=== PATIENT | female | born 1955 | race Caucasian/White ===

== ENCOUNTER 2021-03-11 20:54 | Observation (INO) | payer MEDICAID, OTHER ==
[~2021-03-11] VITALS: Ht 167.7 cm; Wt 78.9 kg
[2021-03-11] MEDS ORDERED: LACTATED RINGERS 1,000 ML IV SCH (21:15)
[2021-03-11 21:29] LABS: BASOPHILS % (AUTO) 1 % (0-10); EOSINOPHILS % (AUTO) 3 % (0-10); HEMATOCRIT 40 % (35-52); HEMOGLOBIN 12.8 G/DL (11.5-16.0); LYMPHOCYTES % (AUTO) 42 % (12-44); MEAN CORPUSCULAR HEMOGLOBIN 27 PG (25-34); MEAN CORPUSCULAR HGB CONC 32 G/DL (32-36); MEAN CORPUSCULAR VOLUME 87 FL (80-99); MEAN PLATELET VOLUME 9.5 FL (7.4-10.4); MONOCYTES % (AUTO) 7 % (0-12); NEUTROPHILS % (AUTO) 46 % (42-75); PLATELET COUNT 266 10^3/uL (130-400); WHITE BLOOD COUNT 8.3 10^3/uL (4.3-11.0)
[2021-03-11 21:30] LABS: BASOPHILS # (AUTO) 0.1 10^3/uL (0.0-0.1); EOSINOPHILS # (AUTO) 0.2 10^3/uL (0.0-0.3); LYMPHOCYTES # (AUTO) 3.5 X 10^3 (1.0-4.0); MONOCYTES # (AUTO) 0.6 X 10^3 (0.0-1.0); NEUTROPHILS # (AUTO) 3.8 X 10^3 (1.8-7.8)
--- NOTE | 2021-03-11 21:34 | Diagnostic Imaging Report ---
Clinical indication: Patient found unresponsive and brought in by EMS. Exam: Axial CT scan of the brain without IV contrast with coronal and sagittal reformatted images. Auto Exposure Controls were utilized during the CT exam to meet ALARA standards for radiation dose reduction. Comparison: None. Findings: There is no evidence of acute cerebral infarct, intracranial hemorrhage, or gross mass effect. The brain parenchymal volume appears appropriate for patient's age. Mild chronic small vessel ischemic disease changes are seen. There is normal haile-white matter distinction. There is no significant midline shift or herniation. There is no evidence of hydrocephalus. The basal cisterns are unremarkable. The skull, extracranial soft tissue and orbits are unremarkable. There is a small mucus retention cyst in the left maxillary sinus. There is minimal mucosal thickening in the sphenoid sinus. Temporal bones show no significant abnormality. Impression: There is mild paranasal sinus disease. Otherwise, unremarkable CT scan of the brain for age. Results of this report were discussed with Dr. Kenyon Solares via the telephone on 03/11/2021 at 2129 hours. Dictated by: Dictated on workstation # [id number]
[2021-03-11] MEDS ORDERED: PANT40TA52 PO (21:48)
[2021-03-11] MEDS ORDERED: TRAZ-227 PO ×2 (21:48)
[2021-03-11] MEDS ORDERED: QUET100T33 PO (21:48)
[2021-03-11] MEDS ORDERED: METO-333 PO ×2 (21:48)
[2021-03-11] MEDS ORDERED: SERT-414 PO ×2 (21:48)
[2021-03-11] MEDS ORDERED: [UNRECOGNIZED DRUG - CODE] PO (21:48)
[2021-03-11] MEDS ORDERED: OXYB10TA29 PO (21:48)
--- NOTE | 2021-03-11 21:48 | Diagnostic Imaging Report ---
Clinical indications: Patient brought in by EMS for unresponsiveness. Exam: Portable chest x-ray upright view. Comparisons: None. Findings: Lungs/pleura: Lungs are clear. There is no pneumothorax. There is no pleural effusion. Mediastinum: Unremarkable. Pulmonary vasculature: Unremarkable. Heart: Heart size is within normal limits. There are postop change to the chest with sternotomy wires and clips. Bones/extrathoracic soft tissue: There are degenerative spurs involving the thoracic spine. Impression: There is no radiographic evidence of acute cardiopulmonary process. Dictated by: Dictated on workstation # [id number]
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
[2021-03-11 21:52] LABS: BUN/CREATININE RATIO 17; CALCIUM 9.5 MG/DL (8.5-10.1); CARBON DIOXIDE 22 MMOL/L (21-32); CHLORIDE 106 MMOL/L (98-107); CREATININE SERUM 2.75 MG/DL (0.60-1.30); GFR ESTIMATED 17; GLUCOSE 158 MG/DL (70-105); POTASSIUM 3.8 MMOL/L (3.6-5.0); SODIUM 140 MMOL/L (135-145)
[2021-03-11 21:53] LABS: ALANINE AMINOTRANSFERASE 16 U/L (0-55); ALBUMIN 3.2 GM/DL (3.2-4.5); ALKALINE PHOSPHATASE 65 U/L (40-136); BILIRUBIN,TOTAL 0.2 MG/DL (0.1-1.0); LIPASE 55 U/L (8-78); TOTAL PROTEIN 6.4 GM/DL (6.4-8.2)
[2021-03-11 21:57] LABS: INR 0.9 (0.8-1.4); PROTHROMBIN TIME PATIENT 12.7 SEC (12.2-14.7)
--- NOTE | 2021-03-11 22:01 | Diagnostic Imaging Report ---
CLINICAL INDICATIONS: Patient brought in by EMS for being unresponsive. Patient fell a couple days ago. EXAM: Axial CT scan of the cervical spine performed without IV contrast. Sagittal and coronal reformatted images were created. Auto Exposure Controls were utilized during the CT exam to meet ALARA standards for radiation dose reduction. COMPARISON: None. FINDINGS: There is no acute cervical spine fracture. The intervertebral disk heights and vertebral body heights are within normal limits. There is subtle grade 1 anterolisthesis of C4 on C5 which is likely degenerative with no pars defects seen. There are mild hypertrophic spurs involving the cervical spine and facet arthropathy. There is heterogeneous bone noted, unknown if it is related to osteopenia. There is no destructive process seen. Visualized upper lung ernandez are clear. The neck soft tissue structures show no significant abnormality. IMPRESSION: 1: There is no acute cervical spine fracture. 2: There is cervical spine degenerative disease including grade 1 anterolisthesis of C4 on C5. Dictated by: Dictated on workstation # [id number]
[2021-03-11 23:07] LABS: CLARITY,URINE CLOUDY; COLOR,URINE DARK YELLOW; PH,URINE 5.5 (5-9)
[2021-03-11 23:08] LABS: BILIRUBIN,URINE NEGATIVE (NEGATIVE); GLUCOSE, URINE (UA) 1+ (NEGATIVE); KETONES,URINE NEGATIVE (NEGATIVE); LEUKOCYTE ESTERASE ,URINE NEGATIVE (NEGATIVE); NITRITE,URINE NEGATIVE (NEGATIVE); PROTEIN,URINE 2+ (NEGATIVE)
[2021-03-11 23:09] LABS: AMORPHOUS SEDIMENT,UR MOD AMOR URATES /LPF; BACTERIA,URINE NEGATIVE /HPF; HYALINE CASTS, URINE >50 /LPF; SQUAMOUS EPITHELIAL CELL,UR RARE /HPF; WBC,URINE RARE /HPF
[2021-03-11 23:10] LABS: AMPHETAMINE SCREEN, URINE POSITIVE (NEGATIVE); BENZODIAZEPINES SCREEN URINE NEGATIVE (NEGATIVE); COCAINE SCREEN URINE NEGATIVE (NEGATIVE); METHAMPHETAMINE SCREEN URINE S POSITIVE (NEGATIVE)
[2021-03-11 23:11] LABS: BARBITURATE SCREEN URINE NEGATIVE (NEGATIVE); CANNABINOID SCREEN, URINE POSITIVE (NEGATIVE); METHADONE STAT NEGATIVE (NEGATIVE); OPIATE SCREEN URINE NEGATIVE (NEGATIVE); OXYCODONE STAT NEGATIVE (NEGATIVE); PROPOXYPHENE STAT NEGATIVE (NEGATIVE); TRICYCLIC ANTIDEPRESSANTS SCRE NEGATIVE (NEGATIVE)
[2021-03-12 00:23] VITALS: BP 123/60
[2021-03-12] MEDS: LACTATED RINGERS 1,000 ML IV SCH ×2 (00:47→07:43)
[2021-03-12 03:39] VITALS: BP 137/75
[2021-03-12 07:23] VITALS: BP 125/72
[2021-03-12] MEDS ORDERED: MAGN400O7 PO ×2 (09:58)
[2021-03-12] MEDS ORDERED: ASPI-1238 PO ×2 (09:58)
[2021-03-12] MEDS ORDERED: ATOR80TA76 PO ×2 (09:58)
[2021-03-12] MEDS ORDERED: SODI325T PO ×2 (09:58)
[2021-03-12] MEDS ORDERED: LORA10TA7 PO ×2 (09:58)
[2021-03-12] MEDS ORDERED: ACET325T38 PO ×2 (09:58)
[2021-03-12] MEDS ORDERED: CLOP75TA28 PO ×2 (09:58)
[2021-03-12] MEDS ORDERED: METF-399 PO ×2 (09:58)
[2021-03-12] MEDS ORDERED: POLY17PO6 PO ×2 (09:58)
[2021-03-12] MEDS ORDERED: INSU100I14 SQ ×2 (09:58)
[2021-03-12] MEDS ORDERED: LACT1POW8 PO ×2 (09:58)
[2021-03-12] MEDS ORDERED: GABA300C PO ×2 (09:58)
[2021-03-12] MEDS ORDERED: INSU100I10 SQ ×2 (09:58)
[2021-03-12] MEDS ORDERED: OXYB10TA29 PO ×2 (09:58)
[2021-03-12] MEDS ORDERED: CALC-140 PO ×2 (09:58)
[2021-03-12] MEDS ORDERED: QUET100T33 PO ×2 (09:58)
[2021-03-12] MEDS ORDERED: PANT40TA52 PO ×2 (09:58)
[2021-03-12] MEDS ORDERED: RT-ALBUINH IH ×2 (09:58)
[2021-03-12] MEDS ORDERED: LISI2.5T PO ×2 (09:58)
[2021-03-12] MEDS ORDERED: LEVO175T5 PO ×2 (09:58)
[2021-03-12] MEDS ORDERED: SENN-273 PO ×2 (10:09)
[2021-03-12] MEDS ORDERED: SEMA0.25 SQ ×2 (10:09)
[2021-03-12] MEDS ORDERED: NICO-587 TD ×2 (10:09)
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
[2021-03-12 10:30] LABS: HEMATOCRIT 40 % (35-52); HEMOGLOBIN 12.6 g/dL (11.5-16.0); MEAN CORPUSCULAR HEMOGLOBIN 28 pg (25-34); MEAN CORPUSCULAR HGB CONC 31 g/dL (32-36); MEAN CORPUSCULAR VOLUME 88 fL (80-99); MEAN PLATELET VOLUME 9.8 fL (9.0-12.2); PLATELET COUNT 271 10^3/uL (130-400); WHITE BLOOD COUNT 7.4 10^3/uL (4.3-11.0)
--- NOTE | 2021-03-12 10:37 | Discharge Inst-Simple/Standard ---
Discharge Inst-Standard Patient Instructions/Follow Up Plan of Care/Instructions/FU: Please continue to take your medications as written. Please follow up with your primary care doctor to follow up this hospital stay. Activity as Tolerated: Yes Discharge Diet: Low Sodium Diet, ADA Diet Return to The Hospital For: Chest pain, weakness, confusion, fevers, if you feel you are getting worse. HI ROSALES MD Mar 12, 2021 10:37
[2021-03-12 10:46] LABS: CALCIUM 9.1 MG/DL (8.5-10.1); CREATININE SERUM 2.34 MG/DL (0.60-1.30); POTASSIUM 3.7 MMOL/L (3.6-5.0)
[2021-03-12 11:48] VITALS: BP 128/74
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
== END 2021-03-12 12:28 | disposition home or self-care (01) ==
LOC: ER FS 20:56 → 4TH 20:57 → UNDOADMOB 03-12 00:08 → UNDODISOB 03-12 12:25
PROVIDERS: ADMIT Internal Medicine; ATTEND Internal Medicine
DX: G93.40 Encephalopathy, unspecified (principal); R53.1 Weakness; E86.0 Dehydration; I95.9 Hypotension, unspecified; I25.2 Old myocardial infarction; I12.9 Hypertensive chronic kidney disease with stage 1 through stage 4 chronic kidney disease, or unspecified chronic kidney disease; E11.22 Type 2 diabetes mellitus with diabetic chronic kidney disease; N18.9 Chronic kidney disease, unspecified; I25.10 Atherosclerotic heart disease of native coronary artery without angina pectoris; E03.9 Hypothyroidism, unspecified; E78.00 Pure hypercholesterolemia, unspecified; F17.210 Nicotine dependence, cigarettes, uncomplicated; Z79.4 Long term (current) use of insulin; Z79.899 Other long term (current) drug therapy
CPT/HCPCS: 36415; 70450; 71045; 72125; 80048; 80053; 80306; 81000; 83605; 83690; 83880; 84484; 85025; 85027; 85610; 85730; 87040; 93005; 97162; 99285; G0378; G0480; 80320

== ENCOUNTER 2021-03-17 13:21 | Emergency (ER) | payer MEDICAID ==
[~2021-03-17 13:21] MED LIST: ACET325T38 PO; ASPI-1238 PO; ATOR80TA76 PO; CALC-140 PO; CLOP75TA28 PO; GABA300C PO; INSU100I10 SQ; INSU100I14 SQ; LACT1POW8 PO; LEVO175T5 PO; LISI2.5T PO; LORA10TA7 PO; MAGN400O7 PO; METF-399 PO; METO-333 PO; NICO-587 TD; OXYB10TA29 PO; PANT40TA52 PO; POLY17PO6 PO; QUET100T33 PO; RT-ALBUINH IH; SEMA0.25 SQ; SENN-273 PO; SERT-414 PO; SODI325T PO; TRAZ-227 PO; [UNRECOGNIZED DRUG - CODE] PO
[2021-03-17] MEDS ORDERED: NS IV ONE (13:30)
[2021-03-17] MEDS ORDERED: NS IV 1000 ML 1,000 ML IV SCH (13:30)
[2021-03-17] MEDS ORDERED: CEFEPIME INJECTION 1,000 MG in WATER (STERILE) FOR INJECTION 10 ML IV ONE (13:30)
--- NOTE | 2021-03-17 13:56 | Diagnostic Imaging Report ---
INDICATION: Sepsis. COMPARISON: Exam compared to 03/11/2021. FINDINGS: Single frontal radiograph of the chest shows postsurgical changes to the heart, stable. The heart size and configuration are normal. There is no failure, effusion, pneumothorax, or free air beneath the diaphragms. IMPRESSION: Stable chest. Dictated by: Dictated on workstation # [id number]
[2021-03-17] MEDS ORDERED: CEFEPIME 1 GM/10 ML (MAXIPIME) VIAL ONE (13:59)
[2021-03-17 14:33] LABS: HEMATOCRIT 38 % (35-52); HEMOGLOBIN 12.5 G/DL (11.5-16.0); LYMPHOCYTES % (AUTO) 33 % (12-44); MEAN CORPUSCULAR HEMOGLOBIN 27 PG (25-34); MEAN CORPUSCULAR HGB CONC 33 G/DL (32-36); MEAN CORPUSCULAR VOLUME 84 FL (80-99); MEAN PLATELET VOLUME 10.1 FL (7.4-10.4); MONOCYTES % (AUTO) 7 % (0-12); NEUTROPHILS % (AUTO) 57 % (42-75); PLATELET COUNT 249 10^3/uL (130-400); WHITE BLOOD COUNT 8.4 10^3/uL (4.3-11.0)
[2021-03-17 14:34] LABS: BASOPHILS # (AUTO) 0.1 10^3/uL (0.0-0.1); BASOPHILS % (AUTO) 1 % (0-10); EOSINOPHILS # (AUTO) 0.1 10^3/uL (0.0-0.3); EOSINOPHILS % (AUTO) 2 % (0-10); LYMPHOCYTES # (AUTO) 2.7 X 10^3 (1.0-4.0); MONOCYTES # (AUTO) 0.6 X 10^3 (0.0-1.0); NEUTROPHILS # (AUTO) 4.8 X 10^3 (1.8-7.8)
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
[2021-03-17 14:52] LABS: POTASSIUM 4.1 MMOL/L (3.6-5.0)
[2021-03-17 14:53] LABS: BILIRUBIN,TOTAL 0.3 MG/DL (0.1-1.0); CALCIUM 9.5 MG/DL (8.5-10.1); CREATININE SERUM 1.18 MG/DL (0.60-1.30)
[2021-03-17 14:54] LABS: ALBUMIN 3.4 GM/DL (3.2-4.5); TOTAL PROTEIN 7.2 GM/DL (6.4-8.2)
--- NOTE | 2021-03-17 15:11 | ED Cardiac General ---
History of Present Illness General Chief Complaint: Cardiac/General Problems Stated Complaint: LOW BP Nursing Triage Note: Patient's daughter reports patient was just discharged from [facility] on . States patient was doing well until she checked in to her follow up appointment at [facility], then patient became dizzy/unresponsive. Patient arrived to ED lethargig and hypotensive. Source: patient, family Exam Limitations: no limitations History of Present Illness Date Seen by Provider: Mar 17, 2021 Time Seen by Provider: 13:00 Initial Comments Patient is a 65-year-old female with history of hypertension, dyslipidemia and diabetes who presents with slurred speech, confusion and hypotension and witnessed syncopal episode by PCP's office located across from the ER. No injury reported.. Symptoms began after lunch. Patient does not check her blood sugar routinely. She has recently been admitted to [facility] last week for urinary tract infection/sepsis. She is not currently on antibiotics. She denies fever, chills, sweats, nausea or vomiting. No abdominal pain, urinary frequency urgency and burning. Denies headache. Does report some dizziness. History of IV drug use. Patient recently relocated from out of [facility] 8 days ago and prior to admission to outlying facility. Timing/Duration: 1/2 hour Severity: moderate Location: other Activities at Onset: none Prior CP/Workup: other Modifying Factors: improves with other Associated Systoms: Shortness of Air Allergies and Home Medications Allergies Coded Allergies: No Known Drug Allergies (Unverified , 03/11/21) Home Medications Acetaminophen 325 Mg Tablet, 325-650 MG PO Q4- 6H PRN for PAIN-MILD (1-4), (Rep orted) Albuterol Sulfate 1 Puff Puff, 1-2 PUFF IH Q4- 6H PRN for SHORTNESS OF BREATH, (Reported) Aspirin 81 Mg Tablet.dr, 81 MG PO DAILY, (Reported) Atorvastatin Calcium 80 Mg Tablet, 80 MG PO HS, (Reported) Calcium Carbonate/Vitamin D3 1 Each Tablet, 1 EACH PO BID, (Reported) Clopidogrel Bisulfate 75 Mg Tablet, 75 MG PO DAILY, (Reported) Gabapentin 300 Mg Capsule, 300 MG PO TID, (Reported) Insulin Aspart 300 Units/3 Ml Solution, 5 UNITS SQ AC, (Reported) Insulin Glargine,Hum.rec.anlog 100 Unit/1 Ml Insuln.pen, 10 UNIT SQ BID, (Reported) Lactobacillus Acidophilus 1 Gm Powder, 1 PACKET PO TID, (Reported) Levothyroxine Sodium 175 Mcg Tablet, 175 MCG PO DAILY, (Reported) Lisinopril 2.5 Mg Tablet, 2.5 MG PO HS, (Reported) Loratadine 10 Mg Tablet, 10 MG PO DAILY, (Reported) Magnesium Hydroxide 400 Mg/5 Ml Oral.susp, 5-15 ML PO QID PRN for CONSTIPATION- 7TH LINE, (Reported) Metformin HCl 1,000 Mg Tablet, 1,000 MG PO 0800,1700, (Reported) Metoprolol Tartrate 25 Mg Tablet, 25 MG PO BID, (Reported) Nicotine 1 Each Patch.td24, 14 MG TD DAILY, (Reported) Oxybutynin Chloride 10 Mg Tab.er.24, 10 MG PO DAILY, (Reported) Pantoprazole Sodium 40 Mg Tablet.dr, 40 MG PO DAILY, (Reported) Polyethylene Glycol 3350 17 Gm Powd.pack, 17 GM PO DAILY, (Reported) Quetiapine Fumarate 100 Mg Tablet, 100 MG PO HS, (Reported) Semaglutide 0.25 Mg/0.2 Ml Pen.injctr, 0.5 MG SQ TUESDAY, (Reported) Sennosides/Docusate Sodium 1 Each Tablet, 2 EACH PO HS, (Reported) TAKES 2 TABLETS Sertraline HCl 100 Mg Tablet, 100 MG PO DAILY, (Reported) Sodium Bicarbonate 325 Mg Tablet, 325 MG PO BID, (Reported) Trazodone HCl 100 Mg Tablet, 200 MG PO HS, (Reported) TAKES 2 (100MG) TABLETS Patient Home Medication List Home Medication List Reviewed: Yes Review of Systems Review of Systems Constitutional: see HPI EENTM: See HPI Respiratory: See HPI Cardiovascular: See HPI Genitourinary: See HPI Musculoskeletal: see HPI Skin: see HPI Psychiatric/Neurological: See HPI Endocrine: See HPI Hematologic/Lymphatic: See HPI All Other Systems Reviewed Negative Unless Noted: Yes Past Ttymcny-Myltrc-Suuzbc Hx Patient Social History Tobacco Use?: Yes Use of E-Cig and/or Vaping dev: Yes Use of E-Cig and/or Vaping Fish: Current Everyday User Seasonal Allergies Seasonal Allergies: Yes Past Medical History CABG, Open Heart Surgery, Orthopedic Coronary Artery Disease, High Cholesterol, Hypertension Renal Failure Diabetes, Insulin dep, Hypothyroidsim Family Medical History No Pertinent Family Hx Physical Exam Vital Signs Vital Signs - First Documented 03/17/21 13:30 Temp 36.4 Pulse 74 Resp 18 B/P (MAP) 69/45 (53) Pulse Ox 93 O2 Delivery Room Air Capillary Refill : Less Than 3 Seconds Height, Weight, BMI Height: '" Weight: lbs. oz. kg; 27.94 BMI Method: General Appearance: Other (Obtunded with mild respiratory depression) HEENT: PERRL/EOMI (Sluggishly reactive), Pharynx Normal, Other (Edentulous) Neck: Normal Inspection, Non Tender, Supple Respiratory: Chest Non Tender, Lungs Clear, No Respiratory Distress; No Respiratory Distress; Other (Diminished breath sounds bilaterally) Cardiovascular: Regular Rate, Rhythm, Other (Trace peripheral edema) Gastrointestinal: No Organomegaly, Non Tender, Soft Extremity: Normal Capillary Refill, Normal Inspection, Normal Range of Motion, Non Tender Neurologic/Psychiatric: Oriented x3, No Motor/Sensory Deficits, Normal Mood/Affect, Other (Obtunded) Skin: Normal Color Focused Exam Sepsis Stage: Ruled Out Lactate Level 03/17/21 13:35: Lactic Acid Level 2.28*H 03/17/21 16:00: Lactic Acid Level 1.86 Lactic Acid Level Laboratory Tests Test 03/17/21 13:35 03/17/21 16:00 Lactic Acid Level 2.28 MMOL/L (0.50-2.00) *H 1.86 MMOL/L (0.50-2.00) Progress/Results/Core Measures Results/Orders Lab Results Laboratory Tests Test 03/17/21 13:28 03/17/21 13:35 03/17/21 13:47 03/17/21 14:30 Range/Units Glucometer 203 H 70-110 MG/DL White Blood Count 8.4 4.3-11.0 10^3/uL Red Blood Count 4.57 4.35-5.85 10^6/uL Hemoglobin 12.5 11.5-16.0 G/DL Hematocrit 38 35-52 % Mean Corpuscular Volume 84 80-99 FL Mean Corpuscular Hemoglobin 27 25-34 PG Mean Corpuscular Hemoglobin Concent 33 32-36 G/DL Red Cell Distribution Width 14.6 H 10.0-14.5 % Platelet Count 249 130-400 10^3/uL Mean Platelet Volume 10.1 7.4-10.4 FL Immature Granulocyte % (Auto) 1 % Neutrophils (%) (Auto) 57 42-75 % Lymphocytes (%) (Auto) 33 12-44 % Monocytes (%) (Auto) 7 0-12 % Eosinophils (%) (Auto) 2 0-10 % Basophils (%) (Auto) 1 0-10 % Neutrophils # (Auto) 4.8 1.8-7.8 X 10^3 Lymphocytes # (Auto) 2.7 1.0-4.0 X 10^3 Monocytes # (Auto) 0.6 0.0-1.0 X 10^3 Eosinophils # (Auto) 0.1 0.0-0.3 10^3/uL Basophils # (Auto) 0.1 0.0-0.1 10^3/uL Immature Granulocyte # (Auto) 0.0 0.0-0.1 10^3/uL Sodium Level 140 135-145 MMOL/L Potassium Level 4.1 3.6-5.0 MMOL/L Chloride Level 105 98-107 MMOL/L Carbon Dioxide Level 24 21-32 MMOL/L Anion Gap 11 5-14 MMOL/L Blood Urea Nitrogen 17 7-18 MG/DL Creatinine 1.18 0.60-1.30 MG/DL Estimat Glomerular Filtration Rate 46 BUN/Creatinine Ratio 14 Glucose Level 229 H 70-105 MG/DL Lactic Acid Level 2.28 *H 0.50-2.00 MMOL/L Calcium Level 9.5 8.5-10.1 MG/DL Corrected Calcium 10.0 8.5-10.1 MG/DL Total Bilirubin 0.3 0.1-1.0 MG/DL Aspartate Amino Transf (AST/SGOT) 25 5-34 U/L Alanine Aminotransferase (ALT/SGPT) 20 0-55 U/L Alkaline Phosphatase 75 40-136 U/L Pro-B-Type Natriuretic Peptide 5344.0 H <75.0 PG/ML Total Protein 7.2 6.4-8.2 GM/DL Albumin 3.4 3.2-4.5 GM/DL Prothrombin Time 12.4 12.2-14.7 SEC INR Comment 0.9 0.8-1.4 Activated Partial Thromboplast Time 24 24-35 SEC Urine Color YELLOW Urine Clarity CLEAR Urine pH 6.0 5-9 Urine Specific [place] 1.010 L 1.016-1.022 Urine Protein 1+ H NEGATIVE Urine Glucose (UA) 1+ H NEGATIVE Urine Ketones NEGATIVE NEGATIVE Urine Nitrite NEGATIVE NEGATIVE Urine Bilirubin NEGATIVE NEGATIVE Urine Urobilinogen 0.2 < = 1.0 MG/DL Urine Leukocyte Esterase TRACE H NEGATIVE Urine RBC (Auto) TRACE H NEGATIVE Urine RBC 2-5 H /HPF Urine WBC 25-50 H /HPF Urine Squamous Epithelial Cells 2-5 /HPF Urine Crystals NONE /LPF Urine Bacteria NEGATIVE /HPF Urine Casts PRESENT /LPF Urine Hyaline Casts 2-5 H /LPF Urine Mucus NEGATIVE /LPF Urine Culture Indicated CULTURE PENDING Urine Opiates Screen NEGATIVE NEGATIVE Urine Oxycodone Screen NEGATIVE NEGATIVE Urine Methadone Screen NEGATIVE NEGATIVE Urine Propoxyphene Screen NEGATIVE NEGATIVE Urine Barbiturates Screen NEGATIVE NEGATIVE Ur Tricyclic Antidepressants Screen POSITIVE H NEGATIVE Urine Phencyclidine Screen NEGATIVE NEGATIVE Urine Amphetamines Screen NEGATIVE NEGATIVE Urine Methamphetamines Screen NEGATIVE NEGATIVE Urine Benzodiazepines Screen NEGATIVE NEGATIVE Urine Cocaine Screen NEGATIVE NEGATIVE Urine Cannabinoids Screen NEGATIVE NEGATIVE Test 03/17/21 16:00 Range/Units Lactic Acid Level 1.86 0.50-2.00 MMOL/L Micro Results Microbiology 03/17/21 Influenza Types A,B Antigen (KIM) - Final, Complete My Orders Orders - ANALI ROCHA DO Cbc With Automated Diff (03/17/21 13:27) Comprehensive Metabolic Panel (03/17/21 13:27) Blood Culture (03/17/21 13:27) Urinalysis (03/17/21 13:27) Urine Culture (03/17/21 13:27) Protime With Inr (03/17/21 13:27) Partial Thromboplastin Time (03/17/21 13:27) Chest 1 View Ap/Pa Only (03/17/21 13:27) Ed Iv/Invasive Line Start (03/17/21 13:27) Ed Iv/Invasive Line Start (03/17/21 13:27) Vital Signs Adult Sepsis Patie Q15M (03/17/21 13:27) O2 (03/17/21 13:27) Remove Rings In Anticipation O (03/17/21 13:27) Lactic Acid Analyzer (03/17/21 13:27) Influenza A And B Antigens (03/17/21 13:27) Ns Iv 1000 Ml (Sodium Chloride 0.9%) (03/17/21 13:30) Cefepime Injection (Maxipime Injection) (03/17/21 13:30) Ns Iv 1000 Ml (Sodium Chloride 0.9%) (03/17/21 13:30) Ekg-Prn For Chest Pain Or Rhyt (03/17/21 13:27) Probnp Fs (03/17/21 13:27) Hand 2 View Left (03/17/21 13:59) Forearm 2 View Left (03/17/21 13:59) Drug Screen Stat (Urine) (03/17/21 14:22) Ceftriaxone (Rocephin) (03/17/21 16:30) Furosemide Injection (Lasix Injection) (03/17/21 17:00) Medications Given in ED Current Medications Medications Dose Ordered Sig/Emerita Route Start Time Stop Time Status Last Admin Dose Admin Cefepime HCl 1000 mg/Sterile Water 10 ml @ 200 mls/hr ONCE ONCE IV 03/17/21 13:30 03/17/21 13:32 DC 03/17/21 14:20 200 MLS/HR Sodium Chloride 2,367 ml @ 2,367 mls/hr ONCE ONCE IV 03/17/21 13:30 03/17/21 14:29 DC 03/17/21 13:40 2,367 MLS/HR Vital Signs/I&O 03/17/21 13:30 Temp 36.4 Pulse 74 Resp 18 B/P (MAP) 69/45 (53) Pulse Ox 93 O2 Delivery Room Air Blood Pressure Mean: 53 Departure Communication (Admissions) EKG: Sinus rhythm, rate 72, no acute ST-T wave changes, normal QTC, QRS, QTc interval. Chest x-ray: No acute cardiopulmonary disease. Left hand: Remnant radiopaque object present consistent with IV retained needle. No overlying soft Patient with hypotension improved with IV fluids in the emergency department. Patient blood pressure stable she is more alert. Clinically she appears volume depleted. IV antibiotics given for possible urinary tract infection. Elevated BNP of uncertain clinical importance. Single dose of Lasix given. Patient with retained foreign body into right hand without evidence of overlying soft tissue infection. Will defer further intervention to PCP for surgical referral. Patient instructed to continue antibiotics and follow-up with PCP for review of the ED labs, imaging studies and medication management. Return precautions reviewed. Patient verbalizes understanding agreement discharge instructions prior to departure Impression Primary Impression: Hypotension Additional Impressions: Urinary tract infection Elevated brain natriuretic peptide (BNP) level Disposition: 01 HOME, SELF-CARE Condition: Stable Departure-Patient Inst. Decision time for Depature: 17:04 Referrals: NICK ROTH APRN (PCP) Primary Care Physician [facility] (Family) Primary Care Physician Patient Instructions: CHF, Urinary Tract Infection, Adult ED, Low Blood Pressur e (DC) Add. Discharge Instructions: Please follow-up with your PCP for reevaluation of the ED labs and imaging studies and further medication management. Continue all home medication and take as directed. Return to the ED if new or worsening symptoms All discharge instructions reviewed with patient and/or family. Voiced understanding. Scripts Cephalexin (Cephalexin) 500 Mg Tablet 500 MG PO TID, #21 TAB Prov: ANALI ROCHA DO 03/17/21 ANALI ROCHA DO Mar 17, 2021 15:11
[2021-03-17 15:37] LABS: INR 0.9 (0.8-1.4); PROTHROMBIN TIME PATIENT 12.4 SEC (12.2-14.7)
[2021-03-17 16:19] LABS: CLARITY,URINE CLEAR; COLOR,URINE YELLOW; GLUCOSE, URINE (UA) 1+ (NEGATIVE); PROTEIN,URINE 1+ (NEGATIVE)
[2021-03-17 16:20] LABS: BACTERIA,URINE NEGATIVE /HPF; BILIRUBIN,URINE NEGATIVE (NEGATIVE); KETONES,URINE NEGATIVE (NEGATIVE); LEUKOCYTE ESTERASE ,URINE TRACE (NEGATIVE); NITRITE,URINE NEGATIVE (NEGATIVE); WBC,URINE 25-50 /HPF
[2021-03-17 16:21] LABS: AMPHETAMINE SCREEN, URINE NEGATIVE (NEGATIVE); BARBITURATE SCREEN URINE NEGATIVE (NEGATIVE); BENZODIAZEPINES SCREEN URINE NEGATIVE (NEGATIVE); CANNABINOID SCREEN, URINE NEGATIVE (NEGATIVE); COCAINE SCREEN URINE NEGATIVE (NEGATIVE); METHADONE STAT NEGATIVE (NEGATIVE); METHAMPHETAMINE SCREEN URINE S NEGATIVE (NEGATIVE); OPIATE SCREEN URINE NEGATIVE (NEGATIVE); OXYCODONE STAT NEGATIVE (NEGATIVE); PROPOXYPHENE STAT NEGATIVE (NEGATIVE); TRICYCLIC ANTIDEPRESSANTS SCRE POSITIVE (NEGATIVE)
[2021-03-17] MEDS ORDERED: cefTRIAXone 1,000 MG in WATER (STERILE) FOR INJECTION 10 ML IV ONE (16:30)
[2021-03-17] MEDS ORDERED: FUROSEMIDE 40 MG/4 ML INJ (LASIX) IVP ONE (17:00)
[2021-03-17] MEDS ORDERED: CEPH500T PO (17:05)
[2021-03-17 17:40] VITALS: BP 108/46
== END 2021-03-17 17:40 | disposition home or self-care (01) ==
LOC: EDUNIT# 13:21 → ER FS 13:23
DX: I95.9 Hypotension, unspecified (principal); N39.0 Urinary tract infection, site not specified; R79.89 Other specified abnormal findings of blood chemistry; I10 Essential (primary) hypertension; E78.00 Pure hypercholesterolemia, unspecified; I25.10 Atherosclerotic heart disease of native coronary artery without angina pectoris; E11.9 Type 2 diabetes mellitus without complications; E03.9 Hypothyroidism, unspecified; F17.200 Nicotine dependence, unspecified, uncomplicated; Z79.82 Long term (current) use of aspirin; Z79.899 Other long term (current) drug therapy; Z79.890 Hormone replacement therapy; Z79.4 Long term (current) use of insulin
CPT/HCPCS: 36415; 71045; 73120; 80053; 80306; 81000; 82947; 83605; 83880; 85025; 85610; 85730; 87040; 87088; 87804; 93005

== ENCOUNTER 2021-04-15 05:42 | Outpatient (CLI) | payer MEDICAID ==
[~2021-04-15] VITALS: Ht 167 cm; Wt 81.6 kg
[~2021-04-15 05:42] MED LIST changes: +CEPH500T PO
== END 2021-04-15 14:08 | disposition home or self-care (01) ==
LOC: PREOP 05:42
PROVIDERS: ATTEND Surgery
DX: Z01.818 Encounter for other preprocedural examination (principal)

== ENCOUNTER 2021-05-25 23:09 | Observation (INO) | payer MEDICAID ==
[~2021-05-25] VITALS: Ht 168 cm; Wt 79.0 kg
[~2021-05-25 23:09] MED LIST changes: -LISI2.5T PO; +LISI2.5T13 PO
--- NOTE | 2021-05-25 23:21 | ED Neurological Problem ---
General Stated Complaint: STROKE SYMPTOMS Source: patient, EMS Exam Limitations: clinical condition History of Present Illness Date Seen by Provider: May 25, 2021 Time Seen by Provider: 23:15 Initial Comments 65-year-old female presents via EMS after a fall at home and decreased responsiveness with left-sided weakness onset just prior to arrival. Discussed w patients daughter whom she lives with. She was fine at dinner and afterwards she took her PM meds. She was using her walker and fell in the restroom and was too weak to get up to use the toilet. She vomited and then had a change of Mental Status and difficulty speaking. Daughter states she moved from [place] to live with them a few months ago. She has been having frequent headaches. NO Hx of CVA, but was seen in this ER for sudden decreased MS change recently and admitted overnight w complete recovery and no abnormal findings. PMHx signif for CAD / NV. Takes Plavix and ASA. Last known well, 10:15pm tonight Allergies and Home Medications Allergies Coded Allergies: Sulfa (Sulfonamide Antibiotics) (Verified Allergy, Severe, hives, 04/15/21) Patient Home Medication List Home Medication List Reviewed: Yes Acetaminophen (Tylenol) 325 Mg Tablet, 325-650 MG PO Q4- 6H PRN for PAIN-MILD (1-4), (Reported) Entered as Reported by: CARMELITA GOODRICH on 03/12/21 09 Albuterol Sulfate (Proair Hfa) 1 Puff Puff, 1-2 PUFF IH Q4- 6H PRN for SHORTNESS OF BREATH, (Reported) Entered as Reported by: CARMELITA GOODRICH on 03/12/21 09 Aspirin (Aspirin EC) 81 Mg Tablet.dr, 81 MG PO DAILY, (Reported) Entered as Reported by: CARMELITA GOODRICH on 03/12/21 09 Atorvastatin Calcium (Atorvastatin Calcium) 80 Mg Tablet, 80 MG PO HS, (Reported) Entered as Reported by: CARMELITA GOODRICH on 03/12/21 09 Calcium Carbonate/Vitamin D3 (Calcium + Vitamin D Tablet) 1 Each Tablet, 1 EACH PO BID, (Reported) Entered as Reported by: CARMELITA GOODRICH on 03/12/21 09 Cephalexin (Cephalexin) 500 Mg Tablet, 500 MG PO TID Prescribed by: ANALI ROCHA on 03/17/21 1705 Clopidogrel Bisulfate (Clopidogrel) 75 Mg Tablet, 75 MG PO DAILY, (Reported) Entered as Reported by: CARMELITA GOODRICH on 03/12/21957 Gabapentin (Neurontin) 300 Mg Capsule, 300 MG PO TID, (Reported) Entered as Reported by: CARMELITA GOODRICH on 03/12/21957 Insulin Aspart (Novolog Flexpen) 300 Units/3 Ml Solution, 5 UNITS SQ AC, (Reported) Entered as Reported by: CARMELITA GOODRICH on 03/12/21957 Insulin Glargine,Hum.rec.anlog (Lantus Solostar) 100 Unit/1 Ml Insuln.pen, 10 UNIT SQ BID, (Reported) Entered as Reported by: CARMELITA GOODRICH on 03/12/21957 Lactobacillus Acidophilus (Acidophilus Lactobacillus) 1 Gm Powder, 1 PACKET PO TID, (Reported) Entered as Reported by: CARMELITA GOODRICH on 03/12/21957 Levothyroxine Sodium (Levothyroxine Sodium) 175 Mcg Tablet, 175 MCG PO DAILY, (Reported) Entered as Reported by: CARMELITA GOODRICH on 03/12/21957 Lisinopril (Lisinopril) 2.5 Mg Tablet, 2.5 MG PO HS, (Reported) Entered as Reported by: CARMELITA GOODRICH on 03/12/21957 Loratadine (Loratadine) 10 Mg Tablet, 10 MG PO DAILY, (Reported) Entered as Reported by: CARMELITA GOODRICH on 03/12/21957 Magnesium Hydroxide (Milk of Magnesia) 400 Mg/5 Ml Oral.susp, 5-15 ML PO QID PRN for CONSTIPATION-7TH LINE, (Reported) Entered as Reported by: CARMELITA GOODRICH on 03/12/21957 Metformin HCl (Metformin HCl) 1,000 Mg Tablet, 1,000 MG PO 0800,1700, (Reported) Entered as Reported by: CARMELITA GOODRICH on 03/12/21957 Metoprolol Tartrate (Metoprolol Tartrate) 25 Mg Tablet, 25 MG PO BID, (Reported) Entered as Reported by: OCTAVIO ARENAS on 03/11/212147 Nicotine (Nicotine Patch) 1 Each Patch.td24, 14 MG TD DAILY, (Reported) Entered as Reported by: CARMELITA GOODRICH on 03/12/211008 Oxybutynin Chloride (Oxybutynin Chloride ER) 10 Mg Tab.er.24, 10 MG PO DAILY, (Reported) Entered as Reported by: CARMELITA GOODRICH on 03/12/21957 Pantoprazole Sodium (Pantoprazole Sodium) 40 Mg Tablet.dr, 40 MG PO DAILY, (Reported) Entered as Reported by: CARMELITA GOODRICH on 03/12/21957 Polyethylene Glycol 3350 (Miralax) 17 Gm Powd.pack, 17 GM PO DAILY, (Reported) Entered as Reported by: CARMELITA GOODRICH on 03/12/21957 Quetiapine Fumarate (Quetiapine Fumarate) 100 Mg Tablet, 100 MG PO HS, (Reported) Entered as Reported by: CARMELITA GOODRICH on 03/12/21957 Semaglutide (Ozempic) 0.25 Mg/0.2 Ml Pen.injctr, 0.5 MG SQ TUESDAY, (Reported) Entered as Reported by: CARMELITA GOODRICH on 03/12/211008 Sennosides/Docusate Sodium (Senna-S 8.6-50 mg Tablet) 1 Each Tablet, 2 EACH PO HS, (Reported) Entered as Reported by: CARMELITA GOODRICH on 03/12/211008 Sertraline HCl (Sertraline HCl) 100 Mg Tablet, 100 MG PO DAILY, (Reported) Entered as Reported by: OCTAVIO ARENAS on 03/11/212147 Sodium Bicarbonate (Sodium Bicarbonate) 325 Mg Tablet, 325 MG PO BID, (Reported) Entered as Reported by: CARMELITA GOODRICH on 03/12/21957 Trazodone HCl (Trazodone HCl) 100 Mg Tablet, 200 MG PO HS, (Reported) Entered as Reported by: OCTAVIO ARENAS on 03/11/212147 Review of Systems Review of Systems Constitutional: No chills, No fever; weakness Eyes: No Symptoms Reported Ears, Nose, Mouth, Throat: no symptoms reported Respiratory: no symptoms reported; No cough, No short of breath Cardiovascular: No chest pain, No edema, No palpitations Gastrointestinal: No abdominal pain, No vomiting Musculoskeletal: No back pain, No joint pain Skin: No change in color, No lesions Psychiatric/Neurological: Denies Headache; Unable to Move Lower Ext, Unable to Move Upper Ext, Weakness Past Vyhsxoh-Jegpjv-Twtfee Hx Patient Social History Tobacco Use?: No Immunizations Up To Date Tetanus Booster (TDap): Unknown Seasonal Allergies Seasonal Allergies: Yes Past Medical History Surgeries: Yes (right elbow, left ankle, right rotator cuff, right hip, ear tubes) CABG, Open Heart Surgery, Orthopedic Respiratory: Yes Sleep Apnea Currently Using CPAP: No Cardiac: Yes Coronary Artery Disease, High Cholesterol, Hypertension, Hypotension Neurological: Yes Headaches /Migraines, Neuropathy Genitourinary: Yes Renal Failure Gastrointestinal: No Hepatitis Musculoskeletal: Yes Arthritis, Chronic Back Pain Endocrine: Yes Diabetes, Insulin dep, Hypothyroidsim HEENT: Yes (decreased vision due to DM) Loss of Vision: Bilateral Hearing Impairment: Denies Cancer: Yes Skin Did You Recieve Any Treatments: Yes What Type of Treatment Did You: Surgical Intervention Anxiety, Bipolar, Depression Integumentary: Yes Eczema Blood Disorders: Yes (Hep C) Family Medical History No Pertinent Family Hx Physical Exam Vital Signs Vital Signs - First Documented 05/25/21 23:10 Temp 36.0 Pulse 57 Resp 18 B/P (MAP) 72/51 (58) Pulse Ox 95 O2 Delivery Room Air Capillary Refill : Height, Weight, BMI Height: '" Weight: lbs. oz. kg; 29.25 BMI Method: General Appearance: WD/WN, no apparent distress HEENT: PERRL/EOMI, normal ENT inspection Neck: non-tender, supple Respiratory: chest non-tender, lungs clear, normal breath sounds Cardiovascular: regular rate, rhythm, no edema, no JVD Gastrointestinal: normal bowel sounds, non tender, soft, no organomegaly, no pulsatile mass Back: normal inspection, no CVA tenderness Extremities: no pedal edema, normal capillary refill, pelvis stable Neurologic/Psychiatric: alert, oriented x 3, abnormal cerebellar tests, facial droop, motor weakness Crainal Nerves: normal hearing, abnormal speech, facial asymmetry, facial droop Coordination/Gait: ABN nose to finger (L) Motor/Sensory: pronator drift (L), weak motor strength LUE, weak motor strength LLE Skin: normal color, warm/dry Stroke Onset of Symptoms Date of Onset of Symptoms: May 25, 2021 Time of Symptom Onset: 10:45 Onset of Symptoms: Yes NIH Stroke Scale Assessment Select: Post CT 0 Level of Consciousness: 0=Alert (0), Level of Consciousness-Questions: 0=Answers both month/age (0), LOC Commands: 0=Performs both tasks (0), Gaze: Normal (0), Visual [place]: 0=No visual loss (0), Facial Movement (Facial Paresis): 2=Partial paralysis (2), Motor Function-Arms Right: 0=No drift (0), Motor Function-Arms Left: 1=Drift (1), Motor Function-Legs Right: 0=No drift (0), Motor Function-Legs Left: 1=Drift (1), Limb Ataxia: 2=Present in two limbs (2), Sensory: 0=Normal:no loss (0), Best Language: 0=No aphasia (0), Dysarthria: 1=Mild to moderate loss (1), Extinction & Inattention: 0=No abnormality (0), Total: 7 Stroke Thrombolytic Exclusion Age 18 or Over: Yes Acute intenal hemorrhage: No History of CVA: No Intracranial Hemorrhage: No Severe Hypertension: No GI or Bleed: No Subarachnoid Hemorrhage: No Intracranial Neoplasm/Aneurysm: No Oral Anticoagulants: Yes Surgery or Trauma: No Puncture of Non-Compressible V: No Recent CPR: No Diabetic Hemorrhagic Retinopat: No Organ Biopsy: No Recent Obstetric Delivery: No Glucose: No Significant Hepatic Dysfunctio: No NIH Stoke Scale >22: No Bacterial Endocarditis: No Pericarditis: No Improving Symptoms: No Platelets: No TPA Contraindication: No Progress/Results/Core Measures Results/Orders Lab Results Laboratory Tests Test 05/25/21 23:13 05/25/21 23:15 05/25/21 23:43 Range/Units Glucometer 211 H 70-110 MG/DL White Blood Count 8.4 4.3-11.0 10^3/uL Red Blood Count 4.68 3.80-5.11 10^6/uL Hemoglobin 12.8 11.5-16.0 g/dL Hematocrit 39 35-52 % Mean Corpuscular Volume 83 80-99 fL Mean Corpuscular Hemoglobin 27 25-34 pg Mean Corpuscular Hemoglobin Concent 33 32-36 g/dL Red Cell Distribution Width 15.6 H 10.0-14.5 % Platelet Count 237 130-400 10^3/uL Mean Platelet Volume 9.4 9.0-12.2 fL Immature Granulocyte % (Auto) 1 % Neutrophils (%) (Auto) 47 42-75 % Lymphocytes (%) (Auto) 44 12-44 % Monocytes (%) (Auto) 6 0-12 % Eosinophils (%) (Auto) 2 0-10 % Basophils (%) (Auto) 1 0-10 % Neutrophils # (Auto) 3.9 1.8-7.8 X 10^3 Lymphocytes # (Auto) 3.7 1.0-4.0 X 10^3 Monocytes # (Auto) 0.5 0.0-1.0 X 10^3 Eosinophils # (Auto) 0.2 0.0-0.3 10^3/uL Basophils # (Auto) 0.1 0.0-0.1 10^3/uL Immature Granulocyte # (Auto) 0.1 0.0-0.1 10^3/uL Prothrombin Time 12.0 L 12.2-14.7 SEC INR Comment 0.9 0.8-1.4 Activated Partial Thromboplast Time 21 L 24-35 SEC Sodium Level 136 135-145 MMOL/L Potassium Level 4.0 3.6-5.0 MMOL/L Chloride Level 103 98-107 MMOL/L Carbon Dioxide Level 22 21-32 MMOL/L Anion Gap 11 5-14 MMOL/L Blood Urea Nitrogen 28 H 7-18 MG/DL Creatinine 1.24 0.60-1.30 MG/DL Estimat Glomerular Filtration Rate 44 BUN/Creatinine Ratio 23 Glucose Level 230 H 70-105 MG/DL Calcium Level 9.4 8.5-10.1 MG/DL Corrected Calcium 10.1 8.5-10.1 MG/DL Total Bilirubin 0.2 0.1-1.0 MG/DL Aspartate Amino Transf (AST/SGOT) 26 5-34 U/L Alanine Aminotransferase (ALT/SGPT) 19 0-55 U/L Alkaline Phosphatase 89 40-136 U/L Troponin I < 0.30 <0.30 NG/ML Total Protein 6.3 L 6.4-8.2 GM/DL Albumin 3.1 L 3.2-4.5 GM/DL Urine Color YELLOW Urine Clarity CLEAR Urine pH 6.0 5-9 Urine Specific [place] 1.020 1.016-1.022 Urine Protein 3+ H NEGATIVE Urine Glucose (UA) TRACE H NEGATIVE Urine Ketones NEGATIVE NEGATIVE Urine Nitrite NEGATIVE NEGATIVE Urine Bilirubin NEGATIVE NEGATIVE Urine Urobilinogen 0.2 < = 1.0 MG/DL Urine Leukocyte Esterase NEGATIVE NEGATIVE Urine RBC (Auto) TRACE-I NEGATIVE Urine RBC 2-5 H /HPF Urine WBC 2-5 /HPF Urine Squamous Epithelial Cells 10-25 H /HPF Urine Crystals NONE /LPF Urine Bacteria NEGATIVE /HPF Urine Casts PRESENT /LPF Urine Hyaline Casts 25-50 H /LPF Urine Mucus SMALL H /LPF Urine Culture Indicated NO My Orders Orders - ROVENSTALVA HENSONEN L DO Ct Head Wo (05/25/21 23:15) Ed Iv/Invasive Line Start (05/25/21 23:15) Cbc With Automated Diff (05/25/21 23:15) Comprehensive Metabolic Panel (05/25/21 23:15) Troponin I Fs (05/25/21 23:15) Protime With Inr (05/25/21 23:15) Partial Thromboplastin Time (05/25/21 23:15) Ekg Tracing (05/25/21 23:15) Urinalysis (05/25/21 23:15) Ct Angio Head/Neck (05/25/21 23:40) [place] Cath (05/25/21 23:46) Iohexol Injection (Omnipaque 350 Mg/Ml 1 (05/26/21 00:15) Received Contrast (Hold Metformin- Contr (05/26/21 00:15) Ns (Ivpb) (Sodium Chloride 0.9% Ivpb Bag (05/26/21 00:15) Medications Given in ED Current Medications Medications Dose Ordered Sig/Emerita Route Start Time Stop Time Status Last Admin Dose Admin Iohexol 100 ml ONCE ONCE IV 05/26/21 00:15 05/26/21 00:18 DC 05/26/21 00:12 60 ML Sodium Chloride 100 ml ONCE ONCE IV 05/26/21 00:15 05/26/21 00:18 DC 05/26/21 00:12 80 ML Vital Signs/I&O 05/25/21 05/25/21 05/26/21 05/26/21 23:10 23:54 02:15 03:09 Temp 36.0 36.0 Pulse 57 63 58 61 Resp 18 18 18 18 B/P (MAP) 72/51 (58) 111/84 147/74 150/74 (99) Pulse Ox 95 97 95 99 O2 Delivery Room Air Room Air Room Air Room Air Progress Progress Note : Progress Note Called [facility]- stroke line after initial "normal CT", advised a CTA. Got a CTA that was normal (for brain w some Carotid disease) and then Dr Mercado told me they didn't have any Tele beds and they couldn't accept the patient. 0045- Re-examination, patient no longer having weakness and ataxia of Left side. Speech has normalized, just somnulent now Initial ECG Impression Date: May 26, 2021 Initial ECG Impression Time: 21:40 Initial ECG Rate: 80 Initial ECG Rhythm: Normal Sinus Initial ECG Intervals: Normal Initial ECG Impression: Normal Initial ECG Comparisson: No Previous ECG Available Departure Communication (Admissions) Time/Spoke to Admitting Phy: 00:[address] Lundberg and discussed patient presentation via EMS for what appeared to be an acute CVA, normal CT, consult w [facility], then normal CTA w carotid dz. RE-examine patient afterwards and improved symptoms....baseline. Hx of acute MS change and hospital admission w negative work up in recent past. Hx of freq CISNEROS's, CAD on plavix and ASA. Impression Primary Impression: TIA (transient ischemic attack) Additional Impression: Change in mental status Qualified Codes: R41.82 - Altered mental status, unspecified Disposition: 30 STILL A PATIENT Condition: Improved Admissions Decision to Admit Reason: Admit from ER (General) Decision to Admit/Date: May 26, 2021 Time/Decision to Admit Time: 00:00 Transfer Transfer Reason: Exceeds level of care Departure-Patient Inst. Referrals: NICK ROTH APRN (PCP) Primary Care Physician [facility] (Family) Primary Care Physician SERJIO BUTCHER DO May 25, 2021 23:21
[2021-05-25 23:28] LABS: BASOPHILS # (AUTO) 0.1 10^3/uL (0.0-0.1); BASOPHILS % (AUTO) 1 % (0-10); EOSINOPHILS # (AUTO) 0.2 10^3/uL (0.0-0.3); EOSINOPHILS % (AUTO) 2 % (0-10); HEMATOCRIT 39 % (35-52); HEMOGLOBIN 12.8 g/dL (11.5-16.0); LYMPHOCYTES # (AUTO) 3.7 X 10^3 (1.0-4.0); LYMPHOCYTES % (AUTO) 44 % (12-44); MEAN CORPUSCULAR HEMOGLOBIN 27 pg (25-34); MEAN CORPUSCULAR HGB CONC 33 g/dL (32-36); MEAN CORPUSCULAR VOLUME 83 fL (80-99); MEAN PLATELET VOLUME 9.4 fL (9.0-12.2); MONOCYTES # (AUTO) 0.5 X 10^3 (0.0-1.0); MONOCYTES % (AUTO) 6 % (0-12); NEUTROPHILS # (AUTO) 3.9 X 10^3 (1.8-7.8); NEUTROPHILS % (AUTO) 47 % (42-75); PLATELET COUNT 237 10^3/uL (130-400); WHITE BLOOD COUNT 8.4 10^3/uL (4.3-11.0)
--- NOTE | 2021-05-25 23:32 | Diagnostic Imaging Report ---
EXAMINATION: CT head without contrast. TECHNIQUE: Multiple contiguous axial images were obtained through the brain without the use of intravenous contrast. All CT scans use one or more of the following dose optimizing techniques: automated exposure control, MA and/or KvP adjustment based on patient size and exam type or iterative reconstruction. HISTORY: left sided weakness COMPARISON: CT head 03/11/2021 FINDINGS: The ventricles and sulci are normal. No abnormal attenuation of brain parenchyma is present. No acute intracranial hemorrhage or abnormal extra-axial fluid collections are present. Calcification of the intracranial ICAs. No hyperdense vessel. The calvarium is intact. The mastoid air cells are clear. Fluid within the left maxillary sinus. The orbits are normal. IMPRESSION: 1. No acute intracranial abnormality. Dictated by: Dictated on workstation # [id number]
[2021-05-25 23:38] LABS: INR 0.9 (0.8-1.4)
[2021-05-25 23:47] LABS: BILIRUBIN,URINE NEGATIVE (NEGATIVE); CLARITY,URINE CLEAR; COLOR,URINE YELLOW; GLUCOSE, URINE (UA) TRACE (NEGATIVE); KETONES,URINE NEGATIVE (NEGATIVE); LEUKOCYTE ESTERASE ,URINE NEGATIVE (NEGATIVE); NITRITE,URINE NEGATIVE (NEGATIVE); PROTEIN,URINE 3+ (NEGATIVE)
[2021-05-25 23:47] LABS: ALANINE AMINOTRANSFERASE 19 U/L (0-55); ALBUMIN 3.1 GM/DL (3.2-4.5); ALKALINE PHOSPHATASE 89 U/L (40-136); BILIRUBIN,TOTAL 0.2 MG/DL (0.1-1.0); BUN/CREATININE RATIO 23; CALCIUM 9.4 MG/DL (8.5-10.1); CARBON DIOXIDE 22 MMOL/L (21-32); CHLORIDE 103 MMOL/L (98-107); CREATININE SERUM 1.24 MG/DL (0.60-1.30); GFR ESTIMATED 44; GLUCOSE 230 MG/DL (70-105); SODIUM 136 MMOL/L (135-145); TOTAL PROTEIN 6.3 GM/DL (6.4-8.2)
[2021-05-25 23:53] LABS: BACTERIA,URINE NEGATIVE /HPF; HYALINE CASTS, URINE 25-50 /LPF
[2021-05-26] MEDS ORDERED: NS 100 ML (IVPB) BAG IV ONE (00:15)
[2021-05-26] MEDS ORDERED: IOHEXOL 350 MG/ML 100 ML (OMNIPAQUE 350) VIAL IV ONE (00:15)
[2021-05-26] MEDS ORDERED: HOLD METFORMIN - RECEIVED CONTRAST 20 ML VIAL IV SCH (00:15)
[2021-05-26 03:09] VITALS: BP 150/74
[2021-05-26] MEDS: NS IV 1000 ML 1,000 ML IV SCH ×3 (03:30→23:45)
--- NOTE | 2021-05-26 06:01 | Diagnostic Imaging Report ---
PROCEDURE: CT angiography of the head and CT angiography of the neck with and without contrast. TECHNIQUE: Contiguous noncontrast images were obtained from the skull base through the vertex. After intravenous contrast administration, helical CT angiography of the neck was performed. Source data was reformatted into 3D MIP projections. Delayed post contrast acquisition was also obtained. Auto Exposure Controls were utilized during the CT exam to meet ALARA standards for radiation dose reduction. INDICATION: Left-sided weakness. Slurred speech. Comparison: CT head performed earlier the same date. FINDINGS: CTA Neck: The visualized portions of the aortic arch demonstrate atherosclerotic plaque without evidence of aneurysm or dissection. There is conventional branching pattern of the great vessels of the aorta. The brachiocephalic artery demonstrates ostial stenosis secondary to atherosclerotic plaque resulting in 50-69% stenosis. The right and left common carotid origins are unremarkable. The origin of the left subclavian artery is patent. The common carotid arteries and internal carotid arteries demonstrate a normal course. There is calcified atherosclerotic plaque in the bilateral carotid bulbs and proximal internal carotid arteries without flow-limiting stenosis. No evidence of dissection in the carotid systems. The external carotid arteries are patent and unremarkable. The vertebral arteries are codominant. The origin of the right vertebral artery is seen and is unremarkable. The origin of the left vertebral artery is seen and is unremarkable. There is no focal stenosis seen within the neck. There is no dissection. The vertebral arteries are well visualized to up to the level of the basilar artery. The osseous structures of the cervical spine are unremarkable. Included views through the lung apices demonstrate no focal consolidation. CTA brain: Atherosclerotic plaque is seen in the [place] of the bilateral terminal internal carotid arteries without significant stenosis. No stenosis is seen in the bilateral anterior, middle, and posterior cerebral arteries. No evidence of aneurysm the [place]. In the posterior circulation, both of the vertebral arteries demonstrate normal opacification. The vertebral arteries are codominant. Both the right and left PICA arteries are identified. The basilar artery is normal in course and caliber. The terminal branch vessels including the superior cerebellar arteries unremarkable. IMPRESSION: 1. No stenosis or aneurysm in the [place]. No evidence of large vessel occlusion. 2. 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 3. Atherosclerotic plaque in the bilateral carotid bulbs resulting in less than 50% stenosis. Agree with overnight report. Dictated by: Dictated on workstation # [id number]
[2021-05-26 06:37] LABS: BASOPHILS # (AUTO) 0.1 10^3/uL (0.0-0.1); BASOPHILS % (AUTO) 1 % (0-10)
[2021-05-26 06:39] LABS: EOSINOPHILS # (AUTO) 0.1 10^3/uL (0.0-0.3); EOSINOPHILS % (AUTO) 2 % (0-10); HEMATOCRIT 38 % (35-52); HEMOGLOBIN 12.3 g/dL (11.5-16.0); LYMPHOCYTES # (AUTO) 2.5 10^3/uL (1.0-4.0); LYMPHOCYTES % (AUTO) 32 % (12-44); MEAN CORPUSCULAR HEMOGLOBIN 27 pg (25-34); MEAN CORPUSCULAR HGB CONC 32 g/dL (32-36); MEAN CORPUSCULAR VOLUME 85 fL (80-99); MEAN PLATELET VOLUME 10.5 fL (9.0-12.2); MONOCYTES # (AUTO) 0.5 10^3/uL (0.0-1.0); MONOCYTES % (AUTO) 6 % (0-12); NEUTROPHILS # (AUTO) 4.6 10^3/uL (1.8-7.8); NEUTROPHILS % (AUTO) 59 % (42-75); PLATELET COUNT 188 10^3/uL (130-400); WHITE BLOOD COUNT 7.8 10^3/uL (4.3-11.0)
[2021-05-26 07:06] LABS: CALCIUM 9.1 MG/DL (8.5-10.1); CREATININE SERUM 1.27 MG/DL (0.60-1.30); POTASSIUM 4.9 MMOL/L (3.6-5.0)
[2021-05-26 08:00] VITALS: BP 169/71
[2021-05-26 09:19] LABS: CHOLESTEROL 194 MG/DL (< 200); HDL CHOLESTEROL 44 MG/DL (40-60); TRIGLYCERIDES 158 MG/DL (<150); VLDL CHOLESTEROL 32 MG/DL (5-40)
[2021-05-26 11:38] VITALS: BP 164/80
[2021-05-26] MEDS: ASPIRIN 325 MG (5 GR) TABLET PO SCH (11:40)
--- NOTE | 2021-05-26 11:53 | Occupational Therapy Eval ---
OT Evaluation-General/PLF Medical Diagnosis Admission Date May 26, 2021 at 03:09 Medical Diagnosis: AMS; TIA Onset Date: May 25, 2021 Therapy Diagnosis Therapy Diagnosis: weakness, fatigue Precautions Precautions/Isolations: Fall Prevention, Standard Precautions Comments chair alarm Referral Physician: Rosi Lundberg MD Referral Reason: Evaluation/Treatment Medical History Pertinent Medical History: CAD, DM, [place], Renal Insufficiency Current History Pt presents to hospital after fall at home and decreased responsiveness with Left sided weakness. No acute findings identified on CT/CTA. Pt reports just mov ing here from [place] to live with her daughter. She was indep with adls and shares iadl responsibilities with her dtr except laundry which her daughter takes care of. She uses a 4ww at baseline. She reports multiple falls in the past month often with symptoms of dizziness. Pt is a diabetic. Reviewed History: Yes Social History Home: Single Level Current Living Status: Children ADL-Prior Level of Function SCALE: Activities may be completed with or without assistive devices. 7-Fthhytpmds-ocngspi completes the activity by him/herself with no assistance from a helper. 5-Set-up or Clean-up Assistance-helper sets up or cleans up; patient completes activity. [place] assists only prior to or following the activity. 4-Supervision or Touching Assistance-helper provides verbal cues and/or touching/steadying and/or contact guard assistance as patient completes activity. Assistance may be provided throughout the activity or intermittently. 3-Partial/Moderate Assistance-helper does LESS THAN HALF the effort. [place] lifts, holds or supports trunk or limbs, but provides less than half the effort. 2-Substantial/Maximal Assistance-helper does MORE THAN HALF the effort. [place] lifts or holds trunk or limbs and provides more than half the effort. 7-Qvgvikfcm-qipvbw does ALL the effort. Patient does none of the effort to complete the activity. Or, the assistance of 2 or more helpers is required for the patient to complete the activity. If activity was not attempted, code reason: 7-Patient Refused. 9-Not Applicable-not attempted and the patient did not perform the activity before the current illness, exacerbation or injury. 10-Not Attempted due to Environmental Limitations-(lack of equipment, weather restraints, etc.). 88-Not Attempted due to Medical Conditions or Safety Concerns. Self Care: Independent Functional Cognition: Independent DME/Equipment: Bath Chair, Grab Bars, Tub/Shower Drive Self: No OT Current Status Subjective Pt reports mild pain on top of foot. No redness or irritation noted. RN present. Appearance Left sitting in chair, alarm set. RN in room at OT departure. Mental Status/Objective Patient Orientation: Person, Time, Situation Attachments: Clancy Catheter, IV Current Glasses/Contacts: Yes Hearing Aids: No Hand Dominance: Right Upper Extremity ROM 3/4 R shoulder flex: baseline secondary to old injury LUE: WFL Upper Extremity Strength R: 3+/5 L: 4/5 ADL-Treatment Oral Hygiene (QC): 4 Lower Body Dressing (QC): 4 (CGA) On/Off Footwear (QC): 4 Other Treatments Pt ambulated >100 feet with use of walker and sba-cga for safety. Therapist managing IV pole. Pt often tilting walker off floor as she reports not liking t he sound of fww sliding across floor. Pt uses a 4ww at baseline. She stood to brush teeth, sup for safety only. She sat to comb hair with set up. In sitting she was able to demonstrate ability to don/doff armand socks without difficulty. At this time, pt likely sup/cga for clothing management. Pt currently with clancy catheter. Pt verbalizes feeling close to baseline. Education OT Patient Education: Correct positioning, Modified ADL techniques, Purpose of tx/functional activities Teaching Recipient: Patient Teaching Methods: Demonstration Response to Teaching: Verbalize Understanding, Return Demonstration OT Assisted Goals [employer] Supervisor Goals Time Frame: May 29, 2021 Oral Hygiene (QC): 6 Toileting Hygiene (QC): 6 Shower/Bathe Self (QC): 4 Upper Body Dressing (QC): 5 Lower Body Dressing (QC): 5 On/Off Footwear (QC): 5 1=Demonstrate adherence to instructed precautions during ADL tasks. 2=Patient will verbalize/demonstrate understanding of assistive devices/modifications for ADL. 3=Patient will improve strength/tolerance for activity to enable patient to perform ADL's. OT Education/Plan Problem List/Assessment Assessment: Decreased Activ Tolerance, Decreased UE Strength, Impaired I ADL's, Impaired Self-Care Skills Discharge Recommendations Plan/Recommendations: Continue POC Target Placement Home vs home health pending progress Treatment Plan/Plan of Care Treatment,Training & Education: Yes Patient would benefit from OT for education, treatment and training to promote independence in ADL's, mobility, safety and/or upper extremity function for ADL's. Plan of Care: ADL Retraining, Functional Mobility, UE Funct Exercise/Act Treatment Duration: May 29, 2021 Frequency: 5 times per week Estimated Hrs Per Day: .25 hour per day Agreement: Yes Rehab Potential: Fair 2-3 mores sessions Time/GCodes Start Time: 11:17 Stop Time: 11:41 Total Time Billed (hr/min): 24 Billed Treatment Time 1 visit, EVL (12min) ADL (12 min) Davina Shore OT May 26, 2021 11:53
--- NOTE | 2021-05-26 13:26 | Physical Therapy Evaluation ---
PT Evaluation-General Medical Diagnosis Admission Date May 26, 2021 at 03:09 Medical Diagnosis: AMS; TIA Onset Date: May 25, 2021 Therapy Diagnosis Therapy Diagnosis: debility/weakness Precautions Precautions/Isolations: Fall Prevention, Standard Precautions Referral Physician: Rosi Lundberg MD Reason for Referral: Evaluation/Treatment Medical History Pertinent Medical History: CABG, CAD, DM, HTN, Hypothroidism, [place], Neuropathy, Renal Insufficiency Additional Medical History Hep C Current History EMS secondary secondary to fall with decreased responsiveness and left sided weakness, vomiting and difficulty speaking. Reviewed History: Yes Social History Home: Single Level Current Living Status: Children Prior Prior Level of Function SCALE: Activities may be completed with or without assistive devices. 3-Orkfivbyxm-qgqbtgn completes the activity by him/herself with no assistance from a helper. 5-Set-up or Clean-up Assistance-helper sets up or cleans up; patient completes activity. [place] assists only prior to or following the activity. 4-Supervision or Touching Assistance-helper provides verbal cues and/or touching/steadying and/or contact guard assistance as patient completes activity. Assistance may be provided throughout the activity or intermittently. 3-Partial/Moderate Assistance-helper does LESS THAN HALF the effort. [place] lifts, holds or supports trunk or limbs, but provides less than half the effort. 2-Substantial/Maximal Assistance-helper does MORE THAN HALF the effort. [place] lifts or holds trunk or limbs and provides more than half the effort. 3-Jnxlxqbve-dbkbfm does ALL the effort. Patient does none of the effort to complete the activity. Or, the assistance of 2 or more helpers is required for the patient to complete the activity. If activity was not attempted, code reason: 7-Patient Refused. 9-Not Applicable-not attempted and the patient did not perform the activity before the current illness, exacerbation or injury. 10-Not Attempted due to Environmental Limitations-(lack of equipment, weather restraints, etc.). 88-Not Attempted due to Medical Conditions or Safety Concerns. Bed Mobility: 6 Transfers (B,C,W/C): 6 Gait: 6 Stairs: 6 Indoor Mobility (Ambulation): Independent Stairs: Independent Prior Devices Use: Walker PT Evaluation-Current Subjective Patient agrees to PT. Objective Patient Orientation: Normal For Age Attachments: [place] Catheter, IV ROM/Strength ROM Lower Extremities bilateral LE WFL Strength Lower Extremities 4-/5 grossly bilateral LE Integumentary/Posture Bladder Incontinence: [place] Cath Posture WFL Neuromuscular (Tone, Coordination, Reflexes) grossly intact Sensory Vision: Functional Hearing: Functional Hand Dominance: Right Transfers Roll Left to Right (QC): 6 Lying to Sitting/Side of Bed(Q: 6 Sit to Stand (QC): 4 Chair/Hyb-sv-Nkajt Xfer(QC): 4 Gait Does the Patient Walk?: Yes Mode of Locomotion: Walk Anticipated Mode of Locomotion: Walk Walk 10 feet (QC): 4 Walk 50 ft with 2 Turns(QC): 4 Walk 150 ft (QC): 4 Distance: 300' Gait Assistive Device: FWW Comments/Gait Description safe and functional with no deviation Balance Sitting Static: Normal Sitting Dynamic: Normal Standing Static: Normal Standing Dynamic: Normal Assessment/Needs 65 y.o. female, will be seen short term by skilled PT to ensure safer return to home with family at maximum LOF. Rehab Potential: Fair PT Short Term Goals Short Term Goals Time Frame: May 30, 2021 Roll Left & Right: 6 Sit to lyin Lying to sitting on side of be: 6 Sit to stand: 6 Chair/iuq-ti-icmps transfer: 6 Toilet transfer: 6 Walk 10 feet: 6 Walk 50 feet with two turns: 6 Walk 150 feet: 6 PT Plan Treatment/Plan Treatment Plan: Continue Plan of Care Treatment Plan: Education, Functional Activity [place], Functional Strength, Gait, Safety, Therapeutic Exercise, Transfers Treatment Duration: May 30, 2021 Frequency: 5 times per week Estimated Hrs Per Day: .25 hour per day Patient and/or Family Agrees t: Yes Discharge Recommendations Therapy Discharge Recommendati: Home & Family Time/GCodes Time In: 1115 Time Out: 1128 Total Billed Treatment Time: 13 Total Billed Treatment 1 visit EVModC 13 min JUAN PERALES PT May 26, 2021 13:25
[2021-05-26] MEDS ORDERED: LORazepam 1 MG (ATIVAN) TAB PO NR (15:30)
[2021-05-26 16:45] VITALS: BP 195/84
[2021-05-26] MEDS ORDERED: METF-397 PO (16:51)
[2021-05-26] MEDS ORDERED: ATOR20TA66 PO (16:51)
--- NOTE | 2021-05-26 16:51 | Diagnostic Imaging Report ---
Clinical indication: Patient is having mental status changes, TIA. Exam: MRI of the brain performed without IV contrast. Sequences include axial DWI, ADC map, axial gradient echo, axial T2, axial FLAIR, axial T1, and sagittal T1. Comparison: CT scan of the head without contrast dated 05/25/2021. Findings: There are multiple focal and patchy areas of high T2 signal white matter changes involving both cerebral hemispheres and periventricular regions and right cerebellar hemisphere suspected to represent chronic small vessel ischemic disease. Given the periventricular location of the high T2 signal lesions and lesion in the right cerebellum, a demyelinating process should be excluded. Clinical correlation suggested. There is brain parenchymal volume loss. There is no brain herniation or midline shift. There is no hydrocephalus, brain herniation or midline shift. Basal cisterns are unremarkable. The [place] vascular structures show no gross abnormality as visualized. The pituitary gland, sella, and suprasellar regions are unremarkable as visualized. There is a small mucous retention cyst in the left maxillary sinus. Paranasal sinuses and mastoid air cells are clear. IMPRESSION: 1: There is no evidence of acute intracranial process. There is no acute cerebral infarct. 2: There are multiple focal and patchy areas of high T2 signal white matter changes involving both cerebral hemispheres, periventricular regions, and right side of the [place]. These findings may be related to chronic small vessel ischemic disease. Given the periventricular location, a superimposed demyelinating process cannot be be excluded. Clinical correlation would better evaluate. 3: There are age-related brain parenchymal changes. 4: There is a small left maxillary sinus mucous retention cyst. Dictated by: Dictated on workstation # [id number]
[2021-05-26] MEDS ORDERED: LORA10TA7 PO (16:55)
[2021-05-26 19:56] VITALS: BP 164/76
--- NOTE | 2021-05-26 21:43 | History & Physical ---
HPI History of Present Illness: 65 yo F that presented to ER with altered mental status and left sided weakness. States that last known well time 1015. Patient states that she had similar episode several months ago that was on the same side. At that time she did not have imaging that was consistent with acute stroke. Daughter states that she is worried that she took the wrong medication but patient states that she did not think she took a med prior to episode. States that prior to arrival to ER all symptoms had resolved and she has not had any additional symptoms. Source: patient Exam Limitations: no limitations Date seen by provider: May 26, 2021 Time Seen by Provider: 10:45 Attending Physician Rosi Lundberg MD PCP Shawna Taylor Aprn Consult Date of Admission May 26, 2021 at 03:09 Home Medications Home Medications Reviewed patient Home Medication Reconciliation performed by pharmacy medication reconciliations pest control chemical technician and/or nursing. Patients Allergies have been reviewed. Allergies Coded Allergies: Sulfa (Sulfonamide Antibiotics) (Verified Allergy, Severe, hives, 04/15/21) GSG-Bnsfrp-Vylipb Hx Patient Social History Drug of Choice: forced 2 months ago (meth) 2nd Hand Smoke Exposure: Yes Recent Hopitalizations: Yes (February 2021- ) Alcohol Use?: No Have you traveled recently?: No Immunizations Up To Date Tetanus Booster (TDap): Unknown Date of Influenza Vaccine: Jun 05, 2020 Past Medical History HTN Hypothyroidism Family Medical History Significant Family History: No Pertinent Family Hx Review of Systems (CHC) Constitutional: No dizziness, No fever; malaise EENTM: no symptoms reported; No vision loss, No nose congestion Respiratory: no symptoms reported; No cough, No dyspnea on exertion, No short of breath Cardiovascular: no symptoms reported; No chest pain, No edema, No palpitations Gastrointestinal: no symptoms reported; No abdominal pain, No constipation, No diarrhea, No nausea, No vomiting Genitourinary: no symptoms reported; No dysuria, No frequency, No hematuria : No Musculoskeletal: muscle weakness Skin: no symptoms reported; No lesions, No rash Psychiatric/Neurological: Denies Headache, Denies Numbness, Denies Tremors; Weakness Reviewed Test Results Reviewed Test Results Lab Laboratory Tests Test 05/25/21 23:13 05/25/21 23:15 05/25/21 23:43 05/26/21 06:25 Range/Units Glucometer 211 H 70-110 MG/DL White Blood Count 8.4 7.8 4.3-11.0 10^3/uL Red Blood Count 4.68 4.50 3.80-5.11 10^6/uL Hemoglobin 12.8 12.3 11.5-16.0 g/dL Hematocrit 39 38 35-52 % Mean Corpuscular Volume 83 85 80-99 fL Mean Corpuscular Hemoglobin 27 27 25-34 pg Mean Corpuscular Hemoglobin Concent 33 32 32-36 g/dL Red Cell Distribution Width 15.6 H 15.5 H 10.0-14.5 % Platelet Count 237 188 130-400 10^3/uL Mean Platelet Volume 9.4 10.5 9.0-12.2 fL Immature Granulocyte % (Auto) 1 1 % Neutrophils (%) (Auto) 47 59 42-75 % Lymphocytes (%) (Auto) 44 32 12-44 % Monocytes (%) (Auto) 6 6 0-12 % Eosinophils (%) (Auto) 2 2 0-10 % Basophils (%) (Auto) 1 1 0-10 % Neutrophils # (Auto) 3.9 4.6 1.8-7.8 10^3/uL Lymphocytes # (Auto) 3.7 2.5 1.0-4.0 10^3/uL Monocytes # (Auto) 0.5 0.5 0.0-1.0 10^3/uL Eosinophils # (Auto) 0.2 0.1 0.0-0.3 10^3/uL Basophils # (Auto) 0.1 0.1 0.0-0.1 10^3/uL Immature Granulocyte # (Auto) 0.1 0.1 0.0-0.1 10^3/uL Prothrombin Time 12.0 L 12.2-14.7 SEC INR Comment 0.9 0.8-1.4 Activated Partial Thromboplast Time 21 L 24-35 SEC Sodium Level 136 133 L 135-145 MMOL/L Potassium Level 4.0 4.9 3.6-5.0 MMOL/L Chloride Level 103 106 98-107 MMOL/L Carbon Dioxide Level 22 17 L 21-32 MMOL/L Anion Gap 11 10 5-14 MMOL/L Blood Urea Nitrogen 28 H 28 H 7-18 MG/DL Creatinine 1.24 1.27 0.60-1.30 MG/DL Estimat Glomerular Filtration Rate 44 42 BUN/Creatinine Ratio 23 22 Glucose Level 230 H 221 H 70-105 MG/DL Calcium Level 9.4 9.1 8.5-10.1 MG/DL Corrected Calcium 10.1 8.5-10.1 MG/DL Total Bilirubin 0.2 0.1-1.0 MG/DL Aspartate Amino Transf (AST/SGOT) 26 5-34 U/L Alanine Aminotransferase (ALT/SGPT) 19 0-55 U/L Alkaline Phosphatase 89 40-136 U/L Troponin I < 0.30 <0.30 NG/ML Total Protein 6.3 L 6.4-8.2 GM/DL Albumin 3.1 L 3.2-4.5 GM/DL Urine Color YELLOW Urine Clarity CLEAR Urine pH 6.0 5-9 Urine Specific [place] 1.020 1.016-1.022 Urine Protein 3+ H NEGATIVE Urine Glucose (UA) TRACE H NEGATIVE Urine Ketones NEGATIVE NEGATIVE Urine Nitrite NEGATIVE NEGATIVE Urine Bilirubin NEGATIVE NEGATIVE Urine Urobilinogen 0.2 < = 1.0 MG/DL Urine Leukocyte Esterase NEGATIVE NEGATIVE Urine RBC (Auto) TRACE-I NEGATIVE Urine RBC 2-5 H /HPF Urine WBC 2-5 /HPF Urine Squamous Epithelial Cells 10-25 H /HPF Urine Crystals NONE /LPF Urine Bacteria NEGATIVE /HPF Urine Casts PRESENT /LPF Urine Hyaline Casts 25-50 H /LPF Urine Mucus SMALL H /LPF Urine Culture Indicated NO Percent Immature Platelet Fraction 3.7 0.0-7.6 % Triglycerides Level 158 H <150 MG/DL Cholesterol Level 194 < 200 MG/DL LDL Cholesterol Direct 128 1-129 MG/DL VLDL Cholesterol 32 5-40 MG/DL HDL Cholesterol 44 40-60 MG/DL Physical Exam-(CHC) Physical Exam Vital Signs VS - Last 72 Hours, by Label 05/25/21 05/25/21 05/26/21 05/26/21 23:10 23:54 02:15 03:09 Temp 36.0 36.0 Pulse 57 63 58 61 Resp 18 18 18 18 B/P (MAP) 72/51 (58) 111/84 147/74 150/74 (99) Pulse Ox 95 97 95 99 O2 Delivery Room Air Room Air Room Air Room Air 05/26/21 05/26/21 05/26/21 05/26/21 03:10 08:00 09:00 11:38 Temp 36.0 36.0 Pulse 60 58 Resp 18 18 B/P (MAP) 169/71 (103) 164/80 (108) Pulse Ox 99 97 97 O2 Delivery Room Air Room Air Room Air Room Air 05/26/21 05/26/21 05/26/21 16:45 19:56 20:17 Temp 36.6 36.6 Pulse 67 63 Resp 20 18 B/P (MAP) 195/84 (121) 164/76 (105) Pulse Ox 96 94 O2 Delivery Room Air Room Air Room Air Capillary Refill : Less Than 3 Seconds General Appearance: WD/WN, no apparent distress, other (sleepy and falling asleep during interview several times) Neck: non-tender, full range of motion, supple Respiratory: chest non-tender, lungs clear, normal breath sounds, no respiratory distress, no accessory muscle use Cardiovascular: normal peripheral pulses, regular rate, rhythm, no edema, no murmur Gastrointestinal: normal bowel sounds, non tender, soft Back: no CVA tenderness, no vertebral tenderness Extremities: normal range of motion, no pedal edema, no calf tenderness, normal capillary refill Neurologic/Psychiatric: pick up II-XII nml as tested, no motor/sensory deficits, alert, normal mood/affect, oriented x 3 Skin: normal color, warm/dry Lymphatic: no adenopathy Assessment/Plan Assessment/Plan Admission Status: Observation (1) Change in mental status Status: Acute Assessment & Plan: - Medication effect vs TIA, Will continue to monitor until at baseline, Lipid panel, PT/OT/Speech, anti platelet therapy Qualifiers: Qualified Codes: R41.82 - Altered mental status, unspecified (2) Small vessel disease Status: Chronic (3) HTN (hypertension) Status: Chronic Assessment & Plan: - Continue home meds Qualifiers: Qualified Codes: I10 - Essential (primary) hypertension (4) Hypothyroidism Status: Chronic Assessment & Plan: - Continue home meds Qualifiers: Qualified Codes: E03.9 - Hypothyroidism, unspecified (5) DVT prophylaxis Status: Acute Assessment & Plan: - Lovenox Clinical Quality Measures Stroke: Date of last known well: May 25, 2021 Time of last known well: 10:45 Copy Copies To 1: Jad MACEDO HOLLY R MD May 26, 2021 21:43
[2021-05-26 23:05] VITALS: BP 174/81
[2021-05-27 03:00] VITALS: BP 158/75
[2021-05-27] MEDS: LEVOTHYROXINE 50 MCG (LEVOTHROID) TAB PO SCH (05:54)
[2021-05-27 07:25] LABS: POTASSIUM 4.1 MMOL/L (3.6-5.0)
[2021-05-27 07:26] LABS: CALCIUM 9.1 MG/DL (8.5-10.1)
[2021-05-27 07:31] LABS: CREATININE SERUM 1.37 MG/DL (0.60-1.30)
[2021-05-27 08:00] VITALS: BP 195/68
[2021-05-27] MEDS: meTOprolol TARTRATE 25 MG (LOPRESSOR) TABLET PO SCH ×2 (08:00→20:37)
[2021-05-27] MEDS: SERTRALINE 100 MG (ZOLOFT) TAB PO SCH (08:00)
[2021-05-27] MEDS: CLOPIDOGREL 75 MG (PLAVIX) TABLET PO SCH (08:00)
[2021-05-27] MEDS: ASPIRIN 325 MG (5 GR) TABLET PO SCH (08:01)
[2021-05-27] MEDS ORDERED: lisINopril 5 MG (PRINIVIL) TABLET PO SCH (09:00)
--- NOTE | 2021-05-27 10:25 | Physical Therapy Daily Note ---
PT Daily Note-Current Subjective Pt in bed upon arrival and agrees to tx. Pt states she's tired today. Mental Status Patient Orientation: Person, Place, Situation Transfers SCALE: Activities may be completed with or without assistive devices. 0-Gtvgnhxqkr-vuarytp completes the activity by him/herself with no assistance from a helper. 5-Set-up or Clean-up Assistance-helper sets up or cleans up; patient completes activity. [place] assists only prior to or following the activity. 4-Supervision or Touching Assistance-helper provides verbal cues and/or touching/steadying and/or contact guard assistance as patient completes activity. Assistance may be provided throughout the activity or intermittently. 3-Partial/Moderate Assistance-helper does LESS THAN HALF the effort. [place] l ifts, holds or supports trunk or limbs, but provides less than half the effort. 2-Substantial/Maximal Assistance-helper does MORE THAN HALF the effort. [place] lifts or holds trunk or limbs and provides more than half the effort. 9-Ifecsjeft-jvkhib does ALL the effort. Patient does none of the effort to complete the activity. Or, the assistance of 2 or more helpers is required for t he patient to complete the activity. If activity was not attempted, code reason: 7-Patient Refused. 9-Not Applicable-not attempted and the patient did not perform the activity before the current illness, exacerbation or injury. 10-Not Attempted due to Environmental Limitations-(lack of equipment, weather restraints, etc.). 88-Not Attempted due to Medical Conditions or Safety Concerns. Sit to Lying (QC): 5 Lying to Sitting/Side of Bed(Q: 5 Sit to Stand (QC): 5 Gait Training Does the Patient Walk?: Yes Distance: 400' Walk 10 feet (QC): 4 Walk 50 ft with 2 Turns(QC): 4 Walk 150 ft (QC): 4 Gait Persons Needed: 1 Gait Assistive Device: FWW Pt has slow, slight antalgic gait Treatments Pt in bed, supine to sit and sit to stand SBA. Pt dons second gown to cover back side CGA. Pt amb 400' w/ FWW and CGA. Pt returns to room and request to remake bed. Pt removes blankets, adjust bed pad and pillow, the places blankets back on bed. Pt stands on side of bed throughout making the bed, pt able to hold dynamic standing balance CGA w/o any LOB. Pt has steady stance throughout tx. Pt returns to bed and was left with all needs met, call light in hand. Assessment Current Status: Good Progress Pt increasing strength, endurance, and functional mobility PT Short Term Goals Short Term Goals Time Frame: May 30, 2021 Roll Left & Right: 6 Sit to lyin Lying to sitting on side of be: 6 Sit to stand: 6 Chair/snh-fg-aicbt transfer: 6 Toilet transfer: 6 Walk 10 feet: 6 Walk 50 feet with two turns: 6 Walk 150 feet: 6 PT Plan Treatment/Plan Treatment Plan: Continue Plan of Care Treatment Plan: Education, Functional Activity [place], Functional Strength, Gait, Safety, Therapeutic Exercise, Transfers Treatment Duration: May 30, 2021 Frequency: 5 times per week Estimated Hrs Per Day: .25 hour per day Patient and/or Family Agrees t: Yes Time/GCodes Time In: 954 Time Out: 1006 Total Billed Treatment Time: 12 Total Billed Treatment 1, FA Observed NIALL STOCKTON TIE CARRIER May 27, 2021 10:25
[2021-05-27 12:00] VITALS: BP 190/90
--- NOTE | 2021-05-27 12:12 | Discharge Summary ---
Diagnosis/Chief Complaint Date of Admission May 26, 2021 at 03:09 Date of Discharge Discharge Diagnosis Problems/Diagnosis: (1) Change in mental status Assessment & Plan: - Medication effect vs TIA, Will continue to monitor until at baseline, Lipid panel, PT/OT/Speech, anti platelet therapy Qualifiers: Qualified Codes: R41.82 - Altered mental status, unspecified Status: Acute (2) Small vessel disease Status: Chronic (3) HTN (hypertension) Assessment & Plan: - Continue home meds Qualifiers: Qualified Codes: I10 - Essential (primary) hypertension Status: Chronic (4) Hypothyroidism Assessment & Plan: - Continue home meds Qualifiers: Qualified Codes: E03.9 - Hypothyroidism, unspecified Status: Chronic (5) DVT prophylaxis Assessment & Plan: - Lovenox Status: Acute Chief Complaint/HPI Chief Complaint/HPI 65 yo F that presented to ER with altered mental status and left sided weakness. States that last known well time 1015. Patient states that she had similar ep isode several months ago that was on the same side. At that time she did not have imaging that was consistent with acute stroke. Daughter states that she is worried that she took the wrong medication but patient states that she did not think she took a med prior to episode. States that prior to arrival to ER all symptoms had resolved and she has not had any additional symptoms. Discharge Summary-Simple/Stand Consultations Discharge Physical Examination Allergies: Coded Allergies: Sulfa (Sulfonamide Antibiotics) (Verified Allergy, Severe, hives, 04/15/21) Vitals & I&Os Vital Sign - Last 12Hours Date Time Temp Pulse Resp B/P (MAP) Pulse Ox O2 Delivery O2 Flow Rate FiO2 05/27/21 08:00 Room Air 05/27/21 08:00 36.8 60 16 195/68 (110) 96 Intake and Output 05/27/21 00:00 Intake Total 910 ml Output Total 225 ml Balance 685 ml Hospital Course See final discharge diagnosis. Discharge Instructions to patient/family Please see electronic discharge instructions given to patient. Discharge Medications Reviewed and agree with Discharge Medication list on patient's Discharge Instruction sheet Clinical Quality Measures Stroke: Date of last known well: May 25, 2021 Time of last known well: 10:45 MIRELA SHARMA MD May 27, 2021 12:12
[2021-05-27] MEDS ORDERED: LISI20TA26 PO (12:14)
[2021-05-27] MEDS ORDERED: ASPI-1238 PO (12:14)
[2021-05-27] MEDS ORDERED: ATOR40TA PO (12:14)
--- NOTE | 2021-05-27 12:14 | Discharge Summary ---
Discharge [facility] Reconcile Patient Problems Problems Reviewed?: Yes Discharge Medications New, Converted or Re-Newed RX: Transmitted to Pharmacy New Medications: Aspirin (Aspirin EC) 81 Mg Tablet.dr 81 MG PO DAILY, #30 TAB Atorvastatin Calcium (Lipitor) 40 Mg Tablet 40 MG PO HS, #30 TAB Lisinopril (Lisinopril) 20 Mg Tablet 20 MG PO DAILY, #30 TAB Continued Medications: Acetaminophen (Tylenol) 325 Mg Tablet 325-650 MG PO Q4- 6H PRN for PAIN-MILD (1-4), TAB Clopidogrel Bisulfate (Clopidogrel) 75 Mg Tablet 75 MG PO DAILY, TAB Gabapentin (Neurontin) 300 Mg Capsule 300 MG PO HS PRN for PAIN-BREAKTHROUGH, CAP Levothyroxine Sodium (Levothyroxine Sodium) 175 Mcg Tablet 175 MCG PO DAILY, TAB Loratadine (Loratadine) 10 Mg Tablet 10 MG PO DAILY PRN for ALLERGY SYMPTOMS, TAB Metformin HCl (Metformin HCl) 500 Mg Tablet 500 MG PO BID, TAB Metoprolol Tartrate (Metoprolol Tartrate) 25 Mg Tablet 25 MG PO BID, TAB Pantoprazole Sodium (Pantoprazole Sodium) 40 Mg Tablet.dr 40 MG PO DAILY, TAB Sertraline HCl (Sertraline HCl) 100 Mg Tablet 100 MG PO DAILY, TAB Trazodone HCl (Trazodone HCl) 100 Mg Tablet 100 MG PO HS PRN for SLEEP, TAB Discontinued Medications: Atorvastatin Calcium (Atorvastatin Calcium) 20 Mg Tablet 20 MG PO DAILY, TAB Lisinopril (Lisinopril) 2.5 Mg Tablet 2.5 MG PO DAILY, TAB Patient Instructions Goal/Follow Up Appt: 1 week f.u with PCP Activity & Diet Discharge Diet: Cardiac Diet Activity as Tolerated: Yes MIRELA SHARMA MD May 27, 2021 12:14
[2021-05-27] MEDS: lisINopril 20 MG (PRINIVIL) TABLET PO SCH (12:18)
[2021-05-27] MEDS: hydrALAZINE (APESOLINE) 20 MG/ML VIAL IV PRN ×2 (14:29→23:39)
[2021-05-27] MEDS: NS IV 1000 ML 1,000 ML IV SCH ×2 (14:30→19:44)
[2021-05-27 15:49] VITALS: BP 160/75
[2021-05-27 19:38] VITALS: BP 190/77
[2021-05-27] MEDS ORDERED: GABAPENTIN 300 MG (NEURONTIN) CAP PO PRN (20:15)
[2021-05-28] VITALS: BP 197/82
[2021-05-28 03:00] VITALS: BP 160/70
[2021-05-28] MEDS: NS IV 1000 ML 1,000 ML IV SCH (06:10)
[2021-05-28] MEDS: LEVOTHYROXINE 50 MCG (LEVOTHROID) TAB PO SCH (07:05)
--- NOTE | 2021-05-28 07:45 | Occupational Ther Daily Note ---
OT Current Status-Daily Note Subjective Per RN, pt hypertensive, BP 195/90. Requests bed level activity only. Appearance Pt left supine, all needs within reach. ADL-Treatment Therapy Code Descriptions/Definitions Functional [place] Measure: 0=Not Assessed/NA 4=Minimal Assistance 1=Total Assistance 5=Supervision or Setup 2=Maximal Assistance 6=Modified [place] 3=Moderate Assistance 7=Complete IndependenceSCALE: Activities may be completed with or without assistive devices. 0-Ihcpcdraii-cgqpuqf completes the activity by him/herself with no assistance from a helper. 5-Set-up or Clean-up Assistance-helper sets up or cleans up; patient completes activity. [place] assists only prior to or following the activity. 4-Supervision or Touching Assistance-helper provides verbal cues and/or touching/steadying and/or contact guard assistance as patient completes activity. Assistance may be provided throughout the activity or intermittently. 3-Partial/Moderate Assistance-helper does LESS THAN HALF the effort. [place] lifts, holds or supports trunk or limbs, but provides less than half the effort. 2-Substantial/Maximal Assistance-helper does MORE THAN HALF the effort. [place] lifts or holds trunk or limbs and provides more than half the effort. 2-Ivfhmdxnw-zncvqn does ALL the effort. Patient does none of the effort to complete the activity. Or, the assistance of 2 or more helpers is required for the patient to complete the activity. If activity was not attempted, code reason: 7-Patient Refused. 9-Not Applicable-not attempted and the patient did not perform the activity before the current illness, exacerbation or injury. 10-Not Attempted due to Environmental Limitations-(lack of equipment, weather restraints, etc.). 88-Not Attempted due to Medical Conditions or Safety Concerns. Oral Hygiene (QC): 4 Per RN, patients BP 195/90. Requests bed level activity only. Pt able to complete oral care and face washing with set up assist, asymptomatic. She does report symptoms of dizziness when getting up earlier in am. AROM performed, 10 x1 in all planes. RUE exercises performed within available range (shoulder flex 3/4 AROM at baseline). Mild incoordination noted with RUE movements. Education OT Patient Education: Disease process, Progress toward Goal/Update tx plan, Purpose of tx/functional activities, Reviewed precautions, Safety issues Teaching Recipient: Patient Teaching Methods: Demonstration, Discussion Response to Teaching: Verbalize Understanding, Return Demonstration OT Program Aide Goals Program Aide Goals Time Frame: May 29, 2021 Oral Hygiene (QC): 6 Toileting Hygiene (QC): 6 Shower/Bathe Self (QC): 4 Upper Body Dressing (QC): 5 Lower Body Dressing (QC): 5 On/Off Footwear (QC): 5 1=Demonstrate adherence to instructed precautions during ADL tasks. 2=Patient will verbalize/demonstrate understanding of assistive devices/modifications for ADL. 3=Patient will improve strength/tolerance for activity to enable patient to perform ADL's. OT Education/Plan Problem List/Assessment Assessment: Decreased Activ Tolerance, Decreased UE Strength, Impaired I ADL's, Restricted Funct UE ROM Discharge Recommendations Plan/Recommendations: Continue POC Treatment Plan/Plan of Care Treatment,Training & Education: Yes Patient would benefit from OT for education, treatment and training to promote independence in ADL's, mobility, safety and/or upper extremity function for ADL's. Plan of Care: ADL Retraining, Functional Mobility, UE Funct Exercise/Act Treatment Duration: May 29, 2021 Frequency: 5 times per week Estimated Hrs Per Day: .25 hour per day Agreement: Yes Rehab Potential: Good Time/GCodes Start Time: 11:50 Stop Time: 12:04 Total Time Billed (hr/min): 14 Billed Treatment Time Late entry for 05/27/21 1 visit, Davina Lainez OT May 28, 2021 07:45
[2021-05-28 08:00] VITALS: BP 138/70
[2021-05-28] MEDS: ASPIRIN 325 MG (5 GR) TABLET PO SCH (09:28)
[2021-05-28] MEDS: SERTRALINE 100 MG (ZOLOFT) TAB PO SCH (09:28)
[2021-05-28] MEDS: CLOPIDOGREL 75 MG (PLAVIX) TABLET PO SCH (09:28)
[2021-05-28] MEDS: meTOprolol TARTRATE 25 MG (LOPRESSOR) TABLET PO SCH (09:28)
[2021-05-28] MEDS: lisINopril 20 MG (PRINIVIL) TABLET PO SCH (09:29)
--- NOTE | 2021-05-28 10:18 | Physical Therapy Daily Note ---
PT Daily Note-Current Subjective Patient agrees to PT. Mental Status Patient Orientation: Normal For Age Transfers SCALE: Activities may be completed with or without assistive devices. 3-Flwzjcwfyj-hhkuwct completes the activity by him/herself with no assistance from a helper. 5-Set-up or Clean-up Assistance-helper sets up or cleans up; patient completes activity. [place] assists only prior to or following the activity. 4-Supervision or Touching Assistance-helper provides verbal cues and/or touching/steadying and/or contact guard assistance as patient completes activity. Assistance may be provided throughout the activity or intermittently. 3-Partial/Moderate Assistance-helper does LESS THAN HALF the effort. [place] lifts, holds or supports trunk or limbs, but provides less than half the effort. 2-Substantial/Maximal Assistance-helper does MORE THAN HALF the effort. [place] lifts or holds trunk or limbs and provides more than half the effort. 5-Rbgmpdadf-iyewzc does ALL the effort. Patient does none of the effort to complete the activity. Or, the assistance of 2 or more helpers is required for the patient to complete the activity. If activity was not attempted, code reason: 7-Patient Refused. 9-Not Applicable-not attempted and the patient did not perform the activity befo re the current illness, exacerbation or injury. 10-Not Attempted due to Environmental Limitations-(lack of equipment, weather re straints, etc.). 88-Not Attempted due to Medical Conditions or Safety Concerns. Lying to Sitting/Side of Bed(Q: 6 Sit to Stand (QC): 6 Chair/Hed-vg-Urvqz Xfer(QC): 6 Gait Training Does the Patient Walk?: Yes Distance: 400' Walk 10 feet (QC): 6 Walk 50 ft with 2 Turns(QC): 6 Walk 150 ft (QC): 6 Gait Assistive Device: None safe and functional with no deviation Assessment Patient is currently at independent PLOF with all gross motor skills and will dismiss to home on this date. PT Short Term Goals Short Term Goals Time Frame: May 30, 2021 Roll Left & Right: 6 Sit to lyin Lying to sitting on side of be: 6 Sit to stand: 6 Chair/ixp-tt-hopuq transfer: 6 Toilet transfer: 6 Walk 10 feet: 6 Walk 50 feet with two turns: 6 Walk 150 feet: 6 PT Plan Treatment/Plan Treatment Plan: Discontinue PT, goals met Treatment Plan: Education, Functional Activity [place], Functional Strength, Gait, Safety, Therapeutic Exercise, Transfers Treatment Duration: May 30, 2021 Frequency: 5 times per week Estimated Hrs Per Day: .25 hour per day Patient and/or Family Agrees t: Yes Time/GCodes Time In: 932 Time Out: 943 Total Billed Treatment Time: 11 Total Billed Treatment 1 visit FA 11 min JUAN PERALES PT May 28, 2021 10:18
[2021-05-28 12:00] VITALS: BP 150/70
[2021-05-28 15:15] VITALS: BP 150/70
--- NOTE | 2021-05-28 15:17 | Occ Therapy Progress Note ---
Therapy Progress Note OT visited with pt, she states she is waiting on her ride to get here to go home. Pt indicates she is at her baseline with ADLs, and has no concerns with her ability to complete them upon discharge. Per PT evaluation, pt ambulated 400' without AD independently. Pt up in room independently upon OT arrival, indicates she has been up to toilet independently. Pt is dressed, indicates IND with UE/LE dressing on this date. No further skilled OT txs indicated as pt is at her PLOF, d/c from OT. 1, visit JOSE ASKEW OT May 28, 2021 15:17
[2021-05-29] MEDS ORDERED: LEVOTHYROXINE 100 MCG (LEVOTHROID) TAB PO SCH (06:30)
[2021-05-29] MEDS ORDERED: LEVOTHYROXINE 75 MCG (LEVOTHROID) TABLET PO SCH (06:30)
== END 2021-05-28 09:30 | disposition home or self-care (01) ==
LOC: EDUNIT# 23:09 → ER FS 23:11 → 4TH 23:12 → UNDOADMOB 05-26 03:09 → 4TH 05-26 03:09 → INTOOBSV 05-26 03:09 → UNDODISOB 05-28 15:17
PROVIDERS: ADMIT Family Medicine; ATTEND Family Medicine
DX: R41.82 Altered mental status, unspecified (principal); G45.9 Transient cerebral ischemic attack, unspecified; I25.10 Atherosclerotic heart disease of native coronary artery without angina pectoris; I10 Essential (primary) hypertension; I95.9 Hypotension, unspecified; I67.89 Other cerebrovascular disease; J30.9 Allergic rhinitis, unspecified; E03.9 Hypothyroidism, unspecified; G43.909 Migraine, unspecified, not intractable, without status migrainosus; G62.9 Polyneuropathy, unspecified; G47.30 Sleep apnea, unspecified; G89.29 Other chronic pain; M19.90 Unspecified osteoarthritis, unspecified site; M54.9 Dorsalgia, unspecified; E11.9 Type 2 diabetes mellitus without complications; E78.00 Pure hypercholesterolemia, unspecified; F31.9 Bipolar disorder, unspecified; F41.9 Anxiety disorder, unspecified; Z79.82 Long term (current) use of aspirin; Z79.4 Long term (current) use of insulin; Z95.1 Presence of aortocoronary bypass graft; Z79.899 Other long term (current) drug therapy; Z79.890 Hormone replacement therapy; Z79.02 Long term (current) use of antithrombotics/antiplatelets; Z85.828 Personal history of other malignant neoplasm of skin
CPT/HCPCS: 36415; 51702; 70450; 70496; 70498; 70551; 80048 ×2; 80053; 80061; 81000; 82947; 84484; 85025 ×2; 85610; 85730; 93005; 97110; 97162; 97165; 97530 ×2; 97535; 99284; G0378

== ENCOUNTER 2021-07-10 18:52 | Emergency (ER) | payer MEDICAID ==
[~2021-07-10] VITALS: Ht 167 cm; Wt 79.4 kg
[~2021-07-10 18:52] MED LIST changes: +ATOR20TA66 PO; +ATOR40TA PO; +LISI20TA26 PO; +METF-397 PO
[2021-07-10] MEDS ORDERED: NS IV 1000 ML 1,000 ML IV STA (19:03)
--- NOTE | 2021-07-10 19:03 | ED General ---
General Stated Complaint: ELEV GLUCOSE/BP History of Present Illness Date Seen by Provider: Jul 10, 2021 Time Seen by Provider: 18:58 Initial Comments 65-year-old female presents with concerns of high blood pressure readings at home for the last couple days along with high blood pressure readings. Patient reports that she has some chest discomfort has been going on for couple days, headache this been going on for about a week or better. She was seen by her primary care provider yesterday and had blood pressure and blood sugar medications adjustments made. Her daughter reports that she seems to feel worse since the new medication adjustments. Patient is very vague in her symptoms as well as what medication adjustments were made. Patient does not report any shortness of breath, nausea, vomiting, fever, cough. She does report increased urination for the last couple days. Reports her blood sugars been running in 300s at home for a little while. Allergies and Home Medications Allergies Coded Allergies: Sulfa (Sulfonamide Antibiotics) (Verified Allergy, Severe, hives, 04/15/21) Patient Home Medication List Home Medication List Reviewed: Yes Acetaminophen (Tylenol) 325 Mg Tablet, 325-650 MG PO Q4- 6H PRN for PAIN-MILD (1-4), (Reported) Entered as Reported by: CARMELITA GOODRICH on 03/12/21957 Aspirin (Aspirin EC) 81 Mg Tablet.dr, 81 MG PO DAILY Prescribed by: MIRELA SHARMA on 05/27/211213 Atorvastatin Calcium (Lipitor) 40 Mg Tablet, 40 MG PO HS Prescribed by: MIRELA SHARMA on 05/27/211213 Clopidogrel Bisulfate (Clopidogrel) 75 Mg Tablet, 75 MG PO DAILY, (Reported) Entered as Reported by: CARMELITA GOODRICH on 03/12/21957 Gabapentin (Neurontin) 300 Mg Capsule, 300 MG PO HS PRN for PAIN-BREAKTHROUGH, (Reported) Entered as Reported by: CARMELITA GOODRICH on 03/12/21957 Levothyroxine Sodium (Levothyroxine Sodium) 175 Mcg Tablet, 175 MCG PO DAILY, (Reported) Entered as Reported by: CARMELITA GOODRICH on 03/12/21957 Lisinopril (Lisinopril) 20 Mg Tablet, 20 MG PO DAILY Prescribed by: MIRELA SHARMA on 05/27/211213 Loratadine (Loratadine) 10 Mg Tablet, 10 MG PO DAILY PRN for ALLERGY SYMPTOMS, (Reported) Entered as Reported by: SKYLER ARGUELLO on 05/26/211654 Metformin HCl (Metformin HCl) 500 Mg Tablet, 500 MG PO BID, (Reported) Entered as Reported by: SKYLER ARGUELLO on 05/26/211650 Metoprolol Tartrate (Metoprolol Tartrate) 25 Mg Tablet, 25 MG PO BID, (Reported) Entered as Reported by: OCTAVIO ARENAS on 03/11/212147 Pantoprazole Sodium (Pantoprazole Sodium) 40 Mg Tablet.dr, 40 MG PO DAILY, (Reported) Entered as Reported by: CARMELITA GOODRICH on 03/12/21 0958 Sertraline HCl (Sertraline HCl) 100 Mg Tablet, 100 MG PO DAILY, (Reported) Entered as Reported by: OCTAVIO ARENAS on 03/11/212147 Trazodone HCl (Trazodone HCl) 100 Mg Tablet, 100 MG PO HS PRN for SLEEP, (Reported) Entered as Reported by: OCTAVIO ARENAS on 03/11/212147 Review of Systems Review of Systems Constitutional: No chills; fever, malaise EENTM: see HPI Respiratory: No cough, No short of breath Cardiovascular: no symptoms reported Gastrointestinal: No abdominal pain, No nausea, No vomiting Musculoskeletal: no symptoms reported Skin: no symptoms reported Psychiatric/Neurological: See HPI, Headache Past Ujgrjqp-Btbmsc-Ctoxfj Hx Immunizations Up To Date Tetanus Booster (TDap): Unknown First/Initial COVID19 Vaccinat: sep 2020 Second COVID19 Vaccination [place]: october 2020 Third COVID19 Vaccination Date: sep 2020 Seasonal Allergies Seasonal Allergies: Yes Past Medical History Surgeries: Yes (right elbow, left ankle, right rotator cuff, right hip, ear tubes) CABG, Open Heart Surgery, Orthopedic Respiratory: Yes Sleep Apnea Currently Using CPAP: No Cardiac: Yes Coronary Artery Disease, High Cholesterol, Hypertension, Hypotension Neurological: Yes Headaches /Migraines, Neuropathy Genitourinary: Yes Renal Failure Gastrointestinal: No Hepatitis Musculoskeletal: Yes Arthritis, Chronic Back Pain Endocrine: Yes Diabetes, Insulin dep, Hypothyroidsim HEENT: Yes (decreased vision due to DM) Loss of Vision: Bilateral Hearing Impairment: Denies Cancer: Yes Skin Did You Recieve Any Treatments: Yes What Type of Treatment Did You: Surgical Intervention Anxiety, Bipolar, Depression Integumentary: Yes Eczema Blood Disorders: Yes (Hep C) Family Medical History No Pertinent Family Hx Physical Exam Vital Signs Vital Signs - First Documented 07/10/21 18:57 Temp 36.1 Pulse 64 Resp 16 B/P (MAP) 221/96 (137) Pulse Ox 99 O2 Delivery Room Air Capillary Refill : Height, Weight, BMI Height: '" Weight: lbs. oz. 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 II-XII Norm as Tested Skin: Normal Color, Warm/Dry Progress/Results/Core Measures Suspected Sepsis SIRS Temperature: Pulse: Respiratory Rate: Laboratory Tests 07/10/21 19:10: White Blood Count 7.4 Blood Pressure / Mean: Laboratory Tests 07/10/21 19:10: Creatinine 1.18, Platelet Count 252, Total Bilirubin 0.2 Results/Orders Lab Results Laboratory Tests Test 07/10/21 19:00 07/10/21 19:10 07/10/21 19:45 07/10/21 20:37 Range/Units Glucometer 322 H 226 H 70-110 MG/DL White Blood Count 7.4 4.3-11.0 10^3/uL Red Blood Count 5.21 H 3.80-5.11 10^6/uL Hemoglobin 14.4 11.5-16.0 g/dL Hematocrit 43 35-52 % Mean Corpuscular Volume 83 80-99 fL Mean Corpuscular Hemoglobin 28 25-34 pg Mean Corpuscular Hemoglobin Concent 33 32-36 g/dL Red Cell Distribution Width 15.2 H 10.0-14.5 % Platelet Count 252 130-400 10^3/uL Mean Platelet Volume 9.5 9.0-12.2 fL Immature Granulocyte % (Auto) 1 % Neutrophils (%) (Auto) 54 42-75 % Lymphocytes (%) (Auto) 35 12-44 % Monocytes (%) (Auto) 7 0-12 % Eosinophils (%) (Auto) 2 0-10 % Basophils (%) (Auto) 1 0-10 % Neutrophils # (Auto) 4.0 1.8-7.8 X 10^3 Lymphocytes # (Auto) 2.6 1.0-4.0 X 10^3 Monocytes # (Auto) 0.5 0.0-1.0 X 10^3 Eosinophils # (Auto) 0.2 0.0-0.3 10^3/uL Basophils # (Auto) 0.1 0.0-0.1 10^3/uL Immature Granulocyte # (Auto) 0.1 0.0-0.1 10^3/uL Sodium Level 135 135-145 MMOL/L Potassium Level 4.1 3.6-5.0 MMOL/L Chloride Level 103 98-107 MMOL/L Carbon Dioxide Level 21 21-32 MMOL/L Anion Gap 11 5-14 MMOL/L Blood Urea Nitrogen 32 H 7-18 MG/DL Creatinine 1.18 0.60-1.30 MG/DL Estimat Glomerular Filtration Rate 46 BUN/Creatinine Ratio 27 Glucose Level 353 H 70-105 MG/DL Calcium Level 9.5 8.5-10.1 MG/DL Corrected Calcium 9.8 8.5-10.1 MG/DL Magnesium Level 2.2 1.6-2.4 MG/DL Total Bilirubin 0.2 0.1-1.0 MG/DL Aspartate Amino Transf (AST/SGOT) 25 5-34 U/L Alanine Aminotransferase (ALT/SGPT) 25 0-55 U/L Alkaline Phosphatase 101 40-136 U/L Troponin I < 0.30 <0.30 NG/ML C-Reactive Protein < 0.30 <0.50 MG/DL Total Protein 7.1 6.4-8.2 GM/DL Albumin 3.6 3.2-4.5 GM/DL Urine Color YELLOW Urine Clarity CLEAR Urine pH 6.0 5-9 Urine Specific [place] 1.025 H 1.016-1.022 Urine Protein 2+ H NEGATIVE Urine Glucose (UA) 2+ H NEGATIVE Urine Ketones NEGATIVE NEGATIVE Urine Nitrite NEGATIVE NEGATIVE Urine Bilirubin NEGATIVE NEGATIVE Urine Urobilinogen 0.2 < = 1.0 MG/DL Urine Leukocyte Esterase NEGATIVE NEGATIVE Urine RBC (Auto) 1+ H NEGATIVE Urine RBC 5-10 H /HPF Urine WBC NONE /HPF Urine Squamous Epithelial Cells 10-25 H /HPF Urine Crystals NONE /LPF Urine Bacteria TRACE /HPF Urine Casts PRESENT /LPF Urine Granular Casts 2-5 H /LPF Urine Mucus NEGATIVE /LPF Urine Yeast FEW H /HPF Urine Culture Indicated NO My Orders Orders - GLORIAALICIA L DO Cbc With Automated Diff (07/10/21 19:03) Comprehensive Metabolic Panel (07/10/21 19:03) Magnesium (07/10/21:03) Ua Culture If Indicated (07/10/21:) Crp Fs (07/10/21:) Troponin I Fs (07/10/21:03) Ns Iv 1000 Ml (Sodium Chloride 0.9%) (07/10/21:03) Ed Iv/Invasive Line Start (07/10/21:) Ekg Tracing (07/10/21:) Monitor-Rhythm Ecg Trace Only (07/10/21:) Enalaprilat Injection (Vasotec Injection (07/10/21 20:00) Insulin (Regular) Human (Novolin R (Per (07/10/21 20:00) Lisinopril Tablet (Zestril Tablet) (07/10/21 20:00) Accucheck Stat ONCE (07/10/21 20:37) Medications Given in ED Current Medications Medications Dose Ordered Sig/Emerita Route Start Time Stop Time Status Last Admin Dose Admin Enalaprilat 2.5 mg ONCE ONCE IV 07/10/21 20:00 07/10/21 20:01 DC 07/10/21 20:01 2.5 MG Insulin Human Regular 10 unit ONCE ONCE IV 07/10/21 20:00 07/10/21 20:01 DC 07/10/21 20:01 10 UNIT Lisinopril 10 mg ONCE ONCE PO 07/10/21 20:00 07/10/21 20:01 DC 07/10/21 20:01 10 MG Vital Signs/I&O 07/10/21 18:57 Temp 36.1 Pulse 64 Resp 16 B/P (MAP) 221/96 (137) Pulse Ox 99 O2 Delivery Room Air Capillary Refill : Progress Note : Progress Note Patient feeling significantly better following treatment here in the ER. Patient reports that her blood pressure normally runs in the 180s and her blood sugars in the 220s. Upon discharge her blood pressure was 180s over 70s with a 222 blood sugar. I discussed with her that she needs to have close follow-up with her primary care provider to work on both of these elevated readings. Discussed with her that since her lisinopril was just increased and adjusted yesterday she does need to give it a couple weeks to take full effect. She should also closely monitor her blood sugars, she got a new electronic blood sugar monitor installed yesterday which will help her get her blood sugars better under better control. She should follow with her primary care provider next week for recheck of her symptoms. ECG Initial ECG Impression Date: Jul 10, 2021 Initial ECG Impression Time: 19:01 Initial ECG Rate: 66 Initial ECG Rhythm: Normal Sinus Initial ECG Comparisson: Unchanged (similar to ekg on 05/25/21) Comment normal sinus rhythm, old inferior infarc, no acute changes Departure Impression Primary Impression: Severe uncontrolled hypertension Additional Impression: Uncontrolled diabetes mellitus Qualified Codes: E11.65 - Type 2 diabetes mellitus with hyperglycemia Disposition: HOME, SELF-CARE Condition: Stable Departure-Patient Inst. Referrals: NICK ROTH APRN (PCP) Primary Care Physician [facility] (Family) Primary Care Physician Patient Instructions: Diabetes and Diet, High Blood Pressure ED, Medicines for High Blood Pressure Add. Discharge Instructions: Please take your medication as prescribed and follow your instructions of your primary care provider for monitoring. Follow-up with your primary care provider next week for a recheck of your symptoms ALICIA CASTRO DO Jul 10, 2021 19:02
[2021-07-10 19:21] LABS: WHITE BLOOD COUNT 7.4 10^3/uL (4.3-11.0)
[2021-07-10 19:22] LABS: BASOPHILS # (AUTO) 0.1 10^3/uL (0.0-0.1); BASOPHILS % (AUTO) 1 % (0-10); EOSINOPHILS # (AUTO) 0.2 10^3/uL (0.0-0.3); EOSINOPHILS % (AUTO) 2 % (0-10); HEMATOCRIT 43 % (35-52); HEMOGLOBIN 14.4 g/dL (11.5-16.0); LYMPHOCYTES # (AUTO) 2.6 X 10^3 (1.0-4.0); LYMPHOCYTES % (AUTO) 35 % (12-44); MEAN CORPUSCULAR HEMOGLOBIN 28 pg (25-34); MEAN CORPUSCULAR HGB CONC 33 g/dL (32-36); MEAN CORPUSCULAR VOLUME 83 fL (80-99); MEAN PLATELET VOLUME 9.5 fL (9.0-12.2); MONOCYTES # (AUTO) 0.5 X 10^3 (0.0-1.0); MONOCYTES % (AUTO) 7 % (0-12); NEUTROPHILS % (AUTO) 54 % (42-75); PLATELET COUNT 252 10^3/uL (130-400)
[2021-07-10 19:40] LABS: ALANINE AMINOTRANSFERASE 25 U/L (0-55); ALBUMIN 3.6 GM/DL (3.2-4.5); ALKALINE PHOSPHATASE 101 U/L (40-136); BILIRUBIN,TOTAL 0.2 MG/DL (0.1-1.0); BUN/CREATININE RATIO 27; CALCIUM 9.5 MG/DL (8.5-10.1); CARBON DIOXIDE 21 MMOL/L (21-32); CHLORIDE 103 MMOL/L (98-107); CREATININE SERUM 1.18 MG/DL (0.60-1.30); GFR ESTIMATED 46; GLUCOSE 353 MG/DL (70-105); MAGNESIUM 2.2 MG/DL (1.6-2.4); POTASSIUM 4.1 MMOL/L (3.6-5.0); SODIUM 135 MMOL/L (135-145); TOTAL PROTEIN 7.1 GM/DL (6.4-8.2)
[2021-07-10 19:57] LABS: BILIRUBIN,URINE NEGATIVE (NEGATIVE); CLARITY,URINE CLEAR; COLOR,URINE YELLOW; GLUCOSE, URINE (UA) 2+ (NEGATIVE); KETONES,URINE NEGATIVE (NEGATIVE); LEUKOCYTE ESTERASE ,URINE NEGATIVE (NEGATIVE); NITRITE,URINE NEGATIVE (NEGATIVE); PROTEIN,URINE 2+ (NEGATIVE)
[2021-07-10 19:58] LABS: BACTERIA,URINE TRACE /HPF; YEAST,URINE FEW /HPF
[2021-07-10] MEDS ORDERED: lisINopril 10 MG (PRINIVIL) TABLET PO ONE (20:00)
[2021-07-10] MEDS ORDERED: inSUlin (REGULAR) HUMAN 1 UNIT/0.01 ML (CHARGE PER UNIT) IV ONE (20:00)
[2021-07-10] MEDS ORDERED: ENALAPRILAT 2.5 MG/2 ML (VASOTEC) VIAL IV ONE (20:00)
[2021-07-10 20:53] VITALS: BP 188/78
== END 2021-07-10 20:55 | disposition home or self-care (01) ==
LOC: EDUNIT# 18:52 → ER FS 18:54
DX: I10 Essential (primary) hypertension (principal); E11.65 Type 2 diabetes mellitus with hyperglycemia; G47.30 Sleep apnea, unspecified; I25.10 Atherosclerotic heart disease of native coronary artery without angina pectoris; E78.00 Pure hypercholesterolemia, unspecified; E03.9 Hypothyroidism, unspecified; F41.9 Anxiety disorder, unspecified; F32.9 Major depressive disorder, single episode, unspecified; Z79.82 Long term (current) use of aspirin; Z79.890 Hormone replacement therapy; Z79.01 Long term (current) use of anticoagulants; Z79.899 Other long term (current) drug therapy
CPT/HCPCS: 36415; 80053; 81000; 82947; 83735; 84484; 85025; 86141; 93041

== ENCOUNTER 2021-07-31 18:09 | Emergency (ER) | payer MEDICAID ==
[~2021-07-31] VITALS: Ht 162 cm; Wt 79.0 kg
--- NOTE | 2021-07-31 18:25 | ED Cough/URI ---
General Stated Complaint: ELEV BP; SOB Source: patient Exam Limitations: no limitations (KRISTY CARRENO MD) History of Present Illness Date Seen by Provider: Jul 31, 2021 Time Seen by Provider: 18:14 Initial Comments 65-year-old female with past medical history of CAD status post CABG, uncontrolled hypertension, diabetes coming in due to 1 week of nonproductive cough, shortness of breath, and elevated blood pressure. Went to a walk-in clinic earlier today and had a negative Covid test, but was referred here due to her elevated blood pressure. She denies any fever, nausea, vomiting, diarrhea, weakness, numbness, chest pain, abdominal pain, rash, or any other concerns. (KRISTY CARRENO MD) Allergies and Home Medications Allergies Coded Allergies: Sulfa (Sulfonamide Antibiotics) (Verified Allergy, Severe, hives, 04/15/21) Patient Home Medication List Home Medication List Reviewed: Yes (KRISTY CARRENO MD) Home Medication List Reviewed: Yes (WILEY LORENZO) Acetaminophen (Tylenol) 325 Mg Tablet, 325-650 MG PO Q4- 6H PRN for PAIN-MILD (1-4), (Reported) Entered as Reported by: CARMELTIA GOODRICH on 03/12/21957 Aspirin (Aspirin EC) 81 Mg Tablet.dr, 81 MG PO DAILY Prescribed by: MIRELA SHARMA on 05/27/21 121 Atorvastatin Calcium (Lipitor) 40 Mg Tablet, 40 MG PO HS Prescribed by: MIRELA SHARMA on 05/27/21 121 Azithromycin (Azithromycin) 250 Mg Tablet, 250 MG PO DAILY Prescribed by: KRISTY CARRENO on 07/31/21 185 Clopidogrel Bisulfate (Clopidogrel) 75 Mg Tablet, 75 MG PO DAILY, (Reported) Entered as Reported by: CARMELITA GOODRICH on 03/12/21957 Gabapentin (Neurontin) 300 Mg Capsule, 300 MG PO HS PRN for PAIN-BREAKTHROUGH, ( Reported) Entered as Reported by: CARMELITA GOODRICH on 03/12/21957 Levothyroxine Sodium (Levothyroxine Sodium) 175 Mcg Tablet, 175 MCG PO DAILY, (Reported) Entered as Reported by: CARMELITA GOODRICH on 03/12/21957 Lisinopril (Lisinopril) 20 Mg Tablet, 20 MG PO DAILY Prescribed by: MIRELA SHARMA on 05/27/21 1214 Loratadine (Loratadine) 10 Mg Tablet, 10 MG PO DAILY PRN for ALLERGY SYMPTOMS, (Reported) Entered as Reported by: SKYLER ARGUELLO on 05/26/21 165 Metformin HCl (Metformin HCl) 500 Mg Tablet, 500 MG PO BID, (Reported) Entered as Reported by: SKYLER ARGUELLO on 05/26/21 165 Metoprolol Tartrate (Metoprolol Tartrate) 25 Mg Tablet, 25 MG PO BID, (Reported) Entered as Reported by: OCTAVIO ARENAS on 03/11/212147 Pantoprazole Sodium (Pantoprazole Sodium) 40 Mg Tablet.dr, 40 MG PO DAILY, (Reported) Entered as Reported by: CARMELITA GOODRICH on 03/12/21 09 Prednisone (Prednisone) 20 Mg Tab, 40 MG PO DAILY Prescribed by: KRISTY CARRENO on 07/31/211851 Sertraline HCl (Sertraline HCl) 100 Mg Tablet, 100 MG PO DAILY, (Reported) Entered as Reported by: OCTAVIO ARENAS on 03/11/212147 Trazodone HCl (Trazodone HCl) 100 Mg Tablet, 100 MG PO HS PRN for SLEEP, (Reported) Entered as Reported by: OCTAVIO ARENAS on 03/11/212147 Review of Systems Review of Systems Constitutional: No chills, No fever EENTM: No blurred vision Respiratory: cough, short of breath Cardiovascular: No chest pain Gastrointestinal: No abdominal pain, No diarrhea, No nausea, No vomiting Genitourinary: no symptoms reported Musculoskeletal: no symptoms reported Skin: no symptoms reported Psychiatric/Neurological: No Symptoms Reported Hematologic/Lymphatic: No Symptoms Reported Immunological/Allergic: no symptoms reported (KRISTY CARRENO MD) All Other Systems Reviewed Negative Unless Noted: Yes (KRISTY CARRENO MD) Past Cuaktme-Serjbi-Ijspzy Hx Patient Social History Tobacco Use?: No (KRISTY CARRENO MD) Immunizations Up To Date Tetanus Booster (TDap): Unknown First/Initial COVID19 Vaccinat: October COVID19 Vaccination Burak: November COVID19 Vaccination Date: sep 2020 (KRISTY CARRENO MD) Seasonal Allergies Seasonal Allergies: Yes (KRISTY CARRENO MD) Past Medical History Surgeries: Yes (right elbow, left ankle, right rotator cuff, right hip, ear tubes) CABG, Open Heart Surgery, Orthopedic Respiratory: Yes Sleep Apnea Currently Using CPAP: No Cardiac: Yes Coronary Artery Disease, High Cholesterol, Hypertension, Hypotension Neurological: Yes Headaches /Migraines, Neuropathy Genitourinary: Yes Renal Failure Gastrointestinal: No Hepatitis Musculoskeletal: Yes Arthritis, Chronic Back Pain Endocrine: Yes Diabetes, Insulin dep, Hypothyroidsim HEENT: Yes (decreased vision due to DM) Loss of Vision: Bilateral Hearing Impairment: Denies Cancer: Yes Skin Did You Recieve Any Treatments: Yes What Type of Treatment Did You: Surgical Intervention Anxiety, Bipolar, Depression Integumentary: Yes Eczema Blood Disorders: Yes (Hep C) (KRISTY CARRENO MD) Family Medical History No Pertinent Family Hx (KRISTY CARRENO MD) Physical Exam Vital Signs - First Documented 07/31/21 18:13 Temp 36.4 Pulse 82 Resp 18 B/P (MAP) 248/108 (154) Pulse Ox 96 O2 Delivery Room Air (WILEY LORENZO) Capillary Refill : (KRISTY CARRENO MD) Height: '" Weight: lbs. oz. kg; 28.00 BMI Method: General Appearance: WD/WN, no apparent distress Eyes: Bilateral Eye Normal Inspection, Bilateral Eye PERRL HEENT: PERRL/EOMI, normal ENT inspection, pharynx normal Neck: non-tender, full range of motion, supple, normal inspection Respiratory: chest non-tender, lungs clear, normal breath sounds, no respiratory distress, no accessory muscle use Cardiovascular: regular rate, rhythm, no edema, no murmur Gastrointestinal: normal bowel sounds, non tender, soft, distended, guarding, rebound Extremities: normal range of motion, non-tender, normal inspection, no pedal edema, no calf tenderness, normal capillary refill Neurologic/Psychiatric: hand ironer II-XII nml as tested, no motor/sensory deficits, alert, normal mood/affect, oriented x 3 Skin: normal color, warm/dry Lymphatic: no adenopathy (KRISTY CARRENO MD) Progress/Results/Core Measures Suspected Sepsis SIRS Temperature: Pulse: Respiratory Rate: Laboratory Tests 07/31/21 18:20: White Blood Count 9.3 Blood Pressure / Mean: Laboratory Tests 07/31/21 18:20: Platelet Count 289 (KRISTY CARRENO MD) Results/Orders Lab Results Laboratory Tests Test 07/31/21 18:20 Range/Units White Blood Count 9.3 4.3-11.0 10^3/uL Red Blood Count 5.17 H 3.80-5.11 10^6/uL Hemoglobin 14.3 11.5-16.0 g/dL Hematocrit 43 35-52 % Mean Corpuscular Volume 84 80-99 fL Mean Corpuscular Hemoglobin 28 25-34 pg Mean Corpuscular Hemoglobin Concent 33 32-36 g/dL Red Cell Distribution Width 14.8 H 10.0-14.5 % Platelet Count 289 130-400 10^3/uL Mean Platelet Volume 9.1 9.0-12.2 fL Immature Granulocyte % (Auto) 1 % Neutrophils (%) (Auto) 58 42-75 % Lymphocytes (%) (Auto) 33 12-44 % Monocytes (%) (Auto) 6 0-12 % Eosinophils (%) (Auto) 2 0-10 % Basophils (%) (Auto) 1 0-10 % Neutrophils # (Auto) 5.4 1.8-7.8 X 10^3 Lymphocytes # (Auto) 3.0 1.0-4.0 X 10^3 Monocytes # (Auto) 0.6 0.0-1.0 X 10^3 Eosinophils # (Auto) 0.2 0.0-0.3 10^3/uL Basophils # (Auto) 0.1 0.0-0.1 10^3/uL Immature Granulocyte # (Auto) 0.1 0.0-0.1 10^3/uL Sodium Level 138 135-145 MMOL/L Potassium Level 3.4 L 3.6-5.0 MMOL/L Chloride Level 102 98-107 MMOL/L Carbon Dioxide Level 25 21-32 MMOL/L Anion Gap 11 5-14 MMOL/L Blood Urea Nitrogen 25 H 7-18 MG/DL Creatinine 1.59 H 0.60-1.30 MG/DL Estimat Glomerular Filtration Rate 33 BUN/Creatinine Ratio 16 Glucose Level 285 H 70-105 MG/DL Calcium Level 9.5 8.5-10.1 MG/DL Corrected Calcium 10.1 8.5-10.1 MG/DL Total Bilirubin 0.2 0.1-1.0 MG/DL Aspartate Amino Transf (AST/SGOT) 25 5-34 U/L Alanine Aminotransferase (ALT/SGPT) 19 0-55 U/L Alkaline Phosphatase 90 40-136 U/L Troponin I < 0.30 <0.30 NG/ML Pro-B-Type Natriuretic Peptide 5415.0 H <75.0 PG/ML Total Protein 7.1 6.4-8.2 GM/DL Albumin 3.2 3.2-4.5 GM/DL (WILEY LORENZO) Medications Given in ED Current Medications Medications Dose Ordered Sig/Emerita Route Start Time Stop Time Status Last Admin Dose Admin Albuterol/ Ipratropium 3 ml ONCE ONCE INH 07/31/21 18:30 07/31/21 18:31 DC 07/31/21 18:33 3 ML Azithromycin 500 mg ONCE ONCE PO 07/31/21 18:30 07/31/21 18:31 DC 07/31/21 18:33 500 MG Lisinopril 20 mg ONCE ONCE PO 07/31/21 19:00 07/31/21 19:01 DC 07/31/21 19:00 20 MG Nitroglycerin 1 inch ONCE ONCE TOP 07/31/21 19:00 07/31/21 19:01 DC 07/31/21 19:00 1 INCH Prednisone 50 mg ONCE ONCE PO 07/31/21 18:30 07/31/21 18:31 DC 07/31/21 18:33 50 MG (WILEY LORENZO) Vital Signs/I&O 07/31/21 18:13 Temp 36.4 Pulse 82 Resp 18 B/P (MAP) 248/108 (154) Pulse Ox 96 O2 Delivery Room Air (WILEY LORENZO) Vital Signs/I&O Capillary Refill : (KRISTY CARRENO MD) Progress Note : Progress Note 65-year-old female coming in for cough and shortness of breath. ABCs were intact and vitals were stable on presentation although she is hypertensive. She was given her home dose lisinopril as well as Nitropaste until that kicks in. Lungs with wheezing bilaterally. Chest x-ray with possible right lower lung opacity on my interpretation. She was given azithromycin as well as prednisone for possible COPD exacerbation/pneumonia. Basic labs including cardiac biomar kers ordered and are pending at this time. Patient signed out to Dr. Lorenzo and he will follow up these labs. Otherwise the plan would be for her to go home with antibiotics and steroids for COPD exacerbation. (KRISTY CARRENO MD) Progress Note : Progress Note Assumed care of the patient at shift change. She states she is breathing much better no longer having the wheezing. She likely was having a COPD exacerbation however with her elevated blood pressure and elevated BNP and history of CABG there is strong concern she also has a component of heart failure. Patient's blood pressures down from 250 to about 200 which is a significant improvement with nitroglycerin paste. She says she is feeling better and so we called and discussed the case with Dr. Aguero who recommends that he would be willing to consult if she wanted admitted but if she is not any acute distress anymore that he would just treat her with some metoprolol, switch her to lisinopril/hydrochlorothiazide 40 x 25 give her one-time dose of Lasix and potassium tonight and have her follow-up next week either with her primary care provider or with his cardiology team. Patient states that this would be a good plan. We will give her 100 mg metoprolol XL, potassium and before she leaves a 20 mg IV dose of Lasix (WILEY LORENZO) ECG Initial ECG Impression Date: Jul 31, 2021 Initial ECG Impression Time: 18:10 Initial ECG Rate: 80 Initial ECG Rhythm: Normal Sinus Comment Narrow QRS, borderline left axis deviation, T wave flattening in the high lateral leads, no significant ST changes accounting for that (KRISTY CARRENO MD) Diagnostic Imaging Diagonstic Imaging: Xray Plain Films/CT/US/NM/MRI: chest Comments [facility], [facility]. [place], [place] NAME: POOJA KONG MED REC#: [id number] PT STATUS: REG ER : 1955 PHYSICIAN: KRISTY CARRENO MD ADMIT DATE: 07/31/21/ER FS Draft Date of Exam:07/31/21 CHEST 1 VIEW AP/PA ONLY EXAMINATION: Chest 1 view. HISTORY: Shortness of breath. Cough. COMPARISON: 03/17/2021. FINDINGS: The lung volumes are normal. Small amount of right basilar opacities are seen. No large pleural effusion or pneumothorax is seen. The cardiomediastinal silhouette is normal in size. Post-CABG changes are seen. No acute osseous abnormality is seen. Surgical hardware is seen in the proximal right humerus. IMPRESSION: Small amount of right basilar opacities which may represent atelectasis or infection. Dictated on workstation # [id number] Dict: 07/31/21 1829 Trans: 07/31/21 183 PJE [id number] Interpreted by: RUBENS CASTANEDA DO Electronically signed by: (KRISTY CARRENO MD) Departure Impression Primary Impression: Shortness of breath Additional Impressions: Uncontrolled hypertension Pneumonia Qualified Codes: J18.9 - Pneumonia, unspecified organism Disposition: 01 HOME, SELF-CARE Condition: Stable Departure-Patient Inst. Decision time for Depature: 19:52 (WILEY LORENZO) Referrals: NICK ROTH APRN (PCP) [facility] Care Physician [facility] [place] Primary Care Physician MIGDALIA AGUERO MD FACP FAC CCDS Patient Instructions: High Blood Pressure ED, Pneumonia in Adults Add. Discharge Instructions: She was seen in the emergency department for shortness of breath and cough with an elevated blood pressure. It does appear like she could have pneumonia. Please take the steroids and antibiotics for the next 5 days. Please follow-up with your primary care doctor in the next couple days. Lisinopril/hydrochlorothiazide 20/12.5 mg take 2 tablets daily. Stop taking your lisinopril as it is included in the new medication. Stop taking your metoprolol and start taking the new dose. Metoprolol XL 100 mg one tablet daily. Tuesday morning call your primary care provider or Dr. Aguero, circulation supervisor for close follow-up for your high blood pressure. Scripts Metoprolol Succinate (Metoprolol Succinate) 100 Mg Tab.er.24h 100 MG PO DAILY for 14 Days, #14 TAB 0 Refills Prov: WILEY LORENZO 07/31/21 Lisinopril/Hydrochlorothiazide (Lisinopril-Hctz 20-12.5 mg Tab) 1 Each Tablet 2 EACH PO DAILY for 14 Days, #30 TAB 0 Refills Prov: WILEY LORENZO 07/31/21 Prednisone (Prednisone) 20 Mg Tab 40 MG PO DAILY for 5 Days, #10 TAB 0 Refills Prov: KRISTY CARRENO MD 07/31/21 Azithromycin (Azithromycin) 250 Mg Tablet 250 MG PO DAILY for 5 Days, #5 TAB 0 Refills Prov: KRISTY CARRENO MD 07/31/21 Copy Copies To 1: MIGDALIA AGUERO MD FACP FACC CCDS KRISTY CARRENO MD Jul 31, 2021 18:25 WILEY LORENZO Jul 31, 2021 19:36
[2021-07-31 18:29] LABS: HEMATOCRIT 43 % (35-52); HEMOGLOBIN 14.3 g/dL (11.5-16.0); MEAN CORPUSCULAR HEMOGLOBIN 28 pg (25-34); MEAN CORPUSCULAR HGB CONC 33 g/dL (32-36); MEAN CORPUSCULAR VOLUME 84 fL (80-99); WHITE BLOOD COUNT 9.3 10^3/uL (4.3-11.0)
[2021-07-31 18:30] LABS: BASOPHILS # (AUTO) 0.1 10^3/uL (0.0-0.1); BASOPHILS % (AUTO) 1 % (0-10); EOSINOPHILS # (AUTO) 0.2 10^3/uL (0.0-0.3); EOSINOPHILS % (AUTO) 2 % (0-10); LYMPHOCYTES % (AUTO) 33 % (12-44); MEAN PLATELET VOLUME 9.1 fL (9.0-12.2); MONOCYTES # (AUTO) 0.6 X 10^3 (0.0-1.0); MONOCYTES % (AUTO) 6 % (0-12); NEUTROPHILS # (AUTO) 5.4 X 10^3 (1.8-7.8); NEUTROPHILS % (AUTO) 58 % (42-75); PLATELET COUNT 289 10^3/uL (130-400)
[2021-07-31] MEDS ORDERED: AZITHROMYCIN 250 MG TAB (ZITHROMAX) PO ONE (18:30)
[2021-07-31] MEDS ORDERED: RT-ALBUTEROL/IPRATROPIUM 3 ML (DUONEB) VIAL INH ONE (18:30)
[2021-07-31] MEDS ORDERED: predniSONE 20 MG TAB PO ONE (18:30)
--- NOTE | 2021-07-31 18:32 | Diagnostic Imaging Report ---
EXAMINATION: Chest 1 view. HISTORY: Shortness of breath. Cough. COMPARISON: 03/17/2021. FINDINGS: The lung volumes are normal. Small amount of right basilar opacities are seen. No large pleural effusion or pneumothorax is seen. The cardiomediastinal silhouette is normal in size. Post-CABG changes are seen. No acute osseous abnormality is seen. Surgical hardware is seen in the proximal right humerus. IMPRESSION: Small amount of right basilar opacities which may represent atelectasis or infection. Dictated by: Dictated on workstation # [id number]
[2021-07-31] MEDS ORDERED: PRD20T PO (18:52)
[2021-07-31] MEDS ORDERED: AZIT250T12 PO (18:52)
[2021-07-31 18:55] LABS: ALANINE AMINOTRANSFERASE 19 U/L (0-55); ALBUMIN 3.2 GM/DL (3.2-4.5); ALKALINE PHOSPHATASE 90 U/L (40-136); BILIRUBIN,TOTAL 0.2 MG/DL (0.1-1.0); BUN/CREATININE RATIO 16; CALCIUM 9.5 MG/DL (8.5-10.1); CARBON DIOXIDE 25 MMOL/L (21-32); CHLORIDE 102 MMOL/L (98-107); CREATININE SERUM 1.59 MG/DL (0.60-1.30); GFR ESTIMATED 33; GLUCOSE 285 MG/DL (70-105); POTASSIUM 3.4 MMOL/L (3.6-5.0); SODIUM 138 MMOL/L (135-145); TOTAL PROTEIN 7.1 GM/DL (6.4-8.2)
[2021-07-31] MEDS ORDERED: lisINopril 10 MG (PRINIVIL) TABLET PO ONE (19:00)
[2021-07-31] MEDS ORDERED: NITROGLYCERIN 2% OINT 1 GM UNIT DOSE PACKET TOP ONE (19:00)
[2021-07-31] MEDS ORDERED: LISI1TAB46 PO (19:56)
[2021-07-31] MEDS ORDERED: MTP100TCR PO (19:56)
[2021-07-31] MEDS ORDERED: KCL 20 MEQ TAB (K-DUR) PO ONE (20:00)
[2021-07-31] MEDS ORDERED: meTOproloL SUCCINATE 50 MG (TOPROL XL) TAB PO SCH (20:00)
[2021-07-31] MEDS ORDERED: FUROSEMIDE 40 MG/4 ML INJ (LASIX) IVP ONE (20:00)
[2021-07-31 20:14] VITALS: BP 169/79
== END 2021-07-31 20:23 | disposition home or self-care (01) ==
LOC: EDUNIT# 18:09 → ER FS 18:11
DX: R06.02 Shortness of breath (principal); I10 Essential (primary) hypertension; J18.9 Pneumonia, unspecified organism; G47.30 Sleep apnea, unspecified; I25.10 Atherosclerotic heart disease of native coronary artery without angina pectoris; E78.00 Pure hypercholesterolemia, unspecified; E03.9 Hypothyroidism, unspecified; E11.9 Type 2 diabetes mellitus without complications; F41.9 Anxiety disorder, unspecified; F32.9 Major depressive disorder, single episode, unspecified; Z79.82 Long term (current) use of aspirin; Z79.01 Long term (current) use of anticoagulants; Z79.890 Hormone replacement therapy; Z79.899 Other long term (current) drug therapy
CPT/HCPCS: 36415; 71045; 80053; 83880; 84484; 85025; 93005

== ENCOUNTER 2021-08-14 11:14 | Emergency (ER) | payer MEDICAID ==
[~2021-08-14] VITALS: Ht 167.7 cm; Wt 79.5 kg
[~2021-08-14 11:14] MED LIST changes: +AZIT250T12 PO; +LISI1TAB46 PO; +MTP100TCR PO; +PRD20T PO
--- NOTE | 2021-08-14 11:29 | ED General ---
General Chief Complaint: Cardiac/General Problems Stated Complaint: ELEVATED BLOOD PRESSURE,VOMITING Source of Information: Patient History of Present Illness Date Seen by Provider: Aug 14, 2021 Time Seen by Provider: 11:19 Initial Comments 65-year-old female presenting with complaints of headache, cough, nausea, vomiting, diarrhea. She has not felt well for the last 3 or 4 days. She was seen in the clinic yesterday and started on steroid as well as an inhaler. She has not checked her blood sugar for several days and not taken any of her insulin for several days. She states that she does not like to stick her fingers and when her Dexcom she has not gotten a new one. She has had subjective fever and chills. She has been coughing but not bringing anything up when she coughs. She has not been taking Mucinex or anything to help with her cough. She denies any abdominal pain. She has no new pain in her legs or extremities. She has chronic pain in her muscles all the time. She has a generalized headache. She thought that her blood pressure was elevated and was causing her symptoms. Timing/Duration: 3-4 Days Severity: Severe Associated Systoms: No Chest Pain; Cough; No Diaphoresis; Fever/Chills, Headaches; No Loss of Appetite; Malaise, Nausea/Vomiting; No Rash, No Seizure; Shortness of Air; No Syncope; Weakness Allergies and Home Medications Allergies Coded Allergies: Sulfa (Sulfonamide Antibiotics) (Verified Allergy, Severe, hives, 04/15/21) Patient Home Medication List Home Medication List Reviewed: Yes Acetaminophen (Tylenol) 325 Mg Tablet, 325-650 MG PO Q4- 6H PRN for PAIN-MILD (1-4), (Reported) Entered as Reported by: CARMELITA GOODRICH on 03/12/21 0958 Aspirin (Aspirin EC) 81 Mg Tablet.dr, 81 MG PO DAILY Prescribed by: MIRELA SHARMA on 05/27/21 121 Atorvastatin Calcium (Lipitor) 40 Mg Tablet, 40 MG PO HS Prescribed by: MIRELA SHARMA on 05/27/21 121 Azithromycin (Azithromycin) 250 Mg Tablet, 250 MG PO DAILY Prescribed by: KRISTY CARRENO on 07/31/21 1852 Clopidogrel Bisulfate (Clopidogrel) 75 Mg Tablet, 75 MG PO DAILY, (Reported) Entered as Reported by: CARMELITA GOODRICH on 03/12/21957 Gabapentin (Neurontin) 300 Mg Capsule, 300 MG PO HS PRN for PAIN-BREAKTHROUGH, (Reported) Entered as Reported by: CARMELITA GOODRICH on 03/12/21957 Levothyroxine Sodium (Levothyroxine Sodium) 175 Mcg Tablet, 175 MCG PO DAILY, (Reported) Entered as Reported by: CARMELITA GOODRICH on 03/12/21957 Lisinopril (Lisinopril) 20 Mg Tablet, 20 MG PO DAILY Prescribed by: MIRELA SHARMA on 05/27/21 1214 Lisinopril/Hydrochlorothiazide (Lisinopril-Hctz 20-12.5 mg Tab) 1 Each Tablet, 2 EACH PO DAILY Prescribed by: WILEY BUSTILLO on 07/31/211955 Loratadine (Loratadine) 10 Mg Tablet, 10 MG PO DAILY PRN for ALLERGY SYMPTOMS, (Reported) Entered as Reported by: SKYLER ARGUELLO on 05/26/211654 Metformin HCl (Metformin HCl) 500 Mg Tablet, 500 MG PO BID, (Reported) Entered as Reported by: SKYLER ARGUELLO on 05/26/21 165 Metoprolol Succinate (Metoprolol Succinate) 100 Mg Tab.er.24h, 100 MG PO DAILY Prescribed by: WILEY BUSTILLO on 07/31/211955 Nitrofurantoin Monohyd/M-Cryst (Macrobid 100 mg Capsule) 100 Mg Capsule, 1 TAB PO BID Prescribed by: SINTIA JC on 08/14/21 1531 Pantoprazole Sodium (Pantoprazole Sodium) 40 Mg Tablet.dr, 40 MG PO DAILY, (Reported) Entered as Reported by: CARMELITA GOODRICH on 03/12/21957 Prednisone (Prednisone) 20 Mg Tab, 40 MG PO DAILY Prescribed by: KRISTY CARRENO on 07/31/21 185 Sertraline HCl (Sertraline HCl) 100 Mg Tablet, 100 MG PO DAILY, (Reported) Entered as Reported by: OCTAVIO ARENAS on 03/11/212147 Trazodone HCl (Trazodone HCl) 100 Mg Tablet, 100 MG PO HS PRN for SLEEP, (Reported) Entered as Reported by: OCTAVIO ARENAS on 03/11/212147 Review of Systems Review of Systems Constitutional: chills, fever, malaise EENTM: No ear pain, No epistaxis, No nose congestion Respiratory: cough; No hemoptysis; short of breath; No stridor, No wheezing Cardiovascular: No chest pain Gastrointestinal: No abdominal pain; nausea, vomiting Genitourinary: No dysuria Musculoskeletal: muscle pain (chronic, diffuse pains) Skin: No rash Psychiatric/Neurological: Headache (generalized); Denies Numbness, Denies Paresthesia Past Hyywtdu-Iyptoh-Dzwqzm Hx Immunizations Up To Date Tetanus Booster (TDap): Unknown First/Initial COVID19 Vaccinat: 2020 Second COVID19 Vaccination Burak: 2020 Third COVID19 Vaccination Date: sep 2020 Seasonal Allergies Seasonal Allergies: Yes Past Medical History Surgery/Hospitalization HX: Diabetes Insulin Dependent, Hypertension Surgeries: Yes (right elbow, left ankle, right rotator cuff, right hip, ear tubes) CABG, Open Heart Surgery, Orthopedic Respiratory: Yes Sleep Apnea Currently Using CPAP: No Cardiac: Yes Coronary Artery Disease, High Cholesterol, Hypertension, Hypotension Neurological: Yes Headaches /Migraines, Neuropathy Genitourinary: Yes Renal Failure Gastrointestinal: No Hepatitis Musculoskeletal: Yes Arthritis, Chronic Back Pain Endocrine: Yes Diabetes, Insulin dep, Hypothyroidsim HEENT: Yes (decreased vision due to DM) Loss of Vision: Bilateral Hearing Impairment: Denies Cancer: Yes Skin Did You Recieve Any Treatments: Yes What Type of Treatment Did You: Surgical Intervention Anxiety, Bipolar, Depression Integumentary: Yes Eczema Blood Disorders: Yes (Hep C) Family Medical History No Pertinent Family Hx Physical Exam Vital Signs Vital Signs - First Documented 08/14/21 11:20 Temp 37.2 Pulse 84 Resp 14 B/P (MAP) 167/66 (99) Pulse Ox 96 O2 Delivery Room Air Capillary Refill : Height, Weight, BMI Height: '" Weight: lbs. oz. kg; 30.00 BMI Method: General Appearance: No Apparent Distress, WD/WN HEENT: PERRL/EOMI, Pharynx Normal Neck: Full Range of Motion, Normal Inspection, Non Tender, Supple Respiratory: Chest Non Tender, Lungs Clear, Normal Breath Sounds, No Accessory Muscle Use, No Respiratory Distress Cardiovascular: Regular Rate, Rhythm, Normal Peripheral Pulses Gastrointestinal: Normal Bowel Sounds, No Pulsatile Mass, Non Tender, Soft Extremity: Normal Capillary Refill Neurologic/Psychiatric: Alert, Oriented x3, oracle etl developer II-XII Norm as Tested Skin: Normal Color, Warm/Dry Focused Exam Lactate Level 08/14/21 11:28: Lactic Acid Level 1.94 Lactic Acid Level Laboratory Tests Test 08/14/21 11:28 Lactic Acid Level 1.94 MMOL/L (0.50-2.00) Progress/Results/Core Measures Suspected Sepsis SIRS Temperature: Pulse: Respiratory Rate: Laboratory Tests 08/14/21 11:28: White Blood Count 18.5H Blood Pressure / Mean: 08/14/21 11:28: Lactic Acid Level 1.94 Laboratory Tests 08/14/21 11:28: Creatinine 1.48H, INR Comment 1.0, Platelet Count 275, Total Bilirubin 0.4 Results/Orders Lab Results Laboratory Tests Test 08/14/21 11:28 08/14/21 11:30 08/14/21 11:40 08/14/21 14:10 Range/Units White Blood Count 18.5 H 4.3-11.0 10^3/uL Red Blood Count 5.09 3.80-5.11 10^6/uL Hemoglobin 14.6 11.5-16.0 g/dL Hematocrit 42 35-52 % Mean Corpuscular Volume 83 80-99 fL Mean Corpuscular Hemoglobin 29 25-34 pg Mean Corpuscular Hemoglobin Concent 35 32-36 g/dL Red Cell Distribution Width 14.5 10.0-14.5 % Platelet Count 275 130-400 10^3/uL Mean Platelet Volume 9.7 9.0-12.2 fL Immature Granulocyte % (Auto) 1 % Neutrophils (%) (Auto) 85 H 42-75 % Lymphocytes (%) (Auto) 7 L 12-44 % Monocytes (%) (Auto) 7 0-12 % Eosinophils (%) (Auto) 0 0-10 % Basophils (%) (Auto) 0 0-10 % Neutrophils # (Auto) 15.6 H 1.8-7.8 X 10^3 Lymphocytes # (Auto) 1.3 1.0-4.0 X 10^3 Monocytes # (Auto) 1.3 H 0.0-1.0 X 10^3 Eosinophils # (Auto) 0.0 0.0-0.3 10^3/uL Basophils # (Auto) 0.1 0.0-0.1 10^3/uL Immature Granulocyte # (Auto) 0.2 H 0.0-0.1 10^3/uL Neutrophils % (Manual) 79 % Lymphocytes % (Manual) 11 % Monocytes % (Manual) 6 % Band Neutrophils 1 % Reactive Lymphocytes 3 % Toxic Granulation 3+ Platelet Estimate NORMAL Blood Morphology Comment NORMAL Prothrombin Time 13.3 12.2-14.7 SEC INR Comment 1.0 0.8-1.4 Activated Partial Thromboplast Time 23 L 24-35 SEC D-Dimer 2.11 H 0.00-0.49 UG/ML Sodium Level 136 135-145 MMOL/L Potassium Level 3.2 L 3.6-5.0 MMOL/L Chloride Level 99 98-107 MMOL/L Carbon Dioxide Level 23 21-32 MMOL/L Anion Gap 14 5-14 MMOL/L Blood Urea Nitrogen 20 H 7-18 MG/DL Creatinine 1.48 H 0.60-1.30 MG/DL Estimat Glomerular Filtration Rate 36 BUN/Creatinine Ratio 14 Glucose Level 369 H 70-105 MG/DL Lactic Acid Level 1.94 0.50-2.00 MMOL/L Calcium Level 9.6 8.5-10.1 MG/DL Corrected Calcium 10.3 H 8.5-10.1 MG/DL Total Bilirubin 0.4 0.1-1.0 MG/DL Aspartate Amino Transf (AST/SGOT) 19 5-34 U/L Alanine Aminotransferase (ALT/SGPT) 14 0-55 U/L Alkaline Phosphatase 84 40-136 U/L Troponin I < 0.30 <0.30 NG/ML C-Reactive Protein 0.81 H <0.50 MG/DL Total Protein 6.9 6.4-8.2 GM/DL Albumin 3.1 L 3.2-4.5 GM/DL Lipase 50 8-78 U/L Beta-Hydroxybutyrate (Chem panel) 0.14 0.00-0.27 MMOL/L Glucometer 319 H 70-110 MG/DL Influenza Type A Antigen NEGATIVE NEGATIVE Influenza Type B Antigen NEGATIVE NEGATIVE SARS-CoV-2 RNA (RT-PCR) Not Detected Not Detecte Urine Color YELLOW Urine Clarity TURBID Urine pH 6.0 5-9 Urine Specific [place] 1.025 H 1.016-1.022 Urine Protein 3+ H NEGATIVE Urine Glucose (UA) 3+ H NEGATIVE Urine Ketones NEGATIVE NEGATIVE Urine Nitrite NEGATIVE NEGATIVE Urine Bilirubin 1+ H NEGATIVE Urine Urobilinogen 0.2 < = 1.0 MG/DL Urine Leukocyte Esterase NEGATIVE NEGATIVE Urine RBC (Auto) 3+ H NEGATIVE Urine RBC 2-5 H /HPF Urine WBC 2-5 /HPF Urine Squamous Epithelial Cells 2-5 /HPF Urine Crystals PRESENT H /LPF Urine Amorphous Sediment FEW ISAIAS URATES H /LPF Urine Bacteria LARGE H /HPF Urine Casts PRESENT /LPF Urine Hyaline Casts 25-50 H /LPF Urine Granular Casts RARE /LPF Urine Mucus LARGE H /LPF Urine Yeast FEW H /HPF Urine Culture Indicated YES My Orders Orders - SINTIA JC MD Monitor-Rhythm Ecg Trace Only (08/14/21 11:42) Ed Iv/Invasive Line Start (08/14/21 11:42) Cbc With Automated Diff (08/14/21 11:42) Comprehensive Metabolic Panel (08/14/21 11:42) Crp Fs (08/14/21 11:42) Troponin I Fs (08/14/21 11:42) Protime With Inr (08/14/21 11:42) Partial Thromboplastin Time (08/14/21 11:42) Ekg Tracing (08/14/21 11:42) Ns Iv 1000 Ml (Sodium Chloride 0.9%) (08/14/21 11:45) Ondansetron Injection (Zofran Injectio (08/14/21 11:45) Accucheck Stat ONCE (08/14/21 11:42) Covid 19 Inhouse Test (08/14/21 11:42) Influenza A & B Antigens (08/14/21 11:42) Fibrin Degradation Products (08/14/21 11:42) Beta Hydroxybutyrate (08/14/21 11:42) Ua Culture If Indicated (08/14/21 11:42) Blood Culture (08/14/21 11:42) Isolation Central Supply Req (08/14/21 11:42) Lactic Acid Analyzer (08/14/21 11:42) Chest 1 View Ap/Pa Only (08/14/21 11:42) Lipase (08/14/21 11:42) Ketorolac Injection (Toradol Injection) (08/14/21 12:00) Ct Head Wo (08/14/21 11:47) Insulin (Regular) Human (Novolin R (Per (12/17/21 11:47) Manual Differential (08/14/21 11:28) Urine Culture (08/14/21 14:10) Medications Given in ED Current Medications Medications Dose Ordered Sig/Emerita Route Start Time Stop Time Status Last Admin Dose Admin Ketorolac Tromethamine 15 mg ONCE ONCE IVP 08/14/21 12:00 08/14/21 12:01 DC 08/14/21 12:12 15 MG Ondansetron HCl 4 mg ONCE ONCE IV 08/14/21 11:45 08/14/21 11:48 DC 08/14/21 12:12 4 MG Vital Signs/I&O 08/14/21 08/14/21 11:20 15:40 Temp 37.2 Pulse 84 88 Resp 14 18 B/P (MAP) 167/66 (99) 130/64 Pulse Ox 96 93 O2 Delivery Room Air Room Air Capillary Refill : Progress Note #1: Progress Note Will treat the patient has a PUI for Covid with her complaint of subjective fever, chills, respiratory illness and nausea vomiting and diarrhea. Obtain Covid swab, influenza swab, blood cultures, lactic acid, Accu-Chek, labs, urinalysis. CT scan of her head with her complaint of a headache. Chest x-ray to review signs of abnormalities in her lungs for the cough. Give IV fluids for hydration. Differential diagnosis includes viral syndrome, Covid infection, gastroenteritis, influenza, pneumonia, pancreatitis, hyperglycemia Progress Note #2: Progress Note Labs show elevated white blood cell count 18.5 with a left shift. She is on steroids so this can elevate her WBC count and glucose both. Chemistry shows elevated glucose. Negative Lactic acid. Mild renal insufficiency wtih Cr. 1.48 but improved from Jul 3. CT scan of head negative for acute process to account for her headache. The chest x-ray shows improvement from last imaging which showed possible atelectasis versus infiltrate in the base. This is all cleared up now. Progress Note #3: Progress Note Patient finally able to provide a urine specimen. The blood pressures have all been doing well and ranged anywhere from 110-150 systolic. Her symptoms were im proved here in the ED. Awaiting urinalysis to determine if she needs antibiotics or any further treatment Progress Note #4: Progress Note Urinalysis did demonstrate leukocyte esterase and white blood cells with bacteria to indicate an infection. Will start on Macrobid for UTI. Culture is pending. Counseled on results and advised to drink more fluids. Try and get back on her Dexcom monitor her sugars without having to stick her fingers. Start using her insulin again to help control her sugars. Work with the clinic to manage her diabetes and sugars as well as control her other symptoms. ECG Initial ECG Impression Date: Aug 14, 2021 Initial ECG Impression Time: 11:48 Initial ECG Rate: 81 Initial ECG Rhythm: Normal Sinus Initial ECG Comparisson: Unchanged Comment Normal sinus rhythm with a heart rate of 81 bpm. NV interval [address] elevation. QT interval 372 ms with a QTc interval 432 ms. Small Q waves in leads II, III, aVF and lateral leads. Appears similar to prior tracings in the system. Diagnostic Imaging Diagonstic Imaging: Xray Plain Films/CT/US/NM/MRI: chest Comments [facility]. [place], [place] NAME: LUANNCEESUMAN Castro [facility] REC#: [id number] PT STATUS: REG ER : 1955 PHYSICIAN: SINTIA JC MD ADMIT DATE: 08/14/21/ER FS Draft Date of Exam:08/14/21 CHEST 1 VIEW AP/PA ONLY EXAM: Portable erect AP chest at 12:17 PM INDICATION: Upper respiratory infection FINDINGS: The heart is stable in size when compared to the prior exam of 07/31/2021. The sternotomy wires and surgical clips noted previously are again evident. The previous study did suggest a small right basilar opacity. On this exam, the right lung base does seem better aerated and the right hemidiaphragm is now distinct. The right upper lung and left lung remain clear. The mediastinum is not widened. The osseous structures are intact. IMPRESSION: 1. The appearance of the chest has improved since the prior exam as the right lung base does seem better aerated. There is no evidence for active disease at this time. Dictated on workstation # [id number] Dict: 08/14/21 1225 Trans: 08/14/21 1228 [facility] [id number] Interpreted by: BREANNA JUDD MD Electronically signed by: Reviewed: Reviewed by Me Diagonstic Imaging: CT Plain Films/CT/US/NM/MRI: head Comments [facility]. [place], [place] NAME: POOJA KONG [facility] REC#: [id number] PT STATUS: REG ER : 1955 PHYSICIAN: SINTIA JC MD ADMIT DATE: 08/14/21/ER FS Signed Date of Exam:08/14/21 CT HEAD WO EXAMINATION: CT head without contrast. TECHNIQUE: Multiple contiguous axial images were obtained through the brain without the use of intravenous contrast. All CT scans use one or more of the following dose optimizing techniques: automated exposure control, MA and/or KvP adjustment based on patient size and exam type or iterative reconstruction. HISTORY: Headache, nausea and vomiting. COMPARISON: MRI 05/26/2021 FINDINGS: Mild diffuse cerebral volume loss with proportional enlargement of the ventricles and sulci. Mild hypodensities throughout the supratentorial white matter of both cerebral hemispheres. No acute intracranial hemorrhage or abnormal extra-axial fluid collections are present. No hyperdense vessel. The calvarium is intact. There are small bilateral mastoid effusions. Fluid within the paranasal sinuses. The orbits are normal. IMPRESSION: 1. No acute intracranial abnormality. Dictated by: Dictated on workstation # [id number] Dict: 08/14/21 1237 Trans: 08/14/21 1251 [facility] [id number] Interpreted by: EUGENIO KAHN DO Electronically signed by: EUGENIO KAHN DO 08/14/21 1251 Reviewed: Reviewed by Me Departure Impression Primary Impression: Cystitis without hematuria Additional Impressions: Cough Nausea vomiting and diarrhea Headache Qualified Codes: R51.9 - Headache, unspecified Steroid-induced hyperglycemia Upper respiratory infection with cough and congestion Disposition: 01 HOME, SELF-CARE Condition: Stable Departure-Patient Inst. Decision time for Depature: 15:28 Referrals: NICK ROTH APRN (PCP) Primary Care Physician [facility] (Family) Primary Care Physician Patient Instructions: Upper Respiratory Infection ED, Cough, Adult ED, Headache, Adult ED, Urinary Tract Infection, Adult ED Add. Discharge Instructions: Stay well hydrated and drink plenty of water. Check your blood sugar so that you know what dose of insulin to take so that you can take treatment for your elevated blood sugars. See if the clinic can get you back on your Dexcom so that you are not having to stick your fingers to check your levels. Follow up with clinic for continued concerns. Your COVID and Influenza tests were both negative. Consider taking plain Mucinex to help loosen your cough and congestion to help make it so you are not having to cough so hard. Take the full course of antibiotics to treat for Urine infection All discharge instructions reviewed with patient and/or family. Voiced understanding. Scripts Nitrofurantoin Monohyd/M-Cryst (Macrobid 100 mg Capsule) 100 Mg Capsule 1 TAB PO BID for UTI for 7 Days, #14 CAP 0 Refills Prov: SINTIA JC MD 08/14/21 SINTIA JC MD Aug 14, 2021 11:29
[2021-08-14] MEDS ORDERED: ONDANSETRON 4 MG/2 ML (SDV) Z0FRAN IV ONE (11:45)
[2021-08-14] MEDS ORDERED: NS IV 1000 ML 1,000 ML IV SCH (11:45)
[2021-08-14] MEDS ORDERED: inSUlin (REGULAR) HUMAN 1 UNIT/0.01 ML (CHARGE PER UNIT) SC STA (11:47)
[2021-08-14] MEDS ORDERED: KETOROLAC 30 MG/ML VIAL IVP ONE (12:00)
[2021-08-14 12:11] LABS: HEMATOCRIT 42 % (35-52); HEMOGLOBIN 14.6 g/dL (11.5-16.0); LYMPHOCYTES % (AUTO) 7 % (12-44); MEAN CORPUSCULAR HEMOGLOBIN 29 pg (25-34); MEAN CORPUSCULAR HGB CONC 35 g/dL (32-36); MEAN CORPUSCULAR VOLUME 83 fL (80-99); MEAN PLATELET VOLUME 9.7 fL (9.0-12.2); NEUTROPHILS % (AUTO) 85 % (42-75); PLATELET COUNT 275 10^3/uL (130-400); WHITE BLOOD COUNT 18.5 10^3/uL (4.3-11.0)
[2021-08-14 12:12] LABS: BASOPHILS # (AUTO) 0.1 10^3/uL (0.0-0.1); BASOPHILS % (AUTO) 0 % (0-10); EOSINOPHILS % (AUTO) 0 % (0-10); LYMPHOCYTES # (AUTO) 1.3 X 10^3 (1.0-4.0); MONOCYTES # (AUTO) 1.3 X 10^3 (0.0-1.0); MONOCYTES % (AUTO) 7 % (0-12); NEUTROPHILS # (AUTO) 15.6 X 10^3 (1.8-7.8)
--- NOTE | 2021-08-14 12:28 | Diagnostic Imaging Report ---
EXAM: Portable erect AP chest at 12:17 PM INDICATION: Upper respiratory infection FINDINGS: The heart is stable in size when compared to the prior exam of 07/31/2021. The sternotomy wires and surgical clips noted previously are again evident. The previous study did suggest a small right basilar opacity. On this exam, the right lung base does seem better aerated and the right hemidiaphragm is now distinct. The right upper lung and left lung remain clear. The mediastinum is not widened. The osseous structures are intact. IMPRESSION: 1. The appearance of the chest has improved since the prior exam as the right lung base does seem better aerated. There is no evidence for active disease at this time. Dictated by: Dictated on workstation # [id number]
[2021-08-14 12:38] LABS: PROTHROMBIN TIME PATIENT 13.3 SEC (12.2-14.7)
--- NOTE | 2021-08-14 12:42 | Diagnostic Imaging Report ---
EXAMINATION: CT head without contrast. TECHNIQUE: Multiple contiguous axial images were obtained through the brain without the use of intravenous contrast. All CT scans use one or more of the following dose optimizing techniques: automated exposure control, MA and/or KvP adjustment based on patient size and exam type or iterative reconstruction. HISTORY: Headache, nausea and vomiting. COMPARISON: MRI 05/26/2021 FINDINGS: Mild diffuse cerebral volume loss with proportional enlargement of the ventricles and sulci. Mild hypodensities throughout the supratentorial white matter of both cerebral hemispheres. No acute intracranial hemorrhage or abnormal extra-axial fluid collections are present. No hyperdense vessel. The calvarium is intact. There are small bilateral mastoid effusions. Fluid within the paranasal sinuses. The orbits are normal. IMPRESSION: 1. No acute intracranial abnormality. Dictated by: Dictated on workstation # [id number]
[2021-08-14 12:48] LABS: SODIUM 136 MMOL/L (135-145)
[2021-08-14 12:49] LABS: ALANINE AMINOTRANSFERASE 14 U/L (0-55); ALKALINE PHOSPHATASE 84 U/L (40-136); BILIRUBIN,TOTAL 0.4 MG/DL (0.1-1.0); BUN/CREATININE RATIO 14; CALCIUM 9.6 MG/DL (8.5-10.1); CARBON DIOXIDE 23 MMOL/L (21-32); CHLORIDE 99 MMOL/L (98-107); CREATININE SERUM 1.48 MG/DL (0.60-1.30); GFR ESTIMATED 36; GLUCOSE 369 MG/DL (70-105); POTASSIUM 3.2 MMOL/L (3.6-5.0)
[2021-08-14 12:50] LABS: ALBUMIN 3.1 GM/DL (3.2-4.5); TOTAL PROTEIN 6.9 GM/DL (6.4-8.2)
[2021-08-14 12:53] LABS: BAND NEUTROPHILS 1 %; LYMPHOCYTES % (MANUAL) 11 %; MONOCYTES % (MANUAL) 6 %; NEUTROPHILS % (MANUAL) 79 %; REACTIVE LYMPHOCYTES 3 %
[2021-08-14 12:54] LABS: PLATELET ESTIMATE NORMAL; RBC MORPH NORMAL; TOXIC GRANULATION/VACUOLAZATIO 3+
[2021-08-14 14:22] LABS: CLARITY,URINE TURBID; COLOR,URINE YELLOW; GLUCOSE, URINE (UA) 3+ (NEGATIVE); KETONES,URINE NEGATIVE (NEGATIVE); LEUKOCYTE ESTERASE ,URINE NEGATIVE (NEGATIVE); NITRITE,URINE NEGATIVE (NEGATIVE); PROTEIN,URINE 3+ (NEGATIVE)
[2021-08-14 15:07] LABS: AMORPHOUS SEDIMENT,UR FEW AMOR URATES /LPF; BACTERIA,URINE LARGE /HPF; HYALINE CASTS, URINE 25-50 /LPF
[2021-08-14 15:08] LABS: GRANULAR CASTS,URINE RARE /LPF; YEAST,URINE FEW /HPF
[2021-08-14 15:10] LABS: BILIRUBIN,URINE 1+ (NEGATIVE)
[2021-08-14] MEDS ORDERED: NITR-65 PO (15:31)
[2021-08-14 15:40] VITALS: BP 130/64
== END 2021-08-14 15:40 | disposition home or self-care (01) ==
LOC: EDUNIT# 11:14 → ER FS 11:16
DX: N30.90 Cystitis, unspecified without hematuria (principal); R11.2 Nausea with vomiting, unspecified; R19.7 Diarrhea, unspecified; E09.65 Drug or chemical induced diabetes mellitus with hyperglycemia; J06.9 Acute upper respiratory infection, unspecified; G47.30 Sleep apnea, unspecified; I10 Essential (primary) hypertension; E78.00 Pure hypercholesterolemia, unspecified; F41.9 Anxiety disorder, unspecified; F32.9 Major depressive disorder, single episode, unspecified; I25.10 Atherosclerotic heart disease of native coronary artery without angina pectoris; E03.9 Hypothyroidism, unspecified; Z20.822 Contact with and (suspected) exposure to COVID-19; Z79.01 Long term (current) use of anticoagulants; Z79.82 Long term (current) use of aspirin; Z79.890 Hormone replacement therapy; Z79.899 Other long term (current) drug therapy
CPT/HCPCS: 36415; 70450; 71045; 80053; 81000; 82010; 82947; 83605; 83690; 84484; 85007; 85027; 85379; 85610; 85730; 86141; 87040; 87088; 87636; 87804; 93005; 93041

== ENCOUNTER 2021-08-17 12:57 | Emergency (ER) | payer MEDICAID ==
[~2021-08-17] VITALS: Ht 164 cm; Wt 85.0 kg
[~2021-08-17 12:57] MED LIST changes: +NITR-65 PO
[2021-08-17 13:13] VITALS: BP 167/70
--- NOTE | 2021-08-17 13:33 | ED Integumentary General ---
General Chief Complaint: Skin/Wound Problems Stated Complaint: EMILY LWR EXTREMITY SWELLING Nursing Triage Note: Patient has presented to ER with redness and a blister on her right foot. The redness started yesterday and the blister appeared today. She has some redness up to her right ankle. Source: patient Exam Limitations: no limitations History of Present Illness Date Seen by Provider: Aug 17, 2021 Time Seen by Provider: 13:05 Initial Comments 65yoF with PMH of DM, HTN, HLD, CAD s/p CABG, and CHF coming in due to redness and a blister on her right foot. Redness started yesterday with her noticing a blister today. Has never happened before. Started Tuesday with just a little pain and redness on top of her right foot. Denies any chest pain, SOB, abd pain, weakness, numbness, fever, or any other concerns. Allergies and Home Medications Allergies Coded Allergies: Sulfa (Sulfonamide Antibiotics) (Verified Allergy, Severe, hives, 04/15/21) Patient Home Medication List Home Medication List Reviewed: Yes Acetaminophen (Tylenol) 325 Mg Tablet, 325-650 MG PO Q4- 6H PRN for PAIN-MILD (1-4), (Reported) Entered as Reported by: CARMELITA GOODRICH on 03/12/21957 Aspirin (Aspirin EC) 81 Mg Tablet.dr, 81 MG PO DAILY Prescribed by: MIRELA SHARMA on 05/27/21 121 Atorvastatin Calcium (Lipitor) 40 Mg Tablet, 40 MG PO HS Prescribed by: MIRELA SHARMA on 05/27/21 121 Azithromycin (Azithromycin) 250 Mg Tablet, 250 MG PO DAILY Prescribed by: KRISTY CARRENO on 07/31/21 185 Clopidogrel Bisulfate (Clopidogrel) 75 Mg Tablet, 75 MG PO DAILY, (Reported) Entered as Reported by: CARMELITA GOODRICH on 03/12/21957 Gabapentin (Neurontin) 300 Mg Capsule, 300 MG PO HS PRN for PAIN-BREAKTHROUGH, (Reported) Entered as Reported by: CARMELITA GOODRICH on 03/12/21957 Levothyroxine Sodium (Levothyroxine Sodium) 175 Mcg Tablet, 175 MCG PO DAILY, (Reported) Entered as Reported by: CARMELITA GOODRICH on 03/12/21957 Lisinopril (Lisinopril) 20 Mg Tablet, 20 MG PO DAILY Prescribed by: MIRELA SHARMA on 05/27/21 1214 Lisinopril/Hydrochlorothiazide (Lisinopril-Hctz 20-12.5 mg Tab) 1 Each Tablet, 2 EACH PO DAILY Prescribed by: WILEY BUSTILLO on 07/31/211955 Loratadine (Loratadine) 10 Mg Tablet, 10 MG PO DAILY PRN for ALLERGY SYMPTOMS, (Reported) Entered as Reported by: SKYLER ARGUELLO on 05/26/21 165 Metformin HCl (Metformin HCl) 500 Mg Tablet, 500 MG PO BID, (Reported) Entered as Reported by: SKYLER ARGUELLO on 05/26/21 165 Metoprolol Succinate (Metoprolol Succinate) 100 Mg Tab.er.24h, 100 MG PO DAILY Prescribed by: WILEY BUSTILLO on 07/31/211955 Nitrofurantoin Monohyd/M-Cryst (Macrobid 100 mg Capsule) 100 Mg Capsule, 1 TAB PO BID Prescribed by: SINTIA JC on 08/14/21 153 Pantoprazole Sodium (Pantoprazole Sodium) 40 Mg Tablet.dr, 40 MG PO DAILY, (Reported) Entered as Reported by: CARMELITA GOODRICH on 03/12/21 0958 Prednisone (Prednisone) 20 Mg Tab, 40 MG PO DAILY Prescribed by: KRISTY CARRENO on 07/31/21 185 Sertraline HCl (Sertraline HCl) 100 Mg Tablet, 100 MG PO DAILY, (Reported) Entered as Reported by: OCTAVIO ARENAS on 03/11/212147 Trazodone HCl (Trazodone HCl) 100 Mg Tablet, 100 MG PO HS PRN for SLEEP, (Reported) Entered as Reported by: OCTAVIO ARENAS on 03/11/212147 Review of Systems Review of Systems Constitutional: No chills, No fever EENTM: No blurred vision Respiratory: No cough Cardiovascular: No chest pain Gastrointestinal: No abdominal pain Genitourinary: no symptoms reported Musculoskeletal: no symptoms reported Skin: rash Psychiatric/Neurological: No Symptoms Reported Endocrine: No Symptoms Reported Hematologic/Lymphatic: No Symptoms Reported All Other Systems Reviewed Negative Unless Noted: Yes Past Wphcxau-Cvasyc-Dlaoil Hx Patient Social History Tobacco Use?: Yes Tobacco type used: Cigarettes Smoking Status: Current Everyday Smoker Use of E-Cig and/or Vaping dev: No Substance use?: No Alcohol Use?: No Pt feels they are or have been: No Immunizations Up To Date Tetanus Booster (TDap): Unknown First/Initial COVID19 Vaccinat: 2020 Second COVID19 Vaccination Burak: 2020 Third COVID19 Vaccination Date: sep 2020 Seasonal Allergies Seasonal Allergies: Yes Past Medical History Surgery/Hospitalization HX: Diabetes Insulin Dependent, Hypertension Surgeries: Yes (right elbow, left ankle, right rotator cuff, right hip, ear tubes) CABG, Open Heart Surgery, Orthopedic Respiratory: Yes Sleep Apnea Currently Using CPAP: No Cardiac: Yes Coronary Artery Disease, High Cholesterol, Hypertension, Hypotension Neurological: Yes Headaches /Migraines, Neuropathy Genitourinary: Yes Renal Failure Gastrointestinal: No Hepatitis Musculoskeletal: Yes Arthritis, Chronic Back Pain Endocrine: Yes Diabetes, Insulin dep, Hypothyroidsim HEENT: Yes (decreased vision due to DM) Loss of Vision: Bilateral Hearing Impairment: Denies Cancer: Yes Skin Did You Recieve Any Treatments: Yes What Type of Treatment Did You: Surgical Intervention Anxiety, Bipolar, Depression Integumentary: Yes Eczema Blood Disorders: Yes (Hep C) Family Medical History No Pertinent Family Hx Physical Exam Vital Signs Vital Signs - First Documented 08/17/21 13:13 Temp 36.0 Pulse 73 Resp 18 B/P (MAP) 167/70 (102) Pulse Ox 100 O2 Delivery Room Air Capillary Refill : General Appearance: no apparent distress HEENT: PERRL/EOMI, normal ENT inspection, pharynx normal Neck: non-tender, full range of motion, supple, normal inspection Cardiovascular: regular rate, rhythm, no murmur Respiratory: chest non-tender, lungs clear, normal breath sounds, no respiratory distress, no accessory muscle use Gastrointestinal: normal bowel sounds, non tender, soft; No distended, No guarding, No rebound Back: normal inspection Extremities: normal range of motion, non-tender, no calf tenderness Neurologic/Psychiatric: no motor/sensory deficits, alert, normal mood/affect Skin: normal color, warm/dry, rash Skin Problem Character: blanching, erythema Lymphatic: no adenopathy Progress/Results/Core Measures Results/Orders My Orders Orders - KRISTY CARRENO MD Foot 3 View Right (08/17/21 13:49) Cephalexin Capsule (Keflex Capsule) (08/17/21 14:00) Doxycycline Hyclate Tablet (Vibramycin T (08/17/21 13:49) Acetaminophen Tablet (Tylenol Tablet) (08/17/21 14:00) Medications Given in ED Current Medications Medications Dose Ordered Sig/Emerita Route Start Time Stop Time Status Last Admin Dose Admin Acetaminophen 1,000 mg ONCE ONCE PO 08/17/21 14:00 08/17/21 14:01 DC 08/17/21 14:07 1,000 MG Cephalexin HCl 500 mg ONCE ONCE PO 08/17/21 14:00 08/17/21 14:01 DC 08/17/21 14:07 500 MG Vital Signs/I&O 08/17/21 13:13 Temp 36.0 Pulse 73 Resp 18 B/P (MAP) 167/70 (102) Pulse Ox 100 O2 Delivery Room Air Blood Pressure Mean: 102 Progress Progress Note : Progress Note 65-year-old female with above history coming in due to redness on her right foot spreading up. ABCs were intact and vitals were stable on presentation. Physical exam with a blanching erythematous rash on the medial aspect of her right foot starting around her big toe going up the foot and ankle. There is a blister as well. She has normal range of motion of all of her joints including her big toe and I have no concern for a septic joint. X-ray ordered and interpreted by me and I do not see any evidence of osteomyelitis and there is no gas formation that would be concerning for a more significant infection. She was given doxycycline as well as Keflex for antibiotics. She was given Tylenol for pain control. I believe she is stable for discharge with outpatient follow-up. She was sent home with strict return precautions Departure Impression Primary Impression: Cellulitis Qualified Codes: L03.115 - Cellulitis of right lower limb Disposition: HOME, SELF-CARE Condition: Stable Departure-Patient Inst. Decision time for Depature: 14:15 Referrals: NICK ROTH APRN (PCP) Primary Care Physician [facility] (Family) Primary Care Physician Patient Instructions: Cellulitis (Skin Infection), Adult ED Add. Discharge Instructions: The skin on your right foot looks infected. He will take 2 different antibiotics. The doxycycline you will take twice a day, and the Keflex you will take 4 times a day. He will take these for a week. If by tomorrow night it is still spreading then you may need to be on a different antibiotic. Please follow-up with your regular doctor in the next 3 to 5 days to be sure things are improving. Scripts Doxycycline Hyclate (Doxycycline Hyclate) 100 Mg Tablet 100 MG PO BID for 7 Days, #14 TAB 0 Refills Prov: KRISTY CARRENO MD 08/17/21 Cephalexin (Cephalexin) 500 Mg Tablet 500 MG PO QID for 7 Days, #28 TAB Prov: KRISTY CARRENO MD 08/17/21 KRISTY CARRENO MD Aug 17, 2021 13:33
[2021-08-17] MEDS ORDERED: DOXYCYCLINE 100 MG (VIBRAMYCIN) TABLET PO STA (13:49)
[2021-08-17] MEDS ORDERED: ACETAMINOPHEN 500 MG TAB (TYLENOL) PO ONE (14:00)
[2021-08-17] MEDS ORDERED: CEPHALEXIN 250 MG (KEFLEX) CAP PO ONE (14:00)
--- NOTE | 2021-08-17 14:02 | Diagnostic Imaging Report ---
INDICATION: Blister right great toe 3 views of the right foot show no fracture, dislocation or other acute abnormalities. There appears to be some degenerative changes of the 1st tarsometatarsal joint. There is no osteolysis. There are no radiopaque foreign objects seen. IMPRESSION: No acute abnormality seen in the right foot. The soft tissue blister is seen on the oblique projection but there is no underlying osseous abnormality or foreign body. Dictated by: Dictated on workstation # [id number]
[2021-08-17] MEDS ORDERED: DOXY100T2 PO (14:18)
[2021-08-17] MEDS ORDERED: CEPH500T PO (14:18)
== END 2021-08-17 14:25 | disposition home or self-care (01) ==
LOC: EDUNIT# 12:57 → ER FS 12:59
DX: L03.115 Cellulitis of right lower limb (principal); I11.0 Hypertensive heart disease with heart failure; I25.9 Chronic ischemic heart disease, unspecified; E11.40 Type 2 diabetes mellitus with diabetic neuropathy, unspecified; I25.10 Atherosclerotic heart disease of native coronary artery without angina pectoris; E78.5 Hyperlipidemia, unspecified; E78.00 Pure hypercholesterolemia, unspecified; E03.9 Hypothyroidism, unspecified; F31.9 Bipolar disorder, unspecified; F41.9 Anxiety disorder, unspecified; G43.909 Migraine, unspecified, not intractable, without status migrainosus; F17.210 Nicotine dependence, cigarettes, uncomplicated; Z95.1 Presence of aortocoronary bypass graft; Z79.4 Long term (current) use of insulin; Z79.84 Long term (current) use of oral hypoglycemic drugs; Z79.02 Long term (current) use of antithrombotics/antiplatelets; Z79.52 Long term (current) use of systemic steroids; Z79.82 Long term (current) use of aspirin; Z79.890 Hormone replacement therapy; Z79.899 Other long term (current) drug therapy
CPT/HCPCS: 73630

== ENCOUNTER → 2021-08-31 | Outpatient (CLI) | payer MEDICARE, MEDICAID ==
[~2021-08-31] MED LIST changes: +DOXY100T2 PO
== END ==
LOC: WOUNDCARE 14:02
PROVIDERS: ATTEND Family Medicine
DX: E11.621 Type 2 diabetes mellitus with foot ulcer (principal); E11.65 Type 2 diabetes mellitus with hyperglycemia; I70.235 Atherosclerosis of native arteries of right leg with ulceration of other part of foot; L97.512 Non-pressure chronic ulcer of other part of right foot with fat layer exposed; L03.115 Cellulitis of right lower limb; F17.218 Nicotine dependence, cigarettes, with other nicotine-induced disorders
CPT/HCPCS: A6197; G0463; 99212

== ENCOUNTER → 2021-09-16 | Outpatient (CLI) | payer MEDICARE, MEDICAID | LOC: WOUNDCARE 13:19 | PROVIDERS: ATTEND Family Medicine | DX: E11.621 Type 2 diabetes mellitus with foot ulcer (principal); E11.65 Type 2 diabetes mellitus with hyperglycemia; E11.52 Type 2 diabetes mellitus with diabetic peripheral angiopathy with gangrene; I70.235 Atherosclerosis of native arteries of right leg with ulceration of other part of foot; L97.512 Non-pressure chronic ulcer of other part of right foot with fat layer exposed; L03.115 Cellulitis of right lower limb; F17.218 Nicotine dependence, cigarettes, with other nicotine-induced disorders; N18.32 Chronic kidney disease, stage 3b | CPT/HCPCS: 99212 ==

== ENCOUNTER 2021-09-23 16:21 | Emergency (ER) | payer MEDICARE, MEDICAID ==
[~2021-09-23] VITALS: Ht 167 cm; Wt 81.0 kg
[2021-09-23] MEDS ORDERED: fentaNYL INJ 100 MCG/2 ML AMP IVP ONE (17:00)
--- NOTE | 2021-09-23 17:09 | ED Lower Extremity ---
General Chief Complaint: Lower Extremity Stated Complaint: RIGHT FOOT INFECTION Nursing Triage Note: PT TO ER FROM WOUND CARE IN WITH C/O WORSENING R FOOT INFECTION AND WORSENING PAIN AND SWELLING. PT WAS TOLD TO COME TO ER FROM WOUND CARE Source: patient Exam Limitations: no limitations History of Present Illness Date Seen by Provider: Sep 23, 2021 Time Seen by Provider: 17:06 Initial Comments to ER by wheelchair from wound care where she has been seen for a diabetic ulcer to the medial side of the right foot over the first MTP joint. She was given an antibiotic last week with minimal swelling and redness. She did not pick that antibiotic from wound care up as she states she did not know it was ready. She presented today with increasing swelling redness and pain. Onset: just prior to arrival Severity: moderate Pain/Injury Location: right foot Method of Injury: fell Modifying Factors: Worse With Movement Allergies and Home Medications Allergies Coded Allergies: Sulfa (Sulfonamide Antibiotics) (Verified Allergy, Severe, hives, 04/15/21) Patient Home Medication List Home Medication List Reviewed: Yes Acetaminophen (Tylenol) 325 Mg Tablet, 325-650 MG PO Q4- 6H PRN for PAIN-MILD (1-4), (Reported) Entered as Reported by: CARMELITA GOODRICH on 03/12/21957 Aspirin (Aspirin EC) 81 Mg Tablet.dr, 81 MG PO DAILY Prescribed by: MIRELA SHARMA on 05/27/21 121 Atorvastatin Calcium (Lipitor) 40 Mg Tablet, 40 MG PO HS Prescribed by: MIRELA SHARMA on 05/27/21 1214 Azithromycin (Azithromycin) 250 Mg Tablet, 250 MG PO DAILY Prescribed by: KRISTY CARRENO on 07/31/21 185 Cephalexin (Cephalexin) 500 Mg Tablet, 500 MG PO QID Prescribed by: KRISTY CARRENO on 08/17/21 1418 Clopidogrel Bisulfate (Clopidogrel) 75 Mg Tablet, 75 MG PO DAILY, (Reported) Entered as Reported by: CARMELITA GOODRICH on 03/12/21 09 Doxycycline Hyclate (Doxycycline Hyclate) 100 Mg Tablet, 100 MG PO BID Prescribed by: KRISTY CARRENO on 08/17/21 1418 Gabapentin (Neurontin) 300 Mg Capsule, 300 MG PO HS PRN for PAIN-BREAKTHROUGH, (Reported) Entered as Reported by: CARMELITA GOODRICH on 03/12/21957 Levothyroxine Sodium (Levothyroxine Sodium) 175 Mcg Tablet, 175 MCG PO DAILY, (Reported) Entered as Reported by: CARMELITA GOODRICH on 03/12/21957 Lisinopril (Lisinopril) 20 Mg Tablet, 20 MG PO DAILY Prescribed by: MIRELA SHARMA on 05/27/21 1214 Lisinopril/Hydrochlorothiazide (Lisinopril-Hctz 20-12.5 mg Tab) 1 Each Tablet, 2 EACH PO DAILY Prescribed by: WILEY BUSTILLO on 07/31/211955 Loratadine (Loratadine) 10 Mg Tablet, 10 MG PO DAILY PRN for ALLERGY SYMPTOMS, (Reported) Entered as Reported by: SKYLER ARGUELLO on 05/26/211654 Metformin HCl (Metformin HCl) 500 Mg Tablet, 500 MG PO BID, (Reported) Entered as Reported by: SKYLER ARGUELLO on 05/26/211650 Metoprolol Succinate (Metoprolol Succinate) 100 Mg Tab.er.24h, 100 MG PO DAILY Prescribed by: WILEY BUSTILLO on 07/31/211955 Nitrofurantoin Monohyd/M-Cryst (Macrobid 100 mg Capsule) 100 Mg Capsule, 1 TAB PO BID Prescribed by: SINTIA JC on 08/14/21 153 Pantoprazole Sodium (Pantoprazole Sodium) 40 Mg Tablet.dr, 40 MG PO DAILY, (Reported) Entered as Reported by: CARMELITA GOODRICH on 03/12/21957 Prednisone (Prednisone) 20 Mg Tab, 40 MG PO DAILY Prescribed by: KRISTY CARRENO on 07/31/21 185 Sertraline HCl (Sertraline HCl) 100 Mg Tablet, 100 MG PO DAILY, (Reported) Entered as Reported by: OCTAVIO ARENAS on 03/11/212147 Trazodone HCl (Trazodone HCl) 100 Mg Tablet, 100 MG PO HS PRN for SLEEP, (Reported) Entered as Reported by: OCTAVIO ARENAS on 03/11/212147 Discontinued Medications Doxycycline Hyclate (Doxycycline Hyclate) 100 Mg Tablet, 100 MG PO BID Prescribed by: OLGA RAI on 09/23/21 180 Review of Systems Constitutional: see HPI EENTM: see HPI Respiratory: no symptoms reported Cardiovascular: no symptoms reported Genitourinary: no symptoms reported Musculoskeletal: no symptoms reported Skin: no symptoms reported Psychiatric/Neurological: No Symptoms Reported Past Spnooey-Nucvke-Wppcoa Hx Patient Social History Tobacco Use?: Yes Tobacco type used: Cigarettes Smoking Status: Current Everyday Smoker Substance use?: No Alcohol Use?: No Immunizations Up To Date Tetanus Booster (TDap): Unknown Influenza Vaccine Up-to-Date: Yes; Up-to-Date First/Initial COVID19 Vaccinat: 2020 Second COVID19 Vaccination Burak: 2020 Third COVID19 Vaccination Date: sep 2020 Seasonal Allergies Seasonal Allergies: Yes Past Medical History Surgery/Hospitalization HX: Diabetes Insulin Dependent, Hypertension Surgeries: Yes (right elbow, left ankle, right rotator cuff, right hip, ear tubes) CABG, Open Heart Surgery, Orthopedic Respiratory: Yes Sleep Apnea Currently Using CPAP: No Cardiac: Yes Coronary Artery Disease, High Cholesterol, Hypertension, Hypotension Neurological: Yes Headaches /Migraines, Neuropathy Genitourinary: Yes Renal Failure Gastrointestinal: No Hepatitis Musculoskeletal: Yes Arthritis, Chronic Back Pain Endocrine: Yes Diabetes, Insulin dep, Hypothyroidsim HEENT: Yes (decreased vision due to DM) Loss of Vision: Bilateral Hearing Impairment: Denies Cancer: Yes Skin Did You Recieve Any Treatments: Yes What Type of Treatment Did You: Surgical Intervention Anxiety, Bipolar, Depression Integumentary: Yes Eczema Blood Disorders: Yes (Hep C) Family Medical History No Pertinent Family Hx Physical Exam Vital Signs Vital Signs - First Documented 09/23/21 16:35 Temp 36.7 Pulse 76 Resp 18 B/P (MAP) 186/97 (126) Pulse Ox 97 O2 Delivery Room Air Capillary Refill : Height, Weight, BMI Height: '" Weight: lbs. oz. kg; 29.00 BMI Method: General Appearance: WD/WN, no apparent distress Neck: non-tender, full range of motion Respiratory: no respiratory distress, no accessory muscle use Hips: bilateral hip non-tender, bilateral hip normal inspection, bilateral hip normal range of motion Legs: bilateral leg non-tender, bilateral leg normal inspection, bilateral leg normal range of motion Knees: bilateral knee non-tender, bilateral knee normal inspection, bilateral k nee normal range of motion Ankles: bilateral ankle non-tender, bilateral ankle normal inspection, bilatera l ankle normal range of motion Feet: right foot other (The medial aspect of the right foot overlying the first MTP joint is a dime sized area of ulceration with whitish eschar in the base that is moist. There is some surrounding edema and erythema. No purulent drainage at this time. Brisk capillary refill at the toe tips) Neurologic/Psychiatric: alert, normal mood/affect, oriented x 3 Skin: normal color, warm/dry Progress/Results/Core Measures Results/Orders Lab Results Laboratory Tests Test 09/23/21 17:00 09/23/21 19:25 Range/Units White Blood Count 8.6 4.3-11.0 10^3/uL Red Blood Count 4.30 3.80-5.11 10^6/uL Hemoglobin 12.0 11.5-16.0 g/dL Hematocrit 37 35-52 % Mean Corpuscular Volume 85 80-99 fL Mean Corpuscular Hemoglobin 28 25-34 pg Mean Corpuscular Hemoglobin Concent 33 32-36 g/dL Red Cell Distribution Width 13.8 10.0-14.5 % Platelet Count 336 130-400 10^3/uL Mean Platelet Volume 9.4 9.0-12.2 fL Immature Granulocyte % (Auto) 1 % Neutrophils (%) (Auto) 63 42-75 % Lymphocytes (%) (Auto) 26 12-44 % Monocytes (%) (Auto) 7 0-12 % Eosinophils (%) (Auto) 2 0-10 % Basophils (%) (Auto) 1 0-10 % Neutrophils # (Auto) 5.4 1.8-7.8 10^3/uL Lymphocytes # (Auto) 2.3 1.0-4.0 10^3/uL Monocytes # (Auto) 0.6 0.0-1.0 10^3/uL Eosinophils # (Auto) 0.2 0.0-0.3 10^3/uL Basophils # (Auto) 0.1 0.0-0.1 10^3/uL Immature Granulocyte # (Auto) 0.1 0.0-0.1 10^3/uL Erythrocyte Sedimentation Rate 66 H 0-30 MM/HR Prothrombin Time 12.5 12.2-14.7 SEC INR Comment 0.9 0.8-1.4 Activated Partial Thromboplast Time 26 24-35 SEC Sodium Level 133 L 135-145 MMOL/L Potassium Level 4.0 3.6-5.0 MMOL/L Chloride Level 102 98-107 MMOL/L Carbon Dioxide Level 21 21-32 MMOL/L Anion Gap 10 5-14 MMOL/L Blood Urea Nitrogen 27 H 7-18 MG/DL Creatinine 1.83 H 0.60-1.30 MG/DL Estimat Glomerular Filtration Rate 30 BUN/Creatinine Ratio 15 Glucose Level 352 H 70-105 MG/DL Lactic Acid Level 1.32 0.50-2.00 MMOL/L Calcium Level 9.0 8.5-10.1 MG/DL Corrected Calcium 10.0 8.5-10.1 MG/DL Total Bilirubin 0.2 0.1-1.0 MG/DL Aspartate Amino Transf (AST/SGOT) 14 5-34 U/L Alanine Aminotransferase (ALT/SGPT) 13 0-55 U/L Alkaline Phosphatase 68 40-136 U/L C-Reactive Protein High Sensitivity 0.80 H 0.00-0.50 MG/DL Total Protein 6.8 6.4-8.2 GM/DL Albumin 2.7 L 3.2-4.5 GM/DL My Orders Orders - OLGA [employer] Cbc With Automated Diff (09/23/21 16:50) Comprehensive Metabolic Panel (09/23/21 16:50) Blood Culture (09/23/21 16:50) Sputum Culture (09/23/21 16:50) Urinalysis (09/23/21 16:50) Urine Culture (09/23/21 16:50) Protime With Inr (09/23/21 16:50) Partial Thromboplastin Time (09/23/21 16:50) Ed Iv/Invasive Line Start (09/23/21 16:50) Vital Signs Adult Sepsis Patie Q15M (09/23/21 16:50) O2 (09/23/21 16:50) Remove Rings In Anticipation O (09/23/21 16:50) Lactic Acid Analyzer (09/23/21 16:50) Fentanyl Inj (Sublimaze Injection) (09/23/21 17:00) Erythrocyte Sedimentation Rate (09/23/21 16:57) Hs C Reactive Protein (09/23/21 16:57) Foot, Right, 3 View (09/23/21 16:57) Lactated Ringers (Lr 1000 Ml Iv Solution (09/23/21 17:45) Ct Extremity Lower Right Wo (09/23/21 17:43) Ceftriaxone 1 Gm Pre-Mix (Rocephin 1 Gm (09/23/21 18:00) Ns Iv 1000 Ml (Sodium Chloride 0.9%) (09/23/21 18:00) Insulin (Regular) Human (Novolin R (Per (09/23/21 18:15) Clonidine Tablet (Catapres Tablet) (09/23/21 18:45) Vancomycin Injection (Vancomycin Injecti (09/23/21 19:00) Wound Culture (09/23/21 19:08) Medications Given in ED Current Medications Medications Dose Ordered Sig/Emerita Route Start Time Stop Time Status Last Admin Dose Admin Ceftriaxone Sodium/Dextrose 50 ml @ 100 mls/hr ONCE ONCE IV 09/23/21 18:00 09/23/21 18:29 DC 09/23/21 18:09 100 MLS/HR Clonidine HCl 0.1 mg ONCE ONCE PO 09/23/21 18:45 09/23/21 18:46 DC 09/23/21 19:14 0.1 MG Fentanyl Citrate 75 mcg ONCE ONCE IVP 09/23/21 17:00 09/23/21 17:01 DC 09/23/21 17:02 75 MCG Insulin Human Regular 6 unit ONCE ONCE SC 09/23/21 18:15 09/23/21 18:16 DC 09/23/21 18:35 6 UNIT Vancomycin HCl 1000 mg/Sodium Chloride 250 ml @ 250 mls/hr ONCE ONCE IV 09/23/21 19:00 09/23/21 19:59 09/23/21 19:14 250 MLS/HR Vital Signs/I&O 09/23/21 16:35 Temp 36.7 Pulse 76 Resp 18 B/P (MAP) 186/97 (126) Pulse Ox 97 O2 Delivery Room Air Blood Pressure Mean: 126 Departure Communication (Admissions) 1847-I spoke with Dr. Zamorano, agrees with discharging to home to arrange for outpatient PICC line and surgical consult. 185-I spoke with Kaila Dee who is a nurse practitioner for [facility]. She will make a note and pass this on to the patient's primary care provider who based on medication fill history looks like it is an Jad. I have written for the initial 10 days of Rocephin and vancomycin to be adjusted by pharmacy and also adjusted based on culture and sensitivity. I have the patient call tomorrow to make an appointment with surgery to determine if surgical debridement is necessary. I have written the order for the first 10 days of antibiotics, I will have [facility] primary care take over writing for the rest of the IV antibiotics via PICC line. Patient should return tomorrow at 11 AM to have the PICC line inserted and then call day surgery in the morning to arrange the antibiotics. Family Conversation NAME: POOJA KONG [facility] REC#: [id number] PT STATUS: REG ER : 1955 PHYSICIAN: [employer] ADMIT DATE: 09/23/21/ER Draft Date of Exam:09/23/21 CT EXTREMITY LOWER RIGHT WO INDICATION: Great toe wound. EXAMINATION: CT of the right foot without contrast, 09/23/2021. All CT scans use one or more of the following dose optimizing techniques: automated exposure control, MA and/or KvP adjustment based on patient size and exam type or iterative reconstruction. FINDINGS: There was no coronal imaging obtained. The sagittal images and axial images demonstrate diffuse soft tissue prominence surrounding the great toe extending to the level of the 1st metatarsophalangeal joint. This is a nonspecific finding on a noncontrast CT. The underlying osseous structures demonstrate a likely bone island in the distal 1st metatarsal. There is a lucency along the plantar border of the distal 1st phalanx with loss of the overlying cortex. Changes of osteomyelitis would be the primary consideration but dedicated small [id number] MRI of the great toe with and without contrast could better evaluate this finding and the surrounding soft tissue abnormalities, especially if there is concern for an abscess. The remaining osseous structures unremarkable. Chronic degenerative changes seen adjacent to the distal tip of the fibula. There is plantar and posterior calcaneal spurring. There is diffuse subcutaneous fat stranding within the remaining foot into the ankle perhaps due to edema with cellulitis not excluded. IMPRESSION: 1. Nonspecific diffuse soft tissue abnormality surrounding the great toe and 1st metatarsal distally with lucency and abnormality along the plantar border of the distal 1st phalanx suspicious for osteomyelitis. MRI with and without contrast recommended, see above discussion. 2. Chronic degenerative changes with abnormalities along the soft tissues, likely edema and/or cellulitis. 3. Not mentioned in the body of the report, there are linear densities adjacent to the medial border of the proximal 1st phalanx likely due to heterotopic ossification with two small foreign bodies difficult to completely exclude but felt to be less likely. Dictated on workstation # [id number] Dict: 09/23/21 1806 Trans: 09/23/21 1833 [facility] [id number] Interpreted by: VIKY BORGES MD Electronically signed by: NAME: POOJA KONG [facility] REC#: [id number] PT STATUS: REG ER : 1955 PHYSICIAN: [employer] ADMIT DATE: 09/23/21/ER Draft Date of Exam:09/23/21 FOOT, RIGHT, 3 VIEW INDICATION: Wound. FINDINGS: No soft tissue gas or opaque foreign body. No fracture, bony destruction or acute parosteal reaction. No significant change when correlated with radiographs of 08/17/2021. IMPRESSION: No acute appearing abnormality. Dictated on workstation # [id number] Dict: 09/23/21 171 Trans: 09/23/21 1713 [facility] [id number] Interpreted by: SUZY WOODS Electronically signed by: Impression Primary Impression: Ulcer of foot Additional Impressions: Hyperglycemia Osteomyelitis Disposition: ADMITTED INPATIENT Condition: Stable Admissions Decision to Admit Reason: Admit from ER (General) Decision to Admit/Date: Sep 23, 2021 Time/Decision to Admit Time: 18:38 Departure-Patient Inst. Decision time for Depature: 18:00 Referrals: [facility] (PCP/Family) Primary Care Physician ALIYA GIRALDO BRETT D DO KIDO, TAKAAKI MD Patient Instructions: Wound Care Add. Discharge Instructions: 1. Follow-up with wound care tomorrow. Take the antibiotics as directed. Return to ER for any worsening. You will need IV antibiotics for several weeks. Call one of the surgeons listed to make an appointment to be seen as this may require surgical debridement in the outpatient setting as well. Call tomorrow to make an appointment with one of the surgeons. You should arrive to the [facility] tomorrow at 11 AM to get the PICC line inserted. Call day surgery in the morning at [phone] to figure out what time to be here for the antibiotics. All discharge instructions reviewed with patient and/or family. Voiced understanding. Copy Copies To 1: NAZIA KEITA DO; DANYELL EDUARDO MD, PETER J APRN Sep 23, 2021 17:09
[2021-09-23 17:11] LABS: BASOPHILS # (AUTO) 0.1 10^3/uL (0.0-0.1); BASOPHILS % (AUTO) 1 % (0-10); EOSINOPHILS # (AUTO) 0.2 10^3/uL (0.0-0.3); EOSINOPHILS % (AUTO) 2 % (0-10); HEMATOCRIT 37 % (35-52); LYMPHOCYTES # (AUTO) 2.3 10^3/uL (1.0-4.0); LYMPHOCYTES % (AUTO) 26 % (12-44); MEAN CORPUSCULAR HEMOGLOBIN 28 pg (25-34); MEAN CORPUSCULAR HGB CONC 33 g/dL (32-36); MEAN CORPUSCULAR VOLUME 85 fL (80-99); MEAN PLATELET VOLUME 9.4 fL (9.0-12.2); MONOCYTES # (AUTO) 0.6 10^3/uL (0.0-1.0); MONOCYTES % (AUTO) 7 % (0-12); NEUTROPHILS # (AUTO) 5.4 10^3/uL (1.8-7.8); NEUTROPHILS % (AUTO) 63 % (42-75); PLATELET COUNT 336 10^3/uL (130-400); WHITE BLOOD COUNT 8.6 10^3/uL (4.3-11.0)
--- NOTE | 2021-09-23 17:14 | Diagnostic Imaging Report ---
INDICATION: Wound. FINDINGS: No soft tissue gas or opaque foreign body. No fracture, bony destruction or acute parosteal reaction. No significant change when correlated with radiographs of 08/17/2021. IMPRESSION: No acute appearing abnormality. Dictated by: Dictated on workstation # [id number]
[2021-09-23 17:31] LABS: ALBUMIN 2.7 GM/DL (3.2-4.5)
[2021-09-23 17:34] LABS: INR 0.9 (0.8-1.4); PROTHROMBIN TIME PATIENT 12.5 SEC (12.2-14.7); TOTAL PROTEIN 6.8 GM/DL (6.4-8.2)
[2021-09-23 17:35] LABS: BILIRUBIN,TOTAL 0.2 MG/DL (0.1-1.0)
[2021-09-23 17:37] LABS: CREATININE SERUM 1.83 MG/DL (0.60-1.30)
[2021-09-23] MEDS ORDERED: LACTATED RINGERS 1,000 ML IV SCH (17:45)
[2021-09-23 17:53] LABS: ERYTHROCYTE SEDIMENTATION RATE 66 MM/HR (0-30)
[2021-09-23] MEDS ORDERED: cefTRIAXone 1 GM PRE-MIX 50 ML IV ONE (18:00)
[2021-09-23] MEDS ORDERED: NS IV 1000 ML 1,000 ML IV SCH (18:00)
[2021-09-23] MEDS ORDERED: DOXY100T2 PO (18:01)
[2021-09-23] MEDS ORDERED: inSUlin (REGULAR) HUMAN 1 UNIT/0.01 ML (CHARGE PER UNIT) SC ONE (18:15)
--- NOTE | 2021-09-23 18:34 | Diagnostic Imaging Report ---
INDICATION: Great toe wound. EXAMINATION: CT of the right foot without contrast, 09/23/2021. All CT scans use one or more of the following dose optimizing techniques: automated exposure control, MA and/or KvP adjustment based on patient size and exam type or iterative reconstruction. FINDINGS: There was no coronal imaging obtained. The sagittal images and axial images demonstrate diffuse soft tissue prominence surrounding the great toe extending to the level of the 1st metatarsophalangeal joint. This is a nonspecific finding on a noncontrast CT. The underlying osseous structures demonstrate a likely bone island in the distal 1st metatarsal. There is a lucency along the plantar border of the distal 1st phalanx with loss of the overlying cortex. Changes of osteomyelitis would be the primary consideration but dedicated small [id number] MRI of the great toe with and without contrast could better evaluate this finding and the surrounding soft tissue abnormalities, especially if there is concern for an abscess. The remaining osseous structures unremarkable. Chronic degenerative changes seen adjacent to the distal tip of the fibula. There is plantar and posterior calcaneal spurring. There is diffuse subcutaneous fat stranding within the remaining foot into the ankle perhaps due to edema with cellulitis not excluded. IMPRESSION: 1. Nonspecific diffuse soft tissue abnormality surrounding the great toe and 1st metatarsal distally with lucency and abnormality along the plantar border of the distal 1st phalanx suspicious for osteomyelitis. MRI with and without contrast recommended, see above discussion. 2. Chronic degenerative changes with abnormalities along the soft tissues, likely edema and/or cellulitis. 3. Not mentioned in the body of the report, there are linear densities adjacent to the medial border of the proximal 1st phalanx likely due to heterotopic ossification with two small foreign bodies difficult to completely exclude but felt to be less likely. Dictated by: Dictated on workstation # [id number]
[2021-09-23] MEDS ORDERED: cloNIDine 0.1 MG (CATAPRES) TAB PO ONE (18:45)
[2021-09-23] MEDS ORDERED: VANCOMYCIN INJECTION 1,000 MG in NS (IVPB) 250 ML IV ONE (19:00)
[2021-09-23 19:42] LABS: BILIRUBIN,URINE NEGATIVE (NEGATIVE); CLARITY,URINE CLEAR; COLOR,URINE YELLOW; GLUCOSE, URINE (UA) 3+ (NEGATIVE); KETONES,URINE NEGATIVE (NEGATIVE); LEUKOCYTE ESTERASE ,URINE NEGATIVE (NEGATIVE); NITRITE,URINE NEGATIVE (NEGATIVE); PROTEIN,URINE 3+ (NEGATIVE)
[2021-09-23 19:54] LABS: AMORPHOUS SEDIMENT,UR FEW AMOR URATES /LPF; BACTERIA,URINE FEW /HPF; RBC,URINE 0-2 /HPF
[2021-09-23] MEDS ORDERED: LABETALOL HCL 20 MG/4 ML VIAL IV ONE (20:00)
[2021-09-23 20:40] VITALS: BP 168/86
== END 2021-09-23 20:45 | disposition other institution (70) ==
LOC: EDUNIT# 16:21 → ER 16:24
DX: E11.621 Type 2 diabetes mellitus with foot ulcer (principal); E11.65 Type 2 diabetes mellitus with hyperglycemia; M86.9 Osteomyelitis, unspecified; G47.30 Sleep apnea, unspecified; I10 Essential (primary) hypertension; E78.00 Pure hypercholesterolemia, unspecified; I25.10 Atherosclerotic heart disease of native coronary artery without angina pectoris; E03.9 Hypothyroidism, unspecified; F41.9 Anxiety disorder, unspecified; F32.9 Major depressive disorder, single episode, unspecified; F17.210 Nicotine dependence, cigarettes, uncomplicated; Z79.890 Hormone replacement therapy; Z79.01 Long term (current) use of anticoagulants; Z79.899 Other long term (current) drug therapy; Z79.82 Long term (current) use of aspirin
CPT/HCPCS: 36415; 73630; 73700; 80053; 81000; 83605; 85025; 85610; 85652; 85730; 86141; 87040; 87070; 87077; 87088; 87205

== ENCOUNTER → 2021-09-23 | Outpatient (CLI) | payer MEDICARE, MEDICAID | LOC: WOUNDCARE 15:19 | PROVIDERS: ATTEND Family Medicine | DX: E11.621 Type 2 diabetes mellitus with foot ulcer (principal); E11.65 Type 2 diabetes mellitus with hyperglycemia; L97.512 Non-pressure chronic ulcer of other part of right foot with fat layer exposed; I70.235 Atherosclerosis of native arteries of right leg with ulceration of other part of foot; L03.115 Cellulitis of right lower limb; E11.22 Type 2 diabetes mellitus with diabetic chronic kidney disease; N18.32 Chronic kidney disease, stage 3b; E11.52 Type 2 diabetes mellitus with diabetic peripheral angiopathy with gangrene; F17.218 Nicotine dependence, cigarettes, with other nicotine-induced disorders | CPT/HCPCS: 11042; G0463 ==

== ENCOUNTER 2021-09-25 11:41 | Outpatient (RCR) | payer MEDICARE, MEDICAID ==
[~2021-09-25] VITALS: Ht 167.7 cm; Wt 81.0 kg
[2021-09-25 12:35] VITALS: BP 185/88
[2021-09-25] MEDS ORDERED: VANCOMYCIN 1500 MG/NS 500 ML IVPB IV NR ×2 (13:00)
[2021-09-25] MEDS ORDERED: cefTRIAXone 1 GM IV (PRE-MIX) 50 ML IV SCH (13:00)
[2021-09-26] MEDS ORDERED: VANCOMYCIN 1250 MG/NS 250 ML IVPB IV SCH ×2 (13:00)
[2021-09-27] MEDS ORDERED: TROUGH ORDER-PHARMACY XX NR (13:00)
== END 2021-09-28 | disposition home or self-care (01) ==
LOC: SDC 11:41
PROVIDERS: ATTEND Nurse Practitioner Family
DX: M86.171 Other acute osteomyelitis, right ankle and foot (principal)
CPT/HCPCS: 36569; 76937; 96365; C1751

== ENCOUNTER → 2021-09-29 | Outpatient (CLI) | payer MEDICARE, MEDICAID ==
[2021-09-29 22:00] LABS: BASOPHILS # (AUTO) 0.1 10^3/uL (0.0-0.1); BASOPHILS % (AUTO) 1 % (0-10); EOSINOPHILS # (AUTO) 0.2 10^3/uL (0.0-0.3); EOSINOPHILS % (AUTO) 2 % (0-10); HEMATOCRIT 35 % (35-52); HEMOGLOBIN 11.6 g/dL (11.5-16.0); LYMPHOCYTES # (AUTO) 2.8 10^3/uL (1.0-4.0); LYMPHOCYTES % (AUTO) 32 % (12-44); MEAN CORPUSCULAR HEMOGLOBIN 28 pg (25-34); MEAN CORPUSCULAR HGB CONC 33 g/dL (32-36); MEAN CORPUSCULAR VOLUME 84 fL (80-99); MEAN PLATELET VOLUME 9.8 fL (9.0-12.2); MONOCYTES # (AUTO) 0.6 10^3/uL (0.0-1.0); MONOCYTES % (AUTO) 7 % (0-12); NEUTROPHILS # (AUTO) 4.9 10^3/uL (1.8-7.8); NEUTROPHILS % (AUTO) 57 % (42-75); PLATELET COUNT 329 10^3/uL (130-400); WHITE BLOOD COUNT 8.6 10^3/uL (4.3-11.0)
[2021-09-29 22:19] LABS: POTASSIUM 3.9 MMOL/L (3.6-5.0)
[2021-09-29 22:20] LABS: ALBUMIN 2.9 GM/DL (3.2-4.5); BILIRUBIN,TOTAL 0.2 MG/DL (0.1-1.0); CALCIUM 8.8 MG/DL (8.5-10.1); CREATININE SERUM 1.5 MG/DL (0.60-1.30); TOTAL PROTEIN 6.9 GM/DL (6.4-8.2)
[2021-09-29 22:22] LABS: ERYTHROCYTE SEDIMENTATION RATE 68 MM/HR (0-30)
[2021-09-30 16:18] LABS: VANCOMYCIN,TROUGH 46.5 UG/ML (10.0-20.0)
== END ==
LOC: IHC 21:16
PROVIDERS: ATTEND Nurse Practitioner Family
DX: E11.621 Type 2 diabetes mellitus with foot ulcer (principal)
CPT/HCPCS: 80053; 80202; 85025; 85652

== ENCOUNTER → 2021-09-29 | Outpatient (CLI) | payer MEDICARE, MEDICAID | LOC: WOUNDCARE 13:08 | PROVIDERS: ATTEND Family Medicine | DX: E11.621 Type 2 diabetes mellitus with foot ulcer (principal); E11.65 Type 2 diabetes mellitus with hyperglycemia; E11.52 Type 2 diabetes mellitus with diabetic peripheral angiopathy with gangrene; I70.235 Atherosclerosis of native arteries of right leg with ulceration of other part of foot; L97.512 Non-pressure chronic ulcer of other part of right foot with fat layer exposed; L03.115 Cellulitis of right lower limb; N18.32 Chronic kidney disease, stage 3b; M86.071 Acute hematogenous osteomyelitis, right ankle and foot | CPT/HCPCS: 99212 ==

== ENCOUNTER → 2021-10-02 | Outpatient (CLI) | payer MEDICARE, MEDICAID | LOC: LAB FS 10:22 | PROVIDERS: ATTEND Family Medicine | DX: I50.9 Heart failure, unspecified (principal); E11.621 Type 2 diabetes mellitus with foot ulcer; L97.512 Non-pressure chronic ulcer of other part of right foot with fat layer exposed | CPT/HCPCS: 36415; 80202 ==

== ENCOUNTER → 2021-10-05 | Outpatient (CLI) | payer MEDICARE, MEDICAID ==
[2021-10-05 13:12] LABS: ALBUMIN 2.8 GM/DL (3.2-4.5); BILIRUBIN,TOTAL 0.3 MG/DL (0.1-1.0); CALCIUM 9.1 MG/DL (8.5-10.1); CREATININE SERUM 1.77 MG/DL (0.60-1.30); POTASSIUM 3.9 MMOL/L (3.6-5.0); TOTAL PROTEIN 6.9 GM/DL (6.4-8.2)
[2021-10-05 13:41] LABS: BASOPHILS # (AUTO) 0.1 10^3/uL (0.0-0.1); BASOPHILS % (AUTO) 1 % (0-10); EOSINOPHILS # (AUTO) 0.2 10^3/uL (0.0-0.3); EOSINOPHILS % (AUTO) 2 % (0-10); HEMATOCRIT 36 % (35-52); HEMOGLOBIN 11.8 g/dL (11.5-16.0); LYMPHOCYTES # (AUTO) 2.2 10^3/uL (1.0-4.0); LYMPHOCYTES % (AUTO) 28 % (12-44); MEAN CORPUSCULAR HEMOGLOBIN 28 pg (25-34); MEAN CORPUSCULAR HGB CONC 33 g/dL (32-36); MEAN CORPUSCULAR VOLUME 85 fL (80-99); MONOCYTES # (AUTO) 0.6 10^3/uL (0.0-1.0); MONOCYTES % (AUTO) 7 % (0-12); NEUTROPHILS # (AUTO) 4.7 10^3/uL (1.8-7.8); NEUTROPHILS % (AUTO) 61 % (42-75); PLATELET COUNT 272 10^3/uL (130-400); WHITE BLOOD COUNT 7.8 10^3/uL (4.3-11.0)
[2021-10-05 14:46] LABS: ERYTHROCYTE SEDIMENTATION RATE 68 MM/HR (0-30)
[2021-10-05 15:14] LABS: VANCOMYCIN,TROUGH 40.9 UG/ML (10.0-20.0)
== END ==
LOC: IHC 12:10
PROVIDERS: ATTEND Family Medicine
DX: L97.512 Non-pressure chronic ulcer of other part of right foot with fat layer exposed (principal); M86.071 Acute hematogenous osteomyelitis, right ankle and foot
CPT/HCPCS: 80053; 80202; 84134; 85025; 85652

== ENCOUNTER 2021-10-09 11:57 | Outpatient (CLI) | payer MEDICARE, MEDICAID ==
[~2021-10-09] VITALS: Ht 167.7 cm; Wt 81.0 kg
[2021-10-09 11:56] VITALS: BP 203/96
[2021-10-09] MEDS ORDERED: DAPTOmycin INJECTION 400 MG in NS (IVPB) 50 ML IV SCH (12:30)
== END 2021-10-09 13:50 | disposition home or self-care (01) ==
LOC: SDC 11:57
PROVIDERS: ATTEND Nurse Practitioner Family
DX: M86.9 Osteomyelitis, unspecified (principal)
CPT/HCPCS: 96365

== ENCOUNTER → 2021-10-09 | Outpatient (CLI) | payer MEDICARE, MEDICAID | LOC: WOUNDCARE 11:01 | PROVIDERS: ATTEND Family Medicine | DX: E11.621 Type 2 diabetes mellitus with foot ulcer (principal); E11.65 Type 2 diabetes mellitus with hyperglycemia; L97.512 Non-pressure chronic ulcer of other part of right foot with fat layer exposed; I70.235 Atherosclerosis of native arteries of right leg with ulceration of other part of foot; L03.115 Cellulitis of right lower limb; E11.22 Type 2 diabetes mellitus with diabetic chronic kidney disease; N18.32 Chronic kidney disease, stage 3b; M86.071 Acute hematogenous osteomyelitis, right ankle and foot; E11.52 Type 2 diabetes mellitus with diabetic peripheral angiopathy with gangrene; F17.218 Nicotine dependence, cigarettes, with other nicotine-induced disorders | CPT/HCPCS: 11042; G0463 ==

== ENCOUNTER → 2021-10-12 | Outpatient (CLI) | payer MEDICARE, MEDICAID ==
[2021-10-12 14:27] LABS: POTASSIUM 3.8 MMOL/L (3.6-5.0)
[2021-10-12 14:28] LABS: ALBUMIN 2.9 GM/DL (3.2-4.5); BILIRUBIN,TOTAL 0.3 MG/DL (0.1-1.0); CALCIUM 8.9 MG/DL (8.5-10.1); CREATININE SERUM 1.8 MG/DL (0.60-1.30); TOTAL PROTEIN 6.8 GM/DL (6.4-8.2)
== END ==
LOC: IHC 13:43
PROVIDERS: ATTEND Nurse Practitioner
DX: E11.621 Type 2 diabetes mellitus with foot ulcer (principal)
CPT/HCPCS: 80053

== ENCOUNTER → 2021-10-13 | Outpatient (CLI) | payer MEDICARE, MEDICAID | LOC: WOUNDCARE 12:30 | PROVIDERS: ATTEND Family Medicine | DX: E11.621 Type 2 diabetes mellitus with foot ulcer (principal); E11.65 Type 2 diabetes mellitus with hyperglycemia; I70.235 Atherosclerosis of native arteries of right leg with ulceration of other part of foot; L97.512 Non-pressure chronic ulcer of other part of right foot with fat layer exposed; L03.115 Cellulitis of right lower limb; E11.22 Type 2 diabetes mellitus with diabetic chronic kidney disease; N18.32 Chronic kidney disease, stage 3b; M86.071 Acute hematogenous osteomyelitis, right ankle and foot; F17.218 Nicotine dependence, cigarettes, with other nicotine-induced disorders | CPT/HCPCS: 11042; G0463 ==

== ENCOUNTER 2021-10-19 13:38 | Observation (INO) | payer MEDICARE, MEDICAID ==
[~2021-10-19] VITALS: Ht 167.7 cm; Wt 86.3 kg
[~2021-10-19 13:38] MED LIST changes: -ALBU18HF2 INH; -ATOR40TA70 PO; -BUDE10.2 INH; -CEFT2VIA11 IV; -DAPT500V3 IV; -MELA10TA2 PO; -NICO-685 TD; -SUMA50TA2 PO
--- NOTE | 2021-10-19 14:21 | ED Chest Pain ---
General Chief Complaint: Chest Pain Stated Complaint: CP Nursing Triage Note: PT TO RM 3 BY WC FROM WOUND CARE FOR CHEST PAIN. PT STATES HER CP IS RIGHT SIDED AND RADIATES ACROSS HER CHEST TO LEFT SIDE. PT HAS PICC LINE IN PLACE FOR IV ANTIBIOTICS. STATES PAIN STARTED TUESDAY AND THINKS IT IS HER PICC LINE. STATES DID NOT TAKE HTN MEDS TODAY. Source: patient Exam Limitations: no limitations History of Present Illness Date Seen by Provider: Oct 19, 2021 Time Seen by Provider: 14:10 Initial Comments 66-year-old patient sent over from wound care clinic chief complaint of chest pain and high blood pressure. Patient has a long history of hypertension with coronary artery disease status post coronary artery bypass grafting a couple of years ago in [place]. Patient is also diabetic. Currently being treated for osteomyelitis in her foot. Patient states she has been getting intermittent chest pain over the course of the last 2 days. She cannot recall anything that specifically precipitates it. It radiates from the right side of her chest into the left side. She is a little bit short of breath. She does continue to smoke. A little bit of nausea and she states she was sweaty while she was in wound care clinic. Patient tells me that she has been compliant recently taking her medications. She thought that the chest pain was brought on by her infusions of antibiotics. Currently rates her pain at a "2 or 3". No recent illnesses such as fevers, chills, cough or congestion. All other review of systems reviewed and negative except as stated. Timing/Duration: 2-3 days Severity/Quality: moderate, pressure, sharp Location: central Radiation: other (across the chest) Activities at Onset: none Prior CP/Workup: cardiac cath ASA po CHOCOLATE REFINING ROLLER: No NTG SL CHOCOLATE REFINING ROLLER: No Associated Symptoms: diaphoresis, nausea/vomiting, shortness of breath Allergies and Home Medications Allergies Coded Allergies: Sulfa (Sulfonamide Antibiotics) (Verified Allergy, Severe, hives, 04/15/21) tramadol (Verified Allergy, Mild, Hives, 10/19/21) Patient reports that she had hives and itching across entire body Patient Home Medication List Home Medication List Reviewed: Yes Acetaminophen (Tylenol) 325 Mg Tablet, 325-650 MG PO Q4- 6H PRN for PAIN-MILD (1-4), (Reported) Entered as Reported by: CARMELITA GOODRICH on 7957 Last Action: Reviewed Albuterol Sulfate (Ventolin Hfa) 18 Gm Hfa.aer.ad, 2 PUFF INH Q4H PRN for SHORTNESS OF BREATH, (Reported) Entered as Reported by: SKYLER ARGUELLO on 10/20/211056 Last Action: Continued Atorvastatin Calcium (Atorvastatin Calcium) 40 Mg Tablet, 40 MG PO DAILY, (Re ported) Entered as Reported by: SKYLER ARGUELLO on 10/20/211056 Last Action: Continued Budesonide/Formoterol Fumarate (Symbicort 160-4.5 Mcg Inhaler) 10.2 Gm Hfa.aer.ad, 2 PUFF INH BID, (Reported) Entered as Reported by: SKYLER ARGUELLO on 10/20/211056 Last Action: Converted Ceftriaxone Sodium (Ceftriaxone) 2 Gm Vial, 1 GM IV DAILY, (Reported) Entered as Reported by: SKYLER ARGUELLO on 10/20/211128 Last Action: Held Clopidogrel Bisulfate (Clopidogrel) 75 Mg Tablet, 75 MG PO DAILY, (Reported) Entered as Reported by: CARMELITA GOODRICH on 03/12/21957 Last Action: Continued Daptomycin (Daptomycin) 500 Mg Vial, 400 MG IV DAILY, (Reported) Entered as Reported by: SKYLER ARGUELLO on 10/20/211128 Last Action: Held Gabapentin (Neurontin) 300 Mg Capsule, 300 MG PO BID, (Reported) Entered as Reported by: SKYLER ARGUELLO on 10/20/211056 Last Action: Continued Insulin Glargine,Hum.rec.anlog (Lantus Solostar) 100 Unit/1 Ml Insuln.pen, 15 UNIT SQ BID, (Reported) Entered as Reported by: SKYLER ARGUELLO on 10/20/211056 Last Action: Converted Levothyroxine Sodium (Levothyroxine Sodium) 175 Mcg Tablet, 175 MCG PO DAILY, (Reported) Entered as Reported by: CARMELITA GOODRICH on 03/12/21957 Last Action: Converted Lisinopril (Lisinopril) 20 Mg Tablet, 20 MG PO DAILY, (Reported) Entered as Reported by: SKYLER ARGUELLO on 10/20/211056 Last Action: Continued Loratadine (Loratadine) 10 Mg Tablet, 10 MG PO DAILY PRN for ALLERGY SYMPTOMS, (Reported) Entered as Reported by: SKYLER ARGUELLO on 05/26/211654 Last Action: Continued Melatonin (Melatonin) 10 Mg Tablet, 10 MG PO HS PRN for SLEEP, (Reported) Entered as Reported by: SKYLER ARGUELLO on 10/20/211207 Last Action: Continued Metformin HCl (Metformin HCl) 500 Mg Tablet, 500 MG PO DAILY, (Reported) Entered as Reported by: SKYLER ARGUELLO on 05/26/21 165 Last Action: Held Metoprolol Tartrate (Metoprolol Tartrate) 25 Mg Tablet, 25 MG PO BID, (Reported) Entered as Reported by: SKYLER ARGUELLO on 10/20/211207 Last Action: Continued Nicotine (Nicotine Patch) 1 Each Patch.td24, 1 PATCH TD DAILY, (Reported) Entered as Reported by: SKYLER ARGUELLO on 10/20/211056 Last Action: Continued Pantoprazole Sodium (Pantoprazole Sodium) 40 Mg Tablet.dr, 40 MG PO DAILY, (Reported) Entered as Reported by: CARMELITA GOODRICH on 03/12/21 0972 Last Action: Continued Semaglutide (Ozempic) 0.25 Mg/0.2 Ml Pen.injctr, 0.25 MG SQ SUN, (Reported) Entered as Reported by: SKYLER ARGUELLO on 10/20/211056 Last Action: Converted Sertraline HCl (Sertraline HCl) 100 Mg Tablet, 100 MG PO DAILY, (Reported) Entered as Reported by: OCTAVIO ARENAS on 03/11/212147 Last Action: Continued Sumatriptan Succinate (Sumatriptan Succinate) 50 Mg Tablet, 50 MG PO UD PRN for MIGRAINE, (Reported) Entered as Reported by: SKYLER ARGUELLO on 10/20/211056 Last Action: Continued Trazodone HCl (Trazodone HCl) 100 Mg Tablet, 100 MG PO HS PRN for SLEEP, (Reported) Entered as Reported by: OCTAVIO ARENAS on 03/11/212147 Last Action: Continued Discontinued Medications Aspirin (Aspirin EC) 81 Mg Tablet.dr, 81 MG PO DAILY Discontinued Reason: No Longer Taking Prescribed by: MIRELA SHARMA on 05/27/21 1214 Last Action: Discontinued Atorvastatin Calcium (Lipitor) 40 Mg Tablet, 40 MG PO HS Discontinued Reason: Duplicate Order Prescribed by: MIRELA SHARMA on 05/27/21 1214 Last Action: Discontinued Azithromycin (Azithromycin) 250 Mg Tablet, 250 MG PO DAILY Discontinued Reason: No Longer Taking Prescribed by: KRISTY CARRENO on 07/31/211851 Last Action: Discontinued Cephalexin (Cephalexin) 500 Mg Tablet, 500 MG PO QID Discontinued Reason: No Longer Taking Prescribed by: KRISTY CARRENO on 08/17/21 141 Last Action: Discontinued Doxycycline Hyclate (Doxycycline Hyclate) 100 Mg Tablet, 100 MG PO BID Discontinued Reason: No Longer Taking Prescribed by: KRISTY CARRENO on 08/17/211417 Last Action: Discontinued Gabapentin (Neurontin) 300 Mg Capsule, 300 MG PO HS PRN for PAIN-BREAKTHROUGH, (Reported) Discontinued Reason: Duplicate Order Entered as Reported by: CARMELITA GOODRICH on 03/12/21 0923 Last Action: Discontinued Lisinopril (Lisinopril) 20 Mg Tablet, 20 MG PO DAILY Discontinued Reason: Duplicate Order Prescribed by: MIRELA SHARAM on 05/27/211213 Last Action: Discontinued Lisinopril/Hydrochlorothiazide (Lisinopril-Hctz 20-12.5 mg Tab) 1 Each Tablet, 2 EACH PO DAILY Discontinued Reason: No Longer Taking Prescribed by: WILEY BUSTILLO on 07/31/211955 Last Action: Discontinued Metoprolol Succinate (Metoprolol Succinate) 100 Mg Tab.er.24h, 100 MG PO DAILY Discontinued Reason: No Longer Taking Prescribed by: WILEY BUSTILLO on 07/31/211955 Last Action: Discontinued Nitrofurantoin Monohyd/M-Cryst (Macrobid 100 mg Capsule) 100 Mg Capsule, 1 TAB PO BID Discontinued Reason: No Longer Taking Prescribed by: SINTIA JC on 08/14/21 1531 Last Action: Discontinued Prednisone (Prednisone) 20 Mg Tab, 40 MG PO DAILY Discontinued Reason: No Longer Taking Prescribed by: KRISTY CARRENO on 07/31/211851 Last Action: Discontinued Review of Systems Review of Systems Constitutional: see HPI EENTM: No Symptoms Reported Respiratory: SOA With Exertion Cardiovascular: Chest Pain Gastrointestinal: Nausea Genitourinary: No Symptoms Reported Musculoskeletal: no symptoms reported Skin: no symptoms reported Psychiatric/Neurological: No Symptoms Reported All Other Systems Reviewed Negative Unless Noted: Yes Past Ergndgj-Zwmuql-Dyzyjx Hx Patient Social History Tobacco Use?: Yes Smoking Status: Current Everyday Smoker Use of E-Cig and/or Vaping dev: No Substance use?: No Alcohol Use?: No Pt feels they are or have been: No Immunizations Up To Date Tetanus Booster (TDap): Unknown First/Initial COVID19 Vaccinat: 2020 Second COVID19 Vaccination Burak: 2020 Third COVID19 Vaccination Date: 2020 Seasonal Allergies Seasonal Allergies: Yes Past Medical History Surgery/Hospitalization HX: Diabetes Insulin Dependent, Hypertension Surgeries: Yes (right elbow, left ankle, right rotator cuff, right hip, ear tubes) CABG, Open Heart Surgery, Orthopedic Respiratory: Yes Sleep Apnea Currently Using CPAP: No Cardiac: Yes Coronary Artery Disease, High Cholesterol, Hypertension, Hypotension Neurological: Yes Headaches /Migraines, Neuropathy Genitourinary: Yes Renal Failure Gastrointestinal: No Hepatitis Musculoskeletal: Yes Arthritis, Chronic Back Pain Endocrine: Yes Diabetes, Insulin dep, Hypothyroidsim HEENT: Yes (decreased vision due to DM) Loss of Vision: Bilateral Hearing Impairment: Denies Cancer: Yes Skin Did You Recieve Any Treatments: Yes What Type of Treatment Did You: Surgical Intervention Anxiety, Bipolar, Depression Integumentary: Yes Eczema Blood Disorders: Yes (Hep C) Family Medical History No Pertinent Family Hx Physical Exam Vital Signs Vital Signs - First Documented 10/19/21 13:46 Pulse 83 Resp 24 B/P (MAP) 204/129 (154) Pulse Ox 98 O2 Delivery Room Air Capillary Refill : Less Than 3 Seconds Height, Weight, BMI Height: '" Weight: lbs. oz. kg; 28.00 BMI Method: General Appearance: No Apparent Distress, WD/WN HEENT: PERRL/EOMI Neck: Normal Inspection Respiratory: Lungs Clear, Normal Breath Sounds, No Accessory Muscle Use, No Respiratory Distress Cardiovascular: Regular Rate, Rhythm, Normal Peripheral Pulses Gastrointestinal: Non Tender, Soft Extremity: Normal Capillary Refill, No Calf Tenderness, No Pedal Edema, Other (right foot wrapped in a dressing per wound care) Neurologic/Psychiatric: Alert, Oriented x3, No Motor/Sensory Deficits, Normal Mood/Affect, garnisher II-XII Norm as Tested Skin: Normal Color, Warm/Dry Progress/Results/Core Measures Results/Orders Lab Results Laboratory Tests Test 10/19/21 13:57 Range/Units White Blood Count 7.8 4.3-11.0 10^3/uL Red Blood Count 4.47 3.80-5.11 10^6/uL Hemoglobin 12.3 11.5-16.0 g/dL Hematocrit 38 35-52 % Mean Corpuscular Volume 86 80-99 fL Mean Corpuscular Hemoglobin 28 25-34 pg Mean Corpuscular Hemoglobin Concent 32 32-36 g/dL Red Cell Distribution Width 14.6 H 10.0-14.5 % Platelet Count 223 130-400 10^3/uL Mean Platelet Volume 10.1 9.0-12.2 fL Immature Granulocyte % (Auto) 1 % Neutrophils (%) (Auto) 63 42-75 % Lymphocytes (%) (Auto) 26 12-44 % Monocytes (%) (Auto) 7 0-12 % Eosinophils (%) (Auto) 3 0-10 % Basophils (%) (Auto) 1 0-10 % Neutrophils # (Auto) 4.9 1.8-7.8 10^3/uL Lymphocytes # (Auto) 2.0 1.0-4.0 10^3/uL Monocytes # (Auto) 0.5 0.0-1.0 10^3/uL Eosinophils # (Auto) 0.2 0.0-0.3 10^3/uL Basophils # (Auto) 0.1 0.0-0.1 10^3/uL Immature Granulocyte # (Auto) 0.1 0.0-0.1 10^3/uL Prothrombin Time 12.3 12.2-14.7 SEC INR Comment 0.9 0.8-1.4 Activated Partial Thromboplast Time 25 24-35 SEC Sodium Level 139 135-145 MMOL/L Potassium Level 4.2 3.6-5.0 MMOL/L Chloride Level 105 98-107 MMOL/L Carbon Dioxide Level 22 21-32 MMOL/L Anion Gap 12 5-14 MMOL/L Blood Urea Nitrogen 26 H 7-18 MG/DL Creatinine 2.02 H 0.60-1.30 MG/DL Estimat Glomerular Filtration Rate 27 BUN/Creatinine Ratio 13 Glucose Level 206 H 70-105 MG/DL Calcium Level 9.4 8.5-10.1 MG/DL Corrected Calcium 10.3 H 8.5-10.1 MG/DL Magnesium Level 2.1 1.6-2.4 MG/DL Total Bilirubin 0.2 0.1-1.0 MG/DL Aspartate Amino Transf (AST/SGOT) 26 5-34 U/L Alanine Aminotransferase (ALT/SGPT) 20 0-55 U/L Alkaline Phosphatase 78 40-136 U/L Myoglobin 135.0 H 10.0-92.0 NG/ML Troponin I 0.054 H <0.028 NG/ML Total Protein 6.9 6.4-8.2 GM/DL Albumin 2.9 L 3.2-4.5 GM/DL My Orders Orders - SEAMUS VILLAREAL MD Ekg Tracing (10/19/21 13:59) Cbc With Automated Diff (10/19/21 14:20) Magnesium (10/19/21 14:20) Chest 1 View, Ap/Pa Only (10/19/21 14:20) Comprehensive Metabolic Panel (10/19/21 14:20) Myoglobin Serum (10/19/21 14:20) Protime With Inr (10/19/21 14:20) Partial Thromboplastin Time (10/19/21 14:20) O2 (10/19/21 14:20) Monitor-Rhythm Ecg Trace Only (10/19/21 14:20) Ed Iv/Invasive Line Start (10/19/21 14:20) Troponin I Annabella (10/19/21 14:20) Aspirin Chewable Tablet (Baby Aspirin Ch (10/19/21 14:30) Labetalol Injection (Normodyne Injection (10/19/21 15:45) Echo W Doppler/Color Flow (10/19/21 15:42) Amlodipine Tablet (Norvasc Tablet) (10/19/21 16:30) Metoprolol Succinate (Xl) Tab (Toprol Xl (10/19/21 16:45) Clonidine Tablet (Catapres Tablet) (10/19/21 16:45) Ed Admission (Communication) (10/19/21 16:50) Medications Given in ED Vital Signs/I&O 10/19/21 13:46 Pulse 83 Resp 24 B/P (MAP) 204/129 (154) Pulse Ox 98 O2 Delivery Room Air Blood Pressure Mean: 154 Initial ECG Impression Date: Oct 19, 2021 Initial ECG Impression Time: 14:01 Initial ECG Rate: 76 Initial ECG Rhythm: Normal Sinus Initial ECG Intervals IN 160 QRS 102 QTc 471 Diagnostic Imaging Diagonstic Imaging: Xray Plain Films/CT/US/NM/MRI: chest Comments [facility], [place] NAME: POOJA KONG [facility] REC#: [id number] PT STATUS: REG ER : 1955 PHYSICIAN: SEAMUS VILLAREAL MD ADMIT DATE: 10/19/21/ER Draft Date of Exam:10/19/21 CHEST 1 VIEW, AP/PA ONLY CHEST 1 VIEW, AP/PA ONLY INDICATION: Chest pain. COMPARISON: 08/14/2021. FINDINGS: No focal airspace disease in the visualized lungs. Please note that the posterior lower lobes are poorly evaluated by portable radiography. No pleural effusion or pneumothorax. Normal cardiomediastinal silhouette. IMPRESSION: 1. No acute cardiopulmonary process by portable radiography. Dictated on workstation # [id number] Dict: 10/19/21 1432 Trans: 10/19/21 1435 [id number] Interpreted by: DYANA MCNEAL MD Electronically signed by: Departure Communication (Admissions) Time/Spoke to Consulting Phy: 15:[address] Oneill Impression Primary Impression: Hypertensive emergency Disposition: 09 ADMITTED INPATIENT Condition: Stable Admissions Decision to Admit Reason: Admit from ER (General) Decision to Admit/Date: Oct 19, 2021 Time/Decision to Admit Time: 15:39 Departure-Patient Inst. Referrals: [facility] [place] ([place]) Primary Care Physician SEAMUS VILLAREAL MD Oct 19, 2021 14:21
[2021-10-19 14:26] LABS: BASOPHILS # (AUTO) 0.1 10^3/uL (0.0-0.1); BASOPHILS % (AUTO) 1 % (0-10); EOSINOPHILS # (AUTO) 0.2 10^3/uL (0.0-0.3); EOSINOPHILS % (AUTO) 3 % (0-10); HEMATOCRIT 38 % (35-52); HEMOGLOBIN 12.3 g/dL (11.5-16.0); LYMPHOCYTES % (AUTO) 26 % (12-44); MEAN CORPUSCULAR HEMOGLOBIN 28 pg (25-34); MEAN CORPUSCULAR HGB CONC 32 g/dL (32-36); MEAN CORPUSCULAR VOLUME 86 fL (80-99); MEAN PLATELET VOLUME 10.1 fL (9.0-12.2); MONOCYTES # (AUTO) 0.5 10^3/uL (0.0-1.0); MONOCYTES % (AUTO) 7 % (0-12); NEUTROPHILS # (AUTO) 4.9 10^3/uL (1.8-7.8); NEUTROPHILS % (AUTO) 63 % (42-75); PLATELET COUNT 223 10^3/uL (130-400); WHITE BLOOD COUNT 7.8 10^3/uL (4.3-11.0)
[2021-10-19 14:29] LABS: ALBUMIN 2.9 GM/DL (3.2-4.5); POTASSIUM 4.2 MMOL/L (3.6-5.0)
[2021-10-19 14:30] LABS: CALCIUM 9.4 MG/DL (8.5-10.1)
[2021-10-19] MEDS ORDERED: ASPIRIN 81 MG CHEW (CHILDREN'S ASA) PO ONE (14:30)
[2021-10-19 14:31] LABS: INR 0.9 (0.8-1.4); PROTHROMBIN TIME PATIENT 12.3 SEC (12.2-14.7)
[2021-10-19 14:32] LABS: TOTAL PROTEIN 6.9 GM/DL (6.4-8.2)
[2021-10-19 14:33] LABS: BILIRUBIN,TOTAL 0.2 MG/DL (0.1-1.0)
[2021-10-19 14:35] LABS: CREATININE SERUM 2.02 MG/DL (0.60-1.30)
--- NOTE | 2021-10-19 14:35 | Diagnostic Imaging Report ---
CHEST 1 VIEW, AP/PA ONLY INDICATION: Chest pain. COMPARISON: 08/14/2021. FINDINGS: No focal airspace disease in the visualized lungs. Please note that the posterior lower lobes are poorly evaluated by portable radiography. No pleural effusion or pneumothorax. Normal cardiomediastinal silhouette. IMPRESSION: 1. No acute cardiopulmonary process by portable radiography. Dictated by: Dictated on workstation # [id number]
[2021-10-19 14:38] LABS: MAGNESIUM 2.1 MG/DL (1.6-2.4)
[2021-10-19] MEDS ORDERED: LABETALOL HCL 20 MG/4 ML VIAL IV ONE (15:45)
[2021-10-19] MEDS ORDERED: amLODIPine 5 MG (NORVASC) TAB PO ONE (16:30)
[2021-10-19] MEDS ORDERED: cloNIDine 0.1 MG (CATAPRES) TAB PO ONE (16:45)
[2021-10-19] MEDS ORDERED: meTOproloL SUCCINATE 50 MG (TOPROL XL) TAB PO SCH (16:45)
[2021-10-19] MEDS ORDERED: ENOXAPARIN 100 MG/1 ML (LOVENOX) SYR SC SCH (16:45)
[2021-10-19] MEDS ORDERED: NS IV 1000 ML 1,000 ML IV SCH ×2 (16:45→18:00)
--- NOTE | 2021-10-19 16:45 | Consultation-Cardiology ---
HPI-Cardiology Cardiology Consultation Date of Consultation 10/19/21 Date of Admission Time Seen by Provider: 16:41 Indication: Chest pain HPI 66-year-old lady with history of diabetes mellitus, coronary artery disease, hypertension. Has been having generalized fatigue and loss of energy, did not take her medication today, woke up with chest pain described as dull in nature in the left side of her chest radiating to her back and having some back pain. Generalized fatigue and loss of energy. No fever or chills. Came into the emergency room and she was noted to have severe hypertension. She is an active smoker and working on smoking cessation. 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) Smoking Status: Current Everyday Smoker Type Used: Cigars 2nd Hand Smoke Exposure: Yes Recent Hopitalizations: Yes (February 2021- ) Have you traveled recently?: No Alcohol Use?: No Immunizations Up To Date Tetanus Booster (TDap): Unknown Date of Influenza Vaccine: Jun 05, 2020 Past Medical History Discussed below Family Medical History Significant Family History: No Pertinent Family Hx Family Medical Hx Noncontributory Review of Systems-General Review of Systems Constitutional: see HPI, malaise, weakness EENTM: see HPI, no symptoms reported Respiratory: see HPI; No cough; dyspnea on exertion; No hemoptysis, No orthopnea, No phlegm, No short of breath, No stridor, No wheezing, No other Cardiovascular: see HPI, chest pain; No edema, No Hx of Intervention, No palpitations, No syncope, No vascular heart diseas, No other Gastrointestinal: no symptoms reported, see HPI Genitourinary: no symptoms reported, see HPI Musculoskeletal: see HPI, other (Right toe ulcer) Skin: no symptoms reported, see HPI Psychiatric/Neurological: No Symptoms Reported, See HPI All Other Systems Reviewed Negative Unless Noted: Yes Reviewed Test Results Reviewed Test Results Lab Laboratory Tests Test 10/19/21 13:57 Range/Units White Blood Count 7.8 4.3-11.0 10^3/uL Red Blood Count 4.47 3.80-5.11 10^6/uL Hemoglobin 12.3 11.5-16.0 g/dL Hematocrit 38 35-52 % Mean Corpuscular Volume 86 80-99 fL Mean Corpuscular Hemoglobin 28 25-34 pg Mean Corpuscular Hemoglobin Concent 32 32-36 g/dL Red Cell Distribution Width 14.6 H 10.0-14.5 % Platelet Count 223 130-400 10^3/uL Mean Platelet Volume 10.1 9.0-12.2 fL Immature Granulocyte % (Auto) 1 % Neutrophils (%) (Auto) 63 42-75 % Lymphocytes (%) (Auto) 26 12-44 % Monocytes (%) (Auto) 7 0-12 % Eosinophils (%) (Auto) 3 0-10 % Basophils (%) (Auto) 1 0-10 % Neutrophils # (Auto) 4.9 1.8-7.8 10^3/uL Lymphocytes # (Auto) 2.0 1.0-4.0 10^3/uL Monocytes # (Auto) 0.5 0.0-1.0 10^3/uL Eosinophils # (Auto) 0.2 0.0-0.3 10^3/uL Basophils # (Auto) 0.1 0.0-0.1 10^3/uL Immature Granulocyte # (Auto) 0.1 0.0-0.1 10^3/uL Prothrombin Time 12.3 12.2-14.7 SEC INR Comment 0.9 0.8-1.4 Activated Partial Thromboplast Time 25 24-35 SEC Sodium Level 139 135-145 MMOL/L Potassium Level 4.2 3.6-5.0 MMOL/L Chloride Level 105 98-107 MMOL/L Carbon Dioxide Level 22 21-32 MMOL/L Anion Gap 12 5-14 MMOL/L Blood Urea Nitrogen 26 H 7-18 MG/DL Creatinine 2.02 H 0.60-1.30 MG/DL Estimat Glomerular Filtration Rate 27 BUN/Creatinine Ratio 13 Glucose Level 206 H 70-105 MG/DL Calcium Level 9.4 8.5-10.1 MG/DL Corrected Calcium 10.3 H 8.5-10.1 MG/DL Magnesium Level 2.1 1.6-2.4 MG/DL Total Bilirubin 0.2 0.1-1.0 MG/DL Aspartate Amino Transf (AST/SGOT) 26 5-34 U/L Alanine Aminotransferase (ALT/SGPT) 20 0-55 U/L Alkaline Phosphatase 78 40-136 U/L Myoglobin 135.0 H 10.0-92.0 NG/ML Troponin I 0.054 H <0.028 NG/ML Total Protein 6.9 6.4-8.2 GM/DL Albumin 2.9 L 3.2-4.5 GM/DL Physical Exam Physical Exam Vital Signs Vital Signs - First Documented 10/19/21 13:46 Pulse 83 Resp 24 B/P (MAP) 204/129 (154) Pulse Ox 98 O2 Delivery Room Air Capillary Refill : Less Than 3 Seconds Height, Weight, BMI Height: '" Weight: lbs. oz. 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 We will start on Lovenox and monitor the trend, adding aspirin 81 mg daily. Coronary artery disease, history of CABG x3 done in [place] in 2018. No recent cardiac work-up, did not establish with a tube worker in this area. I will continue monitoring her EKG and adding Toprol-XL 25 mg daily Hypertensive emergency with active chest pain. Given labetalol IV. Received amlodipine 5 mg, I will give Toprol-XL 50 mg and clonidine 0.1 mg and evaluate her tolerance and response Mild elevation in BNP, could be secondary to hypertension and renal failure. I will evaluate 2D echocardiogram Chronic renal insufficiency, starting IV fluid and monitor renal function Hyperlipidemia, monitor lipids Right first toe ulcer, managed by primary care physician, diabetic foot ulcer. Probably underlying peripheral arterial disease, planning to evaluate [place] once clinically stable Diabetes mellitus, followed and managed by primary care physician Gerardo, working on smoking cessation, educated and instructed on smoking cessation. Clinical Quality Measures AMI/AHF: ASA po Prior to arrival: HARPREET Garzon MD Oct 19, 2021 16:45
[2021-10-19 17:45] VITALS: BP 181/95
[2021-10-19 18:00] VITALS: BP 178/106
[2021-10-19] MEDS ORDERED: ONDANSETRON 4 MG/2 ML (SDV) Z0FRAN IV PRN (18:00)
[2021-10-19] MEDS ORDERED: diphenhydrAMINE 25 MG TAB (BENADRYL) PO PRN (18:00)
[2021-10-19] MEDS ORDERED: ENOXAPARIN 40 MG/0.4 ML (LOVENOX) SYR SC SCH (18:00)
[2021-10-19] MEDS ORDERED: CALCIUM CARBONATE 500 MG (TUMS) TAB.CHEW PO PRN (18:00)
[2021-10-19] MEDS ORDERED: morphine INJ 4 MG/ML 1 ML (VIAL/SYRINGE) IV PRN (18:00)
[2021-10-19] MEDS ORDERED: LACTULOSE SYRUP 10GM/15ML (ENULOSE) 30ML UDC PO PRN (18:00)
[2021-10-19] MEDS ORDERED: MILK OF MAGNESIA 400 MG/5 ML 30 ML UDC PO PRN (18:00)
[2021-10-19] MEDS ORDERED: ONDANSETRON 4 MG (ZOFRAN) ORAL DISSOLVE TAB PO PRN (18:00)
[2021-10-19] MEDS ORDERED: polyethylene glycoL POWDER 17 GM (MIRALAX) PACK PO PRN (18:00)
[2021-10-19] MEDS ORDERED: BISACODYL 10 MG SUPP (DULCOLAX) PR PRN (18:00)
[2021-10-19] MEDS ORDERED: diphenhydrAMINE 50 MG/ML INJ (BENADRYL) IVP PRN (18:00)
[2021-10-19] MEDS ORDERED: ANTACID SUSP 30 ML UDC (MYLANTA) PO PRN (18:00)
[2021-10-19] MEDS ORDERED: MELATONIN 3 MG TABLET PO PRN (18:00)
[2021-10-19] MEDS: ENOXAPARIN 80 MG/0.8 ML (LOVENOX) SYR SC SCH (18:30)
[2021-10-19] MEDS: NITROGLYCERIN 0.4 MG/PATCH (NITRO-DUR) TD SCH (18:39)
[2021-10-19 19:09] VITALS: BP 204/129
[2021-10-19] MEDS ORDERED: RT-ALBUTEROL SULF 2.5 MG/3 ML PRE-MIX VIAL INH PRN (19:15)
[2021-10-19 19:48] VITALS: BP 160/89
[2021-10-19 20:00] VITALS: BP 155/84
[2021-10-19] MEDS: ACETAMINOPHEN 325 MG TABLET PO PRN (20:22)
[2021-10-19] MEDS: cloNIDine 0.1 MG (CATAPRES) TAB PO SCH (20:22)
[2021-10-19] MEDS: SENNOSIDES 8.6 MG (SENOKOT) TAB PO SCH (20:25)
[2021-10-19] MEDS: DOCUSATE SODIUM 100 MG (COLACE) CAP PO SCH (20:25)
[2021-10-19] MEDS: NITROGLYCERIN PATCH REMOVAL TP SCH (21:16)
[2021-10-19] MEDS: inSUlin ASPART (NovoLOG) 1 UNIT/0.01 ML (CHARGE PER UNIT) SC SCH (21:38)
[2021-10-20] VITALS (7 sets, daily range): BP systolic 131–162; BP diastolic 46–81
[2021-10-20 04:48] LABS: BASOPHILS # (AUTO) 0.1 10^3/uL (0.0-0.1); BASOPHILS % (AUTO) 1 % (0-10); EOSINOPHILS # (AUTO) 0.2 10^3/uL (0.0-0.3); EOSINOPHILS % (AUTO) 4 % (0-10); HEMATOCRIT 34 % (35-52); HEMOGLOBIN 11.2 g/dL (11.5-16.0); LYMPHOCYTES % (AUTO) 45 % (12-44); MEAN CORPUSCULAR HEMOGLOBIN 28 pg (25-34); MEAN CORPUSCULAR HGB CONC 33 g/dL (32-36); MEAN CORPUSCULAR VOLUME 86 fL (80-99); MEAN PLATELET VOLUME 9.6 fL (9.0-12.2); MONOCYTES # (AUTO) 0.5 10^3/uL (0.0-1.0); MONOCYTES % (AUTO) 8 % (0-12); NEUTROPHILS # (AUTO) 2.9 10^3/uL (1.8-7.8); NEUTROPHILS % (AUTO) 42 % (42-75); PLATELET COUNT 195 10^3/uL (130-400); WHITE BLOOD COUNT 6.7 10^3/uL (4.3-11.0)
[2021-10-20 05:15] LABS: ALBUMIN 2.5 GM/DL (3.2-4.5)
[2021-10-20 05:16] LABS: CALCIUM 8.8 MG/DL (8.5-10.1)
[2021-10-20 05:19] LABS: BILIRUBIN,TOTAL 0.2 MG/DL (0.1-1.0)
[2021-10-20 05:21] LABS: CREATININE SERUM 2.02 MG/DL (0.60-1.30)
[2021-10-20] MEDS: inSUlin ASPART (NovoLOG) 1 UNIT/0.01 ML (CHARGE PER UNIT) SC SCH ×4 (05:40→20:43)
[2021-10-20] MEDS: cloNIDine 0.1 MG (CATAPRES) TAB PO SCH ×2 (08:03→20:43)
[2021-10-20] MEDS: ASPIRIN E.C. 81 MG (ECOTRIN) TAB PO SCH (08:04)
[2021-10-20] MEDS: PANTOPRAZOLE 40 MG (PROTONIX) TAB PO SCH (08:04)
[2021-10-20] MEDS: meTOproloL SUCCINATE 50 MG (TOPROL XL) TAB PO SCH (08:04)
[2021-10-20] MEDS: amLODIPine 5 MG (NORVASC) TAB PO SCH (08:05)
[2021-10-20] MEDS: NITROGLYCERIN 0.4 MG/PATCH (NITRO-DUR) TD SCH (08:44)
[2021-10-20] MEDS ORDERED: NS IV 1000 ML 1,000 ML IV SCH (08:46)
--- NOTE | 2021-10-20 08:57 | Cardiology Progress Note ---
Subjective Date Seen by Provider: Oct 20, 2021 Time Seen by Provider: 08:54 Subjective/Events-last exam Patient was seen at bedside, laying down comfortably, still having chest pain and back pain. Review of Systems General: No Chills, No Night Sweats; Fatigue; No Malaise, No Appetite, No Other HEENT: No Head Aches, No Visual Changes, No Eye Pain, No Ear Pain, No Dys phasia, No Sinus Congestion, No Post Nasal Drip, No Sore Throat, No Other Pulmonary: No Dyspnea, No Cough, No Pleuritic Chest Pain, No Other Cardiovascular: Chest Pain; No: Palpitations, Orthopnea, Paroxysmal Noc. Dyspnea, Edema, Lt Headedness, Other Objective-Cardiology Exam Last Set of Vital Signs Vital Signs 10/19/21 10/20/21 19:09 07:36 Temp 36.6 Pulse 68 Resp 20 B/P (MAP) 157/77 (103) Pulse Ox 95 O2 Delivery Room Air FiO2 21 I&O Intake and Output 10/20/21 00:00 Intake Total 900 ml Balance 900 ml Intake Oral 900 ml # Voids 2 Daily Weight Change No General: Alert, Oriented X3, Cooperative HEENT: Atraumatic, PERRLA Neck: Supple, No JVD, No Thyromegaly Lungs: Clear to Auscultation, Normal Air Movement Heart: Normal S1, Normal S2, Other (Irregular rhythm, systolic murmur) Abdomen: Normal Bowel Sounds, Soft, No Tenderness, No Hepatosplenomegaly, No M asses Extremities: No Clubbing, No Cyanosis, No Edema, Normal Pulses, No Tende rness/Swelling Skin: No Rashes, No Breakdown, No Significant Lesion Neuro: Normal Gait, Normal Speech, Strength at 5/5 X4 Ext, Normal Tone, Sensation Intact Psych/Mental Status: Mental Status NL, Mood NL Results Lab Laboratory Tests 10/19/21 13:57 10/20/21 04:38 A/P-Cardiology Admission Diagnosis Chest pain Hypertensive emergency Coronary artery disease Acute renal failure Assessment/Plan Chest pain resembling angina, mild elevation in troponin. Continue on aspirin, Lovenox, patient cannot tolerate cardiac cath due to the elevated creatinine. I will increase his IV fluid, adding isosorbide and evaluate tolerance and response. Considering cardiac cath once her renal function are better. Back pain, patient will be CT of the chest, cannot tolerate contrast at this point. Coronary artery disease, history of CABG x3 done in [place] in 2018. No recent cardiac work-up, did not establish with a machine compositor in this area. Tolerating Toprol, adding isosorbide and evaluate tolerance and response 2D echo was done on October 19, 2021 showing normal LV size, ejection fraction 50 to 55%, moderate mitral regurgitation, mild aortic valve stenosis Hypertensive emergency with active chest pain. Blood pressure is better, continue to monitor Mild elevation in BNP, could be secondary to hypertension and renal failure. I will evaluate 2D echocardiogram Chronic renal insufficiency, starting IV fluid and monitor renal function Hyperlipidemia, monitor lipids Right first toe ulcer, managed by primary care physician, diabetic foot ulcer. Probably underlying peripheral arterial disease, planning to evaluate [facility] once clinically stable Diabetes mellitus, followed and managed by primary care physician Tobaccoism, working on smoking cessation, educated and instructed on smoking cessation. HARPREET MUÑOZ MD Oct 20, 2021 08:57
[2021-10-20] MEDS: NS IV 1000 ML 1,000 ML IV SCH ×2 (09:59→20:43)
[2021-10-20] MEDS: DOCUSATE SODIUM 100 MG (COLACE) CAP PO SCH ×2 (10:05→20:43)
[2021-10-20] MEDS: SENNOSIDES 8.6 MG (SENOKOT) TAB PO SCH ×2 (10:06→20:43)
[2021-10-20] MEDS: ISOSORBIDE MONONITRATE 30 MG (IMDUR) TAB PO SCH (10:10)
[2021-10-20] MEDS: DAPTOmycin INJECTION 500 MG in NS (IVPB) 50 ML IV SCH (10:38)
[2021-10-20] MEDS ORDERED: SUMA50TA2 PO (10:57)
[2021-10-20] MEDS ORDERED: GABA300C PO (10:57)
[2021-10-20] MEDS ORDERED: ATOR40TA70 PO (10:57)
[2021-10-20] MEDS ORDERED: INSU100I10 SQ (10:57)
[2021-10-20] MEDS ORDERED: BUDE10.2 INH (10:57)
[2021-10-20] MEDS ORDERED: LISI20TA26 PO (10:57)
[2021-10-20] MEDS ORDERED: NICO-685 TD (10:57)
[2021-10-20] MEDS ORDERED: ALBU18HF2 INH (10:57)
[2021-10-20] MEDS ORDERED: SEMA0.25 SQ (10:57)
--- NOTE | 2021-10-20 11:22 | History & Physical-Hospitalist ---
KRISTY TRUONG 10/20/21 1122: History of Present Illness HPI/Chief Complaint CC: Chest Pain HPI: Yareli Monaco is a 66yoF with PMHx of CAD s/p CABGx3 (2018), DM, HTN, and hypothyroidism who presented to [facility] on 10/19/21 from wound care clinic with chest pain and high blood pressure. She is currently being treated for osteomyelitis in her foot. Patient states she has been getting intermittent chest pain over the course of the last 2 days. She cannot recall anything that specifically precipitates it. It radiates from the right side of her chest into the left side. She is a little bit short of breath. She does continue to smoke. She also endorses a little bit of nausea and she states she was sweaty while she was in wound care clinic. Patient tells me that she has been compliant recently taking her medications. She thought that the chest pain was brought on by her infusions of antibiotics. EKG was unremarkable. Troponin was elevated. Patient admitted with diagnosis of hypertensive emergency and angina. Cardiology consulted. Source: patient, RN/MD, RN notes reviewed, EMS notes reviewed Exam Limitations: no limitations Date Seen 10/20/21 Time Seen by a Provider: 09:00 Attending Physician Sulma Mary DO [facility] Referring Physician Date of Admission Oct 19, 2021 at 16:51 Home Medications & Allergies Home Medications Reviewed patient Home Medication Reconciliation performed by pharmacy medication reconciliations chemical technician and/or nursing. Patients Allergies have been reviewed. Allergies Allergies Coded Allergies Sulfa (Sulfonamide Antibiotics) (Verified Allergy, Severe, hives, 04/15/21) tramadol (Verified Allergy, Mild, Hives, 10/19/21) Patient reports that she had hives and itching across entire body Past Fnvngdm-Ihepry-Eevhgt Hx Patient Social History Tobacco Use?: Yes Tobacco type used: Cigarettes Smoking Status: Current Everyday Smoker Use of E-Cig and/or Vaping dev: No Substance use?: No Alcohol Use?: No Pt feels they are or have been: Yes Immunizations Up To Date Date of Influenza Vaccine: May 29, 2021 First/Initial COVID19 Vaccinat: OCTOBER 2020 Second COVID19 Vaccination Burak: NOVEMBER 2020 Tetanus Booster (TDap): Unknown Hepatitis A: No Hepatitis B: No Seasonal Allergies Seasonal Allergies: Yes Current Status status: No status: No Advance Directives: No Communicates: Verbally Primary Language: Bhutanese Preferred Spoken Language: Bhutanese Is interpretation needed?: No Sensory deficits: Vision impairment Past Medical History Surgeries: CABG, Open Heart Surgery, Orthopedic Sleep Apnea Currently Using CPAP: No Coronary Artery Disease, High Cholesterol, Hypertension, Hypotension Headaches /Migraines, Neuropathy Renal Failure Hepatitis Arthritis, Chronic Back Pain Diabetes, Insulin dep, Hypothyroidsim Loss of Vision: Bilateral Hearing Impairment: Denies Skin Did You Recieve Any Treatments: Yes What Type of Treatment Did You: Surgical Intervention Anxiety, Bipolar, Depression Eczema Blood Disorders: Yes (Hep C) HTN Hypothyroidism Family Medical History No Pertinent Family Hx Review of Systems Constitutional: weakness EENTM: no symptoms reported Respiratory: see HPI, short of breath Cardiovascular: see HPI, chest pain Gastrointestinal: no symptoms reported Genitourinary: no symptoms reported Musculoskeletal: no symptoms reported Skin: no symptoms reported Psychiatric/Neurological: No Symptoms Reported Physical Exam Physical Exam Vital Signs Vital Signs - First Documented 10/19/21 10/19/21 10/19/21 13:46 19:09 19:48 Temp 36.3 Pulse 83 Resp 24 B/P (MAP) 204/129 (154) Pulse Ox 98 O2 Delivery Room Air FiO2 21 Capillary Refill : Less Than 3 Seconds Height, Weight, BMI Height: '" Weight: lbs. oz. kg; 28.83 BMI Method: General Appearance: No Apparent Distress, Obese HEENT: PERRL/EOMI, Pharynx Normal, Moist Mucous Membranes Neck: Full Range of Motion, Normal Inspection, Non Tender, Supple Respiratory: Chest Non Tender, Lungs Clear, Normal Breath Sounds, No Accessory Muscle Use, No Respiratory Distress Cardiovascular: Regular Rate, Rhythm, No Edema, No Gallop, No JVD, No Murmur, Normal Peripheral Pulses Gastrointestinal: Normal Bowel Sounds, Non Tender, Soft Rectal: Deferred Back: Normal Inspection Extremity: Normal Capillary Refill, Normal Inspection, Normal Range of Motion, Non Tender, No Calf Tenderness Neurologic/Psychiatric: Alert, Oriented x3, No Motor/Sensory Deficits, Normal Mood/Affect, water mechanic II-XII Norm as Tested Skin: Normal Color, Warm/Dry Lymphatic: No Adenopathy Results Results/Procedures Labs Laboratory Tests 10/19/21 13:57 10/20/21 04:38 Patient resulted labs reviewed. Imaging: Reviewed Imaging Report Assessment/Plan Admission Diagnosis Hypertensive Emergency Angina Admission Status: Inpatient Order (span 2 midnights) Reason for Inpatient Admission: Cardiology workup and treatment Assessment and Plan Assessment: Chest Pain/Angina Coronary Artery Disease Hypertensive Emergency Chronic Renal Insufficiency Osteomyelitis of the Right Foot Diabetes Mellitus Hypothyroidism Hyperlipidemia Tobacco Use Hx of Hypertension Hx of Methamphetamine Use Plan: Cardiology consulted, appreciate recs Lovenox, Metoprolol, Aspirin, Oxycodone Echocardiogram IV NS Abx (Daptomycin) Wound Care [facility]SI [facility] for PAD evaluation as outpatient Diagnosis/Problems Diagnosis/Problems (1) Chest pain Status: Acute (2) Coronary artery disease (3) Hypertensive emergency Status: Acute (4) Chronic kidney disease (CKD) (5) Diabetes mellitus (6) Hyperlipidemia (7) Osteomyelitis Status: Acute (8) Hypothyroidism Status: Chronic (9) Tobacco use (10) History of drug use Clinical Quality Measures AMI/AHF: ASA po Prior to arrival: Simona SULMA MARY 10/21/21 0523: History of Present Illness HPI/Chief Complaint CC: Hyperenstive urgency HPI: 66 yr old female who has a history of non compliance with hypertension and diabetes. She sees wound care, Dr. Jacome for right foot diabetic osteomyelitis. Maintained on Daptomycin daily until 11/06. She presented to the ER with chest pain. She was found to have chronic renal failure, creatinine of 2.0. So gentle IV fluids were initiated. Echocardiogram was ordered for aortic stenosis and Imdur 30 mg daily. Along with other anti hypertensive medication due to bp of 230/130. Currently she is doing much better. Smoking cessation counseled. Source: patient, RN/MD Exam Limitations: no limitations Past Fxdfmcr-Vpgrgi-Hvmalm Hx Patient Social History Employed/Student: retired Smoking Status: Current Everyday Smoker Past Medical History Surgeries: Orthopedic Coronary Artery Disease, High Cholesterol, Hypertension Renal Failure Gastroesophageal Reflux Arthritis Diabetes, Insulin dep Review of Systems Constitutional: see HPI, weakness EENTM: no symptoms reported Respiratory: see HPI, short of breath Cardiovascular: chest pain Gastrointestinal: no symptoms reported Genitourinary: no symptoms reported Musculoskeletal: no symptoms reported Skin: no symptoms reported Psychiatric/Neurological: No Symptoms Reported All Other Systems Reviewed Negative Unless Noted: Yes Physical Exam Physical Exam General Appearance: No Apparent Distress, Chronically ill, Obese Eyes: Right Eye Normal Inspection, Right Eye PERRL HEENT: PERRL/EOMI, Normal ENT Inspection, Pharynx Normal, Moist Mucous Membranes Neck: Full Range of Motion, Normal Inspection, Non Tender Respiratory: Chest Non Tender, Lungs Clear, Normal Breath Sounds, No Accessory Muscle Use, No Respiratory Distress Cardiovascular: Regular Rate, Rhythm, No Edema, No Gallop, No JVD, No Murmur, Normal Peripheral Pulses Gastrointestinal: Normal Bowel Sounds, No Organomegaly, No Pulsatile Mass, Non Tender, Soft Back: Normal Inspection, No CVA Tenderness, No Vertebral Tenderness Extremity: Normal Capillary Refill, Normal Inspection, Normal Range of Motion, Non Tender, No Calf Tenderness, No Pedal Edema Neurologic/Psychiatric: Alert, Oriented x3, No Motor/Sensory Deficits, Normal Mood/Affect Skin: Normal Color, Warm/Dry Lymphatic: No Adenopathy Assessment/Plan Admission Diagnosis Assessment: Hypertensive urgency Chest pain Elevated troponin Unstable angina Diabetes noncompliant Right foot diabetic osteomyelitis on daptomycin per wound care 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 I reviewed and verified all information documented by the medical student and made modifications to such information, when appropriate. I personally performed the physical exam and medical decision making. Sulma Mary, Oct 21, 2021,05:20 KRISTY TRUONG Oct 20, 2021 11:22 SULMA MARY DO Oct 21, 2021 05:23
[2021-10-20] MEDS ORDERED: CEFT2VIA11 IV (11:29)
[2021-10-20] MEDS ORDERED: DAPT500V18 IV (11:29)
--- NOTE | 2021-10-20 11:54 | Wound Care Assessment ---
Wound Care Assessment Date Seen by Provider: Oct 20, 2021 Time Seen by Provider: 11:48 Chief Complaint WG3 R. 1 MTH DFU HPI This pleasant 66 year old patient is well known to my clinic. She has been treated recently for a 1 MTH Ramirez Grade 3 diabetic foot ulcer. She does have associated osteomyelitis and is currently on IV Daptomycin as outpatient. Her last dose should be 11-06-21. Yareli has struggled not only with poor control of her diabetes (last A1C in August 06.9) but with her blood pressure. On the last several office visits her BP has been dangerously high. We have had issues with noncompliance in a variety of aspects of her care (including failure to fill and take medications as prescribed). Yareli was seen in the office yesterday and noted that she began having chest pain on Tuesday. She attributed this to her PICC line and antibiotics but she had active CP with significant elevation of her BP in our office and was referred to the ER for further evaluation. She does also have a h/o CKD stage 3 and CAD with h/o CABG. She has also had CHF in the past as well. She notes today that her CP is improving and her BP is greatly improved while I was evaluating. Her diabetic foot ulcer looks great today. I do think her antibiotics are helping. She has not had surgical intervention and does have plans to follow up with Dr. Lucas after completion of antibiotics to evaluate need for surgical intervention at that time. She continues to smoke but is attempting cessation. Smoking Status: Current Everyday Smoker Recreational Drug Use: No (h/o methamphetamine use) Review of Systems Cardiovascular: Chest Pain, Palpitations Musculoskeletal: shoulder pain, back pain Exam Vital Signs Date Time Temp Pulse Resp B/P (MAP) Pulse Ox O2 Delivery O2 Flow Rate FiO2 10/20/21 07:36 36.6 68 20 157/77 (103) 95 Room Air 10/19/21 19:09 21 Capillary Refill : Less Than 3 Seconds General Appearance: WD/WN, no apparent distress Neck: full range of motion Cardiovascular: no edema Respiratory: no accessory muscle use Extremities: normal range of motion Skin: normal color, warm/dry, other (R. foot) Wound Assessment: 1.1x1.0x0.2cm. The epithelialization is small, there is no tunneling or undermining, drainage is medium and serous, granulation is none, necrotic is large and slough, wound margins show epibole. Erythema and edema in periwound greatly improved. Results Laboratory Tests 10/19/21 13:57: White Blood Count 7.8, Red Blood Count 4.47, Hemoglobin 12.3, Hematocrit 38, Mean Corpuscular Volume 86, Mean Corpuscular Hemoglobin 28, Mean Corpuscular Hemoglobin Concent 32, Red Cell Distribution Width 14.6H, Platelet Count 223, Mean Platelet Volume 10.1, Immature Granulocyte % (Auto) 1, Neutrophils (%) (Auto) 63, Lymphocytes (%) (Auto) 26, Monocytes (%) (Auto) 7, Eosinophils (%) (Auto) 3, Basophils (%) (Auto) 1, Neutrophils # (Auto) 4.9, Lymphocytes # (Auto) 2.0, Monocytes # (Auto) 0.5, Eosinophils # (Auto) 0.2, Basophils # (Auto) 0.1, Immature Granulocyte # (Auto) 0.1, Prothrombin Time 12.3, INR Comment 0.9, Activated Partial Thromboplast Time 25, Sodium Level 139, Potassium Level 4.2, Chloride Level 105, Carbon Dioxide Level 22, Anion Gap 12, Blood Urea Nitrogen 26H, Creatinine 2.02H, Estimat Glomerular Filtration Rate 27, BUN/Creatinine Ratio 13, Glucose Level 206H, Calcium Level 9.4, Corrected Calcium 10.3H, Magnesium Level 2.1, Total Bilirubin 0.2, Aspartate Amino Transf (AST/SGOT) 26, Alanine Aminotransferase (ALT/SGPT) 20, Alkaline Phosphatase 78, Myoglobin 135.0H, Troponin I 0.054H, Total Protein 6.9, Albumin 2.9L 10/19/21 20:55: Glucometer 151H 10/20/21 04:38: White Blood Count 6.7, Red Blood Count 3.96, Hemoglobin 11.2L, Hematocrit 34L, Mean Corpuscular Volume 86, Mean Corpuscular Hemoglobin 28, Mean Corpuscular Hemoglobin Concent 33, Red Cell Distribution Width 14.8H, Platelet Count 195, Me an Platelet Volume 9.6, Immature Granulocyte % (Auto) 1, Neutrophils (%) (Auto) 42, Lymphocytes (%) (Auto) 45H, Monocytes (%) (Auto) 8, Eosinophils (%) (Auto) 4, Basophils (%) (Auto) 1, Neutrophils # (Auto) 2.9, Lymphocytes # (Auto) 3.0, Monocytes # (Auto) 0.5, Eosinophils # (Auto) 0.2, Basophils # (Auto) 0.1, Immature Granulocyte # (Auto) 0.1, Sodium Level 138, Potassium Level 4.0, Chloride Level 108H, Carbon Dioxide Level 21, Anion Gap 9, Blood Urea Nitrogen 26H, Creatinine 2.02H, Estimat Glomerular Filtration Rate 27, BUN/Creatinine Ratio 13, Glucose Level 118H, Calcium Level 8.8, Corrected Calcium 10.0, Magnesium Level 2.0, Total Bilirubin 0.2, Aspartate Amino Transf (AST/SGOT) 29, Alanine Aminotransferase (ALT/SGPT) 19, Alkaline Phosphatase 63, Troponin I 0.058H, Total Protein 6.0L, Albumin 2.5L, Triglycerides Level 194H, Cholesterol Level 202H, LDL Cholesterol Direct 127, VLDL Cholesterol 39, HDL Cholesterol 48 10/20/21 11:44: Glucometer 161H Assessment/Plan/Dx Assessment: 1. Ramirez Grade 3 diabetic foot ulcer of R. 1 metatarsal head 2. Acute osteomyelitis R. 1 MTH 3. Poorly controlled DM2 4. Poorly controlled HTN with associated CP and h/o CAD Plan: 1. Continue IV Daptomycin 400mg daily until 11/06/21. 2. Cleanse wound daily with wound cleanser. Apply silver alginate hydrofiber dressings to woundbed daily. Cover with gauze and roller gauze. Change daily. 3. Tight glycemic control per primary team 4. If chest pain does not resolve with control of BP and management of underlying CAD, this could be a side effect of her Daptomycin. If needed, per previous cultures, we could switch her to IV Doxycycline for the remainder of her treatment. Will follow along and make changes as necessary. DANYELL EDUARDO MD Oct 20, 2021 11:54
[2021-10-20] MEDS ORDERED: MELA10TA2 PO (12:08)
[2021-10-20] MEDS ORDERED: METO-333 PO (12:08)
--- NOTE | 2021-10-20 16:46 | Diagnostic Imaging Report ---
EXAMINATION: CT chest without contrast. TECHNIQUE: Multiple contiguous axial images were obtained through the chest without the use of intravenous contrast. All CT scans use one or more of the following dose optimizing techniques: Automated exposure control, MA and/or KvP adjustment based on patient size and exam type or iterative reconstruction. HISTORY: Chest pain. COMPARISON: None available. FINDINGS: There is mild interstitial edema as evidenced by septal line thickening. There are a few calcified nodules in the left upper lobe consistent with prior granulomatous infection. No pleural effusion. No pneumothorax. No suspicious nodules. There is no axillary or supraclavicular lymphadenopathy. There is no mediastinal lymphadenopathy. Right-sided peripherally inserted central catheter tip is in the superior vena cava. There has been coronary artery bypass grafting. Heart size is normal. There are severe coronary artery calcifications. No pericardial effusion. Aorta is normal in caliber. Limited views of the upper abdomen are unremarkable. There are no suspicious osseous lesions. IMPRESSION: 1. Mild pulmonary edema. Dictated by: Dictated on workstation # [id number]
[2021-10-20] MEDS: ENOXAPARIN 80 MG/0.8 ML (LOVENOX) SYR SC SCH (18:50)
[2021-10-20] MEDS: NITROGLYCERIN PATCH REMOVAL TP SCH (20:44)
[2021-10-21] VITALS (10 sets, daily range): BP systolic 136–197; BP diastolic 73–102
[2021-10-21] MEDS: cloNIDine 0.1 MG (CATAPRES) TAB PO PRN ×2 (02:00→22:34)
[2021-10-21 05:13] LABS: BASOPHILS # (AUTO) 0.1 10^3/uL (0.0-0.1); BASOPHILS % (AUTO) 1 % (0-10); EOSINOPHILS # (AUTO) 0.2 10^3/uL (0.0-0.3); EOSINOPHILS % (AUTO) 3 % (0-10); HEMATOCRIT 32 % (35-52); HEMOGLOBIN 10.1 g/dL (11.5-16.0); LYMPHOCYTES # (AUTO) 1.9 10^3/uL (1.0-4.0); LYMPHOCYTES % (AUTO) 30 % (12-44); MEAN CORPUSCULAR HEMOGLOBIN 28 pg (25-34); MEAN CORPUSCULAR HGB CONC 32 g/dL (32-36); MEAN CORPUSCULAR VOLUME 88 fL (80-99); MEAN PLATELET VOLUME 9.5 fL (9.0-12.2); MONOCYTES # (AUTO) 0.5 10^3/uL (0.0-1.0); MONOCYTES % (AUTO) 8 % (0-12); NEUTROPHILS # (AUTO) 3.6 10^3/uL (1.8-7.8); NEUTROPHILS % (AUTO) 58 % (42-75); PLATELET COUNT 179 10^3/uL (130-400); WHITE BLOOD COUNT 6.3 10^3/uL (4.3-11.0)
[2021-10-21 05:25] LABS: ALBUMIN 2.5 GM/DL (3.2-4.5); POTASSIUM 4.2 MMOL/L (3.6-5.0)
[2021-10-21 05:26] LABS: CALCIUM 8.3 MG/DL (8.5-10.1)
[2021-10-21 05:28] LABS: TOTAL PROTEIN 5.7 GM/DL (6.4-8.2)
[2021-10-21 05:29] LABS: BILIRUBIN,TOTAL 0.2 MG/DL (0.1-1.0)
[2021-10-21 05:31] LABS: CREATININE SERUM 2.18 MG/DL (0.60-1.30)
[2021-10-21] MEDS: inSUlin ASPART (NovoLOG) 1 UNIT/0.01 ML (CHARGE PER UNIT) SC SCH ×4 (06:57→20:50)
[2021-10-21] MEDS: NS IV 1000 ML 1,000 ML IV SCH ×2 (07:38→16:10)
[2021-10-21] MEDS: PANTOPRAZOLE 40 MG (PROTONIX) TAB PO SCH (08:11)
[2021-10-21] MEDS: ASPIRIN E.C. 81 MG (ECOTRIN) TAB PO SCH (08:11)
[2021-10-21] MEDS: ISOSORBIDE MONONITRATE 30 MG (IMDUR) TAB PO SCH (08:11)
[2021-10-21] MEDS: meTOproloL SUCCINATE 50 MG (TOPROL XL) TAB PO SCH (08:11)
[2021-10-21] MEDS: cloNIDine 0.1 MG (CATAPRES) TAB PO SCH ×2 (08:11→19:52)
[2021-10-21] MEDS: amLODIPine 5 MG (NORVASC) TAB PO SCH (08:11)
[2021-10-21] MEDS: NITROGLYCERIN 0.4 MG/PATCH (NITRO-DUR) TD SCH (08:13)
[2021-10-21] MEDS: ACETAMINOPHEN 325 MG TABLET PO PRN ×2 (08:15→22:03)
--- NOTE | 2021-10-21 09:15 | Cardiology Progress Note ---
Subjective Date Seen by Provider: Oct 21, 2021 Time Seen by Provider: 09:13 Subjective/Events-last exam Patient was seen at bedside, laying down comfortably, reported that she had some difficulty breathing last night. Still having significant right-sided chest pain reproducible by moving her arm and palpable. Still having back pain Review of Systems General: No Chills, No Night Sweats, No Fatigue, No Malaise, No Appetite, No Other HEENT: No Head Aches, No Visual Changes, No Eye Pain, No Ear Pain, No Dysphasia, No Sinus Congestion, No Post Nasal Drip, No Sore Throat, No Other Pulmonary: Dyspnea; No Cough, No Pleuritic Chest Pain, No Other Cardiovascular: Chest Pain; No: Palpitations, Orthopnea, Paroxysmal Noc. Dysp imani, Edema, Lt Headedness, Other Objective-Cardiology Exam Last Set of Vital Signs Vital Signs 10/19/21 10/21/21 19:09 07:48 Temp 36.4 Pulse 72 Resp 20 B/P (MAP) 160/86 (110) Pulse Ox 91 O2 Delivery Room Air FiO2 21 I&O Intake and Output 10/21/21 00:00 Intake Total 2000 ml Balance 2000 ml Intake Oral 950 ml IV Total 1050 ml # Voids 4 General: Alert, Oriented X3, Cooperative HEENT: Atraumatic, PERRLA Neck: Supple, No JVD, No Thyromegaly Lungs: Clear to Auscultation, Normal Air Movement Heart: Normal S1, Normal S2, Other (Irregular rhythm, systolic murmur) Abdomen: Normal Bowel Sounds, Soft, No Tenderness, No Hepatosplenomegaly, No Masses Extremities: No Clubbing, No Cyanosis, No Edema, Normal Pulses, No Tenderness/Swelling Skin: No Rashes, No Breakdown, No Significant Lesion Neuro: Normal Gait, Normal Speech, Strength at 5/5 X4 Ext, Normal Tone, Sensation Intact Psych/Mental Status: Mental Status NL, Mood NL Results Lab Laboratory Tests 10/21/21 05:03 A/P-Cardiology Admission Diagnosis Chest pain Hypertensive emergency Coronary artery disease Acute renal failure Assessment/Plan Chest pain, currently reproducible pain and back pain. Probably musculoskeletal in nature Patient had initially unstable angina that responded to nitroglycerin, had mild elevation in troponin. Still in renal failure, I am planning to consider cardiac catheterization if renal function improved, continue IV fluid Back pain, managed by medical team Coronary artery disease, history of CABG x3 done in [place] in 2018. No recent c ardiac work-up, did not establish with a byproducts pump operator in this area. Tolerating Toprol, adding isosorbide and evaluate tolerance and response 2D echo was done on October 19, 2021 showing normal LV size, ejection fraction 50 to 55%, moderate mitral regurgitation, mild aortic valve stenosis Hypertensive emergency with active chest pain. Blood pressure is better, continue to monitor Mild elevation in BNP, could be secondary to hypertension and renal failure. I will evaluate 2D echocardiogram Chronic renal insufficiency, starting IV fluid and monitor renal function Hyperlipidemia, monitor lipids Right first toe ulcer, managed by primary care physician, diabetic foot ulcer. Probably underlying peripheral arterial disease, planning to evaluate [facility] once clinically stable Diabetes mellitus, followed and managed by primary care physician Tobaccoism, working on smoking cessation, educated and instructed on smoking cessation. HARPREET MUÑOZ MD Oct 21, 2021 09:15
[2021-10-21] MEDS: DAPTOmycin INJECTION 500 MG in NS (IVPB) 50 ML IV SCH (09:47)
--- NOTE | 2021-10-21 11:36 | Progress Note - Hospitalist ---
KRISTY TRUONG 10/21/21 1136: Subjective HPI/CC On Admission Date Seen by Provider: Oct 21, 2021 Time Seen by Provider: 10:00 CC: Hyperenstive urgency HPI: 66 yr old female who has a history of non compliance with hypertension and diabetes. She sees wound care, Dr. Jacome for right foot diabetic osteomyelitis. Maintained on Daptomycin daily until 11/06. She presented to the ER with chest pain. She was found to have chronic renal failure, creatinine of 2.0. So gentle IV fluids were initiated. Echocardiogram was ordered for aortic stenosis and Imdur 30 mg daily. Along with other anti hypertensive medication due to bp of 230/130. Currently she is doing much better. Smoking cessation counseled. Subjective/Events-last exam Patient resting in bed. Still complaining of back pain near the right scapula. Tender to palpation over this area. Patient also endorses a history of HepC that she has not been able to receive treatment for yet. States her right foot is looking improved. No new complaints. Review of Systems General: No Chills, No Night Sweats HEENT: No Head Aches, No Visual Changes, No Eye Pain Pulmonary: No Dyspnea, No Cough Cardiovascular: Chest Pain (as previously described); No: Palpitations, Orthopnea Gastrointestinal: No: Nausea, Vomiting, Abdominal Pain, Diarrhea, Constipation Genitourinary: No Dysuria, No Frequency Musculoskeletal: back pain; No: leg pain, foot pain Neurological: No: Weakness, Numbness Focused Exam Respiratory: Chest Non Tender, Lungs Clear, Normal Breath Sounds, No Accessory Muscle Use, No Respiratory Distress Cardiovascular: Regular Rate, Rhythm, No Edema, No Gallop, No JVD, No Murmur, Normal Peripheral Pulses Capillary Refill: Less Than 3 Seconds Skin: normal color, warm/dry Objective Exam Vital Signs Vital Signs Date Time Temp Pulse Resp B/P (MAP) Pulse Ox O2 Delivery O2 Flow Rate FiO2 10/21/21 07:48 36.4 72 20 160/86 (110) 91 Room Air 10/19/21 19:09 21 Capillary Refill : Less Than 3 Seconds General Appearance: No Apparent Distress, Obese HEENT: PERRL/EOMI, Pharynx Normal, Moist Mucous Membranes Neck: Full Range of Motion, Normal Inspection, Non Tender, Supple Respiratory: Chest Non Tender, Lungs Clear, Normal Breath Sounds, No Accessory Muscle Use, No Respiratory Distress Cardiovascular: Regular Rate, Rhythm, No Edema, No Gallop, No JVD, No Murmur, Normal Peripheral Pulses Gastrointestinal: Normal Bowel Sounds, Non Tender, Soft Rectal: Deferred Back: Normal Inspection, Other (TTP over medial border of right scapula) Extremity: Normal Capillary Refill, Normal Inspection, Normal Range of Motion, Non Tender, No Calf Tenderness Neurologic/Psychiatric: Alert, Oriented x3, No Motor/Sensory Deficits, Normal Mood/Affect, health tech II-XII Norm as Tested Skin: Normal Color, Warm/Dry Lymphatic: No Adenopathy Results/Procedures Lab Laboratory Tests 10/21/21 05:03 Patient resulted labs reviewed. Imaging: Reviewed Imaging Report Assessment/Plan Assessment and Plan Assess & Plan/Chief Complaint Assessment: Chest Pain/Unstable Angina Coronary Artery Disease Hypertensive Emergency Chronic Renal Insufficiency Osteomyelitis of the Right Foot Diabetes Mellitus Hypothyroidism Hyperlipidemia Tobacco Use Hx of Hepatitis C Hx of Hypertension Hx of Methamphetamine Use Anemia - likely dilutional Plan: Cardiology consulted, appreciate recs Lovenox, Metoprolol, Aspirin, Oxycodone Clonidine, Isosorbide, Nitroglycerin Patch Pending CT w/ contrast and cardiac cath if/when renal function is adequate IV NS @ 100ml/hr Abx (Daptomycin) Wound Care [facility]SI [facility] for PAD evaluation as outpatient Diagnosis/Problems Diagnosis/Problems (1) Chest pain Status: Acute (2) Coronary artery disease Status: Chronic (3) Hypertensive emergency Status: Acute (4) Osteomyelitis Status: Acute (5) Anemia Status: Acute (6) Diabetes mellitus Status: Chronic (7) Chronic kidney disease (CKD) Status: Chronic (8) Hyperlipidemia Status: Chronic (9) Hypothyroidism Status: Chronic (10) Tobacco use Status: Chronic (11) History of drug use Status: Chronic (12) Hepatitis C Status: Chronic Clinical Quality Measures AMI/AHF: ASA po Prior to arrival: No SULMA ZAMORANO DO 10/22/21 0548: Subjective Subjective/Events-last exam Pt is doing about the same Creatinine 2.1 No improvement in renal function with IV fluids at 100 CCs an hour Muscle skeletal pain is likely the cause of the back and chest pain Daptomycin will be changed to every 4-8 hours for renal function and CPK will also be ordered. Review of Systems General: Fatigue, Malaise Cardiovascular: Chest Pain (as previously described) Objective Exam General Appearance: No Apparent Distress, WD/WN, Chronically ill, Obese Respiratory: Lungs Clear, Normal Breath Sounds Cardiovascular: Regular Rate, Rhythm Neurologic/Psychiatric: Alert, Oriented x3 Assessment/Plan Assessment and Plan Assess & Plan/Chief Complaint Monitor creatinine Supportive care Daptomycin Supervisory-Addendum Brief Verification & Attestation Participated in pt care: history, MDM, physical Personally performed: exam, history, MDM, supervision of care Care discussed with: Medical Student Procedures: n/a Results interpretation: Verified all documentation Verification and Attestation of Medical Student E/M Service A medical student performed and documented this service in my presence. I reviewed and verified all information documented by the medical student and made modifications to such information, when appropriate. I personally performed the physical exam and medical decision making. Sulma Zamorano, Oct 22, 2021,05:47 KRISTY TRUONG Oct 21, 2021 11:36 SULMA ZAMORANO DO Oct 22, 2021 05:48
[2021-10-21] MEDS: SENNOSIDES 8.6 MG (SENOKOT) TAB PO SCH ×2 (12:04→19:52)
[2021-10-21] MEDS: DOCUSATE SODIUM 100 MG (COLACE) CAP PO SCH ×2 (12:04→19:52)
--- NOTE | 2021-10-21 16:16 | Diagnostic Imaging Report ---
INDICATION: History of diabetes, hyperlipidemia, hypertension and tobacco use. Bilateral lower extremity rest pain with claudication symptoms. Right vascular ulcer. TECHNIQUE: Segmental pulse pressures were performed of the upper and lower extremities. FINDINGS: Resting Doppler Blood Pressures RIGHT Brachial: Unable to evaluate given IV catheter. Ankle (Posterior Tibial): 140 mm Hg Index: 0.94 Ankle (Dorsalis Pedis): 145 mm Hg Index: 0.97 LEFT Brachial: 149 mmHg Ankle (Posterior Tibial): 145 mm Hg Index: 0.97 Ankle (Dorsalis Pedis): 134 mm Hg Index: 0.90 IMPRESSION: Borderline abnormal ankle-brachial indices as above. Ankle-Brachial Index Diagnosis/Interpretation <=0.90 Peripheral Arterial Disease 0.91-0.99 Borderline 1.00-1.40 Normal >1.40 Concern for noncompressible arteries, (assoc with Diabetes Mellitus) Dictated by: Dictated on workstation # [id number]
[2021-10-21] MEDS: ENOXAPARIN 80 MG/0.8 ML (LOVENOX) SYR SC SCH (17:37)
[2021-10-21] MEDS: NITROGLYCERIN PATCH REMOVAL TP SCH (21:11)
[2021-10-22] VITALS (10 sets, daily range): BP systolic 139–240; BP diastolic 67–119
[2021-10-22] MEDS: NS IV 1000 ML 1,000 ML IV SCH (02:07)
[2021-10-22] MEDS ORDERED: FUROSEMIDE 40 MG/4 ML INJ (LASIX) ONE (02:26)
[2021-10-22] MEDS ORDERED: ALPRAZolam 0.25 MG (XANAX) TAB PO PRN ×2 (02:30→02:45)
[2021-10-22] MEDS ORDERED: FUROSEMIDE 40 MG/4 ML INJ (LASIX) IVP ONE (02:30)
[2021-10-22] MEDS ORDERED: ALPRAZolam 0.25 MG (XANAX) TAB ONE (02:36)
[2021-10-22] MEDS: cloNIDine 0.1 MG (CATAPRES) TAB PO PRN (03:11)
[2021-10-22 05:30] LABS: BASOPHILS # (AUTO) 0.1 10^3/uL (0.0-0.1); BASOPHILS % (AUTO) 1 % (0-10); EOSINOPHILS # (AUTO) 0.1 10^3/uL (0.0-0.3); EOSINOPHILS % (AUTO) 1 % (0-10); HEMATOCRIT 38 % (35-52); HEMOGLOBIN 11.9 g/dL (11.5-16.0); LYMPHOCYTES # (AUTO) 1.4 10^3/uL (1.0-4.0); LYMPHOCYTES % (AUTO) 19 % (12-44); MEAN CORPUSCULAR HEMOGLOBIN 28 pg (25-34); MEAN CORPUSCULAR HGB CONC 31 g/dL (32-36); MEAN CORPUSCULAR VOLUME 89 fL (80-99); MEAN PLATELET VOLUME 9.9 fL (9.0-12.2); MONOCYTES # (AUTO) 0.4 10^3/uL (0.0-1.0); MONOCYTES % (AUTO) 6 % (0-12); NEUTROPHILS # (AUTO) 5.2 10^3/uL (1.8-7.8); NEUTROPHILS % (AUTO) 72 % (42-75); PLATELET COUNT 198 10^3/uL (130-400); WHITE BLOOD COUNT 7.2 10^3/uL (4.3-11.0)
[2021-10-22 05:36] LABS: POTASSIUM 4.6 MMOL/L (3.6-5.0)
[2021-10-22 05:38] LABS: CALCIUM 8.9 MG/DL (8.5-10.1)
[2021-10-22 05:39] LABS: TOTAL PROTEIN 6.9 GM/DL (6.4-8.2)
[2021-10-22 05:40] LABS: BILIRUBIN,TOTAL 0.3 MG/DL (0.1-1.0)
[2021-10-22 05:42] LABS: CREATININE SERUM 2.34 MG/DL (0.60-1.30)
[2021-10-22] MEDS: inSUlin ASPART (NovoLOG) 1 UNIT/0.01 ML (CHARGE PER UNIT) SC SCH ×4 (06:07→20:21)
--- NOTE | 2021-10-22 08:41 | Cardiology Progress Note ---
Subjective Date Seen by Provider: Oct 22, 2021 Time Seen by Provider: 08:39 Subjective/Events-last exam Patient had an episode of severe shortness of breath and orthopnea last night, fluid were discontinued and she received 80 mg of IV Lasix. This morning she is feeling better, still having back pain and right-sided chest pain Review of Systems General: No Chills, No Night Sweats, No Fatigue, No Malaise, No Appetite, No Other HEENT: No Head Aches, No Visual Changes, No Eye Pain, No Ear Pain, No Dysphasia, No Sinus Congestion, No Post Nasal Drip, No Sore Throat, No Other Pulmonary: Dyspnea; No Cough, No Pleuritic Chest Pain, No Other Cardiovascular: Chest Pain; No: Palpitations, Orthopnea, Paroxysmal Noc. Dyspnea, Edema, Lt Headedness, Other Objective-Cardiology Exam Last Set of Vital Signs Vital Signs 10/19/21 10/22/21 19:09 08:00 Temp 36.3 Pulse 61 Resp 17 B/P (MAP) 168/84 (112) Pulse Ox 99 O2 Delivery Nasal Cannula O2 Flow Rate 3.00 FiO2 21 I&O Intake and Output 10/22/21 00:00 Intake Total 2690 ml Output Total 600 ml Balance 2090 ml Intake Oral 1690 ml IV Total 1000 ml Output Urine Total 600 ml # Voids 5 General: Alert, Oriented X3, Cooperative HEENT: Atraumatic, PERRLA Neck: Supple, No JVD, No Thyromegaly Lungs: Clear to Auscultation, Normal Air Movement Heart: Normal S1, Normal S2, Other (Irregular rhythm, systolic murmur) Abdomen: Normal Bowel Sounds, Soft, No Tenderness, No Hepatosplenomegaly, No Masses Extremities: No Clubbing, No Cyanosis, No Edema, Normal Pulses, No Tenderness/Swelling Skin: No Rashes, No Breakdown, No Significant Lesion Neuro: Normal Gait, Normal Speech, Strength at 5/5 X4 Ext, Normal Tone, Sensation Intact Psych/Mental Status: Mental Status NL, Mood NL Results Lab Laboratory Tests 10/22/21 05:10 A/P-Cardiology Admission Diagnosis Chest pain Hypertensive emergency Coronary artery disease Acute renal failure Assessment/Plan Chest pain, currently reproducible pain and back pain. Probably musculoskeletal in nature Patient had initially unstable angina that responded to nitroglycerin, had mild elevation in troponin, conservative management is recommended. I will increase isosorbide to 60 mg daily Back pain, managed by medical team Coronary artery disease, history of CABG x3 done in [place] in 2018. No recent cardiac work-up, did not establish with a chief innovation officer in this area. Increasing isosorbide to 60 mg daily and monitor 2D echo was done on October 19, 2021 showing normal LV size, ejection fraction 50 to 55%, moderate mitral regurgitation, mild aortic valve stenosis Hypertensive emergency, blood pressure is more elevated this morning, I will increase his isosorbide and evaluate tolerance and response Acute on chronic renal insufficiency, could not tolerate IV fluids, had an episode of pulmonary edema last night. Responded to Lasix. IV fluids were stopped. Slight deterioration in renal function. Continue to monitor Mild elevation in BNP, could be secondary to hypertension and renal failure. I will evaluate 2D echocardiogram Hyperlipidemia, monitor lipids Right first toe ulcer, managed by primary care physician, diabetic foot ulcer. Probably underlying peripheral arterial disease, planning to evaluate CLOVER once clinically stable Diabetes mellitus, followed and managed by primary care physician Tobaccoism, working on smoking cessation, educated and instructed on smoking cessation. HARPREET MUÑOZ MD Oct 22, 2021 08:41
[2021-10-22] MEDS: amLODIPine 5 MG (NORVASC) TAB PO SCH (09:44)
[2021-10-22] MEDS: meTOproloL SUCCINATE 50 MG (TOPROL XL) TAB PO SCH (09:44)
[2021-10-22] MEDS: NITROGLYCERIN 0.4 MG/PATCH (NITRO-DUR) TD SCH (09:44)
[2021-10-22] MEDS: ASPIRIN E.C. 81 MG (ECOTRIN) TAB PO SCH (09:44)
[2021-10-22] MEDS: PANTOPRAZOLE 40 MG (PROTONIX) TAB PO SCH (09:44)
[2021-10-22] MEDS: cloNIDine 0.1 MG (CATAPRES) TAB PO SCH ×2 (09:44→20:20)
[2021-10-22] MEDS: SENNOSIDES 8.6 MG (SENOKOT) TAB PO SCH ×2 (09:45→20:21)
[2021-10-22] MEDS: DOCUSATE SODIUM 100 MG (COLACE) CAP PO SCH ×2 (09:45→20:21)
[2021-10-22] MEDS: ISOSORBIDE MONONITRATE 60 MG (IMDUR) TAB PO SCH (09:45)
--- NOTE | 2021-10-22 10:32 | Progress Note - Hospitalist ---
Subjective HPI/CC On Admission Date Seen by Provider: Oct 22, 2021 Time Seen by Provider: 10:30 CC: Hyperenstive urgency HPI: 66 yr old female who has a history of non compliance with hypertension and diabetes. She sees wound care, Dr. Jacome for right foot diabetic osteomyelitis. Maintained on Daptomycin daily until 11/06. She presented to the ER with chest pain. She was found to have chronic renal failure, creatinine of 2.0. So gentle IV fluids were initiated. Echocardiogram was ordered for aortic stenosis and Imdur 30 mg daily. Along with other anti hypertensive medication due to bp of 230/130. Currently she is doing much better. Smoking cessation counseled. Subjective/Events-last exam Patient about the same today Had volume overload last night and responded to Lasix Checked meds and labs Creatinine increased Review of Systems General: Fatigue, Malaise Objective Exam Vital Signs Vital Signs Date Time Temp Pulse Resp B/P (MAP) Pulse Ox O2 Delivery O2 Flow Rate FiO2 10/23/21 04:52 36.2 62 20 155/72 (99) 94 Room Air 10/22/21 19:22 21 10/22/21 14:08 2.00 Capillary Refill : Less Than 3 Seconds General Appearance: No Apparent Distress, WD/WN, Chronically ill, Obese Respiratory: Lungs Clear, Normal Breath Sounds Cardiovascular: Regular Rate, Rhythm Neurologic/Psychiatric: Alert, Oriented x3 Results/Procedures Lab Laboratory Tests 10/23/21 05:00 Patient resulted labs reviewed. Imaging: Reviewed Imaging Report Assessment/Plan Assessment and Plan Assess & Plan/Chief Complaint Assessment: Chest pain elevated troponin Acute on chronic kidney dysfunction Right foot osteomyelitis Hypertension Diabetes Status post volume overload Plan: Monitor creatinine Supportive care Daptomycin renal dosed Clinical Quality Measures AMI/AHF: ASA po Prior to arrival: LISA Salazar DO Oct 22, 2021 10:32
[2021-10-22] MEDS ORDERED: RT-ALBUTEROL SULF 2.5 MG/3 ML PRE-MIX VIAL INH PRN (11:45)
[2021-10-22] MEDS ORDERED: LORATADINE (CLARITIN) 10 MG TAB PO PRN (11:45)
[2021-10-22] MEDS ORDERED: NON-FORMULARY MEDICATION 1 EA EA (Semaglutide (Ozempic) 0.25 MG) SQ SCH (11:45)
[2021-10-22] MEDS ORDERED: traZODone 100 MG (DESYREL) TAB PO PRN (11:45)
[2021-10-22] MEDS ORDERED: MELATONIN 10 MG TABLET PO PRN (11:45)
[2021-10-22] MEDS ORDERED: SUMAtriptan 50 MG (IMITREX) TAB PO PRN (11:45)
[2021-10-22] MEDS: ENOXAPARIN 30 MG/0.3 ML (LOVENOX) SYR SC SCH (16:51)
[2021-10-22] MEDS: meTOprolol TARTRATE 25 MG (LOPRESSOR) TABLET PO SCH (20:20)
[2021-10-22] MEDS ORDERED: GABAPENTIN 300 MG (NEURONTIN) CAP PO SCH (21:00)
[2021-10-22] MEDS ORDERED: RT--FLUTICASONE/SALMETEROL 232-14 (AIRDUO RespiCLICK) IH SCH (21:00)
[2021-10-22] MEDS: NITROGLYCERIN PATCH REMOVAL TP SCH (21:29)
[2021-10-23 00:20] VITALS: BP 152/75
[2021-10-23 04:52] VITALS: BP 155/72
[2021-10-23 05:13] LABS: BASOPHILS # (AUTO) 0.1 10^3/uL (0.0-0.1); BASOPHILS % (AUTO) 1 % (0-10); EOSINOPHILS # (AUTO) 0.2 10^3/uL (0.0-0.3); EOSINOPHILS % (AUTO) 3 % (0-10); HEMATOCRIT 33 % (35-52); HEMOGLOBIN 10.2 g/dL (11.5-16.0); LYMPHOCYTES # (AUTO) 2.2 10^3/uL (1.0-4.0); LYMPHOCYTES % (AUTO) 34 % (12-44); MEAN CORPUSCULAR HEMOGLOBIN 28 pg (25-34); MEAN CORPUSCULAR HGB CONC 31 g/dL (32-36); MEAN CORPUSCULAR VOLUME 89 fL (80-99); MEAN PLATELET VOLUME 9.9 fL (9.0-12.2); MONOCYTES # (AUTO) 0.4 10^3/uL (0.0-1.0); MONOCYTES % (AUTO) 7 % (0-12); NEUTROPHILS # (AUTO) 3.6 10^3/uL (1.8-7.8); NEUTROPHILS % (AUTO) 55 % (42-75); PLATELET COUNT 188 10^3/uL (130-400); WHITE BLOOD COUNT 6.5 10^3/uL (4.3-11.0)
[2021-10-23 05:21] LABS: ALBUMIN 2.6 GM/DL (3.2-4.5)
[2021-10-23 05:22] LABS: POTASSIUM 4.1 MMOL/L (3.6-5.0)
[2021-10-23 05:23] LABS: CALCIUM 8.8 MG/DL (8.5-10.1)
[2021-10-23 05:26] LABS: BILIRUBIN,TOTAL 0.3 MG/DL (0.1-1.0)
[2021-10-23 05:28] LABS: CREATININE SERUM 2.32 MG/DL (0.60-1.30)
[2021-10-23] MEDS: inSUlin ASPART (NovoLOG) 1 UNIT/0.01 ML (CHARGE PER UNIT) SC SCH ×3 (05:51→16:40)
--- NOTE | 2021-10-23 06:21 | Progress Note - Hospitalist ---
Subjective HPI/CC On Admission Date Seen by Provider: Oct 23, 2021 CC: Hyperenstive urgency HPI: 66 yr old female who has a history of non compliance with hypertension and diabetes. She sees wound care, Dr. Jacome for right foot chino betic osteomyelitis. Maintained on Daptomycin daily until 11/06. She presented to the ER with chest pain. She was found to have chronic renal failure, creatinine of 2.0. So gentle IV fluids were initiated. Echocardiogram was ordered for aortic stenosis and Imdur 30 mg daily. Along with other anti hypertensive medication due to bp of 230/130. Currently she is doing much better. Smoking cessation counseled. Objective Exam Vital Signs Vital Signs Date Time Temp Pulse Resp B/P (MAP) Pulse Ox O2 Delivery O2 Flow Rate FiO2 10/23/21 07:50 36.2 62 20 148/75 (99) 90 Room Air 10/22/21 19:22 21 10/22/21 14:08 2.00 Capillary Refill : Less Than 3 Seconds Results/Procedures Lab Laboratory Tests 10/23/21 05:00 Patient resulted labs reviewed. Imaging: Reviewed Imaging Report Assessment/Plan Assessment and Plan Assess & Plan/Chief Complaint Assessment: Chest pain elevated troponin Acute on chronic kidney dysfunction Right foot osteomyelitis Hypertension Diabetes Status post volume overload Plan: Monitor creatinine Supportive care Daptomycin renal dosed Clinical Quality Measures AMI/AHF: ASA po Prior to arrival: LISA Salazar DO Oct 23, 2021 06:21
[2021-10-23] MEDS ORDERED: LEVOTHYROXINE 75 MCG (LEVOTHROID) TABLET PO SCH (06:30)
[2021-10-23] MEDS ORDERED: LEVOTHYROXINE 100 MCG (LEVOTHROID) TAB PO SCH (06:30)
[2021-10-23 07:50] VITALS: BP 148/75
[2021-10-23] MEDS ORDERED: GABAPENTIN 100 MG (NEURONTIN) CAP ONE (08:07)
[2021-10-23] MEDS: DOCUSATE SODIUM 100 MG (COLACE) CAP PO SCH (08:11)
[2021-10-23] MEDS: ISOSORBIDE MONONITRATE 60 MG (IMDUR) TAB PO SCH (08:12)
[2021-10-23] MEDS: meTOprolol TARTRATE 25 MG (LOPRESSOR) TABLET PO SCH (08:12)
[2021-10-23] MEDS: amLODIPine 5 MG (NORVASC) TAB PO SCH (08:12)
[2021-10-23] MEDS: SENNOSIDES 8.6 MG (SENOKOT) TAB PO SCH (08:12)
[2021-10-23] MEDS: cloNIDine 0.1 MG (CATAPRES) TAB PO SCH (08:13)
[2021-10-23] MEDS: ASPIRIN E.C. 81 MG (ECOTRIN) TAB PO SCH (08:13)
[2021-10-23] MEDS: ACETAMINOPHEN 325 MG TABLET PO PRN (08:15)
[2021-10-23] MEDS: NITROGLYCERIN 0.4 MG/PATCH (NITRO-DUR) TD SCH (08:15)
[2021-10-23] MEDS ORDERED: DAPTOmycin INJECTION 500 MG in NS (IVPB) 50 ML IV SCH (09:00)
[2021-10-23] MEDS ORDERED: NICOTINE 21 MG (NICODERM) PATCH TD SCH (09:00)
[2021-10-23] MEDS ORDERED: SERTRALINE 100 MG (ZOLOFT) TAB PO SCH (09:00)
[2021-10-23] MEDS ORDERED: GABAPENTIN 300 MG (NEURONTIN) CAP PO SCH (09:00)
[2021-10-23] MEDS ORDERED: CLOPIDOGREL 75 MG (PLAVIX) TABLET PO SCH (09:00)
[2021-10-23] MEDS ORDERED: PANTOPRAZOLE 40 MG (PROTONIX) TAB PO SCH (09:00)
[2021-10-23] MEDS ORDERED: lisINopril 20 MG (PRINIVIL) TABLET PO SCH (09:00)
--- NOTE | 2021-10-23 11:36 | Cardiology Progress Note ---
Subjective Date Seen by Provider: Oct 23, 2021 Time Seen by Provider: 11:33 Subjective/Events-last exam Patient is still complaining of some back pain radiating to the right side of her chest. No chest pain. No shortness of breath. Review of Systems General: No Chills, No Night Sweats; Fatigue; No Malaise, No Appetite, No Other HEENT: No Head Aches, No Visual Changes, No Eye Pain, No Ear Pain, No Dysphasia, No Sinus Congestion, No Post Nasal Drip, No Sore Throat, No Other Pulmonary: No Dyspnea, No Cough, No Pleuritic Chest Pain, No Other Cardiovascular: No: Chest Pain, Palpitations, Orthopnea, Paroxysmal Noc. Dyspn ea, Edema, Lt Headedness, Other Objective-Cardiology Exam Last Set of Vital Signs Vital Signs 10/22/21 10/22/21 10/23/21 14:08 19:22 07:50 Temp 36.2 Pulse 62 Resp 20 B/P (MAP) 148/75 (99) Pulse Ox 90 O2 Delivery Room Air O2 Flow Rate 2.00 FiO2 21 I&O Intake and Output 10/23/21 00:00 Intake Total 1490 ml Output Total 3600 ml Balance -2110 ml Intake Oral 1490 ml Output Urine Total 3600 ml # Voids 1 General: Alert, Oriented X3, Cooperative HEENT: Atraumatic, PERRLA Neck: Supple, No JVD, No Thyromegaly Lungs: Clear to Auscultation, Normal Air Movement Heart: Normal S1, Normal S2, Other (Irregular rhythm, systolic murmur) Abdomen: Normal Bowel Sounds, Soft, No Tenderness, No Hepatosplenomegaly, No Masses Extremities: No Clubbing, No Cyanosis, No Edema, Normal Pulses, No Tenderness/Swelling Skin: No Rashes, No Breakdown, No Significant Lesion Neuro: Normal Gait, Normal Speech, Strength at 5/5 X4 Ext, Normal Tone, Sensat ion Intact Psych/Mental Status: Mental Status NL, Mood NL Results Lab Laboratory Tests 10/23/21 05:00 A/P-Cardiology Admission Diagnosis Chest pain Hypertensive emergency Coronary artery disease Acute renal failure Assessment/Plan Chest pain, currently reproducible, currently having back pain radiating to the right side of her chest, musculoskeletal in nature, unlikely to be cardiac. Status post episodes of chest pain, improved after starting isosorbide and reporting improvement. Had mild elevation in troponin, probably secondary to coronary artery disease and severe hypertension renal insufficiency, I recommend conservative management and follow-up as an outpatient. Right foot osteomyelitis. Receiving antibiotic and managed by medical team. Will continue to follow-up as an outpatient Coronary artery disease, history of CABG x3 done in [place] in 2018. No recent cardiac work-up, did not establish with a hand almond blancher in this area. Increasing isosorbide to 60 mg daily and monitor 2D echo was done on October 19, 2021 showing normal LV size, ejection fraction 50 to 55%, moderate mitral regurgitation, mild aortic valve stenosis Hypertensive emergency, blood pressure is more elevated this morning, I will increase his isosorbide and evaluate tolerance and response Status post hypertensive urgency, blood pressure is better controlled. Continue on current medication Mild elevation in BNP, could be secondary to hypertension and renal failure. Echocardiogram showed normal LV systolic function, moderate mitral regurgitation, probably chronic left ventricular diastolic dysfunction. Hyperlipidemia, monitor lipids Right first toe ulcer, managed by primary care physician, diabetic foot ulcer. Probably underlying peripheral arterial disease, planning to evaluate CLOVER once clinically stable Diabetes mellitus, followed and managed by primary care physician Tobaccoism, working on smoking cessation, educated and instructed on smoking cessation. Okay for discharge from cardiology standpoint and follow-up as an outpatient in 2 weeks. HARPREET MUÑOZ MD Oct 23, 2021 11:36
[2021-10-23 11:45] VITALS: BP 131/62
[2021-10-23] MEDS ORDERED: AMLO-250 PO (11:50)
[2021-10-23] MEDS ORDERED: CLN.1T PO (11:50)
[2021-10-23] MEDS ORDERED: ISOS60TA63 PO (11:50)
[2021-10-23] MEDS ORDERED: ASPI-1238 PO (11:50)
[2021-10-23] MEDS ORDERED: DAPT500V18 IV (11:50)
--- NOTE | 2021-10-23 11:52 | Discharge Summary ---
Discharge Summary Hospital Course Was the Problem List Reviewed?: Yes Problems/Dx: (1) Chest pain Status: Acute (2) Coronary artery disease Status: Chronic (3) Hypertensive emergency Status: Acute (4) Osteomyelitis Status: Acute (5) Anemia Status: Acute (6) Diabetes mellitus Status: Chronic (7) Chronic kidney disease (CKD) Status: Chronic (8) Hyperlipidemia Status: Chronic (9) Hypothyroidism Status: Chronic (10) Tobacco use Status: Chronic (11) History of drug use Status: Chronic (12) Hepatitis C Status: Chronic Hospital Course Date of Admission: Oct 19, 2021 at 16:51 Admission Diagnosis : Family Physician/Provider: [facility] Date of Discharge: 10/23/21 Discharge Diagnosis: Chest pain, chronic kidney disease, right foot osteomyeli tis, diabetes, smoker Hospital Course: Patient had a lengthy hospital course after she was admitted for chest pain. Concerning for aneurysm but could not do angiogram or cardiac catheterization due to chronic kidney disease. Overall she stabilized did have volume overload due to IV fluids resolved with Lasix. PT and OT were consulted and patient was able to ambulate and was able to be discharged in improved condition. Labs and Pending Lab Test: Laboratory Tests 10/22/21 15:48: Glucometer 196H 10/22/21 20:03: Glucometer 102 10/23/21 05:00: White Blood Count 6.5, Red Blood Count 3.69L, Hemoglobin 10.2L, Hematocrit 33L, Mean Corpuscular Volume 89, Mean Corpuscular Hemoglobin 28, Mean Corpuscular Hemoglobin Concent 31L, Red Cell Distribution Width 15.2H, Platelet Count 188, Mean Platelet Volume 9.9, Immature Granulocyte % (Auto) 1, Neutrophils (%) (Auto) 55, Lymphocytes (%) (Auto) 34, Monocytes (%) (Auto) 7, Eosinophils (%) (Auto) 3, Basophils (%) (Auto) 1, Neutrophils # (Auto) 3.6, Lymphocytes # (Auto) 2.2, Monocytes # (Auto) 0.4, Eosinophils # (Auto) 0.2, Basophils # (Auto) 0.1, Immature Granulocyte # (Auto) 0.0, Sodium Level 137, Potassium Level 4.1, Chloride Level 109H, Carbon Dioxide Level 20L, Anion Gap 8, Blood Urea Nitrogen 27H, Creatinine 2.32H, Estimat Glomerular Filtration Rate 23, BUN/Creatinine Ratio 12, Glucose Level 129H, Calcium Level 8.8, Corrected Calcium 9.9, Total Bilirubin 0.3, Aspartate Amino Transf (AST/SGOT) 25, Alanine Aminotransferase (ALT/SGPT) 20, Alkaline Phosphatase 53, Total Protein 6.0L, Albumin 2.6L Home Meds Active Aspirin EC (Aspirin) 81 Mg Tablet.dr 81 Mg PO DAILY Amlodipine Besylate 5 Mg Tablet 5 Mg PO DAILY Isosorbide Mononitrate ER (Isosorbide Mononitrate) 60 Mg Tab 60 Mg PO DAILY Clonidine HCl 0.1 Mg Tablet 0.1 Mg PO BID Daptomycin 500 Mg Vial 500 Mg IV Q48H Reported Melatonin 10 Mg Tablet 10 Mg PO HS PRN Metoprolol Tartrate 25 Mg Tablet 25 Mg PO BID Daptomycin 500 Mg Vial 400 Mg IV DAILY Ceftriaxone (Ceftriaxone Sodium) 2 Gm Vial 1 Gm IV DAILY Ventolin Hfa (Albuterol Sulfate) 18 Gm Hfa.aer.ad 2 Puff INH Q4H PRN Atorvastatin Calcium 40 Mg Tablet 40 Mg PO DAILY Nicotine Patch (Nicotine) 1 Each Patch.td24 1 Patch TD DAILY Lisinopril 20 Mg Tablet 20 Mg PO DAILY Ozempic (Semaglutide) 0.25 Mg/0.2 Ml Pen.injctr 0.25 Mg SQ SUN Lantus Solostar (Insulin Glargine,Hum.rec.anlog) 100 Unit/1 Ml Insuln.pen 15 Unit SQ BID Neurontin (Gabapentin) 300 Mg Capsule 300 Mg PO BID Symbicort 160-4.5 Mcg Inhaler (Budesonide/Formoterol Fumarate) 10.2 Gm Hfa.aer.ad 2 Puff INH BID Sumatriptan Succinate 50 Mg Tablet 50 Mg PO UD PRN A SECOND DOSE MAY BE REPEAT AT LEAST 2 HOURS AFTER THE FIRST DOSE Loratadine 10 Mg Tablet 10 Mg PO DAILY PRN Metformin HCl 500 Mg Tablet 500 Mg PO DAILY Tylenol (Acetaminophen) 325 Mg Tablet 325-650 Mg PO Q4- 6H PRN Pantoprazole Sodium 40 Mg Tablet.dr 40 Mg PO DAILY Levothyroxine Sodium 175 Mcg Tablet 175 Mcg PO DAILY Clopidogrel (Clopidogrel Bisulfate) 75 Mg Tablet 75 Mg PO DAILY Trazodone HCl 100 Mg Tablet 100 Mg PO HS PRN Sertraline HCl 100 Mg Tablet 100 Mg PO DAILY Assessment/Pt Instructions PCP and wound care as scheduled Discharge Planning: <30 minutes discharge planning Discharge Instructions Discharge Diet: ADA Diet Discharge Physical Examination Vital Signs Vital Signs Date Time Temp Pulse Resp B/P (MAP) Pulse Ox O2 Delivery O2 Flow Rate FiO2 10/23/21 07:50 36.2 62 20 148/75 (99) 90 Room Air 10/22/21 19:22 21 10/22/21 14:08 2.00 General Appearance: No Apparent Distress, WD/WN, Chronically ill Allergies: Coded Allergies: Sulfa (Sulfonamide Antibiotics) (Verified Allergy, Severe, hives, 04/15/21) tramadol (Verified Allergy, Mild, Hives, 10/19/21) Patient reports that she had hives and itching across entire body Discharge Summary Date of Admission Oct 19, 2021 at 16:51 Date of Discharge Discharge Date: Oct 23, 2021 Admission Diagnosis Assessment: Hypertensive urgency Chest pain Elevated troponin Unstable angina Diabetes noncompliant Right foot diabetic osteomyelitis on daptomycin per wound care 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 Plan: Wound care IV antibiotics Supportive care Discharge Diagnosis Assessment: Chest pain elevated troponin Acute on chronic kidney dysfunction Right foot osteomyelitis Hypertension Diabetes Status post volume overload Plan: Monitor creatinine Supportive care Daptomycin renal dosed (1) Chest pain Status: Acute (2) Coronary artery disease Status: Chronic (3) Hypertensive emergency Status: Acute (4) Osteomyelitis Status: Acute (5) Anemia Status: Acute (6) Diabetes mellitus Status: Chronic (7) Chronic kidney disease (CKD) Status: Chronic (8) Hyperlipidemia Status: Chronic (9) Hypothyroidism Status: Chronic (10) Tobacco use Status: Chronic (11) History of drug use Status: Chronic (12) Hepatitis C Status: Chronic Clinical Quality Measures AMI/AHF: ASA po Prior to arrival: LISA Salazar DO Oct 23, 2021 11:52
--- NOTE | 2021-10-23 13:10 | Occupational Therapy Eval ---
OT Evaluation-General/PLF Medical Diagnosis Admission Date Oct 19, 2021 at 16:51 Medical Diagnosis: chest pain, elevated troponin Onset Date: Oct 19, 2021 Therapy Diagnosis Therapy Diagnosis: n/a Precautions Precautions/Isolations: Fall Prevention, Standard Precautions Referral Physician: Lona Cooper Reason: Evaluation/Treatment Medical History Pertinent Medical History: CABG, CAD, DM, HTN, Hypothroidism, [place], Neuropathy, Renal Insufficiency Additional Medical History ED with chest pain Current History CAD, CABG, DM, HTN, hypothyroidism Social History Home: Single Level Current Living Status: Other Family ADL-Prior Level of Function SCALE: Activities may be completed with or without assistive devices. 4-Zzjymifejv-gnaxnvu completes the activity by him/herself with no assistance from a helper. 5-Set-up or Clean-up Assistance-helper sets up or cleans up; patient completes activity. [place] assists only prior to or following the activity. 4-Supervision or Touching Assistance-helper provides verbal cues and/or touching/steadying and/or contact guard assistance as patient completes activity. Assistance may be provided throughout the activity or intermittently. 3-Partial/Moderate Assistance-helper does LESS THAN HALF the effort. [place] lifts, holds or supports trunk or limbs, but provides less than half the effort. 2-Substantial/Maximal Assistance-helper does MORE THAN HALF the effort. [place] lifts or holds trunk or limbs and provides more than half the effort. 9-Gxujoling-eacrbw does ALL the effort. Patient does none of the effort to complete the activity. Or, the assistance of 2 or more helpers is required for the patient to complete the activity. If activity was not attempted, code reason: 7-Patient Refused. 9-Not Applicable-not attempted and the patient did not perform the activity before the current illness, exacerbation or injury. 10-Not Attempted due to Environmental Limitations-(lack of equipment, weather restraints, etc.). 88-Not Attempted due to Medical Conditions or Safety Concerns. ADL PLOF Comments Pt reports IND with ADLs except footwear. She typically uses a walker, but also owns a cane and w/c. Family completes cooking. Self Care: Needed Some Help Functional Cognition: Independent OT Current Status Subjective Pt in bed, agreeable to OT Tx. Pt feels like she is at PLOF with ADLs. Pt declines further OT services as she is at baseline. Mental Status/Objective Patient Orientation: Person, Place, Time, Situation Current Upper Extremity ROM WFL Upper Extremity Strength grossly 3+/5 ADL-Treatment Eating (QC): 6 (Per pt report.) Toileting Hygiene (QC): 6 (IND) Other Treatments Pt in bed, transferred supine to sit EOB independently. Pt walked into bathroom with SCREENER OPERATOR. Pt completed toileting, then stood at sink to wash her hands. 1 LOB noted with turning. SCREENER OPERATOR to transfer to recliner. Pt reports she is at her PLOF with ADLs, having assistance as needed at home. Post tx, pt in recliner, call light in reach and all needs met. Education OT Patient Education: Correct positioning, Modified ADL techniques, Progress toward Goal/Update tx plan, Purpose of tx/functional activities, Rehab process Teaching Recipient: Patient Teaching Methods: Discussion Response to Teaching: Verbalize Understanding OT Assistant Unit Forester Goals Assistant Unit Forester Goals 1=Demonstrate adherence to instructed precautions during ADL tasks. 2=Patient will verbalize/demonstrate understanding of assistive devices/modific ations for ADL. 3=Patient will improve strength/tolerance for activity to enable patient to perform ADL's. OT Education/Plan Problem List/Assessment Assessment: No Skilled OT Needs ID'd No skilled OT Services indicated as pt is at her PLOF. D/C from OT. Discharge Recommendations Plan/Recommendations: Discharge/Goals Met Treatment Plan/Plan of Care Patient would benefit from OT for education, treatment and training to promote independence in ADL's, mobility, safety and/or upper extremity function for ADL's. Plan of Care: ADL Retraining, Functional Mobility Treatment Duration: Oct 23, 2021 Frequency: 1 time per week (eval only) Estimated Hrs Per Day: .25 hour per day Agreement: Yes Rehab Potential: Fair Time/GCodes Start Time: 12:40 Stop Time: 12:56 Total Time Billed (hr/min): 16 Billed Treatment Time 1, JOSE CONDE OT Oct 23, 2021 13:10
--- NOTE | 2021-10-23 13:36 | Physical Therapy Evaluation ---
PT Evaluation-General Medical Diagnosis Admission Date Oct 19, 2021 at 16:51 Medical Diagnosis: chest pain, elevated troponin Onset Date: Oct 19, 2021 Therapy Diagnosis Therapy Diagnosis: weakness, debility Precautions Precautions/Isolations: Fall Prevention, Standard Precautions Referral Physician: Lona Reason for Referral: Evaluation/Treatment Medical History Pertinent Medical History: CABG, CAD, DM, HTN, Hypothroidism, [place], Neuropathy, Renal Insufficiency Current History Patient to ED from wound care clinic with complaints of chest pain Reviewed History: Yes Social History Home: Single Level Current Living Status: Other Family Entry Into Home: Stairs With Railing PT Steps Into Home: 3 Prior Prior Level of Function SCALE: Activities may be completed with or without assistive devices. 5-Cnlquheofy-ctcptef completes the activity by him/herself with no assistance from a helper. 5-Set-up or Clean-up Assistance-helper sets up or cleans up; patient completes activity. [place] assists only prior to or following the activity. 4-Supervision or Touching Assistance-helper provides verbal cues and/or touching/steadying and/or contact guard assistance as patient completes activity. Assistance may be provided throughout the activity or intermittently. 3-Partial/Moderate Assistance-helper does LESS THAN HALF the effort. [place] lifts, holds or supports trunk or limbs, but provides less than half the effort. 2-Substantial/Maximal Assistance-helper does MORE THAN HALF the effort. [place] lifts or holds trunk or limbs and provides more than half the effort. 5-Nnkskrjch-iitlhd does ALL the effort. Patient does none of the effort to complete the activity. Or, the assistance of 2 or more helpers is required for the patient to complete the activity. If activity was not attempted, code reason: 7-Patient Refused. 9-Not Applicable-not attempted and the patient did not perform the activity before the current illness, exacerbation or injury. 10-Not Attempted due to Environmental Limitations-(lack of equipment, weather restraints, etc.). 88-Not Attempted due to Medical Conditions or Safety Concerns. Bed Mobility: 6 Transfers (B,C,W/C): 6 Gait: 6 Indoor Mobility (Ambulation): Independent Stairs: Needed Some Help Prior Devices Use: Walker PT Evaluation-Current Subjective Patient presented sitting in the chair and agrees to participate with physical therapy. Objective Patient Orientation: Person, Place, Situation ROM/Strength ROM Lower Extremities WFL Strength Lower Extremities 3+/5 strength bilateral grossly Integumentary/Posture Bowel Incontinence: No Bladder Incontinence: No Neuromuscular (Tone, Coordination, Reflexes) grossly intact Sensory Vision: Functional Hearing: Functional Transfers Sit to Stand (QC): 4 Patient SBA for sit to stand Gait Does the Patient Walk?: Yes Mode of Locomotion: Walk Anticipated Mode of Locomotion: Walk Walk 10 feet (QC): 4 Walk 50 ft with 2 Turns(QC): 4 Walk 150 ft (QC): 4 Distance: 250' Gait Assistive Device: FWW Comments/Gait Description Patient ambulated 250' with FWW and SBA. Patient took multiple standing rest beaks due to SOA. Balance Sitting Static: Normal Sitting Dynamic: Normal Standing Static: Normal Standing Dynamic: Fair Assessment/Needs Patient ambulated with FWW and SBA for 250'. Patient required multiple standing rest breaks due to SOA. Patient slowed down ambulation speed the longer we walked due to increased SOA. Patient was SBA for sit to stand transfer. Patient is dismissing to home on this date per nursing and SW report. Rehab Potential: Good PT Plan Treatment/Plan Treatment Plan: Discontinue PT, goals met Treatment Duration: Oct 23, 2021 Frequency: 1 time per week Time/GCodes Time In: 1255 Time Out: 1307 Total Billed Treatment Time: 12 Total Billed Treatment 1 Visit EVMod 12 min JUAN PERALES PT Oct 23, 2021 13:36
[2021-10-23] MEDS: ENOXAPARIN 30 MG/0.3 ML (LOVENOX) SYR SC SCH (17:25)
[2021-10-23 17:55] VITALS: BP 131/62
[2021-10-24] MEDS ORDERED: NICOTINE PATCH REMOVAL TP SCH (08:59)
== END 2021-10-23 17:55 | disposition home or self-care (01) ==
LOC: EDUNIT# 13:38 → ER 13:39 → CSD 16:51 → 4TH 10-22 13:40
PROVIDERS: ADMIT Internal Medicine; ATTEND Internal Medicine
DX: I25.110 Atherosclerotic heart disease of native coronary artery with unstable angina pectoris (principal); I13.10 Hypertensive heart and chronic kidney disease without heart failure, with stage 1 through stage 4 chronic kidney disease, or unspecified chronic kidney disease; I16.0 Hypertensive urgency; E11.22 Type 2 diabetes mellitus with diabetic chronic kidney disease; E11.69 Type 2 diabetes mellitus with other specified complication; N18.9 Chronic kidney disease, unspecified; M86.8X7 Other osteomyelitis, ankle and foot; D63.1 Anemia in chronic kidney disease; E78.5 Hyperlipidemia, unspecified; E03.9 Hypothyroidism, unspecified; B19.20 Unspecified viral hepatitis C without hepatic coma; N17.9 Acute kidney failure, unspecified; E11.621 Type 2 diabetes mellitus with foot ulcer; L97.519 Non-pressure chronic ulcer of other part of right foot with unspecified severity; I16.1 Hypertensive emergency; I49.1 Atrial premature depolarization; I25.2 Old myocardial infarction; F17.210 Nicotine dependence, cigarettes, uncomplicated; Z79.899 Other long term (current) drug therapy; Z79.82 Long term (current) use of aspirin; Z79.4 Long term (current) use of insulin; Z79.84 Long term (current) use of oral hypoglycemic drugs; Z79.890 Hormone replacement therapy; Z95.1 Presence of aortocoronary bypass graft
CPT/HCPCS: 36415; 71045; 71250; 80053; 80061; 82550; 82947; 83735; 83874; 84484; 85025; 85610; 85730; 93005; 93041; 93306; 93922; 94640; 96374

== ENCOUNTER → 2021-10-19 | Outpatient (CLI) | payer MEDICARE, MEDICAID ==
[~2021-10-19] MED LIST changes: +ALBU18HF2 INH; +ATOR40TA70 PO; +BUDE10.2 INH; +CEFT2VIA11 IV; +DAPT500V3 IV; +MELA10TA2 PO; +NICO-685 TD; +SUMA50TA2 PO
== END ==
LOC: WOUNDCARE 13:13
PROVIDERS: ATTEND Family Medicine
DX: E11.52 Type 2 diabetes mellitus with diabetic peripheral angiopathy with gangrene (principal); E11.621 Type 2 diabetes mellitus with foot ulcer; E11.65 Type 2 diabetes mellitus with hyperglycemia; I70.261 Atherosclerosis of native arteries of extremities with gangrene, right leg; E11.22 Type 2 diabetes mellitus with diabetic chronic kidney disease; I12.9 Hypertensive chronic kidney disease with stage 1 through stage 4 chronic kidney disease, or unspecified chronic kidney disease; N18.32 Chronic kidney disease, stage 3b; L97.512 Non-pressure chronic ulcer of other part of right foot with fat layer exposed; L03.115 Cellulitis of right lower limb; F17.218 Nicotine dependence, cigarettes, with other nicotine-induced disorders; M86.071 Acute hematogenous osteomyelitis, right ankle and foot; R07.9 Chest pain, unspecified
CPT/HCPCS: 99212

== ENCOUNTER → 2021-10-27 | Outpatient (CLI) | payer MEDICARE, MEDICAID ==
[~2021-10-27] MED LIST changes: +ACHD5005 PO; +ACYC-112 PO; +ALBU18HF2 INH; +AMLO-250 PO; +ATOR40TA70 PO; +BUDE10.2 INH; +CEFT2VIA11 IV; +CLN.1T PO; +DAPT500V18 IV; +ISOS60TA63 PO; +MELA10TA2 PO; +NICO-685 TD; +SUMA50TA2 PO
== END ==
LOC: WOUNDCARE 12:19
PROVIDERS: ATTEND Family Medicine
DX: E11.621 Type 2 diabetes mellitus with foot ulcer (principal); E11.65 Type 2 diabetes mellitus with hyperglycemia; E11.52 Type 2 diabetes mellitus with diabetic peripheral angiopathy with gangrene; I70.235 Atherosclerosis of native arteries of right leg with ulceration of other part of foot; L97.512 Non-pressure chronic ulcer of other part of right foot with fat layer exposed; L03.115 Cellulitis of right lower limb; F17.218 Nicotine dependence, cigarettes, with other nicotine-induced disorders; N18.32 Chronic kidney disease, stage 3b; M86.071 Acute hematogenous osteomyelitis, right ankle and foot; I10 Essential (primary) hypertension; R07.9 Chest pain, unspecified
CPT/HCPCS: 11042; G0463

== ENCOUNTER 2021-10-28 17:39 | Emergency (ER) | payer MEDICARE, MEDICAID ==
[~2021-10-28] VITALS: Ht 167 cm; Wt 78.0 kg
[~2021-10-28 17:39] MED LIST changes: -ACHD5005 PO; -ACYC-112 PO
[2021-10-28] MEDS ORDERED: HYDROcodone/APAP 5 MG/325 MG (LORTAB) TAB PO ONE (18:30)
[2021-10-28] MEDS ORDERED: ACHD5005 PO (18:33)
--- NOTE | 2021-10-28 18:34 | ED Back Pain ---
General Chief Complaint: Back Problems Stated Complaint: BACK PAIN Nursing Triage Note: PT TO FT1 PER W/C PT CO OF R UPPER BACK PAIN RATES 5/6 OUT OF 10. PT STATES WRAPS AROUND BODY TO R BREAST AND NATASHA MANN. PT HAS SMALL AREA OF POSSIBLE RASH NEAR AREA. PT HAS PICC LINE IN PLACE IN R AC. PT IS RECIEVING WOUND CARE OF OSTEO IN FOOT Source of Information: Patient Exam Limitations: No Limitations History of Present Illness Date Seen by Provider: Oct 28, 2021 Time Seen by Provider: 18:30 Initial Comments Patient is a 66-year-old female presents ED with right sided back pain. Pain is located to her mid upper back with radiation to the right breast. She states she was recently discharged from our facility for cardiac work-up and found to have acute on chronic kidney failure. She was evaluated by cardiology schedule a follow-up next week. Patient states that she had discontinued back pain during her stay. She received pain medication with improvement. Was not discharged with pain medication. Daughter, noted a rash that was developing. Describes the pain as more burning. No history of shingles. No current chest pain, shortness of breath, Mayank pain, vomiting, diarrhea. Vital signs stable. Currently being treated for osteomyelitis of the right foot with daptomycin. Allergies and Home Medications Allergies Coded Allergies: Sulfa (Sulfonamide Antibiotics) (Verified Allergy, Severe, hives, 04/15/21) tramadol (Verified Allergy, Mild, Hives, 10/19/21) Patient reports that she had hives and itching across entire body Patient Home Medication List Home Medication List Reviewed: Yes Acetaminophen (Tylenol) 325 Mg Tablet, 325-650 MG PO Q4- 6H PRN for PAIN-MILD (1-4), (Reported) Entered as Reported by: CARMELITA GOODRICH on 03/12/21 0958 Acyclovir (Acyclovir) 800 Mg Tablet, 800 MG PO 5XD Prescribed by: MARYAM SOLIZ on 10/28/21 1838 Albuterol Sulfate (Ventolin Hfa) 18 Gm Hfa.aer.ad, 2 PUFF INH Q4H PRN for SHORTNESS OF BREATH, (Reported) Entered as Reported by: SKYLER ARGUELLO on 10/20/21 1057 Amlodipine Besylate (Amlodipine Besylate) 5 Mg Tablet, 5 MG PO DAILY Prescribed by: LISA MARY on 10/23/21 115 Aspirin (Aspirin EC) 81 Mg Tablet.dr, 81 MG PO DAILY Prescribed by: LISA MARY on 10/23/21 115 Atorvastatin Calcium (Atorvastatin Calcium) 40 Mg Tablet, 40 MG PO DAILY, (Reported) Entered as Reported by: SKYLER ARGUELLO on 10/20/21 105 Budesonide/Formoterol Fumarate (Symbicort 160-4.5 Mcg Inhaler) 10.2 Gm Hfa.aer.ad, 2 PUFF INH BID, (Reported) Entered as Reported by: SKYLER ARGUELLO on 10/20/21 105 Clonidine HCl (Clonidine HCl) 0.1 Mg Tablet, 0.1 MG PO BID Prescribed by: LISA MARY on 10/23/21 115 Clopidogrel Bisulfate (Clopidogrel) 75 Mg Tablet, 75 MG PO DAILY, (Reported) Entered as Reported by: CARMELITA GOODRICH on 03/12/21 0958 Daptomycin (Daptomycin) 500 Mg Vial, 500 MG IV Q48H Prescribed by: LISA MARY on 10/23/21 115 Gabapentin (Neurontin) 300 Mg Capsule, 300 MG PO BID, (Reported) Entered as Reported by: SKYLER ARGUELLO on 10/20/21 105 Hydrocodone/Acetaminophen (Hydrocodone-Acetamin 5-325 mg) 1 Each Tablet, 1 TAB PO Q4H PRN for PAIN-MODERATE (5-7) Prescribed by: MARYAM SOLIZ on 10/28/21 183 Insulin Glargine,Hum.rec.anlog (Lantus Solostar) 100 Unit/1 Ml Insuln.pen, 15 UNIT SQ BID, (Reported) Entered as Reported by: SKYLER ARGUELLO on 10/20/21 105 Isosorbide Mononitrate (Isosorbide Mononitrate ER) 60 Mg Tab, 60 MG PO DAILY Prescribed by: LISA MARY on 10/23/21 115 Levothyroxine Sodium (Levothyroxine Sodium) 175 Mcg Tablet, 175 MCG PO DAILY, (Reported) Entered as Reported by: CARMELITA GOODRICH on 03/12/21 0958 Lisinopril (Lisinopril) 20 Mg Tablet, 20 MG PO DAILY, (Reported) Entered as Reported by: SKYLER ARGUELLO on 10/20/21 105 Loratadine (Loratadine) 10 Mg Tablet, 10 MG PO DAILY PRN for ALLERGY SYMPTOMS, (Reported) Entered as Reported by: SKYLER ARGUELLO on 05/26/21 1655 Melatonin (Melatonin) 10 Mg Tablet, 10 MG PO HS PRN for SLEEP, (Reported) Entered as Reported by: SKYLER ARGUELLO on 10/20/21 1208 Metoprolol Tartrate (Metoprolol Tartrate) 25 Mg Tablet, 25 MG PO BID, (Reported) Entered as Reported by: SKYLER ARGUELLO on 10/20/21 120 Nicotine (Nicotine Patch) 1 Each Patch.td24, 1 PATCH TD DAILY, (Reported) Entered as Reported by: SKYLER ARGUELLO on 10/20/21 105 Pantoprazole Sodium (Pantoprazole Sodium) 40 Mg Tablet.dr, 40 MG PO DAILY, (Reported) Entered as Reported by: CARMELITA GOODRICH on 03/12/21 0958 Semaglutide (Ozempic) 0.25 Mg/0.2 Ml Pen.injctr, 0.25 MG SQ SUN, (Reported) Entered as Reported by: SKYLER ARGUELLO on 10/20/21 105 Sertraline HCl (Sertraline HCl) 100 Mg Tablet, 100 MG PO DAILY, (Reported) Entered as Reported by: OCTAVIO ARENAS on 03/11/212147 Sumatriptan Succinate (Sumatriptan Succinate) 50 Mg Tablet, 50 MG PO UD PRN for MIGRAINE, (Reported) Entered as Reported by: SKYLER ARGUELLO on 10/20/21 105 Trazodone HCl (Trazodone HCl) 100 Mg Tablet, 100 MG PO HS PRN for SLEEP, (Reported) Entered as Reported by: OCTAVIO ARENAS on 03/11/212147 Discontinued Medications Ceftriaxone Sodium (Ceftriaxone) 2 Gm Vial, 1 GM IV DAILY, (Reported) Entered as Reported by: SKYLER ARGUELLO on 10/20/21 112 Daptomycin (Daptomycin) 500 Mg Vial, 400 MG IV DAILY, (Reported) Entered as Reported by: SKYLER ARGUELLO on 10/20/21 112 Metformin HCl (Metformin HCl) 500 Mg Tablet, 500 MG PO DAILY, (Reported) Entered as Reported by: SKYLER ARGUELLO on 05/26/21 1651 Review of Systems Constitutional: No chills, No diaphoresis, No fever, No malaise EENTM: No ear discharge, No blurred vision, No double vision, No throat pain, No throat swelling Respiratory: No cough, No dyspnea on exertion, No phlegm, No short of breath Cardiovascular: No edema Gastrointestinal: No abdominal pain, No hematemesis, No nausea, No vomiting Musculoskeletal: back pain; No joint pain, No muscle pain Skin: rash All Other Systems Reviewed Negative Unless Noted: Yes Past Ghgwfnj-Ylpwei-Uigscj Hx Patient Social History Tobacco Use?: Yes Tobacco type used: Cigarettes Smoking Status: Current Everyday Smoker Substance use?: No Alcohol Use?: No Pt feels they are or have been: No Immunizations Up To Date Tetanus Booster (TDap): Unknown First/Initial COVID19 Vaccinat: OCTOBER 2020 Second COVID19 Vaccination [place]: NOVEMBER 2020 Third COVID19 Vaccination Date: 2020 Seasonal Allergies Seasonal Allergies: Yes Past Medical History Surgery/Hospitalization HX: Diabetes Insulin Dependent, Hypertension Surgeries: Yes (right elbow, left ankle, right rotator cuff, right hip, ear tubes) Orthopedic Respiratory: Yes Sleep Apnea Currently Using CPAP: No Cardiac: Yes Coronary Artery Disease, High Cholesterol, Hypertension Neurological: Yes Headaches /Migraines, Neuropathy Genitourinary: Yes Renal Failure Gastrointestinal: No Gastroesophageal Reflux Musculoskeletal: Yes Arthritis Endocrine: Yes Diabetes, Insulin dep HEENT: Yes (decreased vision due to DM) Loss of Vision: Bilateral Hearing Impairment: Denies Cancer: Yes Skin Did You Recieve Any Treatments: Yes What Type of Treatment Did You: Surgical Intervention Anxiety, Bipolar, Depression Integumentary: Yes Eczema Blood Disorders: Yes (Hep C) Family Medical History No Pertinent Family Hx Physical Exam Vital Signs Vital Signs - First Documented 10/28/21 17:50 Temp 36.5 Pulse 64 Resp 18 B/P (MAP) 126/78 (94) Pulse Ox 99 Capillary Refill : Less Than 3 Seconds Height, Weight, BMI Height: '" Weight: lbs. oz. kg; 27.00 BMI Method: General Appearance: No Apparent Distress, WD/WN HEENT: PERRL/EOMI, TMs Normal, Normal ENT Inspection, Pharynx Normal Neck: Full Range of Motion, Normal Inspection, Non Tender Cardiovascular: Regular Rate, Rhythm, No Edema, No Gallop, No JVD, No Murmur Respiratory: Chest Non Tender, Lungs Clear, Normal Breath Sounds, No Accessory Muscle Use Gastrointestinal: Normal Bowel Sounds, No Organomegaly, No Pulsatile Mass, Non Tender, Soft Back: No CVA Tenderness, Other (No cervical or thoracic midline tenderness. Very small erythematous vesicular rash to the right side of her mid back. Few areas of concern) Extremity: Normal Capillary Refill, Normal Inspection, Normal Range of Motion, Non Tender Progress/Results/Core Measures Results/Orders My Orders Orders - KRISTY FLORES Hydrocodone/Apap 5/325 Tablet (Lortab 5 (10/28/21 18:30) Medications Given in ED Current Medications Medications Dose Ordered Sig/Emerita Route Start Time Stop Time Status Last Admin Dose Admin Acetaminophen/ Hydrocodone Bitart 1 ea ONCE ONCE PO 10/28/21 18:30 10/28/21 18:31 DC 10/28/21 18:43 1 EA Vital Signs/I&O 10/28/21 10/28/21 17:50 18:44 Temp 36.5 36.5 Pulse 64 64 Resp 18 18 B/P (MAP) 126/78 (94) 126/78 Pulse Ox 99 99 Blood Pressure Mean: 94 Departure Communication (Admissions) Patient returns for this pain to her right mid back with radiation to her breast. She was seen here and admitted to the hospital and discharged for acute on chronic kidney disease and evaluation for elevated troponin. She is scheduled follow-up with cardiology next week. No cardiac intervention was recommended. She is scheduled to follow-up with her primary care physician this week. She has no urinary symptoms. No current chest pain, shortness of breath, cough, abdominal pain. She is concerned about this continues back pain which appeared that this was more musculoskeletal when she was seen here in the hospital and admitted. She states pain medication improved and took away pain medication. On her exam concern for a possible developing rash. Very small localized areas with potential vesicles. Concerning for possible shingles secondary to the presenting pain as she describes it as burning. She has no thoracic or lumbar midline tenderness. She is requesting pain medication. Discharged with pain medication and start on acyclovir. Recommend reevaluation with your primary care physician in 2 days. She refused any recheck of her lab work as I suggest rechecking her kidney function. She refused. She was requesting pain medication. Return precautions were discussed with patient Impression Primary Impression: Back pain Disposition: 01 HOME, SELF-CARE Condition: Stable Departure-Patient Inst. Decision time for Depature: 18:32 Referrals: [facility] [place] (PCP/Family) Primary Care Physician Patient Instructions: Upper Back Pain ED Scripts Acyclovir (Acyclovir) 800 Mg Tablet 800 MG PO 5XD for 7 Days, #35 TAB Prov: KRISTY FLORES 10/28/21 Hydrocodone/Acetaminophen (Hydrocodone-Acetamin 5-325 mg) 1 Each Tablet 1 TAB PO Q4H PRN for PAIN-MODERATE (5-7), #8 TAB Prov: KRISTY FLORES 10/28/21 KRISTY FLORES Oct 28, 2021 18:33
[2021-10-28] MEDS ORDERED: ACYC-112 PO (18:38)
[2021-10-28 18:44] VITALS: BP 126/78
== END 2021-10-28 18:46 | disposition home or self-care (01) ==
LOC: EDUNIT# 17:39 → ER 17:40
DX: M54.6 Pain in thoracic spine (principal); F17.210 Nicotine dependence, cigarettes, uncomplicated
CPT/HCPCS: 99283

== ENCOUNTER → 2021-11-05 | Outpatient (CLI) | payer MEDICARE, MEDICAID ==
[~2021-11-05] MED LIST changes: +ACHD5005 PO; +ACYC-112 PO
[2021-11-05 18:31] LABS: POTASSIUM 4.6 MMOL/L (3.6-5.0)
[2021-11-05 18:32] LABS: CALCIUM 9.4 MG/DL (8.5-10.1); CREATININE SERUM 2.69 MG/DL (0.60-1.30)
== END ==
LOC: IHC 17:48
PROVIDERS: ATTEND Family Medicine
DX: N18.32 Chronic kidney disease, stage 3b (principal); Z79.899 Other long term (current) drug therapy; Z79.02 Long term (current) use of antithrombotics/antiplatelets
CPT/HCPCS: 80048; 82550

== ENCOUNTER → 2021-11-09 | Outpatient (CLI) | payer MEDICARE, MEDICAID ==
[2021-11-09 13:49] LABS: POTASSIUM 4.5 MMOL/L (3.6-5.0)
[2021-11-09 13:50] LABS: ALBUMIN 3.2 GM/DL (3.2-4.5); BILIRUBIN,TOTAL 0.2 MG/DL (0.1-1.0); CALCIUM 9.3 MG/DL (8.5-10.1); CREATININE SERUM 2.39 MG/DL (0.60-1.30); TOTAL PROTEIN 7.1 GM/DL (6.4-8.2)
== END ==
LOC: IHC 12:40
PROVIDERS: ATTEND Family Medicine
DX: N18.32 Chronic kidney disease, stage 3b (principal)
CPT/HCPCS: 80053

== ENCOUNTER → 2021-11-10 | Outpatient (CLI) | payer MEDICARE, MEDICAID | LOC: WOUNDCARE 11:50 | PROVIDERS: ATTEND Family Medicine | DX: E11.621 Type 2 diabetes mellitus with foot ulcer (principal); E11.65 Type 2 diabetes mellitus with hyperglycemia; I70.235 Atherosclerosis of native arteries of right leg with ulceration of other part of foot; L97.512 Non-pressure chronic ulcer of other part of right foot with fat layer exposed; L03.115 Cellulitis of right lower limb; E11.22 Type 2 diabetes mellitus with diabetic chronic kidney disease; N18.32 Chronic kidney disease, stage 3b; M86.071 Acute hematogenous osteomyelitis, right ankle and foot; I10 Essential (primary) hypertension; E11.52 Type 2 diabetes mellitus with diabetic peripheral angiopathy with gangrene; R07.9 Chest pain, unspecified; F17.218 Nicotine dependence, cigarettes, with other nicotine-induced disorders | CPT/HCPCS: 11042; G0463 ==

== ENCOUNTER → 2021-11-17 | Outpatient (CLI) | payer MEDICARE, MEDICAID | LOC: WOUNDCARE 13:02 | PROVIDERS: ATTEND Family Medicine | DX: E11.621 Type 2 diabetes mellitus with foot ulcer (principal); E11.65 Type 2 diabetes mellitus with hyperglycemia; I70.235 Atherosclerosis of native arteries of right leg with ulceration of other part of foot; L97.512 Non-pressure chronic ulcer of other part of right foot with fat layer exposed; E11.22 Type 2 diabetes mellitus with diabetic chronic kidney disease; N18.32 Chronic kidney disease, stage 3b; M86.071 Acute hematogenous osteomyelitis, right ankle and foot; I10 Essential (primary) hypertension; E11.52 Type 2 diabetes mellitus with diabetic peripheral angiopathy with gangrene; R07.9 Chest pain, unspecified; F17.218 Nicotine dependence, cigarettes, with other nicotine-induced disorders | CPT/HCPCS: 11042; A6212; G0463 ==

== ENCOUNTER → 2021-11-17 | Outpatient (CLI) | payer MEDICARE, MEDICAID ==
[2021-11-17 12:07] LABS: POTASSIUM 4.9 MMOL/L (3.6-5.0)
[2021-11-17 12:08] LABS: CALCIUM 9.4 MG/DL (8.5-10.1)
[2021-11-17 12:12] LABS: CREATININE SERUM 2.91 MG/DL (0.60-1.30)
--- NOTE | 2021-11-17 14:02 | Diagnostic Imaging Report ---
Exam: MRI right foot without contrast. Date: November 17, 2021. Indication: 66-year-old female, ulcer in the lateral aspect of the right great toe. Foot pain. Evaluation for osteomyelitis. Comparison: Right foot radiographs September 23, 2021. Technique: Multiple dedicated noncontrast MRI sequences of the right foot were obtained. Findings: The Lisfranc ligament proper is intact. The imaged portions of the posterior flexor tendons, anterior extensor tendons, and peroneal tendons are intact without evidence of tenosynovitis. There is diffuse fatty atrophy of the visualized foot musculature, mild intramuscular edema most compatible with polyneuropathy. There is abnormal signal in the subcutaneous and additional soft tissues medially located near the level of the first metatarsophalangeal joint. The abnormal signals directly contacting the medial and lateral sesamoids as well as the first digit flexor tendons. There is no T1 marrow signal loss or bone destruction. There is no marrow edema. There is a bipartite medial sesamoid. There is no identified acute fracture. There is no evidence of osteonecrosis. There is no identified joint space loss or joint effusion. There is no identified focal fluid collection on noncontrast imaging assessment. Impression: 1. Prominent abnormal soft tissue signal near the first metatarsophalangeal joint without identified focal fluid collection or abscess. 2. No evidence of osteomyelitis. 3. No findings to suggest septic arthritis. 4. Intact tendons without evidence of tenosynovitis. 5. Diffuse fatty atrophy of the foot musculature most compatible with polyneuropathy. Dictated by: Dictated on workstation # [id number]
== END ==
LOC: RAD 12:30
PROVIDERS: ATTEND Family Medicine
DX: E11.621 Type 2 diabetes mellitus with foot ulcer (principal); E11.65 Type 2 diabetes mellitus with hyperglycemia; I70.235 Atherosclerosis of native arteries of right leg with ulceration of other part of foot; L97.512 Non-pressure chronic ulcer of other part of right foot with fat layer exposed; L03.115 Cellulitis of right lower limb; I12.9 Hypertensive chronic kidney disease with stage 1 through stage 4 chronic kidney disease, or unspecified chronic kidney disease; E11.22 Type 2 diabetes mellitus with diabetic chronic kidney disease; N18.32 Chronic kidney disease, stage 3b; M86.071 Acute hematogenous osteomyelitis, right ankle and foot; R07.9 Chest pain, unspecified; F17.218 Nicotine dependence, cigarettes, with other nicotine-induced disorders
CPT/HCPCS: 36415; 80048; 83036; 85652; 86141

== ENCOUNTER → 2022-02-16 | Outpatient (CLI) | payer MEDICARE, MEDICAID ==
--- NOTE | 2022-02-16 15:12 | Diagnostic Imaging Report ---
INDICATION: Ulcer of the right foot. TIME OF EXAM: 01:58 p.m. TECHNIQUE: Three views of the right foot were obtained. FINDINGS: There are degenerative changes at the tarsometatarsal joints. Metatarsals and phalanges appear intact. Midfoot and hindfoot are unremarkable apart from a large plantar calcaneal spur. No bony destructive changes are seen to suggest osteomyelitis. IMPRESSION: Chronic changes. No acute bony abnormality is detected. Dictated by: Dictated on workstation # [id number]
== END ==
LOC: RAD FS 13:38
PROVIDERS: ATTEND Nurse Practitioner Family
DX: L97.519 Non-pressure chronic ulcer of other part of right foot with unspecified severity (principal)
CPT/HCPCS: 73630

== ENCOUNTER → 2022-04-20 | Outpatient (CLI) | payer MEDICARE, MEDICAID ==
[2022-04-20 10:48] LABS: BASOPHILS # (AUTO) 0.1 10^3/uL (0.0-0.1); BASOPHILS % (AUTO) 1 % (0-10); EOSINOPHILS # (AUTO) 0.2 10^3/uL (0.0-0.3); EOSINOPHILS % (AUTO) 2 % (0-10); HEMATOCRIT 44 % (35-52); HEMOGLOBIN 14.2 g/dL (11.5-16.0); LYMPHOCYTES # (AUTO) 1.8 10^3/uL (1.0-4.0); LYMPHOCYTES % (AUTO) 26 % (12-44); MEAN CORPUSCULAR HEMOGLOBIN 28 pg (25-34); MEAN CORPUSCULAR HGB CONC 33 g/dL (32-36); MEAN CORPUSCULAR VOLUME 87 fL (80-99); MEAN PLATELET VOLUME 8.7 fL (9.0-12.2); MONOCYTES # (AUTO) 0.6 10^3/uL (0.0-1.0); MONOCYTES % (AUTO) 8 % (0-12); NEUTROPHILS # (AUTO) 4.4 10^3/uL (1.8-7.8); NEUTROPHILS % (AUTO) 63 % (42-75); PLATELET COUNT 209 10^3/uL (130-400); WHITE BLOOD COUNT 7.1 10^3/uL (4.3-11.0)
[2022-04-20 11:06] LABS: CALCIUM 9.8 MG/DL (8.5-10.1); CREATININE SERUM 3.64 MG/DL (0.60-1.30); POTASSIUM 3.7 MMOL/L (3.6-5.0)
[2022-04-20 11:43] LABS: ERYTHROCYTE SEDIMENTATION RATE 26 MM/HR (0-30)
== END ==
LOC: WOUNDCARE 08:39
PROVIDERS: ATTEND Family Medicine
DX: E11.621 Type 2 diabetes mellitus with foot ulcer (principal); L97.512 Non-pressure chronic ulcer of other part of right foot with fat layer exposed; E11.65 Type 2 diabetes mellitus with hyperglycemia; E11.40 Type 2 diabetes mellitus with diabetic neuropathy, unspecified; T65.292A Toxic effect of other tobacco and nicotine, intentional self-harm, initial encounter; N18.6 End stage renal disease
CPT/HCPCS: 11042; 80048; 82306; 83036; 84134; 85025; 85652; 86141; A6197; G0463; 36415

== ENCOUNTER → 2022-04-27 | Outpatient (CLI) | payer MEDICARE, MEDICAID | LOC: WOUNDCARE 09:39 | PROVIDERS: ATTEND Family Medicine | DX: E11.621 Type 2 diabetes mellitus with foot ulcer (principal); E11.40 Type 2 diabetes mellitus with diabetic neuropathy, unspecified; L97.512 Non-pressure chronic ulcer of other part of right foot with fat layer exposed; E11.22 Type 2 diabetes mellitus with diabetic chronic kidney disease; N18.6 End stage renal disease; T65.222A Toxic effect of tobacco cigarettes, intentional self-harm, initial encounter; E11.65 Type 2 diabetes mellitus with hyperglycemia | CPT/HCPCS: 99212 ==

== ENCOUNTER → 2022-06-10 | Outpatient (CLI) | payer MEDICARE, MEDICAID ==
[2022-06-10 09:52] LABS: BASOPHILS # (AUTO) 0.1 10^3/uL (0.0-0.1); BASOPHILS % (AUTO) 1 % (0-10); EOSINOPHILS # (AUTO) 0.2 10^3/uL (0.0-0.3); EOSINOPHILS % (AUTO) 3 % (0-10); HEMATOCRIT 34 % (35-52); HEMOGLOBIN 11.3 g/dL (11.5-16.0); LYMPHOCYTES # (AUTO) 1.3 10^3/uL (1.0-4.0); LYMPHOCYTES % (AUTO) 17 % (12-44); MEAN CORPUSCULAR HEMOGLOBIN 29 pg (25-34); MEAN CORPUSCULAR HGB CONC 33 g/dL (32-36); MEAN CORPUSCULAR VOLUME 88 fL (80-99); MEAN PLATELET VOLUME 8.9 fL (9.0-12.2); MONOCYTES # (AUTO) 0.7 10^3/uL (0.0-1.0); MONOCYTES % (AUTO) 9 % (0-12); NEUTROPHILS # (AUTO) 5.3 10^3/uL (1.8-7.8); NEUTROPHILS % (AUTO) 71 % (42-75); PLATELET COUNT 245 10^3/uL (130-400); WHITE BLOOD COUNT 7.5 10^3/uL (4.3-11.0)
[2022-06-10 10:12] LABS: ERYTHROCYTE SEDIMENTATION RATE 49 MM/HR (0-30)
--- NOTE | 2022-06-10 18:05 | Diagnostic Imaging Report ---
INDICATION: Swelling of right foot with ulcerations underneath the 2nd and 3rd toe. COMPARISON: 02/16/2022. FINDINGS: 3 views. There are no fractures or dislocation. Mild arthritic changes are noted. No destructive bony lesion. No periosteal reactive changes. Soft tissue swelling is noted about the base of the 2nd and 3rd toe. No air within the soft tissues. IMPRESSION: Moderate diffuse arthritic change. No bony changes are seen to suggest osteomyelitis. Dictated by: Dictated on workstation # [id number]
== END ==
LOC: WOUNDCARE 08:28
PROVIDERS: ATTEND Family Medicine
DX: L02.611 Cutaneous abscess of right foot (principal); E11.621 Type 2 diabetes mellitus with foot ulcer; E11.65 Type 2 diabetes mellitus with hyperglycemia; E11.22 Type 2 diabetes mellitus with diabetic chronic kidney disease; N18.6 End stage renal disease; T65.292A Toxic effect of other tobacco and nicotine, intentional self-harm, initial encounter; L03.031 Cellulitis of right toe; E55.9 Vitamin D deficiency, unspecified
CPT/HCPCS: 10060; 73630; 82306; 85025; 85652; 86141; 87070; 87205; G0463; 36415

== ENCOUNTER → 2022-06-15 | Outpatient (CLI) | payer MEDICARE, MEDICAID | LOC: WOUNDCARE 08:03 | PROVIDERS: ATTEND Family Medicine | DX: L02.611 Cutaneous abscess of right foot (principal); E11.621 Type 2 diabetes mellitus with foot ulcer; E11.65 Type 2 diabetes mellitus with hyperglycemia; E11.22 Type 2 diabetes mellitus with diabetic chronic kidney disease; N18.6 End stage renal disease; E55.9 Vitamin D deficiency, unspecified; L03.031 Cellulitis of right toe; E11.52 Type 2 diabetes mellitus with diabetic peripheral angiopathy with gangrene; T65.292A Toxic effect of other tobacco and nicotine, intentional self-harm, initial encounter | CPT/HCPCS: 11042; A6212; G0463 ==

== ENCOUNTER → 2022-06-22 | Outpatient (CLI) | payer MEDICARE, MEDICAID | LOC: WOUNDCARE 09:33 | PROVIDERS: ATTEND Family Medicine | DX: L02.611 Cutaneous abscess of right foot (principal); E11.621 Type 2 diabetes mellitus with foot ulcer; E11.65 Type 2 diabetes mellitus with hyperglycemia; E11.22 Type 2 diabetes mellitus with diabetic chronic kidney disease; N18.6 End stage renal disease; T65.292A Toxic effect of other tobacco and nicotine, intentional self-harm, initial encounter; E55.9 Vitamin D deficiency, unspecified; L03.031 Cellulitis of right toe; E11.52 Type 2 diabetes mellitus with diabetic peripheral angiopathy with gangrene; I96 Gangrene, not elsewhere classified; Z68.27 Body mass index [BMI] 27.0-27.9, adult | CPT/HCPCS: 11042; A6212; G0463 ==

== ENCOUNTER → 2022-07-06 | Outpatient (CLI) | payer MEDICARE, MEDICAID ==
[~2022-07-06] MED LIST changes: +ALBU8.5H6 IH; -RT-ALBUINH IH
== END ==
LOC: WOUNDCARE 08:42
PROVIDERS: ATTEND Family Medicine
DX: L02.611 Cutaneous abscess of right foot (principal); E11.621 Type 2 diabetes mellitus with foot ulcer; N18.6 End stage renal disease; E11.65 Type 2 diabetes mellitus with hyperglycemia; T65.292A Toxic effect of other tobacco and nicotine, intentional self-harm, initial encounter; E55.9 Vitamin D deficiency, unspecified; L03.031 Cellulitis of right toe
CPT/HCPCS: A6212; G0463; 99213

== ENCOUNTER → 2022-07-15 | Outpatient (CLI) | payer MEDICARE, MEDICAID | LOC: WOUNDCARE 08:41 | PROVIDERS: ATTEND Family Medicine | DX: L02.611 Cutaneous abscess of right foot (principal); E11.621 Type 2 diabetes mellitus with foot ulcer; E11.65 Type 2 diabetes mellitus with hyperglycemia; E11.22 Type 2 diabetes mellitus with diabetic chronic kidney disease; N18.6 End stage renal disease; T65.292A Toxic effect of other tobacco and nicotine, intentional self-harm, initial encounter; E55.9 Vitamin D deficiency, unspecified; L03.031 Cellulitis of right toe | CPT/HCPCS: 99212 ==

== ENCOUNTER 2022-07-28 09:46 | Emergency (ER) | payer MEDICARE, MEDICAID ==
[~2022-07-28] VITALS: Ht 167 cm; Wt 74.0 kg
--- NOTE | 2022-07-28 10:20 | ED General ---
General Chief Complaint: Abdominal/GI Problems Stated Complaint: MUSCLE CRAMPS | LT SIDE OF FACE PAIN Nursing Triage Note: PT TO RM 2 BY W/C PT CO OF FREQUENT DIARRHEA SINCE SAT. PT CO OF LEG CRAMPS AND L SIDE FACE AND R EYE VISUAL CHANGES. PT IS A DIALYSIS PT HAS PORT IN R ARM. PT IS A DIALYSIS PT AND DID NOT GO TO DIALYSIS TODAY Source of Information: Patient Exam Limitations: No Limitations History of Present Illness Date Seen by Provider: Jul 28, 2022 Time Seen by Provider: 10:00 Initial Comments Patient is a 66-year-old female with a history of end-stage renal disease on hemodialysis who presents to the emergency room with a chief complaint of all over body cramps and aches. Patient states that she has had this for approximately 2 or 3 days. She is also had significant bouts of diarrhea over the last 24 to 48 hours. She states since she got up this morning she has had diarrhea that is watery about 6 times. She was on antibiotics at the beginning of the month. She states she feels so poorly that she was going to miss her dialysis today. She did dialyze on Tuesday, the normal amount of time. She reports no fevers or chills. She has occasional cough. It is nonproductive. She has a slight runny nose. No earache or sore throat. No abdominal pain with the diarrhea. She still makes urine and endorses no dysuria. No sick contacts that she is aware of. Has not taken anything for the pain. She also endorses a little swelling in her right foot. She had a wound that has been healing very well over the course of the last several months. She was scheduled for an MRI of her foot but missed it due to lack of transportation yesterday. She states that the top of the foot at the base of the second and third toes is a little tender to touch. No open wounds are noted. No overlying erythema. It does appear a little swollen. All other review of systems reviewed and negative except as stated. Timing/Duration: 24 Hours Associated Systoms: Cough Allergies and Home Medications Allergies Coded Allergies: Sulfa (Sulfonamide Antibiotics) (Verified Allergy, Severe, hives, 04/15/21) tramadol (Verified Allergy, Mild, Hives, 10/19/21) Patient reports that she had hives and itching across entire body Patient Home Medication List Home Medication List Reviewed: Yes Acetaminophen (Tylenol) 325 Mg Tablet, 325-650 MG PO Q4- 6H PRN for PAIN-MILD (1-4), (Reported) Entered as Reported by: CARMELITA GOODRICH on 03/12/21957 Acyclovir (Acyclovir) 800 Mg Tablet, 800 MG PO 5XD Prescribed by: MARYAM SOLIZ on 10/28/211837 Albuterol Sulfate (Ventolin Hfa) 18 Gm Hfa.aer.ad, 2 PUFF INH Q4H PRN for SHORTNESS OF BREATH, (Reported) Entered as Reported by: SKYLER ARGUELLO on 10/20/21 105 Amlodipine Besylate (Amlodipine Besylate) 5 Mg Tablet, 5 MG PO DAILY Prescribed by: LISA MARY on 10/23/21 115 Aspirin (Aspirin EC) 81 Mg Tablet.dr, 81 MG PO DAILY Prescribed by: LISA MARY on 10/23/21 115 Atorvastatin Calcium (Atorvastatin Calcium) 40 Mg Tablet, 40 MG PO DAILY, (Reported) Entered as Reported by: SKYLER ARGUELLO on 10/20/21 105 Budesonide/Formoterol Fumarate (Symbicort 160-4.5 Mcg Inhaler) 10.2 Gm Hfa. aer.ad, 2 PUFF INH BID, (Reported) Entered as Reported by: SKYLER ARGUELLO on 10/20/21 105 Clonidine HCl (Clonidine HCl) 0.1 Mg Tablet, 0.1 MG PO BID Prescribed by: LISA MARY on 10/23/21 115 Clopidogrel Bisulfate (Clopidogrel) 75 Mg Tablet, 75 MG PO DAILY, (Reported) Entered as Reported by: CARMELITA GOODRICH on 03/12/21957 Daptomycin (Daptomycin) 500 Mg Vial, 500 MG IV Q48H Prescribed by: LISA MARY on 10/23/21 115 Gabapentin (Neurontin) 300 Mg Capsule, 300 MG PO BID, (Reported) Entered as Reported by: SKYLER ARGUELLO on 10/20/21 105 Hydrocodone/Acetaminophen (Hydrocodone-Acetamin 5-325 mg) 1 Each Tablet, 1 TAB PO Q4H PRN for PAIN-MODERATE (5-7) Prescribed by: MARYAM SOLIZ on 3/2/22 1833 Insulin Glargine,Hum.rec.anlog (Lantus Solostar) 100 Unit/1 Ml Insuln.pen, 15 UNIT SQ BID, (Reported) Entered as Reported by: SKYLER ARGUELLO on 10/20/21 105 Isosorbide Mononitrate (Isosorbide Mononitrate ER) 60 Mg Tab, 60 MG PO DAILY Prescribed by: LISA MARY on 10/23/21 1150 Levothyroxine Sodium (Levothyroxine Sodium) 175 Mcg Tablet, 175 MCG PO DAILY, (Reported) Entered as Reported by: CARMELITA GOODRICH on 03/12/21 0958 Lisinopril (Lisinopril) 20 Mg Tablet, 20 MG PO DAILY, (Reported) Entered as Reported by: SKYLER ARGUELLO on 10/20/21 105 Loratadine (Loratadine) 10 Mg Tablet, 10 MG PO DAILY PRN for ALLERGY SYMPTOMS, (Reported) Entered as Reported by: SKYLER ARGUELLO on 05/26/21 1655 Melatonin (Melatonin) 10 Mg Tablet, 10 MG PO HS PRN for SLEEP, (Reported) Entered as Reported by: SKYLER ARGUELLO on 10/20/21 1208 Metoprolol Tartrate (Metoprolol Tartrate) 25 Mg Tablet, 25 MG PO BID, (Reported) Entered as Reported by: SKYLER ARGUELLO on 10/20/21 1208 Nicotine (Nicotine Patch) 1 Each Patch.td24, 1 PATCH TD DAILY, (Reported) Entered as Reported by: SKYLER ARGUELLO on 10/20/21 105 Pantoprazole Sodium (Pantoprazole Sodium) 40 Mg Tablet.dr, 40 MG PO DAILY, (Reported) Entered as Reported by: CARMELITA GOODRICH on 03/12/21 09 Semaglutide (Ozempic) 0.25 Mg/0.2 Ml Pen.injctr, 0.25 MG SQ SUN, (Reported) Entered as Reported by: SKYLER ARGUELLO on 10/20/21 105 Sertraline HCl (Sertraline HCl) 100 Mg Tablet, 100 MG PO DAILY, (Reported) Entered as Reported by: OCTAVIO ARENAS on 03/11/213 Sumatriptan Succinate (Sumatriptan Succinate) 50 Mg Tablet, 50 MG PO UD PRN for MIGRAINE, (Reported) Entered as Reported by: SKYLER ARGUELLO on 10/20/21 1057 Trazodone HCl (Trazodone HCl) 100 Mg Tablet, 100 MG PO HS PRN for SLEEP, (Re ported) Entered as Reported by: OCTAVIO ARENAS on 03/11/212147 Review of Systems Review of Systems Constitutional: malaise, weakness EENTM: nose congestion (runny nose) Respiratory: cough Cardiovascular: no symptoms reported Gastrointestinal: no symptoms reported Genitourinary: no symptoms reported Musculoskeletal: other (body aches all over - multiple joints) Skin: no symptoms reported All Other Systems Reviewed Negative Unless Noted: Yes Past Maywltt-Kddnug-Lgzghk Hx Patient Social History Tobacco Use?: Yes Tobacco type used: Cigarettes Smoking Status: Current Everyday Smoker Substance use?: No Alcohol Use?: No Pt feels they are or have been: Yes Immunizations Up To Date Tetanus Booster (TDap): Unknown Influenza Vaccine Up-to-Date: Yes; Up-to-Date First/Initial COVID19 Vaccinat: YES Second COVID19 Vaccination Burak: YES Third COVID19 Vaccination Date: 2020 COVID19 Vaccine Web Solutions Architect: REYNA Seasonal Allergies Seasonal Allergies: Yes Past Medical History Surgery/Hospitalization HX: DIALYSIS, DIABETES, ORTHO HARDWARE L ANKLE Surgeries: Yes (right elbow, left ankle, right rotator cuff, right hip, ear tubes) Orthopedic Respiratory: Yes Sleep Apnea Currently Using CPAP: No Cardiac: Yes Coronary Artery Disease, High Cholesterol, Hypertension Neurological: Yes Headaches /Migraines, Neuropathy Genitourinary: Yes Renal Failure Gastrointestinal: No Gastroesophageal Reflux Musculoskeletal: Yes Arthritis Endocrine: Yes Diabetes, Insulin dep HEENT: Yes (decreased vision due to DM) Loss of Vision: Bilateral Hearing Impairment: Denies Cancer: Yes Skin Did You Recieve Any Treatments: Yes What Type of Treatment Did You: Surgical Intervention Anxiety, Bipolar, Depression Integumentary: Yes Eczema Blood Disorders: Yes (Hep C) Family Medical History No Pertinent Family Hx Physical Exam Vital Signs Vital Signs - First Documented 07/28/22 09:50 Pulse 59 Resp 18 B/P (MAP) 117/78 (91) Pulse Ox 99 Capillary Refill : Less Than 3 Seconds Height, Weight, BMI Height: '" Weight: lbs. oz. kg; 26.00 BMI Method: General Appearance: No Apparent Distress, WD/WN Eyes: Bilateral Eye Normal Inspection, Bilateral Eye PERRL, Bilateral Eye EOMI HEENT: PERRL/EOMI Neck: Normal Inspection Respiratory: Lungs Clear, Normal Breath Sounds, No Accessory Muscle Use, No Respiratory Distress Cardiovascular: Regular Rate, Rhythm, Normal Peripheral Pulses, Other (thrill at AV fistula on the RUE) Gastrointestinal: Soft Extremity: Normal Capillary Refill, Normal Inspection, Normal Range of Motion, Non Tender, No Calf Tenderness, No Pedal Edema, Swelling (slight swelling dorsum right foot) Neurologic/Psychiatric: Alert, Oriented x3, No Motor/Sensory Deficits, Normal Mood/Affect, investigator claims II-XII Norm as Tested Skin: Normal Color, Warm/Dry Progress/Results/Core Measures Suspected Sepsis SIRS Temperature: Pulse: 59 Respiratory Rate: 18 Laboratory Tests 07/28/22 10:00: White Blood Count 4.1L Blood Pressure 117 /78 Mean: 91 Laboratory Tests 07/28/22 10:00: Creatinine 5.68H, Platelet Count 159 Results/Orders Lab Results Laboratory Tests Test 07/28/22 10:00 07/28/22 10:24 07/28/22 12:11 Range/Units White Blood Count 4.1 L 4.3-11.0 10^3/uL Red Blood Count 3.55 L 3.80-5.11 10^6/uL Hemoglobin 11.0 L 11.5-16.0 g/dL Hematocrit 33 L 35-52 % Mean Corpuscular Volume 92 80-99 fL Mean Corpuscular Hemoglobin 31 25-34 pg Mean Corpuscular Hemoglobin Concent 34 32-36 g/dL Red Cell Distribution Width 15.3 H 10.0-14.5 % Platelet Count 159 130-400 10^3/uL Mean Platelet Volume 10.0 9.0-12.2 fL Immature Granulocyte % (Auto) 1 % Neutrophils (%) (Auto) 64 42-75 % Lymphocytes (%) (Auto) 26 12-44 % Monocytes (%) (Auto) 7 0-12 % Eosinophils (%) (Auto) 1 0-10 % Basophils (%) (Auto) 1 0-10 % Neutrophils # (Auto) 2.6 1.8-7.8 10^3/uL Lymphocytes # (Auto) 1.1 1.0-4.0 10^3/uL Monocytes # (Auto) 0.3 0.0-1.0 10^3/uL Eosinophils # (Auto) 0.0 0.0-0.3 10^3/uL Basophils # (Auto) 0.0 0.0-0.1 10^3/uL Immature Granulocyte # (Auto) 0.0 0.0-0.1 10^3/uL Sodium Level 131 L 135-145 MMOL/L Potassium Level 3.9 3.6-5.0 MMOL/L Chloride Level 93 L 98-107 MMOL/L Carbon Dioxide Level 22 21-32 MMOL/L Anion Gap 16 H 5-14 MMOL/L Blood Urea Nitrogen 35 H 7-18 MG/DL Creatinine 5.68 H 0.60-1.30 MG/DL Estimat Glomerular Filtration Rate 8 BUN/Creatinine Ratio 6 Glucose Level 81 70-105 MG/DL Calcium Level 8.9 8.5-10.1 MG/DL Stool Occult Blood Immunoassay NEGATIVE NEGATIVE Influenza Type A (RT-PCR) Not Detected Not Detecte Influenza Type B (RT-PCR) Not Detected Not Detecte SARS-CoV-2 RNA (RT-PCR) Detected H Not Detecte Micro Results Microbiology 07/28/22 C. difficile GDH Antigen & Toxins - Final, Resulted 07/28/22 Stool Culture, Resulted Pending My Orders Orders - SEAMUS VILLAREAL MD Ed Iv/Invasive Line Start (07/28/22 10:19) Cbc With Automated Diff (07/28/22 10:19) Basic Metabolic Panel (07/28/22 10:19) Occult Blood Stool (07/28/22 10:20) Stool Culture (07/28/22 10:20) C Difficile Ag + Toxin A/B. (07/28/22 10:20) Isolation Central Supply Req (07/28/22 10:20) Covid 19 Inhouse Test (07/28/22 11:10) Influenza A And B By Pcr (07/28/22 11:10) Isolation Central Supply Req (07/28/22 11:10) Orphenadrine Inj (Ed Only) (Norflex Inje (07/28/22 11:15) Hydrocodone/Apap 5/325 Tablet (Lortab 5 (07/28/22 13:00) Medications Given in ED Current Medications Medications Dose Ordered Sig/Emerita Route Start Time Stop Time Status Last Admin Dose Admin Orphenadrine Citrate 30 mg ONCE ONCE IV 07/28/22 11:15 07/28/22 11:16 DC 07/28/22 11:35 30 MG Vital Signs/I&O 07/28/22 09:50 Pulse 59 Resp 18 B/P (MAP) 117/78 (91) Pulse Ox 99 Capillary Refill : Less Than 3 Seconds Blood Pressure Mean: 91 Progress Note : Time: 12:46 Progress Note Lab called and advised that patient's COVID is POSITIVE; she is 3 days symptmatic therefore not a good candidate for Paxlovid. She is basically asymptomatic except for body aches. Will give her a small script for hydrocodone. return precautions given. Labs at her baseline for renal failure. Not hypoxic. No increased work of breathing. Departure Impression Primary Impression: COVID-19 Disposition: 01 HOME, SELF-CARE Condition: Stable Departure-Patient Inst. Decision time for Depature: 13:05 Referrals: NICK ROTH APRN (PCP) Primary Care Physician [facility] (Family) Primary Care Physician Patient Instructions: COVID-19 ED Add. Discharge Instructions: drink fluids to stay well hydrated - within parameters of dialysis. Continue your daily medications as prescribed. Hydrocodone 5mg every 6 hours as needed for body aches. Be sure and call the dialysis center and let them know you are covid positive. If you develop high fever, difficulty with shortness of breath, or any other emergent, concerning symptoms, please come back to the Emergency Department for re-evaluation. Stool softeners while needing to take the hydrocodone. Scripts Hydrocodone/Acetaminophen (Hydrocodone-Acetamin 5-325 mg) 5 Mg-325 Mg Tablet 1 TAB PO Q6H PRN for PAIN-MODERATE (5-7), #10 TAB Prov: SEAMUS VILLAREAL MD 07/28/22 SEAMUS VILLAREAL MD Jul 28, 2022 10:20
[2022-07-28 10:26] LABS: BASOPHILS % (AUTO) 1 % (0-10); EOSINOPHILS % (AUTO) 1 % (0-10); HEMATOCRIT 33 % (35-52); LYMPHOCYTES # (AUTO) 1.1 10^3/uL (1.0-4.0); LYMPHOCYTES % (AUTO) 26 % (12-44); MEAN CORPUSCULAR HEMOGLOBIN 31 pg (25-34); MEAN CORPUSCULAR HGB CONC 34 g/dL (32-36); MEAN CORPUSCULAR VOLUME 92 fL (80-99); MONOCYTES # (AUTO) 0.3 10^3/uL (0.0-1.0); MONOCYTES % (AUTO) 7 % (0-12); NEUTROPHILS # (AUTO) 2.6 10^3/uL (1.8-7.8); NEUTROPHILS % (AUTO) 64 % (42-75); PLATELET COUNT 159 10^3/uL (130-400); WHITE BLOOD COUNT 4.1 10^3/uL (4.3-11.0)
[2022-07-28 10:42] LABS: CALCIUM 8.9 MG/DL (8.5-10.1); CREATININE SERUM 5.68 MG/DL (0.60-1.30); POTASSIUM 3.9 MMOL/L (3.6-5.0)
[2022-07-28] MEDS ORDERED: ORPHENADRINE 60 MG/2 ML (NORFLEX) AMP (ED ONLY) IV ONE (11:15)
[2022-07-28] MEDS ORDERED: HYDROcodone/APAP 5 MG/325 MG (LORTAB) TAB PO ONE (13:00)
[2022-07-28] MEDS ORDERED: ACHD5005 PO (13:09)
[2022-07-28 13:27] VITALS: BP 117/78
== END 2022-07-28 13:27 | disposition home or self-care (01) ==
LOC: EDUNIT# 09:46 → ER 09:47
DX: U07.1 COVID-19 (principal); I12.0 Hypertensive chronic kidney disease with stage 5 chronic kidney disease or end stage renal disease; E11.22 Type 2 diabetes mellitus with diabetic chronic kidney disease; N18.6 End stage renal disease; F17.210 Nicotine dependence, cigarettes, uncomplicated; Z88.5 Allergy status to narcotic agent; Z99.2 Dependence on renal dialysis
CPT/HCPCS: 36415; 80048; 82274; 85025; 87015; 87045; 87046; 87324; 87449; 87636; 87899

== ENCOUNTER 2022-09-15 11:20 | Emergency (ER) | payer MEDICARE, MEDICAID ==
[~2022-09-15] VITALS: Ht 168 cm; Wt 78.0 kg
[2022-09-15 11:38] VITALS: BP 139/86
--- NOTE | 2022-09-15 12:37 | ED Lower Extremity ---
General Chief Complaint: Lower Extremity Stated Complaint: RT LEG PAIN Nursing Triage Note: Patient ambulatory to ER w c/o right leg pain. Patient states she had a right hip surgery approx a year ago. Pain started yesterday AM. hx of kidney disease, hep C, and heart disease. Patient states she has not taken anything for the pain. Hot water helps with the pain. Source: patient Exam Limitations: no limitations History of Present Illness Date Seen by Provider: Sep 15, 2022 Time Seen by Provider: 12:15 Initial Comments Patient is a 67-year-old female with a history of coronary artery disease status post bypass, end-stage renal disease on hemodialysis Tuesday who presents to the emergency room with a chief complaint of right leg pain. Patient states pain started yesterday, Tuesday evening. She denies any trauma, twist or falls. She has history of right hip surgery approximately a year ago. She did go to dialysis this morning but stopped 40 minutes early due to the pain in her right leg. She states the pain starts in the groin, radiates down the le g to the knee. She denies numbness, weakness or tingling. She has not taken any medication for the pain. She has tried a hot shower with minimal relief of symptoms. Currently rates her pain at a "9". Denies any recent infections to the leg, no swelling. No cramping in her calf. She denies urinary complaints, diarrhea. She occasionally is constipated. Has not had hysterectomy. All other review of systems reviewed and negative except as stated Onset: other (1-2 days) Pain/Injury Location: right thigh (groin and thigh) Method of Injury: unknown Modifying Factors: Worse With Movement Allergies and Home Medications Allergies Coded Allergies: Sulfa (Sulfonamide Antibiotics) (Verified Allergy, Severe, hives, 04/15/21) tramadol (Verified Allergy, Mild, Hives, 10/19/21) Patient reports that she had hives and itching across entire body Patient Home Medication List Home Medication List Reviewed: Yes Acetaminophen (Tylenol) 325 Mg Tablet, 325-650 MG PO Q4- 6H PRN for PAIN-MILD (1-4), (Reported) Entered as Reported by: CARMELITA GOODRICH on 03/12/21 0949 Acyclovir (Acyclovir) 800 Mg Tablet, 800 MG PO 5XD Prescribed by: MARYAM SOLIZ on 10/28/21 183 Albuterol Sulfate (Ventolin Hfa) 18 Gm Hfa.aer.ad, 2 PUFF INH Q4H PRN for SHORTNESS OF BREATH, (Reported) Entered as Reported by: SKYLER ARGUELLO on 10/20/21 105 Amlodipine Besylate (Amlodipine Besylate) 5 Mg Tablet, 5 MG PO DAILY Prescribed by: LISA MARY on 10/23/21 115 Aspirin (Aspirin EC) 81 Mg Tablet.dr, 81 MG PO DAILY Prescribed by: LISA MARY on 10/23/21 115 Atorvastatin Calcium (Atorvastatin Calcium) 40 Mg Tablet, 40 MG PO DAILY, (Reported) Entered as Reported by: SKYLER ARGUELLO on 10/20/21 105 Budesonide/Formoterol Fumarate (Symbicort 160-4.5 Mcg Inhaler) 10.2 Gm Hfa.aer.a d, 2 PUFF INH BID, (Reported) Entered as Reported by: SKYLER ARGUELLO on 10/20/21 105 Clonidine HCl (Clonidine HCl) 0.1 Mg Tablet, 0.1 MG PO BID Prescribed by: LISA MARY on 10/23/21 115 Clopidogrel Bisulfate (Clopidogrel) 75 Mg Tablet, 75 MG PO DAILY, (Reported) Entered as Reported by: CARMELITA GOODRICH on 03/12/21 0958 Daptomycin (Daptomycin) 500 Mg Vial, 500 MG IV Q48H Prescribed by: LISA MARY on 10/23/21 115 Gabapentin (Neurontin) 300 Mg Capsule, 300 MG PO BID, (Reported) Entered as Reported by: SKYLER ARGUELLO on 10/20/21 105 Hydrocodone/Acetaminophen (Hydrocodone-Acetamin 5-325 mg) 1 Each Tablet, 1 TAB PO Q4H PRN for PAIN-MODERATE (5-7) Prescribed by: MARYAM SOLIZ on 10/28/21 183 Hydrocodone/Acetaminophen (Hydrocodone-Acetamin 5-325 mg) 5 Mg-325 Mg Tablet, 1 TAB PO Q6H PRN for PAIN-MODERATE (5-7) Prescribed by: SEAMUS VILLAREAL on 07/28/22 1310 Insulin Glargine,Hum.rec.anlog (Lantus Solostar) 100 Unit/1 Ml Insuln.pen, 15 UNIT SQ BID, (Reported) Entered as Reported by: SKYLER ARGUELLO on 10/20/21 105 Isosorbide Mononitrate (Isosorbide Mononitrate ER) 60 Mg Tab, 60 MG PO DAILY Prescribed by: LISA MARY on 10/23/21 1150 Levothyroxine Sodium (Levothyroxine Sodium) 175 Mcg Tablet, 175 MCG PO DAILY, (Reported) Entered as Reported by: CARMELITA GOODRICH on 03/12/21 0958 Lisinopril (Lisinopril) 20 Mg Tablet, 20 MG PO DAILY, (Reported) Entered as Reported by: SKYLER ARGUELLO on 10/20/21 105 Loratadine (Loratadine) 10 Mg Tablet, 10 MG PO DAILY PRN for ALLERGY SYMPTOMS, (Reported) Entered as Reported by: SKYLER ARUGELLO on 05/26/21 1655 Melatonin (Melatonin) 10 Mg Tablet, 10 MG PO HS PRN for SLEEP, (Reported) Entered as Reported by: SKYLER ARGUELLO on 10/20/21 1208 Metoprolol Tartrate (Metoprolol Tartrate) 25 Mg Tablet, 25 MG PO BID, (Reported) Entered as Reported by: SKYLER ARGUELLO on 10/20/21 1208 Nicotine (Nicotine Patch) 1 Each Patch.td24, 1 PATCH TD DAILY, (Reported) Entered as Reported by: SKYLER ARGUELLO on 10/20/21 105 Pantoprazole Sodium (Pantoprazole Sodium) 40 Mg Tablet.dr, 40 MG PO DAILY, (Reported) Entered as Reported by: CARMELITA GOODRICH on 03/12/21 0958 Semaglutide (Ozempic) 0.25 Mg/0.2 Ml Pen.injctr, 0.25 MG SQ SUN, (Reported) Entered as Reported by: SKYLER ARGUELLO on 10/20/21 105 Sertraline HCl (Sertraline HCl) 100 Mg Tablet, 100 MG PO DAILY, (Reported) Entered as Reported by: OCTAVIO ARENAS on 03/11/212147 Sumatriptan Succinate (Sumatriptan Succinate) 50 Mg Tablet, 50 MG PO UD PRN for MIGRAINE, (Reported) Entered as Reported by: SKYLER ARGUELLO on 10/20/21 1057 Trazodone HCl (Trazodone HCl) 100 Mg Tablet, 100 MG PO HS PRN for SLEEP, (Reported) Entered as Reported by: OCTAVIO ARENAS on 03/11/212147 Review of Systems Constitutional: see HPI EENTM: no symptoms reported Respiratory: no symptoms reported Cardiovascular: no symptoms reported Gastrointestinal: no symptoms reported Genitourinary: no symptoms reported Musculoskeletal: joint pain (right groin/hip and thigh to knee) Skin: no symptoms reported Psychiatric/Neurological: Denies Numbness, Denies Paresthesia, Denies Weakness All Other Systems Reviewed Negative Unless Noted: Yes Past Yamzjgv-Zrncwk-Allzrr Hx Patient Social History Tobacco Use?: Yes Tobacco type used: Cigarettes Smoking Status: Current Everyday Smoker Substance use?: No Alcohol Use?: No Immunizations Up To Date Tetanus Booster (TDap): Unknown First/Initial COVID19 Vaccinat: YES Second COVID19 Vaccination Burak: YES Third COVID19 Vaccination Date: 2020 COVID19 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: [employer] Seasonal Allergies Seasonal Allergies: Yes Past Medical History Surgery/Hospitalization HX: DIALYSIS, DIABETES, ORTHO HARDWARE L ANKLE Surgeries: Yes (right elbow, left ankle, right rotator cuff, right hip, ear tubes) Orthopedic Respiratory: Yes Sleep Apnea Currently Using CPAP: No Cardiac: Yes Coronary Artery Disease, High Cholesterol, Hypertension Neurological: Yes Headaches /Migraines, Neuropathy Genitourinary: Yes Renal Failure Gastrointestinal: No Gastroesophageal Reflux Musculoskeletal: Yes Arthritis Endocrine: Yes Diabetes, Insulin dep HEENT: Yes (decreased vision due to DM) Loss of Vision: Bilateral Hearing Impairment: Denies Cancer: Yes Skin Did You Recieve Any Treatments: Yes What Type of Treatment Did You: Surgical Intervention Anxiety, Bipolar, Depression Integumentary: Yes Eczema Blood Disorders: Yes (Hep C) Family Medical History No Pertinent Family Hx Physical Exam Vital Signs Vital Signs - First Documented 09/15/22 11:38 Temp 36.3 Pulse 70 Resp 20 B/P (MAP) 139/86 (103) Pulse Ox 97 O2 Delivery Room Air Capillary Refill : Less Than 3 Seconds Height, Weight, BMI Height: '" Weight: lbs. oz. kg; 27.00 BMI Method: General Appearance: WD/WN, no apparent distress HEENT: PERRL/EOMI Cardiovascular: regular rate, rhythm, systolic murmur Respiratory: lungs clear, normal breath sounds, no respiratory distress, no accessory muscle use Gastrointestinal: normal bowel sounds, non tender, soft Hips: right hip non-tender, right hip normal inspection, right hip pain (right groin, "fullness" no discrete LAD palpated. Very TTP; tender down the medial right thigh to the knee; distal pulses right foot intact, both DP and PT; right foot is warm. No rashes/lesions.) Legs: bilateral leg non-tender, bilateral leg normal inspection, bilateral leg normal range of motion, bilateral leg no evidence of injury Knees: bilateral knee non-tender, bilateral knee normal inspection, bilateral knee normal range of motion, bilateral knee no evidence of injury Ankles: bilateral ankle non-tender, bilateral ankle normal inspection, bilateral ankle normal range of motion, bilateral ankle no evidence of injury Feet: bilateral foot non-tender, bilateral foot normal inspection, bilateral foot normal range of motion, bilateral foot no evidence of injury Neurologic/Tendon: normal sensation, normal motor functions, normal tendon functions Neurologic/Psychiatric: alert, normal mood/affect, oriented x 3 Skin: normal color, warm/dry, other (no skin lesions to abdomen) Progress/Results/Core Measures Results/Orders My Orders Orders - SEAMUS IVLLAREAL MD Hydrocodone/Apap 5/325 Tablet (Lortab 5 (09/15/22 12:45) Acetaminophen Tablet (Tylenol Tablet) (09/15/22 12:45) Us Venous Lower Ext Rt (09/15/22 12:31) Medications Given in ED Current Medications Medications Dose Ordered Sig/Emerita Route Start Time Stop Time Status Last Admin Dose Admin Acetaminophen 500 mg ONCE ONCE PO 09/15/22 12:45 09/15/22 12:46 DC 09/15/22 12:43 500 MG Acetaminophen/ Hydrocodone Bitart 1 ea ONCE ONCE PO 09/15/22 12:45 09/15/22 12:46 DC 09/15/22 12:42 1 EA Vital Signs/I&O 09/15/22 11:38 Temp 36.3 Pulse 70 Resp 20 B/P (MAP) 139/86 (103) Pulse Ox 97 O2 Delivery Room Air Blood Pressure Mean: 103 Progress Progress Note : Time: 13:30 Progress Note Patient's DVT study of the RLE negative for clot in the leg. She does have a barrett (<1cm) lymph node in the inguinal region. No concern for abnormal fluid collection/abscess. Patient has no complaints of Abdominal pain, N/V/D (no concerns for inguinal hernia) causing her groin and thigh pain. No fevers, chills. No abnormal VS. No arterial blood flow concerns to the RLE based on exam alone. No clinical indication for blood work evaluation. Patient is treated with Hydrocodone and tylenol. SOme relief of symptoms. Suspect possibly some reactive LAD causing this discomfort. Will recc warm compresses and pain medications (tylenol and or ibuprofen), careful and close follow up and return precautions. Diagnostic Imaging Diagonstic Imaging: Ultrasound Comments NAME: POOJA KONG [employer] REC#: [id number] PT STATUS: REG ER : 1955 PHYSICIAN: SEAMUS VILLAREAL MD ADMIT DATE: 09/15/22/ER Draft Date of Exam:09/15/22 US VENOUS LOWER EXT RT EXAMINATION: US Right Lower Extremity Venous Duplex. TECHNIQUE: Multiple real-time grayscale images were obtained over the right lower extremity in various projections. Additional spectral analysis and color Doppler duplex images were also obtained. HISTORY: Right leg pain. COMPARISON: None available. FINDINGS: The right common femoral vein, deep femoral vein, superficial femoral vein and popliteal vein are patent with normal haile scale and doppler appearance. There is normal respiratory variation and augmentation. IMPRESSION: 1. No DVT of the right lower extremity. Dictated on workstation # [id number] Dict: 09/15/22 1334 Trans: 09/15/22 1335 CVB [id number] Interpreted by: RUBENS CASTANEDA DO Electronically signed by: Departure Impression Primary Impression: Right groin pain Disposition: HOME, SELF-CARE Condition: Stable Departure-Patient Inst. Referrals: NICK ROTH APRN (PCP) Primary Care Physician [facility] (Family) Primary Care Physician Patient Instructions: Acute Pain, Adult (DC) Add. Discharge Instructions: Monitor your groin for swelling, redness, worsening pain. If any of these develop, please come back to the Emergency Department for re-evaluation; or follow up with your primary care provider. You can use warm compresses to the area for pain relief, as well as over the counter Tylenol - extra strength, 2 tablets every 6 hours for pain. If you develop any other emergent, concerning symptoms, such as abdominal pain, vomiting, blood in urine or stool - please come back for re-evaluation. Copy Copies To 1: NAZIA KEITA KATHRYN M MD Sep 15, 2022 12:37
[2022-09-15] MEDS ORDERED: ACETAMINOPHEN 500 MG TAB (TYLENOL) PO ONE (12:45)
[2022-09-15] MEDS ORDERED: HYDROcodone/APAP 5 MG/325 MG (LORTAB) TAB PO ONE (12:45)
--- NOTE | 2022-09-15 13:36 | Diagnostic Imaging Report ---
EXAMINATION: US Right Lower Extremity Venous Duplex. TECHNIQUE: Multiple real-time grayscale images were obtained over the right lower extremity in various projections. Additional spectral analysis and color Doppler duplex images were also obtained. HISTORY: Right leg pain. COMPARISON: None available. FINDINGS: The right common femoral vein, deep femoral vein, superficial femoral vein and popliteal vein are patent with normal haile scale and doppler appearance. There is normal respiratory variation and augmentation. IMPRESSION: 1. No DVT of the right lower extremity. Dictated by: Dictated on workstation # [id number]
== END 2022-09-15 13:57 | disposition home or self-care (01) ==
LOC: EDUNIT# 11:20 → ER 11:24
DX: M79.651 Pain in right thigh (principal); I12.0 Hypertensive chronic kidney disease with stage 5 chronic kidney disease or end stage renal disease; E11.22 Type 2 diabetes mellitus with diabetic chronic kidney disease; N18.6 End stage renal disease; Z99.2 Dependence on renal dialysis; F17.210 Nicotine dependence, cigarettes, uncomplicated; Z88.5 Allergy status to narcotic agent; Z20.822 Contact with and (suspected) exposure to COVID-19

== ENCOUNTER → 2022-09-21 | Outpatient (CLI) | payer MEDICARE, MEDICAID ==
--- NOTE | 2022-09-21 14:32 | Diagnostic Imaging Report ---
INDICATION: Right hip pain. COMPARISON: None available. TECHNIQUE: Two radiographs of the right hip dated 09/21/2022. FINDINGS: Dynamic screw and plate fixation of the proximal right femur is identified, which is transfixing a mildly impacted chronic right femoral neck fracture. No evidence of hardware complication. No acute fracture or dislocation. No destructive osseous process. Minimal degenerative changes of the right hip. Advanced background vascular calcifications. IMPRESSION: Postsurgical changes involving the proximal right femur without hardware complication or acute osseous abnormality. Minimal degenerative changes of the right hip. Advanced background vascular calcifications. Dictated by: Dictated on workstation # [id number]
--- NOTE | 2022-09-21 14:56 | Diagnostic Imaging Report ---
INDICATION: Right knee pain. COMPARISON: None available. TECHNIQUE: Four radiographs of the right knee dated 09/21/2022. FINDINGS: No acute fracture or dislocation. No destructive osseous process. Minimal medial and lateral joint space narrowing. No significant osteophytosis. No knee joint effusion. No suspicious radiopaque foreign body. Moderate background vascular calcifications. IMPRESSION: No acute osseous abnormality with minimal degenerative changes and moderate background vascular calcifications present. Dictated by: Dictated on workstation # [id number]
== END ==
LOC: RAD FS 11:26
PROVIDERS: ATTEND Nurse Practitioner Family
DX: M25.861 Other specified joint disorders, right knee (principal); M61.451 Other calcification of muscle, right thigh
CPT/HCPCS: 73502; 73562

== ENCOUNTER → 2022-10-26 | Outpatient (CLI) | payer MEDICARE, MEDICAID ==
--- NOTE | 2022-10-26 11:27 | Diagnostic Imaging Report ---
EXAMINATION: Right ankle radiographs, 3 views. COMPARISON: None. HISTORY: 67-year-old female, right ankle pain, wound. FINDINGS: There is degenerative type calcaneal enthesopathy. There are vascular related calcifications. There is no tibiotalar joint effusion. Alignment of the ankle mortise is unremarkable. There is no identified acute fracture. IMPRESSION: 1. No acute bony abnormality of the right ankle. 2. Degenerative type calcaneal enthesopathy. Dictated by: Dictated on workstation # [id number]
--- NOTE | 2022-10-26 15:43 | Diagnostic Imaging Report ---
INDICATION: Pain COMPARISON: 06/10/2022 TECHNIQUE: 3 radiographs of the right foot dated 10/26/2022. FINDINGS: No acute fracture or dislocation. No destructive osseous process. Focal soft tissue swelling with potential soft tissue gas is noted medial to the 1st MTP joint as well as involving the 1st and 2nd digit interspace. No suspicious radiopaque foreign body. The Lisfranc joint is well-aligned. Background vascular calcifications. Small posterior and plantar calcaneal enthesophytes. IMPRESSION: No acute fracture with mild degenerative changes. Soft tissue irregularity with potential soft tissue gas medial to the 1st MTP joint and between the 1st and 2nd digit interspace. This could relate to a soft tissue wound and/or infection. No suspicious radiopaque foreign body or definite osseous destruction. If there is clinical concern for underlying osteomyelitis, then follow-up radiographs in 10-14 days would be recommended. Dictated by: Dictated on workstation # [id number]
== END ==
LOC: RAD FS 10:26
PROVIDERS: ATTEND Nurse Practitioner Family
DX: M77.31 Calcaneal spur, right foot (principal); L97.511 Non-pressure chronic ulcer of other part of right foot limited to breakdown of skin; Z99.2 Dependence on renal dialysis
CPT/HCPCS: 73610; 73630

== ENCOUNTER → 2022-11-04 | Outpatient (CLI) | payer MEDICARE, MEDICAID | LOC: WOUNDCARE 09:09 | PROVIDERS: ATTEND Family Medicine | DX: L02.611 Cutaneous abscess of right foot (principal); E11.621 Type 2 diabetes mellitus with foot ulcer; I70.235 Atherosclerosis of native arteries of right leg with ulceration of other part of foot; E11.40 Type 2 diabetes mellitus with diabetic neuropathy, unspecified; M14.671 Charcot's joint, right ankle and foot; E11.22 Type 2 diabetes mellitus with diabetic chronic kidney disease; N18.6 End stage renal disease; I25.10 Atherosclerotic heart disease of native coronary artery without angina pectoris | CPT/HCPCS: 11042; 87070; 87205 ==

== ENCOUNTER → 2022-11-16 | Outpatient (CLI) | payer MEDICARE, MEDICAID ==
--- NOTE | 2022-11-16 13:15 | Diagnostic Imaging Report ---
PROCEDURE: MRI right lower extremity without contrast. TECHNIQUE: Multiplanar, multisequence non contrast-enhanced MRI of the right lower extremity was accomplished. INDICATION: Ulcer in the dorsal right foot. COMPARISON: Radiographs from 10/26/2022 FINDINGS: No acute fracture is seen in the imaged right foot. There is a bone island at the 1st metatarsal head. There is mild bone marrow edema in the great toe proximal phalangeal shaft with no T1-weighted marrow replacement seen. There are moderate degenerative changes in the 1st MTP joint. There are mild degenerative changes in the interphalangeal joints. No significant joint effusion is seen. There is a soft tissue ulceration at the medial and plantar to the great toe proximal phalanx, with underlying collection measuring about 1.8 x 0.7 cm on coronal imaging and 1.6 cm craniocaudal. This has a heterogeneous fluid signal and appears isointense to muscle on T1-weighted imaging. This is concerning for abscess. This lies superficial to the flexor tendon. There is a focus of susceptibility artifact plantar to the proximal phalangeal shaft. An MRI marker is seen plantar to the 1st metatarsal head. There is generalized muscular atrophy and edema, which is likely neurogenic. Flexor and extensor tendons appear intact. The Lisfranc ligament is intact. IMPRESSION: 1. Soft tissue ulcerations at the plantar right great toe with underlying heterogeneous fluid collection concerning for abscess. 2. Osteitis of the right great toe proximal phalanx without findings of osteomyelitis at this time. 3. Focus of susceptibility artifact plantar to the great toe proximal phalanx, could be external to the patient or may be a foreign body. No definite correlate is seen on the recent radiographs. Dictated by: Dictated on workstation # [id number]
--- NOTE | 2022-11-16 14:22 | Diagnostic Imaging Report ---
HISTORY: Diabetes mellitus with skin complications, foot ulcer. COMPARISON: None TECHNIQUE: Doppler imaging of bilateral lower extremities to evaluate ankle brachial indices. FINDINGS: The right ankle-brachial index measures 0.7 and the left measures 1.25. The right toe brachial index is 0.69 and the left 0.78. IMPRESSION:. Right CLOVER consistent with moderate arterial disease. Normal left CLOVER. Dictated by: Dictated on workstation # [id number]
== END ==
LOC: RAD 10:01
PROVIDERS: ATTEND Family Medicine
DX: E11.621 Type 2 diabetes mellitus with foot ulcer (principal); I70.235 Atherosclerosis of native arteries of right leg with ulceration of other part of foot; L02.611 Cutaneous abscess of right foot; E11.65 Type 2 diabetes mellitus with hyperglycemia; N18.6 End stage renal disease; T65.292A Toxic effect of other tobacco and nicotine, intentional self-harm, initial encounter; E55.9 Vitamin D deficiency, unspecified; L03.031 Cellulitis of right toe; E11.22 Type 2 diabetes mellitus with diabetic chronic kidney disease; E11.40 Type 2 diabetes mellitus with diabetic neuropathy, unspecified; M14.671 Charcot's joint, right ankle and foot; I25.10 Atherosclerotic heart disease of native coronary artery without angina pectoris
CPT/HCPCS: 93923

== ENCOUNTER → 2022-11-18 | Outpatient (CLI) | payer MEDICARE, MEDICAID | LOC: WOUNDCARE 09:26 | PROVIDERS: ATTEND Family Medicine | DX: L97.522 Non-pressure chronic ulcer of other part of left foot with fat layer exposed (principal); L02.611 Cutaneous abscess of right foot; E11.621 Type 2 diabetes mellitus with foot ulcer; I70.235 Atherosclerosis of native arteries of right leg with ulceration of other part of foot; E11.40 Type 2 diabetes mellitus with diabetic neuropathy, unspecified; E11.610 Type 2 diabetes mellitus with diabetic neuropathic arthropathy; I25.10 Atherosclerotic heart disease of native coronary artery without angina pectoris; E11.52 Type 2 diabetes mellitus with diabetic peripheral angiopathy with gangrene; I96 Gangrene, not elsewhere classified | CPT/HCPCS: 11042 ==

== ENCOUNTER → 2022-12-14 | Outpatient (CLI) | payer MEDICARE, MEDICAID | LOC: WOUNDCARE 13:09 | PROVIDERS: ATTEND Family Medicine | DX: L02.611 Cutaneous abscess of right foot (principal); E11.621 Type 2 diabetes mellitus with foot ulcer; I70.235 Atherosclerosis of native arteries of right leg with ulceration of other part of foot; E11.40 Type 2 diabetes mellitus with diabetic neuropathy, unspecified; M14.671 Charcot's joint, right ankle and foot; E11.22 Type 2 diabetes mellitus with diabetic chronic kidney disease; N18.6 End stage renal disease; I25.10 Atherosclerotic heart disease of native coronary artery without angina pectoris; L97.522 Non-pressure chronic ulcer of other part of left foot with fat layer exposed; E11.52 Type 2 diabetes mellitus with diabetic peripheral angiopathy with gangrene | CPT/HCPCS: 11042 ==

== ENCOUNTER → 2023-01-04 | Outpatient (CLI) | payer MEDICARE, MEDICAID | LOC: WOUNDCARE 08:34 | PROVIDERS: ATTEND Family Medicine | DX: L02.611 Cutaneous abscess of right foot (principal); L97.522 Non-pressure chronic ulcer of other part of left foot with fat layer exposed; E11.621 Type 2 diabetes mellitus with foot ulcer; I70.235 Atherosclerosis of native arteries of right leg with ulceration of other part of foot; E11.40 Type 2 diabetes mellitus with diabetic neuropathy, unspecified; M14.671 Charcot's joint, right ankle and foot; E11.22 Type 2 diabetes mellitus with diabetic chronic kidney disease; N18.6 End stage renal disease; I25.10 Atherosclerotic heart disease of native coronary artery without angina pectoris; E11.52 Type 2 diabetes mellitus with diabetic peripheral angiopathy with gangrene | CPT/HCPCS: 11042 ==